=== PATIENT | male | born 1955 | race Caucasian/White ===

== ENCOUNTER 2017-01-21 22:32 | Emergency (ER) | payer OTHER ==
[2017-01-21 22:46] VITALS: BP 193/93; PULSE 70; TEMP 97.9; BMI 42.5
[2017-01-21] MEDS ORDERED: KETOROLAC TROMETHAMINE 30 MG/1 ML VIAL IVPUSH ONE (23:22)
[2017-01-21] MEDS ORDERED: AMOXICILLIN 500 MG CAPSULE (FP) PO ONE (23:24)
[2017-01-21] MEDS ORDERED: AMOXICILLIN 500 MG CAPSULE (FP) ONE (23:29)
[2017-01-21] MEDS ORDERED: KETOROLAC TROMETHAMINE 30 MG/1 ML VIAL ONE (23:29)
--- NOTE | 2017-01-21 23:34 | PDOC ---
History of Present Illness - General History Source: Patient Exam Limitations: No Limitations - History of Present Illness Initial Comments: 01/21/17 23:57 The patient is a 61 year old male with h/o IDDM, HTN, necrotizing fasciitis (s/ p right orchiectomy), peripheral neuropathy, and sinusitis, who presents to ER with left-sided facial pain that began one hour prior to arrival. The patient was sleeping and woke up suddenly when he developed a sharp pressure/sharp-like pain in the left maxillofacial region. Pt reports nasal congestion and associated shortness of breath. The patient denies any fever, chills, nausea, vomiting, diarrhea, or abdominal pain. The patient denies any chest pain. <Keisha Chatman - Last Filed: 01/21/17 23:57> - General History Source: Patient, Old Records Exam Limitations: No Limitations <Lonnie Batres - Last Filed: 01/22/17 02:06> - General Chief Complaint: Pain Stated Complaint: SHORTNESS OF BREATH Time Seen by Provider: 01/21/17 23:01 Past History <Keisha Chatman - Last Filed: 01/21/17 23:57> - Past Medical History Anemia: No Asthma: No Cancer: No Cardiac Disorders: No CVA: No COPD: No CHF: No Dementia: No Diabetes: Yes (2004) GI Disorders: No Disorders: No HTN: Yes Hypercholesterolemia: No Liver Disease: Yes (HEP C) Suicide Attempt (Hx): No Seizures: No Thyroid Disease: Yes Other medical history: Shingles - Surgical History Abdominal Surgery: No Appendectomy: No Cardiac Surgery: No Cholecystectomy: No Lung Surgery: No Neurologic Surgery: No Orthopedic Surgery: Yes (RIGHT KNEE ARTHROSCOPY, LEFT SHOULDER REPAIR 1974) - Psycho/Social/Smoking Cessation Hx Anxiety: No Suicidal Ideation: No Smoking History: Never smoked Have you smoked in the past 12 months: No Information on smoking cessation initiated: No Hx Alcohol Use: No Drug/Substance Use Hx: No Substance Use Type: Heroin Hx Substance Use Treatment: No <Lonnie Batres - Last Filed: 01/22/17 02:06> - Past Medical History Allergies/Adverse Reactions: Allergies Allergy/AdvReac Type Severity Reaction Status Date / Time Sulfa (Sulfonamide Allergy Intermediate Rash Verified 01/21/17 22:46 Antibiotics) Home Medications: Ambulatory Orders Methadone [Dolophine -] 120 mg PO DAILY #7 tablet 08/06/14 Dapagliflozin Propanediol [Farxiga] 1 tab PO DAILY 09/15/15 Gabapentin [Neurontin -] 300 mg PO Q8H PRN 09/15/15 Insulin Lispro [Humalog Kwikpen U-100] 1 unit SQ DAILY 09/15/15 Levothyroxine [Synthroid -] 1 tab PO DAILY 09/15/15 Oxycodone HCl/Acetaminophen [Percocet 10-325 mg Tablet] 1 tab PO Q4H PRN Pantoprazole Sodium [Protonix] 40 mg PO DAILY 09/15/15 Valsartan/Hydrochlorothiazide [Diovan Hct 320-12.5 mg Tab] 1 tab PO HS 09/15/15 Tramadol HCl 50 mg PO Q6H PRN #20 tablet MDD 4 01/22/17 Review of Systems - Review of Systems Able to Perform ROS?: Yes Comments:: 01/21/17 23:57 GENERAL/CONSTITUTIONAL: No fever or chills. No weakness. HEAD, EYES, EARS, NOSE AND THROAT: No change in vision. No ear pain or discharge. No sore throat. (+)left-sided facial pain, sinus pressure. CARDIOVASCULAR: No chest pain. (+)shortness of breath RESPIRATORY: No cough, wheezing, or hemoptysis. GASTROINTESTINAL: No nausea, vomiting, diarrhea or constipation. GENITOURINARY: No dysuria, frequency, or change in urination. MUSCULOSKELETAL: No joint or muscle swelling or pain. No neck or back pain. SKIN: No rash NEUROLOGIC: No headache, vertigo, loss of consciousness, or change in strength/ sensation. ENDOCRINE: No increased thirst. No abnormal weight change. HEMATOLOGIC/LYMPHATIC: No anemia, easy bleeding, or history of blood clots. ALLERGIC/IMMUNOLOGIC: No hives or skin allergy. <Keisha Chatman - Last Filed: 01/21/17 23:57> *Physical Exam - Vital Signs Last Vital Signs Temp Pulse Resp BP Pulse Ox 97.9 F 70 20 193/93 98 01/21/17 22:43 01/21/17 22:43 01/21/17 22:43 01/21/17 22:43 01/21/17 22:43 - Physical Exam Comments: 01/21/17 23:59 GENERAL: Awake, alert, and fully oriented, in no acute distress HEAD: No signs of trauma EYES: PERRLA, EOMI, sclera anicteric, conjunctiva clear ENT: Auricles normal inspection, hearing grossly normal, nares patent, oropharynx clear without exudates. Moist mucosa NECK: Normal ROM, supple, no lymphadenopathy, JVD, or masses LUNGS: Breath sounds equal, clear to auscultation bilaterally. No wheezes, and no crackles HEART: Regular rate and rhythm, normal S1 and S2, no murmurs, rubs or gallops ABDOMEN: Soft, nontender, normoactive bowel sounds. No guarding, no rebound. No masses EXTREMITIES: Normal range of motion, no edema. No clubbing or cyanosis. No cords, erythema, or tenderness NEUROLOGICAL: Cranial nerves II through XII grossly intact. Normal speech, normal gait SKIN: Warm, Dry, normal turgor, no rashes or lesions noted <Keisha Chatman - Last Filed: 01/21/17 23:57> - Vital Signs Last Vital Signs Temp Pulse Resp BP Pulse Ox 97.9 F 70 20 193/93 98 01/21/17 22:43 01/21/17 22:43 01/21/17 22:43 01/21/17 22:43 01/21/17 22:43 <Lonnie Batres - Last Filed: 01/22/17 02:06> Heart Score/ECG Review #1 ECG reviewed & interpreted by me at: 00:45 01/22/17 00:58 NSR 71, Q wave III, avf, no STD/SARAH, QTC 445 msec. <Lonnie Batres - Last Filed: 01/22/17 02:06> ED Treatment Course - LABORATORY CBC & Chemistry Diagram: 01/21/17 23:40 01/21/17 23:40 - RADIOLOGY Radiology Studies Ordered: Category Date Time Status FACIAL BONES CT W/O CONTRAST [CT] Stat CT Scan 01/21/17 23:25 Ordered CHEST X-RAY PORTABLE* [RAD] Stat Radiology 01/21/17 23:25 Ordered <Lonnie Batres - Last Filed: 01/22/17 02:06> Medical Decision Making - Medical Decision Making 01/21/17 23:39 A portion of this note was documented by scribe services under my direction. I have reviewed the details of the note, within reason, and agree with the documentation with the following case summary and management plan written by me. Patient treated in the ED. Nursing notes are reviewed and incorporated into the medical decision-making. Vital signs reviewed. Peripheral IV access obtained by the nurse, laboratory studies are drawn and sent, reviewed and interpreted by myself. Vital Signs Temp Pulse Resp BP Pulse Ox 97.9 F 70 20 193/93 98 01/21/17 22:43 01/21/17 22:43 01/21/17 22:43 01/21/17 22:43 01/21/17 22:43 61-year-old male with history of hypertension, diabetes, peripheral neuropathy, poorly controlled on insulin pump, ?lung disease?, Prior history of sinusitis presents with sudden onset of left facial pain. Patient reports that he was in his usual state of health until approximately one hour prior to arrival, developed a sharp pressure and sharp-like pain in the left maxillofacial facial region. Reports some nasal congestion but denies fevers or chills. Denies sick contacts, fevers, chills. Reports her sugars are typically in the high 200s. He states that the pain is causing him to be short of breath but denies that he is having chest pain or shortness of breath separate from this. I have low suspicion for acute coronary syndrome or pulmonary pathology at this time. I suspect that he is complaining of short of breath because of the pain in his face. However, though the onset of time is very short and may potentially be viral sinusitis, the patient does have poorly controlled diabetes and is on an insulin pump. We'll obtain a facial CT to look for other underlying complications. We'll likely initiate antibiotics given poor diabetes control. We'll send labs, EKG, chest x-ray. Reassess. 01/22/17 01:58 CT scan reviewed. No evidence of sinusitis. CBC, BMP 01/21/17 23:40 01/21/17 23:40 CMP Sodium 140 mmol/L (136-145) 01/21/17 23:40 Potassium 4.3 mmol/L (3.5-5.1) 01/21/17 23:40 Chloride 99 mmol/L (98-107) 01/21/17 23:40 Carbon Dioxide 30 mmol/L (21-32) 01/21/17 23:40 Anion Gap 11 (8-16) 01/21/17 23:40 BUN 30 mg/dL (7-18) H D 01/21/17 23:40 Creatinine 1.1 mg/dL (0.7-1.3) 01/21/17 23:40 Creat Clearance w eGFR > 60 (>60) 01/21/17 23:40 Random Glucose 268 mg/dL (74-106) H D 01/21/17 23:40 Calcium 8.4 mg/dL (8.5-10.1) L 01/21/17 23:40 Total Bilirubin 0.4 mg/dL (0.2-1.0) D 01/21/17 23:40 AST 27 U/L (15-37) D 01/21/17 23:40 ALT 26 U/L (12-78) D 01/21/17 23:40 Alkaline Phosphatase 83 U/L (45-117) 01/21/17 23:40 Creatine Kinase 215 IU/L (39-308) 01/21/17 23:40 Creatine Kinase Index Y 01/21/17 23:40 CK-MB (CK-2) ng/ml (0.5-3.6) 01/21/17 23:40 CK-MB (CK-2) Rel Index Cancelled 01/21/17 23:40 Troponin I 0.02 ng/ml (0.00-0.05) 01/21/17 23:40 Total Protein 6.1 g/dl (6.4-8.2) L 01/21/17 23:40 Albumin 3.0 g/dl (3.4-5.0) L 01/21/17 23:40 Chest xray reviewed, pending official radiology read. No acute findings. The patient reports feeling somewhat better. Given the CT results and no evidence of sinusitis and no elevated WBC, I had opted against antibiotics at this time. Will hold off as this is not sinusitis. Again, I have very low suspicion for cardiac or pulmonary disease process at this time. Give the patient's pain is at this point. The patient does take methadone on a daily basis and declines any narcotics at this time. I advised patient to observe and see how he does in the next couple of days. Will give a small prescription for tramadol and have the patient follow up with his PMD. I discussed the physical exam findings, ancillary test results and final diagnoses with the patient. I answered all of the patient's questions. The patient was satisfied with the care received and felt comfortable with the discharge plan and treatment plan. The patient will call their primary care physician within 24 hours to arrange follow-up and will return to the Emergency Department with any new, persistant or worsening symptoms. <Lonnie Batres - Last Filed: 01/22/17 02:06> *DC/Admit/Observation/Transfer - Attestations Scribe Attestion: 01/22/17 00:00 Documentation prepared by Keisha Chatman, acting as medical economics consultant for Lonnie Batres MD. <Keisha Chatman - Last Filed: 01/21/17 23:57> - Discharge Dispostion Admit: No <Lonnie Batres - Last Filed: 01/22/17 02:06> Diagnosis at time of Disposition: Facial pain - Discharge Dispostion Disposition: HOME Condition at time of disposition: Stable - Prescriptions Prescriptions: Tramadol HCl 50 mg PO Q6H PRN #20 tablet MDD 4 PRN Reason: Pain - Referrals Referrals: Vimal Bradley [Primary Care Provider] - - Patient Instructions Additional Instructions: Your CT scan of your face demonstrates no findings. Please take the tramadol every 6 hours as needed for pain. Follow up with your doctor. If you have excruciating pain or uncontrollable pain, please return to the ER for further evaluation.
[2017-01-22 00:25] LABS: BASOPHIL 0.9 % (0-2.0); EOSINOPHIL 4.3 % (0-4.5); MCH 26.6 pg (25.7-33.7); MCHC 32.9 g/dl (32.0-35.9); MEAN CELL VOLUME 80.8 fl (80-96); MEAN PLT VOLUME 9.7 fl (7.5-11.1); NEUTROPHILS 75.9 % (42.8-82.8); PLATELET COUNT 178 K/MM3 (134-434); RDW 16.5 % (11.9-15.9); WHITE BLOOD COUNT 8.1 K/mm3 (4.0-10.0)
[2017-01-22] MEDS ORDERED: PSEUDOEPHEDRINE HCL 60 MG TABLET PO ONE (00:32)
[2017-01-22] MEDS ORDERED: PSEUDOEPHEDRINE HCL 60 MG TABLET ONE (00:53)
[2017-01-22 01:02] LABS: ALK PHOS 83 U/L (45-117); ANION GAP 11 (8-16); BILIRUBIN,TOTAL 0.4 mg/dL (0.2-1.0); CALCIUM 8.4 mg/dL (8.5-10.1); CO2 30 mmol/L (21-32); CREATININE 1.1 mg/dL (0.7-1.3); GLUCOSE,RANDOM 268 mg/dL (74-106); SGOT/AST 27 U/L (15-37); SGPT/ALT 26 U/L (12-78); TOT PROT 6.1 g/dl (6.4-8.2); TROPONIN I 0.02 ng/ml (0.00-0.05)
[2017-01-22] MEDS ORDERED: traMADol HCL 50 MG TABLET PO ONE (01:57)
[2017-01-22] MEDS ORDERED: traMADol HCL 50 MG TABLET ONE (02:11)
--- NOTE | 2017-01-23 21:40 | EKG ---
Test Reason : Blood Pressure : / mmHG Vent. Rate : 071 BPM Atrial Rate : 071 BPM P-R Int : 158 ms QRS Dur : 082 ms QT Int : 410 ms P-R-T Axes : 060 011 019 degrees QTc Int : 445 ms NORMAL SINUS RHYTHM INFERIOR INFARCT (CITED ON OR BEFORE 04-AUG-2014) ABNORMAL ECG WHEN COMPARED WITH ECG OF 04-AUG-2014 17:44, T WAVE VARIATION IS NO LONGER PRESENT Confirmed by JUDAH TAYLOR, CARMELLA ([id number]) on 01/23/2017 9:39:41 PM Referred By: Confirmed By:CARMELLA SO MD
== END 2017-01-22 02:20 | disposition home or self-care (01) ==
LOC: JER 22:32
DX: G50.1 Atypical facial pain (principal); I10 Essential (primary) hypertension; E11.9 Type 2 diabetes mellitus without complications; Z79.4 Long term (current) use of insulin; Z96.41 Presence of insulin pump (external) (internal); B18.2 Chronic viral hepatitis C
CPT/HCPCS: 36415; 70486-TC; 71010-TC; 80053; 82550; 82553; 84484; 85025; 93005; 93010; 99281-25

== ENCOUNTER 2017-04-02 09:24 | Emergency (ER) | payer OTHER ==
[2017-04-02 09:31] VITALS: BP 149/94; PULSE 70; TEMP 98; BMI 42.5
[2017-04-02] MEDS ORDERED: KETOROLAC TROMETHAMINE 60 MG/2 ML VIAL IM ONE (09:59)
[2017-04-02] MEDS ORDERED: KETOROLAC TROMETHAMINE 60 MG/2 ML VIAL ONE (10:05)
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
== END 2017-04-02 10:19 | disposition home or self-care (01) ==
LOC: JERFT 09:24 → SUPCPDRO 09:24 → JERFT 10:19
PROC: 3E0233Z Introduction of Anti-inflammatory into Muscle, Percutaneous Approach (ICD-10-PCS; principal; 2017-04-02)
DX: S80.811A Abrasion, right lower leg, initial encounter (principal); S80.211A Abrasion, right knee, initial encounter; W17.82XA Fall from (out of) grocery cart, initial encounter; Y93.89 Activity, other specified; Y92.512 Supermarket, store or market as the place of occurrence of the external cause; Y99.8 Other external cause status; I10 Essential (primary) hypertension; E11.9 Type 2 diabetes mellitus without complications; Z79.84 Long term (current) use of oral hypoglycemic drugs; E03.9 Hypothyroidism, unspecified; B18.2 Chronic viral hepatitis C
CPT/HCPCS: 99281-25

== ENCOUNTER 2018-02-19 13:27 | Emergency (ER) | payer OTHER ==
[2018-02-19 13:44] VITALS: BMI 43.3
[2018-02-19] MEDS ORDERED: SODIUM CHLORIDE 0.9% 1000 ML INFUS.BAG IV STA (13:52)
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
[2018-02-19] MEDS ORDERED: VANCOMYCIN 2,000 MG in DEXTROSE 5%-WATER - 250 ML IVPB ONE (13:57)
[2018-02-19] MEDS ORDERED: PIPERACILLIN/TAZOB 4.5 GM/100 ML PREMIX BAG IVPB ONE (13:57)
[2018-02-19] MEDS ORDERED: CLINDAMYCIN 600MG PREMIX IVPB 600 MG/50 ML BAG IVPB ONE (14:23)
[2018-02-19] MEDS ORDERED: CLINDAMYCIN 900 MG PREMIX IVPB 900 MG/50 ML BAG IVPB ONE ×2 (14:27→14:29)
[2018-02-19] MEDS ORDERED: PIPERACILLIN/TAZOB 4.5 GM 4.5 GM/100 ML BAG IVPB ONE (14:29)
[2018-02-19] MEDS ORDERED: VANCOMYCIN 2,000 MG in DEXTROSE 5%-WATER - 500 ML IVPB ONE (14:42)
[2018-02-19] MEDS ORDERED: ACETAMINOPHEN 1000 MG/100 ML VIAL (NON FORMULARY) IVPB ONE (15:09)
[2018-02-19] MEDS ORDERED: ACETAMINOPHEN INJECTION 100 ML IVPB ONE (15:13)
[2018-02-19 15:17] LABS: VENOUS PH 7.4 (7.32-7.42)
[2018-02-19 15:18] LABS: VENOUS PC02 54.3 mmHg (38-52); VENOUS PO2 19.5 mmHg (28-48)
[2018-02-19 15:24] LABS: HEMATOCRIT 25.8 % (35.4-49); HEMOGLOBIN 8.2 GM/dL (11.7-16.9); MCH 23.5 pg (25.7-33.7); MCHC 31.8 g/dl (32.0-35.9); MEAN CELL VOLUME 73.9 fl (80-96); MEAN PLT VOLUME 8.9 fl (7.5-11.1); PLATELET COUNT 380 K/MM3 (134-434); RBC 3.49 M/mm3 (4.00-5.60); RDW 18.8 % (11.9-15.9); WHITE BLOOD COUNT 20.4 K/mm3 (4.0-10.0)
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
[2018-02-19 15:40] LABS: INR 1.36 (0.82-1.09); PROTHROMBIN TIME (PATIENT) 15.4 SEC (9.98-11.88)
[2018-02-19] MEDS ORDERED: morphine CARPU-JECT 4 MG/1 ML DISP.SYRIN IVPUSH ONE ×2 (15:40→17:38)
[2018-02-19 15:43] LABS: ACTIVATED PTT 30.3 SECONDS (26.9-34.4)
[2018-02-19] MEDS ORDERED: VANCOMYCIN 1,000 MG in DEXTROSE 5%-WATER - 250 ML IVPB SCH (15:45)
[2018-02-19 15:51] LABS: ALBUMIN 2.1 g/dl (3.4-5.0); ANION GAP 7 (8-16); BILIRUBIN,TOTAL 0.2 mg/dL (0.2-1.0); BLOOD UREA NITROGEN 55 mg/dL (7-18); CALCIUM 8.3 mg/dL (8.5-10.1); CHLORIDE 96 mmol/L (98-107); CO2 30 mmol/L (21-32); CREATININE 1.8 mg/dL (0.7-1.3); GLUCOSE,RANDOM 65 mg/dL (74-106); SGPT/ALT 24 U/L (12-78); SODIUM 133 mmol/L (136-145); TOT PROT 6.8 g/dl (6.4-8.2)
[2018-02-19 15:54] LABS: ALK PHOS 202 U/L (45-117)
[2018-02-19 15:56] LABS: POTASSIUM 5.1 mmol/L (3.5-5.1)
[2018-02-19 15:57] LABS: SGOT/AST 31 U/L (15-37)
[2018-02-19] MEDS ORDERED: DEXTROSE 50%-WATER - 25 GM/50 ML VIAL IVPUSH ONE (16:01)
[2018-02-19 16:04] LABS: PLATELET ESTIMATE SLT INCREASE
[2018-02-19] MEDS ORDERED: DEXTROSE 50%-WATER 25 GM/50 ML DISP.SYRIN ONE (16:05)
[2018-02-19 16:19] LABS: URINE APPEARANCE CLOUDY; URINE BILIRUBIN NEGATIVE (<2.0 mg/dL); URINE BLOOD NEGATIVE (NEGATIVE); URINE COLOR YELLOW; URINE GLUCOSE (UA) 1+ (NEGATIVE); URINE KETONE NEGATIVE (NEGATIVE); URINE LEUK ESTERASE TRACE (NEGATIVE); URINE NITRITE NEGATIVE (NEGATIVE); URINE UROBILINOGEN NEGATIVE mg/dL (0.2-1.0)
[2018-02-19] MEDS ORDERED: morphine SULFATE 4 MG/ML VIAL ONE (16:32)
[2018-02-19 16:36] LABS: URINE PROTEIN 3+ (NEGATIVE)
[2018-02-19 16:37] LABS: EPI CELLS RARE /HPF (FEW); URINE BACTERIA RARE /hpf (NONE SEEN); URINE HYALINE CAST 4 /lpf; URINE MUCUS RARE; YEAST FEW
[2018-02-19] MEDS ORDERED: NYSTATIN POWDER 100,000 UNITS/GM - 15 GM TOPICAL POWDER TP ONE (17:00)
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
[2018-02-19] MEDS ORDERED: MORPHINE SULFATE 10 MG/1 ML *VIAL ONE (17:41)
[2018-02-19 17:45] VITALS: BP 114/54
[2018-02-19] MEDS ORDERED: CLINDAMYCIN 900 MG PREMIX IVPB 900 MG/50 ML BAG IVPB SCH (18:00)
[2018-02-19] MEDS ORDERED: PIPERACILLIN/TAZOB 4.5 GM 4.5 GM in DEXTROSE 5%-WATER - 100 ML IVPB SCH (18:00)
[2018-02-19 19:08] VITALS: PULSE 82; TEMP 98.1
--- NOTE | 2018-02-20 11:37 | EKG ---
Test Reason : Blood Pressure : / mmHG Vent. Rate : 084 BPM Atrial Rate : 084 BPM P-R Int : 118 ms QRS Dur : 082 ms QT Int : 364 ms P-R-T Axes : 032 024 032 degrees QTc Int : 430 ms NORMAL SINUS RHYTHM NORMAL ECG WHEN COMPARED WITH ECG OF 22-JAN-2017 00:43, NO SIGNIFICANT CHANGE WAS FOUND Confirmed by JANE WHITE MD ([id number]) on 02/20/2018 11:37:29 AM Referred By: Confirmed By:JANE WHITE MD
== END 2018-02-19 19:12 | disposition short-term general hospital (02) ==
LOC: JER 13:27
DX: E11.621 Type 2 diabetes mellitus with foot ulcer (principal); L97.509 Non-pressure chronic ulcer of other part of unspecified foot with unspecified severity; Z79.4 Long term (current) use of insulin; B35.6 Tinea cruris
CPT/HCPCS: 36415; 70450-TC; 71045-TC-FY; 73610-TC-RT-FY; 73630-TC-RT-FY; 73700-TC-RT; 74176-TC; 80053; 81003; 81015; 82009; 82803; 82962; 83605; 84484; 85025; 85610; 85730; 86850; 86900; 86901; 87040; 87045; 87046; 87086; 93005; 93010; 99284-25; J0131; J7030

== ENCOUNTER 2018-09-28 10:07 | Observation (INO) | payer OTHER ==
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
--- NOTE | 2018-09-28 11:39 | PDOC ---
History of Present Illness <Keisha Chatman - Last Filed: 09/28/18 11:56> - General History Source: Patient Exam Limitations: No Limitations - History of Present Illness Initial Comments: 09/28/18 11:32 Patient is 63M with history of IDDM (on pump), HTN, IVDA, HCV, nec fas, s/p R leg amputation here today complaining of low calcium in an outpatient lab done at [facility]. Patient says that he has some shortness of breath, but no real change from his baseline. Denies chest pain, fevers, chills, nausea, vomiting. Endorses some increased swelling in his leg. Endorses compliance with his medications. Patient states that he's only coming in to the ED because of repeated calls about the low calcium levels and the fact that his PCP is not practicing medicine at this time. <Houston Rodrigues - Last Filed: 09/28/18 15:33> - General Chief Complaint: Revisit, Lab Variance Stated Complaint: SOB, LAB VARIANCE Time Seen by Provider: 09/28/18 10:35 Past History <Keisha Chatman - Last Filed: 09/28/18 11:56> - Past Medical History Anemia: No Asthma: No Cancer: No Cardiac Disorders: No CVA: No COPD: No CHF: No Dementia: No Diabetes: Yes (2004) GI Disorders: No Disorders: No HTN: Yes Hypercholesterolemia: No Liver Disease: No Seizures: No Thyroid Disease: Yes (HYPO.) - Surgical History Abdominal Surgery: No Appendectomy: No Cardiac Surgery: No Cholecystectomy: No Lung Surgery: No Neurologic Surgery: No Orthopedic Surgery: Yes (RIGHT KNEE ARTHROSCOPY, LEFT SHOULDER REPAIR 1974) - Suicide/Smoking/Psychosocial Hx Smoking History: Never smoked Have you smoked in the past 12 months: No Information on smoking cessation initiated: No Hx Alcohol Use: No Drug/Substance Use Hx: No Substance Use Type: None Hx Substance Use Treatment: No <Houston Rodrigues - Last Filed: 09/28/18 15:33> - Past Medical History Allergies/Adverse Reactions: Allergies Allergy/AdvReac Type Severity Reaction Status Date / Time Sulfa (Sulfonamide Allergy Intermediate Rash Verified 09/28/18 10:16 Antibiotics) Home Medications: Ambulatory Orders Methadone [Dolophine -] 120 mg PO DAILY #7 tablet 08/06/14 Pantoprazole Sodium [Protonix] 40 mg PO DAILY 09/15/15 Amlodipine Besylate 10 mg PO DAILY 09/28/18 Aspirin 81 mg PO DAILY 09/28/18 Atorvastatin Ca [Lipitor] 20 mg PO HS 09/28/18 Azilsartan Medoxomil [Edarbi] 80 mg PO DAILY 09/28/18 Furosemide 20 mg PO DAILY 09/28/18 Furosemide [Lasix -] 40 mg PO DAILY #30 tablet 09/28/18 Gabapentin 300 mg PO DAILY 09/28/18 Review of Systems - Review of Systems Comments:: 09/28/18 11:35 GENERAL/CONSTITUTIONAL: No fever or chills. No weakness. HEAD, EYES, EARS, NOSE AND THROAT: No change in vision. No sore throat. CARDIOVASCULAR: No chest pain +shortness of breath RESPIRATORY: No cough, wheezing, or hemoptysis. GASTROINTESTINAL: No nausea, vomiting, diarrhea or constipation. GENITOURINARY: No dysuria, frequency, or change in urination. MUSCULOSKELETAL: No joint or muscle swelling or pain. No neck or back pain. SKIN: No rash NEUROLOGIC: No headache, vertigo, loss of consciousness, or change in strength/ sensation. ENDOCRINE: No increased thirst. No abnormal weight change HEMATOLOGIC/LYMPHATIC: No anemia, easy bleeding, or history of blood clots. ALLERGIC/IMMUNOLOGIC: No hives or skin allergy. <Houston Rodrigues - Last Filed: 09/28/18 15:33> *Physical Exam - Vital Signs Last Vital Signs Temp Pulse Resp BP Pulse Ox 98 F 83 19 145/70 93 L 09/28/18 10:13 09/28/18 10:13 09/28/18 10:13 09/28/18 10:13 09/28/18 10:13 <Keisha Chatman - Last Filed: 09/28/18 11:56> - Vital Signs Last Vital Signs Temp Pulse Resp BP Pulse Ox 98 F 83 19 145/70 93 L 09/28/18 10:13 09/28/18 10:13 09/28/18 10:13 09/28/18 10:13 09/28/18 10:13 - Physical Exam Comments: 09/28/18 11:37 GENERAL: Awake, alert, and fully oriented, in no acute distress HEAD: No signs of trauma, normocephalic, atraumatic EYES: PERRLA, EOMI, sclera anicteric, conjunctiva clear ENT: Auricles normal inspection, hearing grossly normal, nares patent, oropharynx clear without exudates. Moist mucosa NECK: Normal ROM, supple, no lymphadenopathy, JVD, or masses LUNGS: No distress, speaks full sentences, clear to auscultation bilaterally HEART: Regular rate and rhythm, normal S1 and S2, no murmurs, rubs or gallops, peripheral pulses normal and equal bilaterally. ABDOMEN: Soft, nontender, normoactive bowel sounds. No guarding, no rebound. No masses EXTREMITIES: +R leg amputation, Normal range of motion, 2+ edema in left leg. No clubbing or cyanosis. NEUROLOGICAL: Cranial nerves II through XII grossly intact. Normal speech, no focal sensorimotor deficits SKIN: Warm, Dry, normal turgor, no rashes or lesions noted. <Houston Rodrigues - Last Filed: 09/28/18 15:33> ED Treatment Course - LABORATORY CBC & Chemistry Diagram: 09/28/18 11:50 09/28/18 11:50 - RADIOLOGY Radiology Studies Ordered: Category Date Time Status CHEST X-RAY PORTABLE* [RAD] Stat Radiology 09/28/18 10:46 Completed <Houston Rodrigues - Last Filed: 09/28/18 15:33> Medical Decision Making - Medical Decision Making 09/28/18 11:37 Patient is 62M with history of IDDM, HTN, IVDA, HCV, Nec fasc, R leg amputation here today with low calcium, symptoms of heart failure without acute exacerbation. Vitals normal and stable. Will recheck labs, setup with new PCP. EKG shows normal sinus rhythm. QTc 489ms. No st elevations/depressions. Normal axis. Normal intervals. No significant t wave abnormalities. 09/28/18 15:31 CMP shows GLORY. CXR shows fluid overload. BNP elevated. Patient requires admission for CHF exacerbation as he requires tight fluid management not possible in an outpatient setting. Signed out to medical team. Signed out to Lauren Weston <Houston Rodrigues - Last Filed: 09/28/18 15:33> *DC/Admit/Observation/Transfer <Keisha Chatman - Last Filed: 09/28/18 11:56> - Discharge Dispostion Decision to Admit order: Yes <Houston Rodrigues - Last Filed: 09/28/18 15:33> Diagnosis at time of Disposition: CHF exacerbation - Discharge Dispostion Condition at time of disposition: Stable - Prescriptions Prescriptions: Furosemide [Lasix -] 40 mg PO DAILY #30 tablet - Referrals Referrals: [facility] [place] [facility] at [place] [Provider Group]
[2018-09-28 12:09] LABS: BASO % 1.2 % (0-2.0); EOS % 4.1 % (0-4.5); HEMATOCRIT 28.9 % (35.4-49); HEMOGLOBIN 9.4 GM/dL (11.7-16.9); LYMPH % 7.4 % (8-40); MCH 26.8 pg (25.7-33.7); MCHC 32.6 g/dl (32.0-35.9); MEAN CELL VOLUME 82.1 fl (80-96); MEAN PLT VOLUME 9.6 fl (7.5-11.1); NEUT % 78.3 % (42.8-82.8); PLATELET COUNT 310 K/MM3 (134-434); RBC 3.53 M/mm3 (4.00-5.60); RDW 16.6 % (11.9-15.9); WHITE BLOOD COUNT 8.9 K/mm3 (4.0-10.0)
[2018-09-28 12:31] LABS: INR 1.1 (0.83-1.09)
[2018-09-28] MEDS ORDERED: FUROSEMIDE 40 MG TABLET (FP) PO ONE (12:32)
[2018-09-28 12:33] LABS: ALBUMIN 2.9 g/dl (3.4-5.0); ALK PHOS 98 U/L (45-117); ANION GAP 9 MMOL/L (8-16); BILIRUBIN,TOTAL 0.2 mg/dL (0.2-1); BLOOD UREA NITROGEN 57 mg/dL (7-18); CHLORIDE 103 mmol/L (98-107); CO2 26 mmol/L (21-32); CREATININE 2.3 mg/dL (0.55-1.3); MAGNESIUM 1.9 mg/dL (1.8-2.4); N-TERMINAL BNP 2217.5 pg/ml (5-125); PHOSPHOROUS 5.1 mg/dL (2.5-4.9); POTASSIUM 4.7 mmol/L (3.5-5.1); SGOT/AST 12 U/L (15-37); SGPT/ALT 16 U/L (13-61); SODIUM 138 mmol/L (136-145); TOT PROT 6.4 g/dl (6.4-8.2)
[2018-09-28 12:35] LABS: GLUCOSE,RANDOM 338 mg/dL (74-106)
[2018-09-28] MEDS ORDERED: FUROSEMIDE 40 MG TABLET (FP) ONE (12:35)
[2018-09-28 12:36] LABS: CALCIUM 6.3 mg/dL (8.5-10.1)
[2018-09-28] MEDS ORDERED: CALCIUM GLUCONATE 10% - 1,000 MG/10 ML VIAL ONE (14:32)
[2018-09-28] MEDS: CALCIUM GLUCONATE 10% - 1,000 MG/10 ML VIAL IVPB ONE ×2 (14:33→18:56)
--- NOTE | 2018-09-28 14:34 | HP ---
CHIEF COMPLAINT: increasing SOB, leg swelling PCP: Dr. Vimal Bradley Dolphin Trainer: Dr. Bagley HISTORY OF PRESENT ILLNESS: 63 year old male with a PMH significant for IDDM (dx 1990, +Humalog pump), CHF, HTN, HLD, Necrotizing fasciitis (s/p right orchiectomy), Opiod Dependence, Morbid obesity was sent to the ED by his lab pack chemist when she noticed his calcium levels were severely low. He has also been having increasing SOB and leg swelling over the past week. Over the past month he has had intermittent chest pain, palpitations, REYES, and orthopnea. He reports a 30 lb weight gain over the past 2 months. His sleep is interrupted by having multiple episodes of having to urinate at night. He says he is always in pain from left shoulder and groin area. No dizziness, syncope, fever, congestion or n/v/d. Upon admission to the ed VSS, labs notable for Ca 6.3, random glucose 338, BUN/ Cr 57/2.3, BNP 2217 Cr Kinase 552. CXR showed increased congestion from prior study. He was given a dose of Lasix 40 mg IV. Recent Travel: No PAST MEDICAL HISTORY: h/o IDDM (dx 1990, +Humalog pump) CHF Exacerbation HTN HLD Necrotizing fasciitis (s/p right orchiectomy) Opiod Dependence Morbid obesity PAST SURGICAL HISTORY: Right Orichiectomy Right BKA Left shoulder Right meniscus repair Cataracts b/l Tonsillectomy Social History: Formerly on the [email or web address] Smoking: Denies Alcohol:Denies Drugs: Former heroin 40 years ago Family History: Mother: from Enbrel medication age 72 Father: Lung cancer, age 77 Sisters: pre-diabetic Allergies Sulfa (Sulfonamide Antibiotics) Allergy (Intermediate, Verified 09/28/18 10:16) Rash HOME MEDICATIONS: Home Medications Medication Instructions Recorded Methadone [Dolophine -] 120 mg PO DAILY #7 tablet 08/06/14 Pantoprazole Sodium [Protonix] 40 mg PO DAILY 09/15/15 Amlodipine Besylate 10 mg PO DAILY 09/28/18 Aspirin 81 mg PO DAILY 09/28/18 Atorvastatin Ca [Lipitor] 20 mg PO HS 09/28/18 Azilsartan Medoxomil [Edarbi] 80 mg PO DAILY 09/28/18 Furosemide 20 mg PO DAILY 09/28/18 Furosemide [Lasix -] 40 mg PO DAILY #30 tablet 09/28/18 Gabapentin 300 mg PO DAILY 09/28/18 REVIEW OF SYSTEMS CONSTITUTIONAL: (+) weight gain of about 30 lbs in the past 2 months Absent: fever, chills, diaphoresis, generalized weakness, malaise, loss of appetite HEENT: (+) Worsening night vision Absent: rhinorrhea, nasal congestion, throat pain, throat swelling, difficulty swallowing, mouth swelling, ear pain, eye pain CARDIOVASCULAR: (+) Intermittent chest pain and palpitations over the past month , peripheral edema Absent: chest pain, syncope, irregular heart rate, lightheadedness RESPIRATORY: (+) shortness of breath, REYES, orthopnea Absent: cough, wheezing, stridor, hemoptysis GASTROINTESTINAL: Absent: abdominal pain, abdominal distension, nausea, vomiting, diarrhea, constipation, melena, hematochezia GENITOURINARY: (+) Urinary frequency, genital pain (chronic) Absent: dysuria, urgency, hesitancy, hematuria, flank pain MUSCULOSKELETAL: Absent: myalgia, arthralgia, joint swelling, back pain, neck pain SKIN: (+) chronic generalized rash, wound to left foot healing Absent: itching, pallor HEMATOLOGIC/IMMUNOLOGIC: Absent: easy bleeding, easy bruising, lymphadenopathy, frequent infections ENDOCRINE: Absent: unexplained weight gain, unexplained weight loss, heat intolerance, cold intolerance NEUROLOGIC: Absent: headache, focal weakness or paresthesias, dizziness, unsteady gait, seizure, mental status changes, bladder or bowel incontinence PSYCHIATRIC: Absent: anxiety, depression, suicidal or homicidal ideation, hallucinations. PHYSICAL EXAMINATION Vital Signs - 24 hr 09/28/18 10:13 Temperature 98 F Pulse Rate 83 Respiratory 19 Rate Blood Pressure 145/70 O2 Sat by Pulse 93 L Oximetry (%) GENERAL: Awake, alert, and fully oriented, in no acute distress. HEAD: Normal with no signs of trauma. EYES: Pupils equal, round and reactive to light, extraocular movements intact, sclera anicteric, conjunctiva clear. No lid lag. EARS, NOSE, THROAT: Nares patent, oropharynx clear without exudates. Moist mucous membranes. NECK: Normal range of motion, supple without lymphadenopathy, JVD, or masses. LUNGS: Breath sounds equal, clear to auscultation bilaterally. No wheezes, and no crackles. No accessory muscle use. HEART: Regular rate and rhythm, normal S1 and S2 without murmur, rub or gallop. ABDOMEN: Obese, soft, nontender, not distended, normoactive bowel sounds, no guarding, no rebound, no masses. No hepatomegaly or splenomegaly. MUSCULOSKELETAL: BKA right side (+) prosthesis, UPPER EXTREMITIES: 2+ pulses, warm, well-perfused. No cyanosis. No clubbing. No peripheral edema. LOWER EXTREMITIES: +2 edema to LLE, No calf tenderness. NEUROLOGICAL: No facial droop, tongue midline, normal speech, gait not observed. PSYCHIATRIC: Cooperative. Good eye contact. Appropriate mood and affect. SKIN: Generalized scaly excoriated rash to arms and forehead, Laboratory Results - last 24 hr 09/28/18 09/28/18 09/28/18 11:50 11:50 11:50 WBC 8.9 RBC 3.53 L Hgb 9.4 L Hct 28.9 L MCV 82.1 MCH 26.8 MCHC 32.6 RDW 16.6 H Plt Count 310 MPV 9.6 Absolute Neuts (auto) 7.0 Neutrophils % 78.3 Lymphocytes % 7.4 L D Monocytes % 9.0 Eosinophils % 4.1 Basophils % 1.2 Nucleated RBC % 0 PT with INR 13.00 INR 1.10 H Sodium 138 Potassium 4.7 Chloride 103 Carbon Dioxide 26 Anion Gap 9 BUN 57 H Creatinine 2.3 H Creat Clearance w eGFR 28.86 Random Glucose 338 H* Calcium 6.3 L* Phosphorus 5.1 H Magnesium 1.9 Total Bilirubin 0.2 AST 12 L ALT 16 Alkaline Phosphatase 98 Creatine Kinase 552 H Creatine Kinase Index 0.5 CK-MB (CK-2) 3.1 Troponin I 0.04 B-Natriuretic Peptide 2217.5 H Total Protein 6.4 Albumin 2.9 L ECG NSR QTc [address] elevations or Twave inversions CXR Increased congestion since prior study 02/19/18. ASSESSMENT/PLAN: 63 year old male with a PMH significant for IDDM (dx 1990, +Humalog pump), CHF, HTN, HLD, Necrotizing fasciitis (s/p right orchiectomy), Opiod Dependence, Morbid obesity presented to the ED with increasing SOB and leg swelling over the past week. He was placed on observation for dieresis and cardiac consult. CHF Exacerbation -[facility] 2216 -Troponin #1 0.04, #2 and #3 pending -No SOB, wheezing or crackles -Given Lasix 40 mg in ED -Continue Lasix 20 mg PO daily -FLORESITA for left leg -Cardiology consult with Dr. Bagley ordered -Echo pending Hypocalcemia -6.3, (corrected 7.2) -Given dose of Ca Gluconate 1 gm IV -Start Ca supplement BID -Monitor BMP GLORY -BUN/CR 57/2.3 -CR 1.8 09/05/18 -Hold ARB -Monitor BMP Diabetes -On Humalog pump -Gabapentin 300 mg for neuropathy -Monitor Glucose -Diabetic Diet HTN -Amplodipine 10 mg -Lasix 20 mg HLD -Atorvastatin 20 mg Opiod Dependence -Methadone 120 mg qday Morbid obesity -BMI 45.6 FEN -PO intake adequate -Replete electrolytes as indicated -Diabetic/Sodium controlled diet Prophylaxis -Asa 81 mg -Teds -Protonix 40 mg Dispo: pt currently requires further inpatient monitoring. Should be okay to d/ c after dieresis and cleared by cardiology. FULL CODE Visit type - Emergency Visit Emergency Visit: Yes ED Registration Date: 09/28/18 Care time: The patient presented to the Emergency Department on the above date and was hospitalized for further evaluation of their emergent condition. - New Patient This patient is new to me today: Yes Date on this admission: 09/28/18 - Critical Care Critical Care patient: No
--- NOTE | 2018-09-28 16:17 | CON.CARD ---
Consult Consult Specialty:: Cardiology Referred by:: Ricardo Reason for Consultation:: CHF - History of Present Illness History of Present Illness: 63M h/o DM, heart failure, HTN, HLD, opiod dependence p/w hypocalcemia, dyspnea , edema. Worsening intermittent chest pain, palps, shortness of breath, orthopnea over the last month, has gained [address] Bagley for cardio last week, was started on lasix 20 mg PO daily. noted urine output didn't increase much. In the ER was given lasix 40 mg IV - History Source History Provided By: Patient Limitations to Obtaining History: No Limitations - Past Medical History Cardio/Vascular: Yes: CAD (s/p cath with stent ~5 months ago per pt), HTN Hepatobiliary: Yes: Hepatitis C Psych: Yes: Addictions (on methadone program for remote heroin use) Endocrine: Yes: Diabetes Mellitus (uses insulin pump and meds), Hypothyroidism Dermatology: Yes: Other (chronic open plantar diabetic foot ulcers) Additional Medical History: posey to bilat upper ext from - Past Surgical History Past Surgical History: Yes: Orchiectomy (right secondary to ), Stent (cardiac ~5m ago per pt) - Alcohol/Substance Use Hx Alcohol Use: No History of Substance Use: reports: Heroin (not for over 30 years, h/o IVDA). denies: Marijuana - Smoking History Smoking history: Never smoked Have you smoked in the past 12 months: No - Social History Usual Living Arrangement: With Spouse Home Medications - Allergies Allergies/Adverse Reactions: Allergies Allergy/AdvReac Type Severity Reaction Status Date / Time Sulfa (Sulfonamide Allergy Intermediate Rash Verified 09/28/18 10:16 Antibiotics) - Home Medications Home Medications: Ambulatory Orders Methadone [Dolophine -] 120 mg PO DAILY #7 tablet 08/06/14 Pantoprazole Sodium [Protonix] 40 mg PO DAILY 09/15/15 Amlodipine Besylate 10 mg PO DAILY 09/28/18 Aspirin 81 mg PO DAILY 09/28/18 Atorvastatin Ca [Lipitor] 20 mg PO HS 09/28/18 Azilsartan Medoxomil [Edarbi] 80 mg PO DAILY 09/28/18 Furosemide 20 mg PO DAILY 09/28/18 Furosemide [Lasix -] 40 mg PO DAILY #30 tablet 09/28/18 Gabapentin 300 mg PO DAILY 09/28/18 Family Disease History - Family Disease History Family History: Unremarkable Review of Systems - Review of Systems Constitutional: reports: No Symptoms Eyes: reports: No Symptoms HENT: reports: No Symptoms Neck: reports: No Symptoms Cardiovascular: reports: Palpitations, Shortness of Breath Respiratory: reports: No Symptoms Gastrointestinal: reports: No Symptoms Genitourinary: reports: No Symptoms Musculoskeletal: reports: No Symptoms Integumentary: reports: No Symptoms Neurological: reports: Parasthesia Endocrine: reports: No Symptoms Hematology/Lymphatic: reports: No Symptoms Psychiatric: reports: No Symptoms Vital Signs: Vital Signs Temperature 98 F 09/28/18 10:13 Pulse Rate 83 09/28/18 10:13 Respiratory Rate 19 09/28/18 10:13 Blood Pressure 145/70 09/28/18 10:13 O2 Sat by Pulse Oximetry (%) 93 L 09/28/18 10:13 Constitutional: Yes: No Distress, Calm Eyes: Yes: Conjunctiva Clear, EOM Intact HENT: Yes: Atraumatic, Normocephalic Neck: Yes: Supple, Trachea Midline Respiratory: Yes: Regular, CTA Bilaterally Gastrointestinal: Yes: Normal Bowel Sounds, Soft Cardiovascular: Yes: Regular Rate and Rhythm JVD: Yes Carotid Bruit: No PMI: Non-Displaced Heart Sounds: Yes: S1, S2 Musculoskeletal: Yes: Other (s/p R BKA) Extremities: Yes: Cold, Cyanosis Edema: Yes Edema: LLE: 2+ Peripheral Pulses WNL: Yes Peripheral Pulses: 2+ Left Doralis Pedis, 2+ Right Dorsalis Pedis Integumentary: No: Jaundice Neurological: Yes: Alert, Oriented Psychiatric: Yes: Alert, Oriented - Other Data Labs, Other Data: CBC, BMP 09/28/18 11:50 09/28/18 11:50 INR, PTT INR 1.10 (0.83-1.09) H 09/28/18 11:50 Troponin, BNP 09/28/18 11:50 Troponin I 0.04 B-Natriuretic Peptide 2217.5 H Troponin, BNP 09/28/18 11:50 Troponin I 0.04 B-Natriuretic Peptide 2217.5 H Assessment/Plan CXR: increased congestion EKG:sinus rhythm, prolonged QTc echo 09/2018 tds, nl LV size/function, tr MR, mild biatrial enlaregment acute diastolic CHF exacerbation - worsening edema, dyspnea on exertion likely 2/2 CHF - was on lasix 20 mg PO daily at home without much urine output - received IV lasix 40 mg x 1 in ER, subjectively increased urination and improving symptoms - echo shows nl EF - continue lasix 40 mg IV daily, remains with lower ext edema, sob - monitor Cr, I/O, daily standing weights Prolonged QTc - new compared to prior, likely in setting of hypocalcemia - received IV calcium, manage per primary - monitoring on tele - avoid QT prolonging agents GLORY - holding ARB DM - manage per primary HTN - stable on amlodipine HLD - cont statin
--- NOTE | 2018-09-28 16:18 | ECHO ---
Name: JANNY CHEN Exam:Adult Echocardiogram Study Date: 09/28/2018 02:44 PM Age: 63 yrs Reason For Study: WORSENING CHF Height: 68 in Weight: 300 lb BSA: 2.4 m2 MMode/2D Measurements & Calculations IVSd: 1.3 cm Ao root diam: 3.5 cm LVIDd: 5.6 cm LA dimension: 4.0 cm LVIDs: 4.0 cm LVPWd: 1.3 cm LVPWs: 1.4 cm EDV(Teich): 156.4 ml ESV(Teich): 70.3 ml LVOT diam: 2.3 cm TAPSE: 3.1 cm Doppler Measurements & Calculations MV E max jairon: 98.5 cm/sec Ao V2 max: 138.9 cm/sec MV A max jairon: 90.7 cm/sec Ao max P.7 mmHg MV E/A: 1.1 MV dec time: 0.17 sec DAVID(V,D): 3.2 cm2 LV V1 max P.5 mmHg TR max jairon: 286.4 cm/sec LV V1 max: 106.2 cm/sec TR max P.8 mmHg PA V2 max: 122.2 cm/sec Med Peak E' Jairon: 8.4 cm/sec PA max P.0 mmHg Med E/e': 11.8 Lat Peak E' Jairon: 10.1 cm/sec Lat E/e': 9.7 Procedure A complete two-dimensional transthoracic echocardiogram was performed (2D, M-mode, Doppler and color flow Doppler). The study was technically difficult with many images being suboptimal in quality. Left Ventricle The left ventricular size, thickness and function are normal. The left ventricular ejection fraction is normal. Ejection Fraction = 55-60%. Regional wall motion abnormalities cannot be excluded due to limi gerardo visualization. Right Ventricle The right ventricle is normal in size and function. Atria The left atrium is mildly dilated. The right atrium is mildly dilated. Mitral Valve There is trace mitral regurgitation. Tricuspid Valve No tricuspid regurgitation. There was insufficient TR detected to calculate RV systolic pressure. Aortic Valve No hemodynamically significant valvular aortic stenosis. No aortic regurgitation is present. Pulmonic Valve The pulmonic valve is not well visualized. Great Vessels The aortic root is normal size. Pericardium/Pleura There is no pericardial effusion. Interpretation Summary The study was technically difficult with many images being suboptimal in quality. The left ventricular size, thickness and function are normal The right ventricle is normal in size and function. The left atrium is mildly dilated. The right atrium is mildly dilated. There is trace mitral regurgitation. MD Mac Bagley 09/28/2018 04:18 PM
--- NOTE | 2018-09-28 17:11 | EKG ---
Test Reason : Blood Pressure : / mmHG Vent. Rate : 080 BPM Atrial Rate : 080 BPM P-R Int : 126 ms QRS Dur : 074 ms QT Int : 424 ms P-R-T Axes : 015 032 039 degrees QTc Int : 489 ms NORMAL SINUS RHYTHM PROLONGED QT ABNORMAL ECG WHEN COMPARED WITH ECG OF 19-FEB-2018 13:40, QT HAS LENGTHENED Confirmed by HERMES ABDI MD ([id number]) on 09/28/2018 5:11:07 PM Referred By: Confirmed By:HERMES ABDI MD
[2018-09-28 18:40] VITALS: BMI 45.3
[2018-09-28] MEDS ORDERED: GABAPENTIN 300 MG CAPSULE (FP) PO SCH (22:00)
[2018-09-28] MEDS ORDERED: ATORVASTATIN CA 20 MG TABLET (FP) PO SCH (22:00)
[2018-09-28] MEDS: CALCIUM 500MG/VIT-D 200 UNITS COMBO TABLET (FP) PO SCH (22:24)
[2018-09-28] MEDS: INSULIN SLIDING SCALE (NOVOLOG) 1 VIAL SQ SCH (22:55)
[2018-09-29] MEDS: INSULIN SLIDING SCALE (NOVOLOG) 1 VIAL SQ SCH ×2 (06:11→13:31)
[2018-09-29] MEDS ORDERED: INSULIN SLIDING SCALE (NOVOLOG) 1 VIAL SQ SCH (07:00)
[2018-09-29 08:02] LABS: HEMATOCRIT 30.3 % (35.4-49); HEMOGLOBIN 9.7 GM/dL (11.7-16.9); MCH 26.1 pg (25.7-33.7); MEAN CELL VOLUME 81.3 fl (80-96); MEAN PLT VOLUME 9.4 fl (7.5-11.1); PLATELET COUNT 317 K/MM3 (134-434); RBC 3.73 M/mm3 (4.00-5.60); RDW 16.4 % (11.9-15.9)
[2018-09-29 08:31] LABS: ALBUMIN 2.8 g/dl (3.4-5.0); ALK PHOS 99 U/L (45-117); ANION GAP 8 MMOL/L (8-16); BILIRUBIN,TOTAL 0.3 mg/dL (0.2-1); BLOOD UREA NITROGEN 53 mg/dL (7-18); CHLORIDE 107 mmol/L (98-107); CO2 28 mmol/L (21-32); CREATININE 2.1 mg/dL (0.55-1.3); GLUCOSE,RANDOM 178 mg/dL (74-106); POTASSIUM 4.4 mmol/L (3.5-5.1); SGOT/AST 14 U/L (15-37); SGPT/ALT 16 U/L (13-61); SODIUM 143 mmol/L (136-145); TOT PROT 6.4 g/dl (6.4-8.2)
[2018-09-29] MEDS ORDERED: CALCIUM GLUCONATE 10% - 1,000 MG/10 ML VIAL IVPUSH ONE (09:58)
[2018-09-29] MEDS ORDERED: PATIENT'S OWN MEDICATION (NON-FORMULARY) (Azilsartan Medoxomil [Edarbi] 80 MG) PO SCH (10:00)
[2018-09-29] MEDS ORDERED: FUROSEMIDE 40 MG/4 ML INJECTABLE VIAL IVPUSH SCH (10:00)
[2018-09-29] MEDS ORDERED: ASPIRIN 81 MG CHEWABLE TABLETS PO SCH (10:00)
[2018-09-29] MEDS ORDERED: PANTOPRAZOLE 40 MG TABLET (FP) PO SCH (10:00)
[2018-09-29] MEDS ORDERED: FUROSEMIDE 20 MG TABLET (FP) PO SCH (10:00)
[2018-09-29] MEDS ORDERED: GABAPENTIN 300 MG CAPSULE (FP) PO SCH (10:00)
[2018-09-29] MEDS ORDERED: METHADONE HCL 10 MG TABLET PO SCH (10:00)
[2018-09-29] MEDS ORDERED: amLODIPine BESYLATE 10 MG TABLET (FP) PO SCH (10:00)
[2018-09-29] MEDS: CALCIUM 500MG/VIT-D 200 UNITS COMBO TABLET (FP) PO SCH (10:52)
[2018-09-29 10:59] VITALS: BP 142/91; PULSE 77; TEMP 98.1
--- NOTE | 2018-09-29 12:54 | CONSULT ---
Consult Consult Specialty:: Podiatry Reason for Consultation:: Foul smelling wound left foot - History of Present Illness Chief Complaint: None patient not concerned about left foot History of Present Illness: chronic wound left plantar charcot foot - History Source History Provided By: Patient - Past Medical History Cardio/Vascular: Yes: CAD (s/p cath with stent ~5 months ago per pt), HTN Hepatobiliary: Yes: Hepatitis C Psych: Yes: Addictions (on methadone program for remote heroin use) Endocrine: Yes: Diabetes Mellitus (uses insulin pump and meds), Hypothyroidism Dermatology: Yes: Other (chronic open plantar diabetic foot ulcers) Additional Medical History: posey to bilat upper ext from - Past Surgical History Past Surgical History: Yes: Orchiectomy (right secondary to ), Stent (cardiac ~5m ago per pt) - Alcohol/Substance Use Hx Alcohol Use: No History of Substance Use: reports: Heroin (not for over 30 years, h/o IVDA). denies: Marijuana - Smoking History Smoking history: Never smoked Have you smoked in the past 12 months: No - Social History Usual Living Arrangement: With Spouse Home Medications - Allergies Allergies/Adverse Reactions: Allergies Allergy/AdvReac Type Severity Reaction Status Date / Time Sulfa (Sulfonamide Allergy Intermediate Rash Verified 09/28/18 10:16 Antibiotics) - Home Medications Home Medications: Ambulatory Orders Methadone [Dolophine -] 120 mg PO DAILY #7 tablet 08/06/14 Pantoprazole Sodium [Protonix] 40 mg PO DAILY 09/15/15 Amlodipine Besylate 10 mg PO DAILY 09/28/18 Aspirin 81 mg PO DAILY 09/28/18 Atorvastatin Ca [Lipitor] 20 mg PO HS 09/28/18 Azilsartan Medoxomil [Edarbi] 80 mg PO DAILY 09/28/18 Furosemide 20 mg PO DAILY 09/28/18 Gabapentin 900 mg PO HS 09/28/18 Calcium 500Mg/Vit-D 200 Units [Os-Vishnu 500+D -] 1 tab PO BID tab 09/29/18 Physical Exam Vital Signs: Vital Signs Temperature 98.1 F 09/29/18 10:00 Pulse Rate 77 09/29/18 10:00 Respiratory Rate 17 09/29/18 10:00 Blood Pressure 142/91 09/29/18 10:00 O2 Sat by Pulse Oximetry (%) 94 L 09/29/18 09:00 Extremities: Yes: Amputation (right bka, +charcot foot with wound left with drainage and odor) Labs: CBC, BMP 09/29/18 07:18 09/29/18 07:18 Assessment/Plan charcot foot om? Discussed with patient stated he is going to leave today. I advised him against it and that he needs wound care antibiotics possible hbo and surgical intervention. MRI ordered. Patient was argumentative. States wound became that way since getting here. Being trated at [facility] for left foot wound. They recommend no HBO at this time. Santyl to left foot. Will follow till dc.
[2018-09-29] MEDS ORDERED: CALCIUM GLUCONATE 10% - 1,000 MG/10 ML VIAL IVPB ONE (14:15)
--- NOTE | 2018-09-29 14:32 | PN ---
Progress Note (short form) - Note Progress Note: s:feels better today, no dyspnea, orthopnea, PND, nausea. edema improved, no dyspnea on exertion. feels at [place], wants to go home o: Current Medications Amlodipine Besylate (Norvasc -) 10 mg PO DAILY [facility] Last Admin: 09/29/18 10:52 Dose: 10 mg Aspirin (Asa -) 81 mg PO DAILY [facility] Last Admin: 09/29/18 10:52 Dose: 81 mg Atorvastatin Calcium (Lipitor -) 20 mg PO HS [facility] Last Admin: 09/28/18 22:24 Dose: 20 mg Calcium Carbonate/Cholecalciferol (Os-Vishnu 500+D -) 1 tab PO BID [facility] Last Admin: 09/29/18 10:52 Dose: 1 tab Furosemide (Lasix Injection -) 40 mg IVPUSH DAILY [facility] Last Admin: 09/29/18 10:52 Dose: 40 mg Gabapentin (Neurontin -) 900 mg PO [facility] Last Admin: 09/28/18 22:23 Dose: 900 mg Insulin Aspart (Novolog Vial Sliding Scale -) 1 vial SQ ACHS [facility]; Protocol Last Admin: 09/29/18 13:31 Dose: 4 unit Methadone HCl (Dolophine -) 120 mg PO DAILY [facility] Pantoprazole Sodium (Protonix -) 40 mg PO DAILY [facility] Last Admin: 09/29/18 10:52 Dose: 40 mg Vital Signs: Vital Signs Period Temp Pulse Resp BP Sys/Alvarez Pulse Ox Last 24 Hr 97.8 F-98.5 F 69-87 17-20 138-166/72-91 93-94 Constitutional: Yes: No Distress, Calm Eyes: Yes: Conjunctiva Clear, EOM Intact HENT: Yes: Atraumatic, Normocephalic Neck: Yes: Supple, Trachea Midline Respiratory: Yes: Regular, CTA Bilaterally Gastrointestinal: Yes: Normal Bowel Sounds, Soft Cardiovascular: Yes: Regular Rate and Rhythm JVD: No Carotid Bruit: No PMI: Non-Displaced Heart Sounds: Yes: S1, S2 Musculoskeletal: Yes: Other (s/p R BKA) Extremities: Yes: Cold, Cyanosis Edema: Yes Edema: LLE: 1+ Peripheral Pulses WNL: Yes Peripheral Pulses: 2+ Left Doralis Pedis, 2+ Right Dorsalis Pedis Integumentary: No: Jaundice Neurological: Yes: Alert, Oriented Psychiatric: Yes: Alert, Oriented Assessment/Plan CXR: increased congestion EKG:sinus rhythm, prolonged QTc echo 09/2018 tds, nl LV size/function, tr MR, mild biatrial enlaregment acute diastolic CHF exacerbation - worsening edema, dyspnea on exertion likely 2/2 CHF - was on lasix 20 mg PO daily at home without much urine output - received IV lasix 40 mg x 1 in ER, and this AM, subjectively increased urination and improving symptoms - echo shows nl EF - restart lasix 20 mg PO daily, follow up with Dr. Bagley in 1-2 weeks - stale for discharge from cardiac perspective Prolonged QTc - new compared to prior, likely in setting of hypocalcemia - received IV calcium, manage per primary, improving - avoid QT prolonging agents - replete lytes for K>4.0, Mg >2.0 GLORY - holding ARB - improving with lasix DM - manage per primary HTN - stable on amlodipine HLD - cont statin
[2018-09-29] MEDS ORDERED: METHADONE HCL 40 MG DISPERSABLE TABLET PO SCH (15:30)
--- NOTE | 2018-09-29 20:27 | DS ---
Physical Exam: SUBJECTIVE: Patient seen and examined, he reports he is feeling better and is very anxious to get home. OBJECTIVE: Vital Signs Period Temp Pulse Resp BP Sys/Alvarez Pulse Ox Last 24 Hr 97.9 F-98.5 F 77-81 17-18 142-166/72-91 93-94 PHYSICAL EXAM GENERAL: Awake, alert, and fully oriented, in no acute distress. HEAD: Normal with no signs of trauma. EYES: Pupils equal, round and reactive to light, extraocular movements intact, sclera anicteric, conjunctiva clear. No lid lag. EARS, NOSE, THROAT: Nares patent, oropharynx clear without exudates. Moist mucous membranes. NECK: Normal range of motion, supple without lymphadenopathy, JVD, or masses. LUNGS: Breath sounds equal, clear to auscultation bilaterally. No wheezes, and no crackles. No accessory muscle use. HEART: Regular rate and rhythm, normal S1 and S2 without murmur, rub or gallop. ABDOMEN: Obese, soft, nontender, not distended, normoactive bowel sounds, no guarding, no rebound, no masses. No hepatomegaly or splenomegaly. MUSCULOSKELETAL: BKA right side (+) prosthesis, UPPER EXTREMITIES: 2+ pulses, warm, well-perfused. No cyanosis. No clubbing. No peripheral edema. LOWER EXTREMITIES: +1 edema to LLE, No calf tenderness. NEUROLOGICAL: No facial droop, tongue midline, normal speech, gait not observed. PSYCHIATRIC: Cooperative. Good eye contact. Appropriate mood and affect. SKIN: Generalized scaly excoriated rash to arms and forehead, LABS Laboratory Results - last 24 hr 09/28/18 09/29/18 09/29/18 22:28 00:00 06:00 WBC RBC Hgb Hct MCV MCH MCHC RDW Plt Count MPV Sodium Potassium Chloride Carbon Dioxide Anion Gap BUN Creatinine Creat Clearance w eGFR POC Glucometer 278 Random Glucose Hemoglobin A1c % 8.8 H Calcium Magnesium Total Bilirubin AST ALT Alkaline Phosphatase Troponin I 0.04 Total Protein Albumin 09/29/18 09/29/18 09/29/18 06:07 07:18 07:18 WBC 8.0 RBC 3.73 L Hgb 9.7 L Hct 30.3 L MCV 81.3 MCH 26.1 MCHC 32.0 RDW 16.4 H Plt Count 317 MPV 9.4 Sodium 143 Potassium 4.4 Chloride 107 Carbon Dioxide 28 Anion Gap 8 BUN 53 H Creatinine 2.1 H Creat Clearance w eGFR 32.06 POC Glucometer 228 Random Glucose 178 H Hemoglobin A1c % Calcium 7.0 L Magnesium 2.0 Total Bilirubin 0.3 AST 14 L ALT 16 Alkaline Phosphatase 99 Troponin I Total Protein 6.4 Albumin 2.8 L 09/29/18 11:00 WBC RBC Hgb Hct MCV MCH MCHC RDW Plt Count MPV Sodium Potassium Chloride Carbon Dioxide Anion Gap BUN Creatinine Creat Clearance w eGFR POC Glucometer 201 Random Glucose Hemoglobin A1c % Calcium Magnesium Total Bilirubin AST ALT Alkaline Phosphatase Troponin I Total Protein Albumin HOSPITAL COURSE: Date of Admission:09/28/18 Date of Discharge: 09/29/18 ASSESSMENT/PLAN: 63 year old male with a PMH significant for IDDM (dx 1990, +Humalog pump), CHF, HTN, HLD, Necrotizing fasciitis (s/p right orchiectomy), Opiod Dependence, Morbid obesity presented to the ED at the request of his batt packer who watned him to be seen for his low calcium levels. He also had increasing SOB and leg swelling over the past week. Upon admission to the ED VSS, labs notable for Ca 6.3, random glucose 338, BUN/Cr 57/2.3, BNP 2217 Cr Kinase 552. CXR showed increased congestion from prior study. He was given a dose of Ca Gluconate 1G IV and Lasix 40 mg IV both at night and this AM. He was seen by cardiology and podiatry. CHF Exacerbation -BMP 2217 -Troponin #1 0.04, #2 0.4 -No SOB, wheezing or crackles -Lasix 40 mg x 2 -Seen by it network architect Dr. Ruvalcaba -Prolonged QTc -new compared to prior, likely in setting of hypocalcemia -electrolyte goal of K>4, Mg >2 Hypocalcemia -6.3, (corrected 7.2) -> 7.0 (corrected 8.0) -Given dose of Ca Gluconate 1 gm IV x2 -Continue Ca supplement BID -Monitor BMP GLORY -BUN/CR 57/2.3 -> 53/2.1 -Cr1.8 09/05/18 -Hold ARB -Monitor BMP Diabetes -On Humalog pump -Gabapentin 300 mg for neuropathy -Monitor Glucose HTN -Amplodipine 10 mg -Lasix 20 mg HLD -Atorvastatin 20 mg Opiod Dependence -Methadone 120 mg qday Morbid obesity -BMI 45.6 Minutes to complete discharge: 30 Discharge Summary Reason For Visit: ACUTE ON CHRONIC CHF Condition: Stable - Instructions Diet, Activity, Other Instructions: Continue current medication regimen. Follow up with PCP within one week. Referrals: [facility] [place] [Provider Group] Disposition: HOME - Home Medications Comprehensive Discharge Medication List: Ambulatory Orders Methadone [Dolophine -] 120 mg PO DAILY #7 tablet 08/06/14 Pantoprazole Sodium [Protonix] 40 mg PO DAILY 09/15/15 Amlodipine Besylate 10 mg PO DAILY 09/28/18 Aspirin 81 mg PO DAILY 09/28/18 Atorvastatin Ca [Lipitor] 20 mg PO HS 09/28/18 Azilsartan Medoxomil [Edarbi] 80 mg PO DAILY 09/28/18 Furosemide 20 mg PO DAILY 09/28/18 Gabapentin 900 mg PO HS 09/28/18 Calcium 500Mg/Vit-D 200 Units [Os-Vishnu 500+D -] 1 tab PO BID tab 09/29/18 This patient is new to me today: No Emergency Visit: No Critical Care patient: No - Discharge Referral Referred to [facility] No
[2018-09-30] MEDS ORDERED: FUROSEMIDE 20 MG TABLET (FP) PO SCH (10:00)
== END 2018-09-29 15:50 | disposition home or self-care (01) ==
LOC: JER 10:07 → UNDOADMOB 12:51 → JERBED 12:51 → INTOOBSV 12:51 → JERBED 13:59 → J8W 17:56
PROVIDERS: ADMIT Internal Medicine; ATTEND Nurse Practitioner Adult Health
PROC: 3E033GC Introduction of Other Therapeutic Substance into Peripheral Vein, Percutaneous Approach (ICD-10-PCS; principal; 2018-09-28)
PROC: 3E013VG Introduction of Insulin into Subcutaneous Tissue, Percutaneous Approach (ICD-10-PCS; 2018-09-28)
DX: I11.0 Hypertensive heart disease with heart failure (principal); I50.31 Acute diastolic (congestive) heart failure; N17.9 Acute kidney failure, unspecified; E11.65 Type 2 diabetes mellitus with hyperglycemia; I25.10 Atherosclerotic heart disease of native coronary artery without angina pectoris; E78.5 Hyperlipidemia, unspecified; I45.81 Long QT syndrome; F11.20 Opioid dependence, uncomplicated; B18.2 Chronic viral hepatitis C; E03.9 Hypothyroidism, unspecified; M14.671 Charcot's joint, right ankle and foot; E66.01 Morbid (severe) obesity due to excess calories; Z68.42 Body mass index [BMI] 45.0-49.9, adult; Z96.41 Presence of insulin pump (external) (internal); Z95.5 Presence of coronary angioplasty implant and graft; Z79.4 Long term (current) use of insulin; Z89.511 Acquired absence of right leg below knee
CPT/HCPCS: 36415; 71045-TC-FY; 80053; 82550; 82553; 82962; 83036; 83735; 83880; 84100; 84484; 85025; 85027; 85610; 87070; 87081; 87186; 87205; 93005; 93010; 93306-TC; 99285-25; G0378

== ENCOUNTER 2019-02-23 12:22 | Inpatient (IN) | payer OTHER ==
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
--- NOTE | 2019-02-23 14:10 | EKG ---
Test Reason : Blood Pressure : / mmHG Vent. Rate : 084 BPM Atrial Rate : 084 BPM P-R Int : 132 ms QRS Dur : 076 ms QT Int : 388 ms P-R-T Axes : 040 058 057 degrees QTc Int : 458 ms NORMAL SINUS RHYTHM ANTERIOR INFARCT , AGE UNDETERMINED ABNORMAL ECG WHEN COMPARED WITH ECG OF 28-SEP-2018 10:54, NONSPECIFIC T WAVE ABNORMALITY NOW EVIDENT IN LATERAL LEADS Confirmed by CAROL ANN TAYLOR, TEDDY ([id number]) on 02/23/2019 2:10:11 PM Referred By: Confirmed By:TEDDY MAHARAJ MD
[2019-02-23 14:34] LABS: BASO % 1.7 % (0-2.0); EOS % 0.2 % (0-4.5); HEMATOCRIT 34.4 % (35.4-49); HEMOGLOBIN 10.7 GM/dL (11.7-16.9); LYMPH % 4.6 % (8-40); MCH 24.3 pg (25.7-33.7); MCHC 31.2 g/dl (32.0-35.9); MEAN PLT VOLUME 9.8 fl (7.5-11.1); MONO % 9.4 % (3.8-10.2); NEUT % 84.1 % (42.8-82.8); PLATELET COUNT 485 K/MM3 (134-434); RBC 4.41 M/mm3 (4.00-5.60); RDW 19.9 % (11.9-15.9); WHITE BLOOD COUNT 14.2 K/mm3 (4.0-10.0)
[2019-02-23 14:49] LABS: INR 1.39 (0.83-1.09); PROTHROMBIN TIME (PATIENT) 16.5 SEC (9.7-13.0)
[2019-02-23 14:52] LABS: ACTIVATED PTT 31.8 SECONDS (25.2-36.5)
[2019-02-23] MEDS ORDERED: FUROSEMIDE 40 MG/4 ML INJECTABLE VIAL IVPUSH ONE (14:57)
[2019-02-23] MEDS ORDERED: FUROSEMIDE 40 MG/4 ML INJECTABLE VIAL ONE (15:07)
--- NOTE | 2019-02-23 15:37 | PDOC ---
Attending Attestation - Resident Resident Name: Fransisco Brito - ED Attending Attestation I have performed the following: I have examined & evaluated the patient, The case was reviewed & discussed with the resident, I agree w/resident's findings & plan, Exceptions are as noted - HPI HPI: 02/23/19 15:31 The patient is a 63 year old male, with a significant PMH of IDDM (on insulin pump), congestive heart failure, hypertension, hyperlipidemia, nec fasc s/p RLE BKA, opioid dependence, morbid obesity, who presents to the emergency department sent in by backup operator Dr Bagley for CHF exacerbation. The patient reports that this morning he felt short of breath so he went to visit backup operator Dr Bagley who advised the patient to come to the ED for admission. The patient states he has had worsening fatigue and shortness of breath over the past few weeks with associated intermittent left sided chest discomfort. The patient also endorses orthopnea and worsening LLE edema and bilateral upper extremity edema. Reports compliance with water pills. The patient denies headache and dizziness. Denies fever, chills, nausea, vomit, diarrhea and constipation. Denies dysuria, frequency, urgency and hematuria. Allergies: Sulfa (Sulfonamide antibiotics) Surgical History: RLE BKA, left shoulder orthopedic sx, groin necrotizing fasciitis, right orchiectomy, tonsillectomy, b/l cataracts. Social History: Former IVDU (currently on methadone). Denies current EtOH use, tobacco use or recreational drug use. PCP: Dr. Luke Painter And Decorator Apprentice: Dr. Bagley - Physicial Exam PE: 02/23/19 15:34 agree with resident exam - Medical Decision Making 02/23/19 15:37 63yo M with MMP including CHF presents to the ED for admission from Dr. Bagley' s office for decompensated CHF. Pt hypoxic on arrival with diminished BS at the bases, +LLE edema (RLE prosthetic). Plan to check labs, diuresis, admit. Pt with no sig PE risk factors, is not tachycardic, or c/o CP. If CXR clear, will consider CTA of chest however. 02/23/19 16:31 CXR c/f CHF Pt given IV lasix To be admitted 02/23/19 17:[address] Curtis by Dr. Brito Heart Score/ECG Review #1 02/23/19 15:36 Twelve-lead EKG was performed and reviewed by me. Normal sinus rhythm, rate 84. Normal axis. No ST elevations or T-wave inversions.
[2019-02-23 16:50] LABS: ALBUMIN 2.7 g/dl (3.4-5.0); ALK PHOS 118 U/L (45-117); ANION GAP 7 MMOL/L (8-16); BILIRUBIN,TOTAL 0.4 mg/dL (0.2-1); BLOOD UREA NITROGEN 85 mg/dL (7-18); CALCIUM 7.4 mg/dL (8.5-10.1); CHLORIDE 99 mmol/L (98-107); CO2 27 mmol/L (21-32); CREATININE 3.8 mg/dL (0.55-1.3); N-TERMINAL BNP 7360.7 pg/ml (5-125); SGOT/AST 26 U/L (15-37); SGPT/ALT 28 U/L (13-61); SODIUM 132 mmol/L (136-145); TOT PROT 6.8 g/dl (6.4-8.2)
[2019-02-23 16:55] LABS: GLUCOSE,RANDOM 347 mg/dL (74-106)
[2019-02-23 16:56] LABS: POTASSIUM 6.2 mmol/L (3.5-5.1)
[2019-02-23] MEDS ORDERED: CALCIUM GLUCONATE 10% - 1,000 MG/10 ML VIAL IVPB ONE (16:57)
[2019-02-23] MEDS ORDERED: INSULIN REGULAR HUMAN 100 UNITS/ML *VIAL IVPUSH ONE (16:58)
[2019-02-23] MEDS ORDERED: DEXTROSE 50%-WATER - 25 GM/50 ML VIAL IVPUSH ONE (16:58)
[2019-02-23] MEDS ORDERED: CALCIUM GLUCONATE 10% - 1,000 MG/10 ML VIAL ONE (17:05)
[2019-02-23] MEDS ORDERED: DEXTROSE 50%-WATER 25 GM/50 ML DISP.SYRIN ONE (17:06)
[2019-02-23] MEDS ORDERED: INSULIN REGULAR HUMAN 100 UNITS/ML *VIAL ONE (17:07)
--- NOTE | 2019-02-23 18:01 | HP ---
Admitting History and Physical - Primary Care Physician PCP: Ryan Luke - Admission Chief Complaint: I can't breathe History of Present Illness: Mr Azevedo is a pleasant 63 year old male who comes in from the cardiology office for CHF exacerbation. He says he was doing well until about 3-4 days ago when he began to have shortness of breath. This shortness of breath was progressive and mainly felt on exertion. It is now to the point he can only take 5-6 steps before getting short of breath. He denies orthopnea but says when he lays on his left side he gets short of breath. He has a non-productive cough associated with it. He also has LLE edema as well. He denies fevers, chills, lightheadedness, dizziness, chest pain or pressure, nausea, vomiting, diarrhea, constipation, or difficulty or pain on urination. He was seen today and sent for admission for treatment. He received lasix in the ED and is currently feeling improved. 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 denies: Marijuana - Social History Usual Living Arrangement: Yes: With Spouse ADL: Independent History of Recent Travel: No Home Medications - Allergies Allergies/Adverse Reactions: Allergies Allergy/AdvReac Type Severity Reaction Status Date / Time Sulfa (Sulfonamide Allergy Intermediate Rash Verified 02/23/19 12:31 Antibiotics) - Home Medications Home Medications: Ambulatory Orders Methadone [Dolophine -] 120 mg PO DAILY #7 tablet 08/06/14 Pantoprazole Sodium [Protonix] 40 mg PO DAILY 09/15/15 Amlodipine Besylate 10 mg PO DAILY 09/28/18 Aspirin 81 mg PO DAILY 09/28/18 Atorvastatin Ca [Lipitor] 20 mg PO HS 09/28/18 Azilsartan Medoxomil [Edarbi] 80 mg PO DAILY 09/28/18 Furosemide 20 mg PO DAILY 09/28/18 Gabapentin 900 mg PO HS 09/28/18 Calcium 500Mg/Vit-D 200 Units [Os-Vishnu 500+D -] 1 tab PO BID tab 09/29/18 Family Disease History - Family Disease History Family Disease History: CA: Father (lung) Review of Systems Findings/Remarks: full review of systems obtained, as per HPI and otherwise negative Physical Examination Vital Signs: Vital Signs Temperature 37.1 C 02/23/19 12:31 Pulse Rate 80 02/23/19 12:31 Respiratory Rate 24 H 02/23/19 12:31 Blood Pressure 148/72 02/23/19 12:31 O2 Sat by Pulse Oximetry (%) 84 L 02/23/19 12:31 Constitutional: Yes: No Distress, Calm, Obese Eyes: Yes: Conjunctiva Clear, EOM Intact, PERRL HENT: Yes: Atraumatic, Normocephalic Cardiovascular: Yes: Regular Rate and Rhythm. No: Gallop, Murmur, Rub Respiratory: Yes: Regular, On Nasal O2, Rhonchi. No: CTA Bilaterally, Rales, Wheezes Gastrointestinal: Yes: Normal Bowel Sounds, Soft. No: Distention, Tenderness Extremities: Yes: WNL, Amputation (R BKA) Edema: Yes Labs: CBC, BMP 02/23/19 14:23 02/23/19 15:41 Imaging - Results Chest X-ray: Report Reviewed, Image Reviewed EKG: Image Reviewed Problem List - Problems (1) CHF exacerbation Assessment/Plan: -case d/w Dr Ruvalcaba -admit to telemetry -diurese with IV lasix -I/Os and daily weights Code(s): I50.9 - HEART FAILURE, UNSPECIFIED Qualifiers: Heart failure type: systolic Qualified Code(s): I50.23 - Acute on chronic systolic (congestive) heart failure (2) GLORY (acute kidney injury) Assessment/Plan: -suspect cardiorenal with use of ACEI -hold ACEI -consult nephrology -diurese with IV lasix -monitor for improvement Code(s): N17.9 - ACUTE KIDNEY FAILURE, UNSPECIFIED (3) Hyperkalemia Assessment/Plan: -secondary to GLORY and ACEI -treated in the ED -will also give kayexalate -recheck at 10pm -nephrology consult Code(s): E87.5 - HYPERKALEMIA (4) Diabetes mellitus with foot ulcer, with long-term current use of insulin Assessment/Plan: -patient says he is on an insulin pump that he did not bring -place on levemir 10 units bid -FSBS and SSI -diabetic diet Code(s): E11.621 - TYPE 2 DIABETES MELLITUS WITH FOOT ULCER; L97.509 - NON- PRESSURE CHRONIC ULCER OTH PRT UNSP FOOT W UNSP SEVERITY; Z79.4 - HOUSE MANAGER ( CURRENT) USE OF INSULIN Qualifiers: Diabetes mellitus type: type 2 Qualified Code(s): E11.621 - Type 2 diabetes mellitus with foot ulcer; L97.509 - Non-pressure chronic ulcer of other part of unspecified foot with unspecified severity; L97.509 - Non- pressure chronic ulcer of other part of unspecified foot with unspecified severity; L97.509 - Non-pressure chronic ulcer of other part of unspecified foot with unspecified severity; L97.509 - Non-pressure chronic ulcer of other part of unspecified foot with unspecified severity; Z79.4 - project management advisor (current) use of insulin; Z79.4 - project management advisor (current) use of insulin; Z79.4 - project management advisor ( current) use of insulin; Z79.4 - correction (current) use of insulin (5) Hepatitis C Assessment/Plan: -noted Code(s): B19.20 - UNSPECIFIED VIRAL HEPATITIS C WITHOUT HEPATIC COMA Qualifiers: Viral hepatitis chronicity: unspecified Hepatic coma status: without hepatic coma Qualified Code(s): B19.20 - Unspecified viral hepatitis C without hepatic coma (6) Hypertension Assessment/Plan: -continue amlodipine Code(s): I10 - ESSENTIAL (PRIMARY) HYPERTENSION Qualifiers: Hypertension type: essential hypertension Qualified Code(s): I10 - Essential (primary) hypertension (7) Hypothyroidism Assessment/Plan: -continue synthroid Code(s): E03.9 - HYPOTHYROIDISM, UNSPECIFIED Qualifiers: Hypothyroidism type: unspecified Qualified Code(s): E03.9 - Hypothyroidism , unspecified (8) Methadone maintenance therapy patient Assessment/Plan: -on methadone 120mg daily Code(s): F11.20 - OPIOID DEPENDENCE, UNCOMPLICATED
[2019-02-23] MEDS ORDERED: SODIUM POLYSTYRENE SULFONATE 15 GM/60 ML BOTTLE PO ONE (18:15)
[2019-02-23] MEDS ORDERED: SODIUM POLYSTYRENE SULFONATE 15 GM/60 ML BOTTLE ONE (18:18)
[2019-02-24] MEDS ORDERED: ATORVASTATIN CA 10 MG TABLET (FP) ONE (00:06)
[2019-02-24] MEDS ORDERED: INSULIN (NOVOLOG) ASPART 100 UNITS/ML 10ML VIAL ONE ×2 (00:08→20:44)
[2019-02-24] MEDS ORDERED: INSULIN (LEVEMIR) 100 UNITS/ML UNITS SQ ONE (00:08)
[2019-02-24] MEDS: GABAPENTIN 300 MG CAPSULE (FP) PO SCH ×3 (00:20→20:59)
[2019-02-24] MEDS: INSULIN (LEVEMIR) 100 UNITS/ML UNITS SQ SCH ×4 (00:20→20:59)
[2019-02-24] MEDS: ATORVASTATIN CA 20 MG TABLET (FP) PO SCH ×3 (00:20→20:59)
[2019-02-24] MEDS: HEPARIN NA (PORCINE) 5,000 UNITS/ML 1ML VIAL SQ SCH ×5 (00:20→20:59)
[2019-02-24] MEDS: INSULIN SLIDING SCALE (NOVOLOG) 1 VIAL SQ SCH ×6 (00:21→20:59)
[2019-02-24 06:12] LABS: BASO % 0.8 % (0-2.0); EOS % 0.3 % (0-4.5); HEMATOCRIT 34.4 % (35.4-49); HEMOGLOBIN 10.6 GM/dL (11.7-16.9); LYMPH % 4.5 % (8-40); MCH 23.7 pg (25.7-33.7); MCHC 30.9 g/dl (32.0-35.9); MEAN CELL VOLUME 76.5 fl (80-96); MEAN PLT VOLUME 9.5 fl (7.5-11.1); MONO % 11.4 % (3.8-10.2); PLATELET COUNT 483 K/MM3 (134-434); RDW 19.8 % (11.9-15.9); WHITE BLOOD COUNT 13.3 K/mm3 (4.0-10.0)
[2019-02-24 06:31] LABS: ALBUMIN 2.6 g/dl (3.4-5.0); ALK PHOS 108 U/L (45-117); ANION GAP 9 MMOL/L (8-16); BILIRUBIN,TOTAL 0.4 mg/dL (0.2-1); BLOOD UREA NITROGEN 87 mg/dL (7-18); CALCIUM 7.8 mg/dL (8.5-10.1); CHLORIDE 101 mmol/L (98-107); CO2 28 mmol/L (21-32); CREATININE 3.8 mg/dL (0.55-1.3); GLUCOSE,RANDOM 182 mg/dL (74-106); MAGNESIUM 1.9 mg/dL (1.8-2.4); PHOSPHOROUS 6.1 mg/dL (2.5-4.9); POTASSIUM 5.6 mmol/L (3.5-5.1); SGOT/AST 23 U/L (15-37); SGPT/ALT 24 U/L (13-61); SODIUM 137 mmol/L (136-145); TOT PROT 6.4 g/dl (6.4-8.2)
[2019-02-24] MEDS ORDERED: FUROSEMIDE 40 MG/4 ML INJECTABLE VIAL ONE (07:08)
[2019-02-24] MEDS: FUROSEMIDE 40 MG/4 ML INJECTABLE VIAL IVPUSH SCH ×2 (07:16→13:58)
[2019-02-24] MEDS: amLODIPine BESYLATE 10 MG TABLET (FP) PO SCH (09:27)
[2019-02-24] MEDS: PANTOPRAZOLE 40 MG TABLET (FP) PO SCH (09:27)
[2019-02-24] MEDS: ASPIRIN 81 MG CHEWABLE TABLETS PO SCH (09:27)
--- NOTE | 2019-02-24 10:15 | CONSULT ---
Consult - text type - Consultation Consultation Note: Renal Consult for GLORY on CKD This is a 63 year old gentleman with hx of CAD, Hypertension, DM (x 30 years), Hx of substance abuse, ? Hepatitis, PVD s/p right LE amputation who presented with complaints of SOB/REYES and fatigue over the past week. Pt was on Lasix at home but had self discontinued it for some time because he was urinating too much. Reports he is voiding but not as much as as usual. Denies any flank pain, NSAID use, recent contrast exposure. Michelle intaking foods with too much potassium. Was on ARB at home. No fever, chills. Does have chronic wound on his left foot. No ZULETA, confuison, CP, abd pain, N/V/D. PMhx: as above Allergies: NKDA Family Hx: No T/A/D ROS: as per HPI Social Hx: former substance abuser Home Medications Medication Instructions Recorded Methadone [Dolophine -] 120 mg PO DAILY #7 tablet 08/06/14 Pantoprazole Sodium [Protonix] 40 mg PO DAILY 09/15/15 Amlodipine Besylate 10 mg PO DAILY 09/28/18 Aspirin 81 mg PO DAILY 09/28/18 Atorvastatin Ca [Lipitor] 20 mg PO HS 09/28/18 Azilsartan Medoxomil [Edarbi] 80 mg PO DAILY 09/28/18 Furosemide 20 mg PO DAILY 09/28/18 Gabapentin 900 mg PO HS 09/28/18 Calcium 500Mg/Vit-D 200 Units 1 tab PO BID tab 09/29/18 [Os-Vishnu 500+D -] Vital Signs Temperature 97.8 F 02/24/19 09:14 Pulse Rate 84 02/24/19 09:14 Respiratory Rate 18 02/24/19 09:14 Blood Pressure 125/68 02/24/19 09:14 O2 Sat by Pulse Oximetry (%) 100 02/24/19 09:14 NAD awake and alert neck supple, no JVD RRR, no M/R Dec BS, no rales soft NT/ND, obese right BKA, left leg edema left foot with wound in dressing, foul smelling no focal neurologic deficits CBC, BMP 02/24/19 05:20 02/24/19 05:20 Laboratory Tests 02/24/19 05:20 Calcium 7.8 L Phosphorus 6.1 H Magnesium 1.9 Albumin 2.6 L Current Medications Acetaminophen (Tylenol -) 650 mg PO Q4H PRN PRN Reason: FEVER Amlodipine Besylate (Norvasc -) 10 mg PO DAILY [facility] Last Admin: 02/24/19 09:27 Dose: 10 mg Aspirin (Asa -) 81 mg PO DAILY [facility] Last Admin: 02/24/19 09:27 Dose: 81 mg Atorvastatin Calcium (Lipitor -) 20 mg PO HS [facility] Last Admin: 02/24/19 00:20 Dose: 20 mg Furosemide (Lasix Injection -) 40 mg IVPUSH BID@0600,1400 [facility] Last Admin: 02/24/19 07:16 Dose: 40 mg Gabapentin (Neurontin -) 900 mg PO HS [facility] Last Admin: 02/24/19 00:20 Dose: 900 mg Heparin Sodium (Porcine) (Heparin -) 5,000 unit SQ TID [facility] Last Admin: 02/24/19 07:04 Dose: 5,000 unit Insulin Aspart (Novolog Vial Sliding Scale -) 1 vial SQ ACHS [facility]; Protocol Last Admin: 02/24/19 07:05 Dose: Not Given Insulin Detemir (Levemir Vial) 10 units SQ BID@0700,2200 [facility] Last Admin: 02/24/19 07:05 Dose: Not Given Methadone HCl (Dolophine -) 120 mg PO DAILY [facility] Pantoprazole Sodium (Protonix -) 40 mg PO DAILY [facility] Last Admin: 02/24/19 09:27 Dose: 40 mg 63 year old gentleman with hx of CAD, Hypertension, DM (x 30 years), Hx of substance abuse, ? Hepatitis, PVD s/p right LE amputation who presented with complaints of SOB/REYES and fatigue over the past week with GLORY on CKD. #GLORY on CKD #CKD stage 3 #Hyperkalemia #CHF exacerbation #Aemia #Leukocytosis #LE wound Likely etiology of GLORY is cardio-renal syndrome but will need to r/o obstruction /ATN and AIN Check urine studies and renal US continue Lasix 40mg IV BID and titrate to obtain weight loss s/p medical management of hyperkalemia, maintain on low K diet. Hold ARB. Trend K BID until less then 5.5. Cardiology following, continue lasix Check iron studies Check cultures and consider empiric antibiotics Podiatry consult for LE wound Dose all meds for CrCL < 20 Avoid IV contrast and nephrotoxins Thank you Will follow Rodo Barrera DO
--- NOTE | 2019-02-24 11:02 | CON.CARD ---
Cardiology Consult (text) - Consultation Consultation Note: cc: sob History of Present Illness: 63M h/o hld, dm, htn, hypothyroid, cad s/p pci (cp-->+mibi-->cath 06/2017 with analia to om1, residual 50-60 mlad, 70-80 dlad)m ckd, sepsis 2/2 leg wound that led to right bka, dchf, here with sob. Had been doing well as outpt on lasix 40 po qd but then pt self dc'ed lasix as it was making him urinate too much. Vol status gradually worsened and when he attempted to resume po lasix again it did not improve his sxs so was sent to ER. No cp palps dizzy loc pnd orthopnea. +le edema. Sees me for cardio. 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 denies: Marijuana - Smoking History Smoking history: Never smoked Have you smoked in the past 12 months: No - Social History Usual Living Arrangement: With Spouse Home Medications - Allergies Allergies/Adverse Reactions: Allergies Allergy/AdvReac Type Severity Reaction Status Date / Time Sulfa (Sulfonamide Allergy Intermediate Rash Verified 02/23/19 12:31 Antibiotics) Home Medications Medication Instructions Recorded Methadone [Dolophine -] 120 mg PO DAILY #7 tablet 08/06/14 Pantoprazole Sodium [Protonix] 40 mg PO DAILY 09/15/15 Amlodipine Besylate 10 mg PO DAILY 09/28/18 Aspirin 81 mg PO DAILY 09/28/18 Atorvastatin Ca [Lipitor] 20 mg PO HS 09/28/18 Azilsartan Medoxomil [Edarbi] 80 mg PO DAILY 09/28/18 Furosemide 20 mg PO DAILY 09/28/18 Gabapentin 900 mg PO HS 09/28/18 Calcium 500Mg/Vit-D 200 Units 1 tab PO BID tab 09/29/18 [Os-Vishnu 500+D -] Family Disease History - Family Disease History Family History: Unremarkable Review of Systems - Review of Systems per hpi; Constitutional: reports: No Symptoms Eyes: reports: No Symptoms HENT: reports: No Symptoms Neck: reports No Symptoms Gastrointestinal: reports: No Symptoms Genitourinary: reports: No Symptoms Musculoskeletal: reports: No Symptoms Integumentary: reports: No Symptoms Neurological: reports: Parasthesia Endocrine: reports: No Symptoms Hematology/Lymphatic: reports: No Symptoms Psychiatric: reports: No Symptoms Vital Signs: Vital Signs Period Temp Pulse Resp BP Sys/Alvarez Pulse Ox Last 24 Hr 97.8 F-98.8 F 80-84 18-24 125-148/68-72 84-100 Constitutional: Yes: No Distress, Calm Eyes: Yes: Conjunctiva Clear, EOM Intact HENT: Yes: Atraumatic, Normocephalic Neck: Yes: Supple, Trachea Midline Respiratory: Yes: Regular, CTA Bilaterally Gastrointestinal: Yes: Normal Bowel Sounds, Soft Cardiovascular: Yes: Regular Rate and Rhythm JVD: Yes Carotid Bruit: No PMI: Non-Displaced Heart Sounds: Yes: S1, S2 Musculoskeletal: Yes: Other (s/p R BKA) Extremities: Yes: Cold, Cyanosis Edema: Yes Edema: LLE: 2+ Peripheral Pulses: 2+ Left Doralis Pedis, r bka Integumentary: No: Jaundice Neurological: Yes: Alert, Oriented Psychiatric: Yes: Alert, Oriented - Other Data Labs, Other Data: Laboratory Last Values WBC 13.3 K/mm3 (4.0-10.0) H 02/24/19 05:20 RBC 4.50 M/mm3 (4.00-5.60) 02/24/19 05:20 Hgb 10.6 GM/dL (11.7-16.9) L 02/24/19 05:20 Hct 34.4 % (35.4-49) L 02/24/19 05:20 MCV 76.5 fl (80-96) L 02/24/19 05:20 MCH 23.7 pg (25.7-33.7) L 02/24/19 05:20 MCHC 30.9 g/dl (32.0-35.9) L 02/24/19 05:20 RDW 19.8 % (11.9-15.9) H 02/24/19 05:20 Plt Count 483 K/MM3 (134-434) H 02/24/19 05:20 MPV 9.5 fl (7.5-11.1) 02/24/19 05:20 Absolute Neuts (auto) 11.1 K/mm3 (1.5-8.0) H 02/24/19 05:20 Neutrophils % 83.0 % (42.8-82.8) H 02/24/19 05:20 Lymphocytes % 4.5 % (8-40) L 02/24/19 05:20 Monocytes % 11.4 % (3.8-10.2) H 02/24/19 05:20 Eosinophils % 0.3 % (0-4.5) 02/24/19 05:20 Basophils % 0.8 % (0-2.0) 02/24/19 05:20 Nucleated RBC % 0 % (0-0) 02/24/19 05:20 PT with INR 16.50 SEC (9.7-13.0) H 02/23/19 14:23 INR 1.39 (0.83-1.09) H 02/23/19 14:23 PTT (Actin FS) 31.8 SECONDS (25.2-36.5) 02/23/19 14:23 Sodium 137 mmol/L (136-145) 02/24/19 05:20 Potassium 5.6 mmol/L (3.5-5.1) H 02/24/19 05:20 Chloride 101 mmol/L (98-107) 02/24/19 05:20 Carbon Dioxide 28 mmol/L (21-32) 02/24/19 05:20 Anion Gap 9 MMOL/L (8-16) 02/24/19 05:20 BUN 87 mg/dL (7-18) H 02/24/19 05:20 Creatinine 3.8 mg/dL (0.55-1.3) H 02/24/19 05:20 Creat Clearance w eGFR 16.17 (>60) 02/24/19 05:20 POC Glucometer 227 UNITS (80-120) 02/24/19 10:58 Random Glucose 182 mg/dL (74-106) H 02/24/19 05:20 Calcium 7.8 mg/dL (8.5-10.1) L 02/24/19 05:20 Phosphorus 6.1 mg/dL (2.5-4.9) H 02/24/19 05:20 Magnesium 1.9 mg/dL (1.8-2.4) 02/24/19 05:20 Total Bilirubin 0.4 mg/dL (0.2-1) 02/24/19 05:20 AST 23 U/L (15-37) 02/24/19 05:20 ALT 24 U/L (13-61) 02/24/19 05:20 Alkaline Phosphatase 108 U/L (45-117) 02/24/19 05:20 Creatine Kinase 795 U/L (26-308) H 02/23/19 15:41 Creatine Kinase Index 1.0 % (0.0-5.0) 02/23/19 15:41 CK-MB (CK-2) 8.1 ng/mL (0.5-3.6) H 02/23/19 15:41 Troponin I 0.02 ng/ml (0.00-0.05) 02/23/19 15:41 B-Natriuretic Peptide 7360.7 pg/ml (5-125) H 02/23/19 15:41 Total Protein 6.4 g/dl (6.4-8.2) 02/24/19 05:20 Albumin 2.6 g/dl (3.4-5.0) L 02/24/19 05:20 CXR: chf EKG:sinus rhythm, nl intervals, no ischemic changes echo 09/2018 tds, nl LV size/function, tr MR, mild biatrial enlargement a/p: 63M h/o hld, dm, htn, hypothyroid, cad s/p pci (cp-->+mibi-->cath 06/2017 with analia to om1, residual 50-60 mlad, 70-80 dlad)m ckd, sepsis 2/2 leg wound that led to right bka, dchf, here with sob. acute diastolic CHF exacerbation -chf exacerbation due to med noncompliance. no signs acs. -cont lasix 40 iv bid, daily wt, daily chem7 GLORY on ckd -likely cardiorenal, monitor cr with diuresis -renal following as well DM - manage per primary HTN - stable on amlodipine HLD - cont statin cad s/p pci: -has been stable -had pci 2016 with plans for staged pci of residual 70-80 dlad but this was postponed due to sepsis/bka and since he has had no ischemic symptoms and with ckd, plans have been med rx for now. -cont statin, asa
[2019-02-24] MEDS ORDERED: VANCOMYCIN 1 GM PREMIX - 1 GM/200 ML BAG IVPB ONE (14:00)
--- NOTE | 2019-02-24 14:13 | CON.ID ---
Consult Consult Specialty:: infectious diseases Referred by:: Reason for Consultation:: cellulitis of the left leg ,sob,difficuilty urination - History of Present Illness Chief Complaint: sob,sob on exertion History of Present Illness: 63 year old male who was admitted for CHF exacerbation. He says he was doing well until about 3-4 days ago when he began to have shortness of breath. This shortness of breath was progressive and mainly felt on exertion. He has a non- productive cough associated with it. He also has LLE edema as well. He denies fevers, chills, lightheadedness, dizziness, chest pain or pressure, nausea, vomiting, diarrhea, constipation, or difficulty or pain on urination. He was seen today and sent for admission for treatment. 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 denies: Marijuana - Smoking History Smoking history: Never smoked Have you smoked in the past 12 months: No - Social History Usual Living Arrangement: With Spouse ADL: Independent History of Recent Travel: No Home Medications - Allergies Allergies/Adverse Reactions: Allergies Allergy/AdvReac Type Severity Reaction Status Date / Time Sulfa (Sulfonamide Allergy Intermediate Rash Verified 02/23/19 12:31 Antibiotics) - Home Medications Home Medications: Ambulatory Orders Methadone [Dolophine -] 120 mg PO DAILY #7 tablet 08/06/14 Pantoprazole Sodium [Protonix] 40 mg PO DAILY 09/15/15 Amlodipine Besylate 10 mg PO DAILY 09/28/18 Aspirin 81 mg PO DAILY 09/28/18 Atorvastatin Ca [Lipitor] 20 mg PO HS 09/28/18 Azilsartan Medoxomil [Edarbi] 80 mg PO DAILY 09/28/18 Furosemide 20 mg PO DAILY 09/28/18 Gabapentin 900 mg PO HS 09/28/18 Calcium 500Mg/Vit-D 200 Units [Os-Vishnu 500+D -] 1 tab PO BID tab 09/29/18 Family Disease History - Family Disease History Family Disease History: CA: Father (lung) Review of Systems - Review of Systems Constitutional: reports: No Symptoms Eyes: reports: No Symptoms HENT: reports: No Symptoms Neck: reports: No Symptoms Cardiovascular: reports: No Symptoms Respiratory: reports: SOB, SOB on Exertion Gastrointestinal: reports: No Symptoms Genitourinary: reports: Incontinence, Other (inability to pass urine) Musculoskeletal: reports: No Symptoms Integumentary: reports: No Symptoms Neurological: reports: No Symptoms Endocrine: reports: No Symptoms Hematology/Lymphatic: reports: No Symptoms Psychiatric: reports: No Symptoms Physical Exam Vital Signs: Vital Signs Temperature 98.3 F 02/24/19 14:02 Pulse Rate 81 02/24/19 14:02 Respiratory Rate 17 02/24/19 14:02 Blood Pressure 124/76 02/24/19 14:02 O2 Sat by Pulse Oximetry (%) 100 02/24/19 12:23 Constitutional: Yes: Well Nourished, Calm, Mild Distress, Obese Eyes: Yes: Conjunctiva Clear Neck: Yes: Supple, Trachea Midline Cardiovascular: Yes: Regular Rate and Rhythm Respiratory: Yes: Regular, On Nasal O2, Poor Air Entry (bases) Gastrointestinal: Yes: Normal Bowel Sounds, Soft Musculoskeletal: Yes: WNL Extremities: Yes: Other (amputation of the rt leg,pain in the left leg,redness and swelling of the left leg) Wound/Incision: Yes: Dressing Dry and Intact, Dressing Removed, Other (draining serous type,surrounding area noted) Labs: CBC, BMP 02/24/19 05:20 02/24/19 05:20 Imaging - Results Chest X-ray: Report Reviewed, Image Reviewed X-ray: Report Reviewed, Image Reviewed Ultrasound: Report Reviewed, Image Reviewed Assessment/Plan Problem List - Problems (1) CHF exacerbation Code(s): I50.9 - HEART FAILURE, UNSPECIFIED Qualifiers: Heart failure type: systolic Qualified Code(s): I50.23 - Acute on chronic systolic (congestive) heart failure (2) GLORY (acute kidney injury) Code(s): N17.9 - ACUTE KIDNEY FAILURE, UNSPECIFIED (3) Hyperkalemia Code(s): E87.5 - HYPERKALEMIA (4) Diabetes mellitus with foot ulcer, with long-term current use of insulin Code(s): E11.621 - TYPE 2 DIABETES MELLITUS WITH FOOT ULCER; L97.509 - NON- PRESSURE CHRONIC ULCER OTH PRT UNSP FOOT W UNSP SEVERITY; Z79.4 - ADMITTING REPRESENTATIVE ( CURRENT) USE OF INSULIN Qualifiers: Diabetes mellitus type: type 2 Qualified Code(s): E11.621 - Type 2 diabetes mellitus with foot ulcer; L97.509 - Non-pressure chronic ulcer of other part of unspecified foot with unspecified severity; L97.509 - Non- pressure chronic ulcer of other part of unspecified foot with unspecified severity; L97.509 - Non-pressure chronic ulcer of other part of unspecified foot with unspecified severity; L97.509 - Non-pressure chronic ulcer of other part of unspecified foot with unspecified severity; Z79.4 - termite exterminator (current) use of insulin; Z79.4 - termite exterminator (current) use of insulin; Z79.4 - termite exterminator ( current) use of insulin; Z79.4 - termite exterminator (current) use of insulin (5) Hepatitis C Code(s): B19.20 - UNSPECIFIED VIRAL HEPATITIS C WITHOUT HEPATIC COMA Qualifiers: Viral hepatitis chronicity: unspecified Hepatic coma status: without hepatic coma Qualified Code(s): B19.20 - Unspecified viral hepatitis C without hepatic coma (6) Hypertension Code(s): I10 - ESSENTIAL (PRIMARY) HYPERTENSION Qualifiers: Hypertension type: essential hypertension Qualified Code(s): I10 - Essential (primary) hypertension (7) Hypothyroidism Code(s): E03.9 - HYPOTHYROIDISM, UNSPECIFIED Qualifiers: Hypothyroidism type: unspecified Qualified Code(s): E03.9 - Hypothyroidism , unspecified (8) Methadone maintenance therapy patient Code(s): F11.20 - OPIOID DEPENDENCE, UNCOMPLICATED non healing diabetic wound on the plantar surface of the left foot plan i am going to order a ct scan of the foot will also order a cx of the foot will not start abx at thsi time rest continue current mgmt
--- NOTE | 2019-02-24 14:50 | PN ---
Progress Note, Physician Chief Complaint: Mr Azevedo says he is feeling better today. Is no longer short of breath. No cp or n/v. - Current Medication List Current Medications: Active Medications Acetaminophen (Tylenol -) 650 mg PO Q4H PRN PRN Reason: FEVER Amlodipine Besylate (Norvasc -) 10 mg PO DAILY [facility] Last Admin: 02/24/19 09:27 Dose: 10 mg Aspirin (Asa -) 81 mg PO DAILY [facility] Last Admin: 02/24/19 09:27 Dose: 81 mg Atorvastatin Calcium (Lipitor -) 20 mg PO HS [facility] Last Admin: 02/24/19 00:20 Dose: 20 mg Furosemide (Lasix Injection -) 40 mg IVPUSH BID@0600,1400 [facility] Last Admin: 02/24/19 13:58 Dose: 40 mg Gabapentin (Neurontin -) 900 mg PO [facility] Last Admin: 02/24/19 00:20 Dose: 900 mg Heparin Sodium (Porcine) (Heparin -) 5,000 unit SQ TID [facility] Last Admin: 02/24/19 13:58 Dose: 5,000 unit Vancomycin HCl (Vancomycin 1 Gm Premix -) 1 gm in 200 mls @ 166.667 mls/hr IVPB ONCE ONE; Protocol Stop: 02/24/19 15:11 Insulin Aspart (Novolog Vial Sliding Scale -) 1 vial SQ ACHS [facility]; Protocol Last Admin: 02/24/19 11:07 Dose: Not Given Insulin Detemir (Levemir Vial) 10 units SQ BID@0700,2200 [facility] Last Admin: 02/24/19 07:05 Dose: Not Given Methadone HCl (Dolophine -) 120 mg PO DAILY [facility] Pantoprazole Sodium (Protonix -) 40 mg PO DAILY [facility] Last Admin: 02/24/19 09:27 Dose: 40 mg - Objective Vital Signs: Vital Signs Temperature 36.8 C 02/24/19 14:02 Pulse Rate 81 02/24/19 14:02 Respiratory Rate 17 02/24/19 14:02 Blood Pressure 124/76 02/24/19 14:02 O2 Sat by Pulse Oximetry (%) 100 02/24/19 12:23 Constitutional: Yes: No Distress, Calm, Obese Cardiovascular: Yes: Regular Rate and Rhythm. No: Gallop, Murmur, Rub Respiratory: Yes: Regular, CTA Bilaterally. No: Rales, Rhonchi, Wheezes Gastrointestinal: Yes: Normal Bowel Sounds, Soft. No: Distention, Tenderness Extremities: Yes: Other (malodorous wound with drainage on L foot) Edema: Yes Edema: LLE: 1+ Labs: CBC, BMP 02/24/19 05:20 02/24/19 05:20 INR, PTT INR 1.39 (0.83-1.09) H 02/23/19 14:23 Problem List - Problems (1) CHF exacerbation Code(s): I50.9 - HEART FAILURE, UNSPECIFIED Qualifiers: Heart failure type: systolic Qualified Code(s): I50.23 - Acute on chronic systolic (congestive) heart failure (2) GLORY (acute kidney injury) Code(s): N17.9 - ACUTE KIDNEY FAILURE, UNSPECIFIED (3) Hyperkalemia Code(s): E87.5 - HYPERKALEMIA (4) Diabetes mellitus with foot ulcer, with long-term current use of insulin Code(s): E11.621 - TYPE 2 DIABETES MELLITUS WITH FOOT ULCER; L97.509 - NON- PRESSURE CHRONIC ULCER OTH PRT UNSP FOOT W UNSP SEVERITY; Z79.4 - NUCLEAR EQUIPMENT DESIGN ENGINEER ( CURRENT) USE OF INSULIN Qualifiers: Diabetes mellitus type: type 2 Qualified Code(s): E11.621 - Type 2 diabetes mellitus with foot ulcer; L97.509 - Non-pressure chronic ulcer of other part of unspecified foot with unspecified severity; L97.509 - Non- pressure chronic ulcer of other part of unspecified foot with unspecified severity; L97.509 - Non-pressure chronic ulcer of other part of unspecified foot with unspecified severity; L97.509 - Non-pressure chronic ulcer of other part of unspecified foot with unspecified severity; Z79.4 - senior living (current) use of insulin; Z79.4 - long term care phlebotomist (current) use of insulin; Z79.4 - long term care phlebotomist ( current) use of insulin; Z79.4 - senior living (current) use of insulin (5) Hepatitis C Code(s): B19.20 - UNSPECIFIED VIRAL HEPATITIS C WITHOUT HEPATIC COMA Qualifiers: Viral hepatitis chronicity: unspecified Hepatic coma status: without hepatic coma Qualified Code(s): B19.20 - Unspecified viral hepatitis C without hepatic coma (6) Hypertension Code(s): I10 - ESSENTIAL (PRIMARY) HYPERTENSION Qualifiers: Hypertension type: essential hypertension Qualified Code(s): I10 - Essential (primary) hypertension (7) Hypothyroidism Code(s): E03.9 - HYPOTHYROIDISM, UNSPECIFIED Qualifiers: Hypothyroidism type: unspecified Qualified Code(s): E03.9 - Hypothyroidism , unspecified (8) Methadone maintenance therapy patient Code(s): F11.20 - OPIOID DEPENDENCE, UNCOMPLICATED Assessment/Plan (1) CHF exacerbation Assessment/Plan: -case d/w Dr Bagley -continue lasix 40mg IV bid -much improved Code(s): I50.9 - HEART FAILURE, UNSPECIFIED Qualifiers: Heart failure type: systolic Qualified Code(s): I50.23 - Acute on chronic systolic (congestive) heart failure (2) GLORY (acute kidney injury) Assessment/Plan: -case d/w Dr Barrera -continue IV lasix Code(s): N17.9 - ACUTE KIDNEY FAILURE, UNSPECIFIED (3) Hyperkalemia Assessment/Plan: -improving -Dr Barrera -check potassium at 6pm Code(s): E87.5 - HYPERKALEMIA (4) Diabetes mellitus with foot ulcer, with long-term current use of insulin Assessment/Plan: -continue levemir 10 units bid -not given levemir this morning because "no coverage required" even though patient had a glucose of 180 AND levemir is scheduled and not sliding scale -continue SSI -consult podiatry and ID for foot ulcer -check esr and crp -give one dose vancomycin and await further recommendations from Dr Panda Code(s): E11.621 - TYPE 2 DIABETES MELLITUS WITH FOOT ULCER; L97.509 - NON- PRESSURE CHRONIC ULCER OTH PRT UNSP FOOT W UNSP SEVERITY; Z79.4 - ALF ( CURRENT) USE OF INSULIN Qualifiers: Diabetes mellitus type: type 2 Qualified Code(s): E11.621 - Type 2 diabetes mellitus with foot ulcer; L97.509 - Non-pressure chronic ulcer of other part of unspecified foot with unspecified severity; L97.509 - Non- pressure chronic ulcer of other part of unspecified foot with unspecified severity; L97.509 - Non-pressure chronic ulcer of other part of unspecified foot with unspecified severity; L97.509 - Non-pressure chronic ulcer of other part of unspecified foot with unspecified severity; Z79.4 - long term care phlebotomist (current) use of insulin; Z79.4 - senior living (current) use of insulin; Z79.4 - long term care phlebotomist ( current) use of insulin; Z79.4 - senior living (current) use of insulin (5) Hepatitis C Assessment/Plan: -noted Code(s): B19.20 - UNSPECIFIED VIRAL HEPATITIS C WITHOUT HEPATIC COMA Qualifiers: Viral hepatitis chronicity: unspecified Hepatic coma status: without hepatic coma Qualified Code(s): B19.20 - Unspecified viral hepatitis C without hepatic coma (6) Hypertension Assessment/Plan: -continue amlodipine Code(s): I10 - ESSENTIAL (PRIMARY) HYPERTENSION Qualifiers: Hypertension type: essential hypertension Qualified Code(s): I10 - Essential (primary) hypertension (7) Hypothyroidism Assessment/Plan: -continue synthroid Code(s): E03.9 - HYPOTHYROIDISM, UNSPECIFIED Qualifiers: Hypothyroidism type: unspecified Qualified Code(s): E03.9 - Hypothyroidism , unspecified (8) Methadone maintenance therapy patient Assessment/Plan: -on methadone 120mg daily Code(s): F11.20 - OPIOID DEPENDENCE, UNCOMPLICATED
[2019-02-24 17:03] LABS: EPI CELLS 6.6 /HPF (0-5); URINE APPEARANCE CLOUDY; URINE BACTERIA 2.2 /hpf (NEGATIVE); URINE BILIRUBIN NEGATIVE (NEGATIVE); URINE CASTS 44 /hpf (0-8); URINE COLOR YELLOW; URINE GLUCOSE (UA) 1+ (NEGATIVE); URINE KETONE NEGATIVE (NEGATIVE); URINE LEUK ESTERASE TRACE (NEGATIVE); URINE NITRITE NEGATIVE (NEGATIVE); URINE PROTEIN 3+ (NEGATIVE); URINE RBC 1 /hpf (0-4); URINE UROBILINOGEN 0.2 mg/dL (0.2-1.0); URINE WBC 7 /hpf (0-5)
--- NOTE | 2019-02-24 19:38 | PROC ---
Procedure Note Procedure: NAME OF PROCEDURE: MIDLINE CATHETER INSERTION INDICATION: POOR VENOUS ACCESS & RADU NEED FOR MULTIPLE IV MEDS CONSENT: I did obtain consent from the patient himself. That was signed & placed in the patient's chart. DESCRIPTION OF PROCEDURE: I did evaluate the pts L Bascilic vein w/ US & I did appreciate the vessel to be healthy, patent, & easily accessible. The site was prepped & draped in the usual sterile fashion. STOP TIME OUT I did conduct a Time Out w/ the pt's Nurse @ the bedside. I did anesthetize the target site w/ 3cc of 1% Lido. I then entered the pts L Bascilic vein under US guidance w/ a 21G introducer needle & I did appreciate the return flow of non- pulsatile dark venous blood. I then threaded a 50cm Nitinol straight tip Flexura guidewire through the needle into the pts L bascilic vein & I removed the needle. I then passed a 5.0 Fr MicroEZ Micro introducer w/ vessel dilator over the wire & into the vessel using the seldinger technique. I removed the wire & I appreciated the wire to be intact & whole. I removed the central stylette & threaded a 5Fr dual lumen 20cm midline through the sheath into the vessel & then I broke away the sheath & advanced the Midline to the 20cm hub. I did appreciate the return of Dark Venous non-pulsatile blood in both ports. Both ports were flushed & capped in the usual sterile fashion. The line was secured w/ the STAT-Lock system. I placed a Bio-disc on the site where the line enters the skin. I applied a sterile dressing to the entire site. The pt tolerated the procedure well. EBL < 5cc. A post procedure CXR was ordered as additional placement confirmation. I have no complications to report. MINA GUZMÁN-NATHAN [facility] PULM/CCM TEAM [id number]
[2019-02-25] MEDS ORDERED: METOPROLOL TARTRATE 25 MG TABLET (FP) PO ONE (02:18)
[2019-02-25] MEDS: INSULIN SLIDING SCALE (NOVOLOG) 1 VIAL SQ SCH ×4 (05:55→21:47)
[2019-02-25] MEDS: FUROSEMIDE 40 MG/4 ML INJECTABLE VIAL IVPUSH SCH ×2 (05:56→14:03)
[2019-02-25] MEDS: HEPARIN NA (PORCINE) 5,000 UNITS/ML 1ML VIAL SQ SCH ×3 (05:56→22:32)
[2019-02-25] MEDS: INSULIN (LEVEMIR) 100 UNITS/ML UNITS SQ SCH ×3 (05:56→21:45)
[2019-02-25] MEDS ORDERED: FUROSEMIDE 40 MG TABLET (FP) PO SCH ×2 (06:28→14:00)
[2019-02-25 06:42] LABS: BASO % 0.4 % (0-2.0); EOS % 0.7 % (0-4.5); HEMATOCRIT 31.2 % (35.4-49); HEMOGLOBIN 9.8 GM/dL (11.7-16.9); LYMPH % 4.4 % (8-40); MCH 24.2 pg (25.7-33.7); MCHC 31.5 g/dl (32.0-35.9); MEAN CELL VOLUME 76.9 fl (80-96); MEAN PLT VOLUME 9.9 fl (7.5-11.1); NEUT % 85.5 % (42.8-82.8); PLATELET COUNT 472 K/MM3 (134-434); RBC 4.05 M/mm3 (4.00-5.60); RDW 19.9 % (11.9-15.9); WHITE BLOOD COUNT 11.1 K/mm3 (4.0-10.0)
[2019-02-25 07:15] LABS: ALBUMIN 2.3 g/dl (3.4-5.0); ALK PHOS 101 U/L (45-117); ANION GAP 10 MMOL/L (8-16); BILIRUBIN,TOTAL 0.8 mg/dL (0.2-1); BLOOD UREA NITROGEN 96 mg/dL (7-18); CHLORIDE 100 mmol/L (98-107); CO2 25 mmol/L (21-32); CREATININE 4.1 mg/dL (0.55-1.3); PHOSPHOROUS 6.8 mg/dL (2.5-4.9); SGOT/AST 18 U/L (15-37); SGPT/ALT 24 U/L (13-61); SODIUM 135 mmol/L (136-145); TOT PROT 6.3 g/dl (6.4-8.2)
[2019-02-25 07:46] LABS: GLUCOSE,RANDOM 334 mg/dL (74-106)
[2019-02-25] MEDS ORDERED: SODIUM POLYSTYRENE SULFONATE 15 GM/60 ML BOTTLE PO ONE (09:18)
[2019-02-25] MEDS ORDERED: FUROSEMIDE 40 MG/4 ML INJECTABLE VIAL IVPUSH ONE (09:18)
[2019-02-25] MEDS: amLODIPine BESYLATE 10 MG TABLET (FP) PO SCH (09:45)
[2019-02-25] MEDS: PANTOPRAZOLE 40 MG TABLET (FP) PO SCH (09:45)
[2019-02-25] MEDS: ASPIRIN 81 MG CHEWABLE TABLETS PO SCH (09:45)
[2019-02-25] MEDS ORDERED: ALTEPLASE 2 MG VIAL IVPUSH ONE ×3 (10:16→13:44)
[2019-02-25] MEDS: METHADONE HCL 40 MG DISPERSABLE TABLET PO SCH ×2 (10:58→11:00)
--- NOTE | 2019-02-25 10:59 | PN ---
Progress Note (short form) - Note Progress Note: Renal follow up for GLORY on CKD Pt seen and examined at the bedside no acute complaints making urine no sob, cp, abd pain, N/V/D leg remains swollen Vital Signs Temperature 98.4 F 02/25/19 09:32 Pulse Rate 128 H 02/25/19 09:32 Respiratory Rate 20 02/25/19 09:32 Blood Pressure 124/70 02/25/19 09:32 O2 Sat by Pulse Oximetry (%) 94 L 02/24/19 21:00 Intake & Output 02/22/19 02/23/19 02/24/19 02/25/19 23:59 23:59 23:59 23:59 Intake Total 1020 Output Total 500 525 Balance 520 -525 Weight 131.542 kg 132.54 kg 132.54 kg NAD RRR, no M/R Dec BS, no rales soft NT/ND, obese right BKA, left leg edema++ 02/25/19 05:30 02/25/19 05:30 Current Medications Acetaminophen (Tylenol -) 650 mg PO Q4H PRN PRN Reason: FEVER Amlodipine Besylate (Norvasc -) 10 mg PO DAILY [facility] Last Admin: 02/25/19 09:45 Dose: 10 mg Aspirin (Asa -) 81 mg PO DAILY [facility] Last Admin: 02/25/19 09:45 Dose: 81 mg Atorvastatin Calcium (Lipitor -) 20 mg PO HS [facility] Last Admin: 02/24/19 20:59 Dose: Not Given Furosemide (Lasix Injection -) 80 mg IVPUSH BID@0600,1400 [facility] Gabapentin (Neurontin -) 900 mg PO [facility] Last Admin: 02/24/19 20:59 Dose: Not Given Heparin Sodium (Porcine) (Heparin -) 5,000 unit SQ TID [facility] Last Admin: 02/25/19 05:56 Dose: 5,000 unit Insulin Aspart (Novolog Vial Sliding Scale -) 1 vial SQ ACHS [facility]; Protocol Last Admin: 02/25/19 06:00 Dose: Not Given Insulin Detemir (Levemir Vial) 10 units SQ BID@0700,2200 [facility] Last Admin: 02/25/19 06:00 Dose: Not Given Methadone HCl (Dolophine -) 120 mg PO 0600 [facility] Pantoprazole Sodium (Protonix -) 40 mg PO DAILY [facility] Last Admin: 02/25/19 09:45 Dose: 40 mg 63 year old gentleman with hx of CAD, Hypertension, DM (x 30 years), Hx of substance abuse, ? Hepatitis, PVD s/p right LE amputation who presented with complaints of SOB/REYES and fatigue over the past week with GLORY on CKD. #GLORY on CKD #CKD stage 3 #Hyperkalemia #CHF exacerbation #Aemia #Leukocytosis #LE wound Likely etiology of GLORY is cardio-renal syndrome FeUrea is 20% indicating presrved tubular function Renal Us w/o obstruction Check urine studies and renal US increase lasix to 80mg IV BID as weight loss not achieved give kayexlelate again today repaet k this evening Check iron studies Dose all meds for CrCL < 20 Avoid IV contrast and nephrotoxins Thank you Will follow Rodo Barrera DO
--- NOTE | 2019-02-25 11:01 | PN ---
Progress Note (short form) - Note Progress Note: s: no cp palps dizzy; sob improving o: Vital Signs Period Temp Pulse Resp BP Sys/Alvarez Pulse Ox Last 24 Hr 97.9 F-98.8 F 79-134 17-20 108-146/46-77 89-100 Constitutional: Yes: No Distress, Calm Eyes: Yes: Conjunctiva Clear Respiratory: Yes: Regular, CTA Bilaterally Gastrointestinal: Yes: Normal Bowel Sounds, Soft Cardiovascular: Yes: Regular Rate and Rhythm JVD: Yes Heart Sounds: Yes: S1, S2 Musculoskeletal: Yes: Other (s/p R BKA) Extremities: Yes: Cold, Cyanosis Edema: Yes Edema: LLE: 1+ Peripheral Pulses: 2+ Left Doralis Pedis, r bka Integumentary: No: Jaundice Neurological: Yes: Alert, Oriented Psychiatric: Yes: Alert, Oriented Current Medications Generic Name Dose Route Start Last Admin Trade Name Freq PRN Reason Stop Dose Admin Acetaminophen 650 mg 02/23/19 17:55 Tylenol - PO Q4H PRN FEVER Amlodipine Besylate 10 mg 02/24/19 10:00 02/25/19 09:45 Norvasc - PO 10 mg DAILY [facility] Administration Aspirin 81 mg 02/24/19 10:00 02/25/19 09:45 Asa - PO 81 mg DAILY [facility] Administration Atorvastatin Calcium 20 mg 02/23/19 22:00 02/24/19 20:59 Lipitor - PO Not Given HS [facility] Furosemide 80 mg 02/25/19 14:00 Lasix Injection - IVPUSH BID@0600,1400 [facility] Gabapentin 900 mg 02/23/19 22:00 02/24/19 20:59 Neurontin - PO Not Given HS [facility] Heparin Sodium (Porcine) 5,000 unit 02/23/19 22:00 02/25/19 05:56 Heparin - SQ 5,000 unit TID [facility] Administration Insulin Aspart 1 vial 02/23/19 22:00 02/25/19 06:00 Novolog Vial Sliding Scale - SQ Not Given ACHS [facility] Protocol Insulin Detemir 10 units 02/23/19 22:00 02/25/19 06:00 Levemir Vial SQ Not Given BID@0700,2200 [facility] Methadone HCl 120 mg 02/24/19 10:00 Dolophine - PO 0600 [facility] Pantoprazole Sodium 40 mg 02/24/19 10:00 02/25/19 09:45 Protonix - PO 40 mg DAILY [facility] Administration CBC, BMP 02/25/19 05:30 02/25/19 05:30 CXR: chf EKG:sinus rhythm, nl intervals, no ischemic changes echo 09/2018 tds, nl LV size/function, tr MR, mild biatrial enlargement tele: sr, PAT/svt 120s a/p: 63M h/o hld, dm, htn, hypothyroid, cad s/p pci (cp-->+mibi-->cath 06/2017 with analia to om1, residual 50-60 mlad, 70-80 dlad)m ckd, sepsis 2/2 leg wound that led to right bka, dchf, here with sob. acute diastolic CHF exacerbation -chf exacerbation due to med noncompliance. no signs acs. -sxs improving, cont lasix 40 iv bid, daily wt, daily chem7 GLORY on ckd -likely cardiorenal, monitor cr with diuresis -renal following as well DM - manage per primary HTN - stable on amlodipine HLD - cont statin cad s/p pci: -has been stable -had pci 2016 with plans for staged pci of residual 70-80 dlad but this was postponed due to sepsis/bka and since he has had no ischemic symptoms and with ckd, plans have been med rx for now. -cont statin, asa svt/pat: -will start toprol, monitor tele
[2019-02-25] MEDS ORDERED: metoPROLOL SUCCINATE 25 MG TAB.SR.24H (FP) PO SCH (11:15)
[2019-02-25 11:43] VITALS: BMI 44.4
--- NOTE | 2019-02-25 13:12 | PN ---
Progress Note, Physician History of Present Illness: stable no issues awaiting for ct scan of the leg - Current Medication List Current Medications: Active Medications Acetaminophen (Tylenol -) 650 mg PO Q4H PRN PRN Reason: FEVER Amlodipine Besylate (Norvasc -) 10 mg PO DAILY [facility] Last Admin: 02/25/19 09:45 Dose: 10 mg Aspirin (Asa -) 81 mg PO DAILY [facility] Last Admin: 02/25/19 09:45 Dose: 81 mg Atorvastatin Calcium (Lipitor -) 20 mg PO [facility] Last Admin: 02/24/19 20:59 Dose: Not Given Furosemide (Lasix Injection -) 80 mg IVPUSH BID@0600,1400 [facility] Gabapentin (Neurontin -) 900 mg PO HS [facility] Last Admin: 02/24/19 20:59 Dose: Not Given Heparin Sodium (Porcine) (Heparin -) 5,000 unit SQ TID [facility] Last Admin: 02/25/19 05:56 Dose: 5,000 unit Insulin Aspart (Novolog Vial Sliding Scale -) 1 vial SQ [facility]; Protocol Last Admin: 02/25/19 12:57 Dose: Not Given Insulin Detemir (Levemir Vial) 10 units SQ BID@0700,2200 [facility] Last Admin: 02/25/19 06:00 Dose: Not Given Methadone HCl (Dolophine -) 120 mg PO 0600 [facility] Last Admin: 02/25/19 11:00 Dose: 120 mg Metoprolol Succinate (Toprol Xl -) 25 mg PO DAILY [facility] Last Admin: 02/25/19 11:40 Dose: 25 mg Pantoprazole Sodium (Protonix -) 40 mg PO DAILY [facility] Last Admin: 02/25/19 09:45 Dose: 40 mg - Objective Vital Signs: Vital Signs Temperature 98.4 F 02/25/19 09:32 Pulse Rate 128 H 02/25/19 09:32 Respiratory Rate 20 02/25/19 09:32 Blood Pressure 124/70 02/25/19 09:32 O2 Sat by Pulse Oximetry (%) 94 L 02/24/19 21:00 Constitutional: Yes: No Distress, Calm Cardiovascular: Yes: S1, S2 Respiratory: Yes: Regular, Poor Air Entry (bases) Gastrointestinal: Yes: Normal Bowel Sounds, Soft Musculoskeletal: Yes: WNL Extremities: Yes: Other Wound/Incision: Yes: Dressing Dry and Intact Neurological: Yes: Alert, Oriented Psychiatric: Yes: Alert, Oriented Labs: CBC, BMP 02/25/19 05:30 02/25/19 05:30 INR, PTT INR 1.39 (0.83-1.09) H 02/23/19 14:23 Assessment/Plan ssessment/Plan Problem List - Problems (1) CHF exacerbation Code(s): I50.9 - HEART FAILURE, UNSPECIFIED Qualifiers: Heart failure type: systolic Qualified Code(s): I50.23 - Acute on chronic systolic (congestive) heart failure (2) GLORY (acute kidney injury) Code(s): N17.9 - ACUTE KIDNEY FAILURE, UNSPECIFIED (3) Hyperkalemia Code(s): E87.5 - HYPERKALEMIA (4) Diabetes mellitus with foot ulcer, with long-term current use of insulin Code(s): E11.621 - TYPE 2 DIABETES MELLITUS WITH FOOT ULCER; L97.509 - NON- PRESSURE CHRONIC ULCER OTH PRT UNSP FOOT W UNSP SEVERITY; Z79.4 - SOLAR ENERGY INSTALLATION MANAGER ( CURRENT) USE OF INSULIN Qualifiers: Diabetes mellitus type: type 2 Qualified Code(s): E11.621 - Type 2 diabetes mellitus with foot ulcer; L97.509 - Non-pressure chronic ulcer of other part of unspecified foot with unspecified severity; L97.509 - Non- pressure chronic ulcer of other part of unspecified foot with unspecified severity; L97.509 - Non-pressure chronic ulcer of other part of unspecified foot with unspecified severity; L97.509 - Non-pressure chronic ulcer of other part of unspecified foot with unspecified severity; Z79.4 - terminal clerk (current) use of insulin; Z79.4 - intermediate (current) use of insulin; Z79.4 - intermediate ( current) use of insulin; Z79.4 - intermediate (current) use of insulin (5) Hepatitis C Code(s): B19.20 - UNSPECIFIED VIRAL HEPATITIS C WITHOUT HEPATIC COMA Qualifiers: Viral hepatitis chronicity: unspecified Hepatic coma status: without hepatic coma Qualified Code(s): B19.20 - Unspecified viral hepatitis C without hepatic coma (6) Hypertension Code(s): I10 - ESSENTIAL (PRIMARY) HYPERTENSION Qualifiers: Hypertension type: essential hypertension Qualified Code(s): I10 - Essential (primary) hypertension (7) Hypothyroidism Code(s): E03.9 - HYPOTHYROIDISM, UNSPECIFIED Qualifiers: Hypothyroidism type: unspecified Qualified Code(s): E03.9 - Hypothyroidism , unspecified (8) Methadone maintenance therapy patient Code(s): F11.20 - OPIOID DEPENDENCE, UNCOMPLICATED non healing diabetic wound on the plantar surface of the left foot plan cx result noted awaiting for finalization of the cx awaiting for sensitivities rest as per the team
--- NOTE | 2019-02-25 15:30 | PN ---
Progress Note, Physician Chief Complaint: Mr Azevedo is without complaint today. No cp, sob, n/v. - Current Medication List Current Medications: Active Medications Acetaminophen (Tylenol -) 650 mg PO Q4H PRN PRN Reason: FEVER Amlodipine Besylate (Norvasc -) 10 mg PO DAILY [facility] Last Admin: 02/25/19 09:45 Dose: 10 mg Aspirin (Asa -) 81 mg PO DAILY [facility] Last Admin: 02/25/19 09:45 Dose: 81 mg Atorvastatin Calcium (Lipitor -) 20 mg PO HS [facility] Last Admin: 02/24/19 20:59 Dose: Not Given Furosemide (Lasix Injection -) 80 mg IVPUSH BID@0600,1400 [facility] Last Admin: 02/25/19 14:03 Dose: 80 mg Gabapentin (Neurontin -) 900 mg PO HS [facility] Last Admin: 02/24/19 20:59 Dose: Not Given Heparin Sodium (Porcine) (Heparin -) 5,000 unit SQ TID [facility] Last Admin: 02/25/19 05:56 Dose: 5,000 unit Insulin Aspart (Novolog Vial Sliding Scale -) 1 vial SQ ACHS [facility]; Protocol Last Admin: 02/25/19 12:57 Dose: Not Given Insulin Detemir (Levemir Vial) 10 units SQ BID@0700,2200 [facility] Last Admin: 02/25/19 06:00 Dose: Not Given Methadone HCl (Dolophine -) 120 mg PO 0600 [facility] Last Admin: 02/25/19 11:00 Dose: 120 mg Metoprolol Succinate (Toprol Xl -) 25 mg PO DAILY [facility] Last Admin: 02/25/19 11:40 Dose: 25 mg Pantoprazole Sodium (Protonix -) 40 mg PO DAILY [facility] Last Admin: 02/25/19 09:45 Dose: 40 mg - Objective Vital Signs: Vital Signs Temperature 37.2 C 02/25/19 14:00 Pulse Rate 123 H 02/25/19 14:00 Respiratory Rate 22 H 02/25/19 14:00 Blood Pressure 104/72 02/25/19 14:00 O2 Sat by Pulse Oximetry (%) 94 L 02/25/19 09:00 Constitutional: Yes: No Distress, Calm, Obese Cardiovascular: Yes: Tachycardia. No: Pulse Irregular, Gallop, Murmur, Rub Respiratory: Yes: Regular, CTA Bilaterally. No: Rales, Rhonchi, Wheezes Gastrointestinal: Yes: Normal Bowel Sounds, Soft. No: Distention, Tenderness Extremities: Yes: Amputation (R BKA) Edema: RLE: 2+ Labs: CBC, BMP 02/25/19 05:30 02/25/19 05:30 INR, PTT INR 1.39 (0.83-1.09) H 02/23/19 14:23 Problem List - Problems (1) CHF exacerbation Code(s): I50.9 - HEART FAILURE, UNSPECIFIED Qualifiers: Heart failure type: systolic Qualified Code(s): I50.23 - Acute on chronic systolic (congestive) heart failure (2) GLORY (acute kidney injury) Code(s): N17.9 - ACUTE KIDNEY FAILURE, UNSPECIFIED (3) Hyperkalemia Code(s): E87.5 - HYPERKALEMIA (4) Diabetes mellitus with foot ulcer, with long-term current use of insulin Code(s): E11.621 - TYPE 2 DIABETES MELLITUS WITH FOOT ULCER; L97.509 - NON- PRESSURE CHRONIC ULCER OTH PRT UNSP FOOT W UNSP SEVERITY; Z79.4 - ALF ( CURRENT) USE OF INSULIN Qualifiers: Diabetes mellitus type: type 2 Qualified Code(s): E11.621 - Type 2 diabetes mellitus with foot ulcer; L97.509 - Non-pressure chronic ulcer of other part of unspecified foot with unspecified severity; L97.509 - Non- pressure chronic ulcer of other part of unspecified foot with unspecified severity; L97.509 - Non-pressure chronic ulcer of other part of unspecified foot with unspecified severity; L97.509 - Non-pressure chronic ulcer of other part of unspecified foot with unspecified severity; Z79.4 - intermediate (current) use of insulin; Z79.4 - intermediate (current) use of insulin; Z79.4 - intermediate ( current) use of insulin; Z79.4 - intermediate (current) use of insulin (5) Hepatitis C Code(s): B19.20 - UNSPECIFIED VIRAL HEPATITIS C WITHOUT HEPATIC COMA Qualifiers: Viral hepatitis chronicity: unspecified Hepatic coma status: without hepatic coma Qualified Code(s): B19.20 - Unspecified viral hepatitis C without hepatic coma (6) Hypertension Code(s): I10 - ESSENTIAL (PRIMARY) HYPERTENSION Qualifiers: Hypertension type: essential hypertension Qualified Code(s): I10 - Essential (primary) hypertension (7) Hypothyroidism Code(s): E03.9 - HYPOTHYROIDISM, UNSPECIFIED Qualifiers: Hypothyroidism type: unspecified Qualified Code(s): E03.9 - Hypothyroidism , unspecified (8) Methadone maintenance therapy patient Code(s): F11.20 - OPIOID DEPENDENCE, UNCOMPLICATED Assessment/Plan (1) CHF exacerbation Assessment/Plan: -still with fluid overload -case d/w Dr Barrera -increase lasix to 80mg IV bid -monitor Code(s): I50.9 - HEART FAILURE, UNSPECIFIED Qualifiers: Heart failure type: systolic Qualified Code(s): I50.23 - Acute on chronic systolic (congestive) heart failure (2) GLORY (acute kidney injury) Assessment/Plan: -no significant diuresis yet -still suspect cardiorenal syndrome -increase lasix as above -case d/w Dr Barrera -recheck in am Code(s): N17.9 - ACUTE KIDNEY FAILURE, UNSPECIFIED (3) Hyperkalemia Assessment/Plan: -elevated today -given kayexalate Code(s): E87.5 - HYPERKALEMIA (4) Diabetes mellitus with foot ulcer, with long-term current use of insulin Assessment/Plan: -continue levemir 10 units bid -monitor today since yesterday will be inaccurate because did not receive am levemir -so far required 12 units coverage after breakfast -CT scan foot pending -defer antibiotic regimen to Dr Panda Code(s): E11.621 - TYPE 2 DIABETES MELLITUS WITH FOOT ULCER; L97.509 - NON- PRESSURE CHRONIC ULCER OTH PRT UNSP FOOT W UNSP SEVERITY; 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.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 Qualifiers: Diabetes mellitus type: type 2 Qualified Code(s): E11.621 - Type 2 diabetes mellitus with foot ulcer; L97.509 - Non-pressure chronic ulcer of other part of unspecified foot with unspecified severity; L97.509 - Non- pressure chronic ulcer of other part of unspecified foot with unspecified severity; L97.509 - Non-pressure chronic ulcer of other part of unspecified foot with unspecified severity; L97.509 - Non-pressure chronic ulcer of other part of unspecified foot with unspecified severity; Z79.4 - continuous churn 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 (current) use of insulin; Z79.4 - intermediate (current) use of insulin; Z79.4 - continuous churn buttermaker ( current) use of insulin; Z79.4 - continuous churn buttermaker (current) use of insulin (5) Hepatitis C Assessment/Plan: -noted Code(s): B19.20 - UNSPECIFIED VIRAL HEPATITIS C WITHOUT HEPATIC COMA Qualifiers: Viral hepatitis chronicity: unspecified Hepatic coma status: without hepatic coma Qualified Code(s): B19.20 - Unspecified viral hepatitis C without hepatic coma (6) Hypertension Assessment/Plan: -continue amlodipine Code(s): I10 - ESSENTIAL (PRIMARY) HYPERTENSION Qualifiers: Hypertension type: essential hypertension Qualified Code(s): I10 - Essential (primary) hypertension (7) Hypothyroidism Assessment/Plan: -continue synthroid Code(s): E03.9 - HYPOTHYROIDISM, UNSPECIFIED Qualifiers: Hypothyroidism type: unspecified Qualified Code(s): E03.9 - Hypothyroidism , unspecified (8) Methadone maintenance therapy patient Assessment/Plan: -on methadone 120mg daily Code(s): F11.20 - OPIOID DEPENDENCE, UNCOMPLICATED
--- NOTE | 2019-02-25 17:57 | EKG ---
Test Reason : Blood Pressure : / mmHG Vent. Rate : 132 BPM Atrial Rate : 264 BPM P-R Int : 000 ms QRS Dur : 070 ms QT Int : 300 ms P-R-T Axes : 268 048 258 degrees QTc Int : 444 ms ATRIAL FLUTTER WITH 2:1 A-V CONDUCTION NONSPECIFIC ST AND T WAVE ABNORMALITY ABNORMAL ECG WHEN COMPARED WITH ECG OF 23-FEB-2019 12:18, ATRIAL FLUTTER HAS REPLACED SINUS RHYTHM VENT. RATE HAS INCREASED BY 48 BPM NONSPECIFIC T WAVE ABNORMALITY NOW EVIDENT IN INFERIOR LEADS Confirmed by EVELYN GRACE MD ([id number]) on 02/25/2019 5:57:21 PM Referred By: Confirmed By:EVELYN GRACE MD
[2019-02-25] MEDS ORDERED: metoPROLOL SUCCINATE 25 MG TAB.SR.24H (FP) PO ONE (19:15)
[2019-02-25] MEDS: GABAPENTIN 300 MG CAPSULE (FP) PO SCH (21:46)
[2019-02-25] MEDS: ATORVASTATIN CA 20 MG TABLET (FP) PO SCH (21:46)
[2019-02-25] MEDS: CLINDAMYCIN HCL 150 MG CAPSULE (FP) PO SCH (21:49)
[2019-02-26] MEDS: CLINDAMYCIN HCL 150 MG CAPSULE (FP) PO SCH ×4 (01:00→18:46)
[2019-02-26] MEDS: FUROSEMIDE 40 MG/4 ML INJECTABLE VIAL IVPUSH SCH (05:47)
[2019-02-26] MEDS ORDERED: FUROSEMIDE 40 MG TABLET (FP) PO ONE (05:54)
--- NOTE | 2019-02-26 05:56 | PN ---
Progress Note (short form) - Note Progress Note: Pt. has no IV access, given 120mg Lasix instead of 80mg IV. Decision was made to use conservative conversion of 1:1.5. IV access will need to be obtained later today to continue IV medications.
[2019-02-26] MEDS: METHADONE HCL 40 MG DISPERSABLE TABLET PO SCH (06:04)
[2019-02-26] MEDS: HEPARIN NA (PORCINE) 5,000 UNITS/ML 1ML VIAL SQ SCH ×3 (06:07→21:03)
[2019-02-26] MEDS: INSULIN (LEVEMIR) 100 UNITS/ML UNITS SQ SCH ×2 (06:08→21:05)
[2019-02-26] MEDS: INSULIN SLIDING SCALE (NOVOLOG) 1 VIAL SQ SCH ×4 (06:08→21:04)
[2019-02-26 08:14] LABS: BASO % 1.9 % (0-2.0); EOS % 2.1 % (0-4.5); HEMATOCRIT 29.5 % (35.4-49); HEMOGLOBIN 9.4 GM/dL (11.7-16.9); LYMPH % 6.9 % (8-40); MCH 24.9 pg (25.7-33.7); MCHC 31.7 g/dl (32.0-35.9); MEAN CELL VOLUME 78.3 fl (80-96); MEAN PLT VOLUME 9.3 fl (7.5-11.1); MONO % 9.6 % (3.8-10.2); NEUT % 79.5 % (42.8-82.8); PLATELET COUNT 425 K/MM3 (134-434); RBC 3.77 M/mm3 (4.00-5.60); RDW 19.7 % (11.9-15.9); WHITE BLOOD COUNT 10.7 K/mm3 (4.0-10.0)
[2019-02-26 09:01] LABS: ALBUMIN 2.1 g/dl (3.4-5.0); ALK PHOS 84 U/L (45-117); ANION GAP 9 MMOL/L (8-16); BILIRUBIN,TOTAL 0.9 mg/dL (0.2-1); CHLORIDE 102 mmol/L (98-107); CO2 26 mmol/L (21-32); CREATININE 4.3 mg/dL (0.55-1.3); GLUCOSE,RANDOM 155 mg/dL (74-106); MAGNESIUM 2.4 mg/dL (1.8-2.4); POTASSIUM 5.4 mmol/L (3.5-5.1); SGOT/AST 21 U/L (15-37); SGPT/ALT 20 U/L (13-61); SODIUM 137 mmol/L (136-145); TOT PROT 5.7 g/dl (6.4-8.2)
[2019-02-26 10:03] LABS: BLOOD UREA NITROGEN 107 mg/dL (7-18); CALCIUM 6.8 mg/dL (8.5-10.1)
[2019-02-26] MEDS: ASPIRIN 81 MG CHEWABLE TABLETS PO SCH (11:00)
[2019-02-26] MEDS: PANTOPRAZOLE 40 MG TABLET (FP) PO SCH (11:01)
[2019-02-26] MEDS: amLODIPine BESYLATE 10 MG TABLET (FP) PO SCH (11:01)
[2019-02-26] MEDS: metoPROLOL SUCCINATE 25 MG TAB.SR.24H (FP) PO SCH ×2 (11:02→21:03)
--- NOTE | 2019-02-26 11:12 | PN ---
Progress Note, Physician Chief Complaint: sob History of Present Illness: denies any significant urine output after diuretic doses here--dtr states IV infiltrated at least twice at time of the administration of lasix pt states sob has improved somewhat since here no cp, palpit no cigs - Current Medication List Current Medications: Active Medications Acetaminophen (Tylenol -) 650 mg PO Q4H PRN PRN Reason: FEVER Amlodipine Besylate (Norvasc -) 10 mg PO DAILY [facility] Last Admin: 02/26/19 11:01 Dose: Not Given Aspirin (Asa -) 81 mg PO DAILY [facility] Last Admin: 02/26/19 11:00 Dose: 81 mg Atorvastatin Calcium (Lipitor -) 20 mg PO HS [facility] Last Admin: 02/25/19 21:46 Dose: 20 mg Clindamycin HCl (Cleocin -) 450 mg PO Q6HPO [facility] Last Admin: 02/26/19 06:07 Dose: 450 mg Furosemide (Lasix Injection -) 80 mg IVPUSH BID@0600,1400 [facility] Last Admin: 02/26/19 05:47 Dose: Not Given Gabapentin (Neurontin -) 900 mg PO HS [facility] Last Admin: 02/25/19 21:46 Dose: 900 mg Heparin Sodium (Porcine) (Heparin -) 5,000 unit SQ TID [facility] Last Admin: 02/26/19 06:07 Dose: 5,000 unit Insulin Aspart (Novolog Vial Sliding Scale -) 1 vial SQ ACHS [facility]; Protocol Last Admin: 02/26/19 06:08 Dose: Not Given Insulin Detemir (Levemir Vial) 10 units SQ BID@0700,2200 [facility] Last Admin: 02/26/19 06:08 Dose: Not Given Methadone HCl (Dolophine -) 120 mg PO 0600 [facility] Last Admin: 02/26/19 06:04 Dose: 120 mg Metoprolol Succinate (Toprol Xl -) 25 mg PO BID [facility] Last Admin: 02/26/19 11:02 Dose: Not Given Pantoprazole Sodium (Protonix -) 40 mg PO DAILY [facility] Last Admin: 02/26/19 11:01 Dose: 40 mg - Objective Vital Signs: Vital Signs Temperature 97.8 F 02/26/19 06:00 Pulse Rate 98 H 02/26/19 06:00 Respiratory Rate 20 02/26/19 06:00 Blood Pressure 113/59 L 02/26/19 06:00 O2 Sat by Pulse Oximetry (%) 95 02/25/19 21:00 Constitutional: Yes: No Distress, Calm Eyes: No: Sclera Icterus HENT: No: Nasal Congestion Cardiovascular: Yes: Regular Rate and Rhythm, JVD (probable (tds thick neck)), S1, S2, Other (PMI non diplaced). No: Gallop, Murmur Respiratory: Yes: CTA Bilaterally, Diminished (L base). No: Accessory Muscle Use, Rales, Wheezes Gastrointestinal: Yes: Normal Bowel Sounds, Soft. No: Tenderness Musculoskeletal: Yes: Other (No kyphosis) Extremities: No: Cold Edema: Yes (s/p RLE amp. 2+ L) Integumentary: No: Jaundice Neurological: Yes: Alert, Oriented (x3) Psychiatric: No: Agitated Labs: CBC, BMP 02/26/19 08:00 02/26/19 08:00 INR, PTT INR 1.39 (0.83-1.09) H 02/23/19 14:23 Assessment/Plan CXR 02/24: congestive changes incl effusions diminished slightly EKG:sinus rhythm, nl intervals, no ischemic changes echo 09/2018 tds, nl LV size/function, tr MR, mild biatrial enlargement tele: TDS tracing often, low voltage QRS signals. likely PSVT in 120s bpm-->NSR presently. artifact. 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 acute diastolic CHF exacerbation -chf exacerbation due to med noncompliance. no signs acs. -treatment has been limited by poor IV access here. per JAN, pt received lasix 40 IV x1 on 02/23, bid on 02/24 and no IV lasix since. received lasix 120 PO x1 on . -02/26: wt has not downtrended at all here. renal fxn progressively worsening, currently BUN 107/creat 4.3--strongly suspect ongoing cardiorenal syndrome with ineffectual diuresis due to GFR <20 (likely to require much higher doses of lasix) and poor IV access. currently no IV access available. he is very stable from resp standpoint--concern that further ineffective diuresis (with oral regimen) may worsen renal fxn. will hold off on po torsemide given how stable pt is, and await PICC line or central line hopefully today--then begin lasix 80- 100 iv bid with daily renal fxn monitoring. disc'd plan with dr manzano and dianne HOLDER on ckd -baseline creat around 2.[address] alcala -likely cardiorenal, monitor cr with diuresis -renal following as well, deferring HD initiation at present time cad s/p pci: -has been stable -had pci 2016 with plans for staged pci of residual 70-80 dlad but this was postponed due to sepsis/bka and since he has had no ischemic symptoms and with ckd, plans have been med rx for now. -cont statin, asa PSVT, ? PAT: -started toprol -episode to 120s bpm on tele 02/26. cont same meds, observe tele DM - manage per primary HTN - stable on amlodipine HLD - cont statin
--- NOTE | 2019-02-26 12:12 | PN ---
Progress Note (short form) - Note Progress Note: Renal follow up for GLORY on CKD Pt seen and examined at the bedside awake and alert but somewhat confused did not recall who is was says that he has not slep denies any sob, cp, abd pain making urine Vital Signs Temperature 97.8 F 02/26/19 06:00 Pulse Rate 98 H 02/26/19 06:00 Respiratory Rate 20 02/26/19 06:00 Blood Pressure 113/59 L 02/26/19 06:00 O2 Sat by Pulse Oximetry (%) 95 02/25/19 21:00 Intake & Output 02/23/19 02/24/19 02/25/19 02/26/19 23:59 23:59 23:59 23:59 Intake Total 1020 850 490 Output Total 500 1425 1000 Balance 520 575 -510 Weight 131.542 kg 132.54 kg 132.449 kg 132.494 kg NAD RRR, no M/R Dec BS, no rales soft NT/ND, obese right BKA, left leg edema++ CBC, BMP 02/26/19 08:00 02/26/19 08:00 Current Medications Acetaminophen (Tylenol -) 650 mg PO Q4H PRN PRN Reason: FEVER Amlodipine Besylate (Norvasc -) 10 mg PO DAILY [facility] Last Admin: 02/26/19 11:01 Dose: Not Given Aspirin (Asa -) 81 mg PO DAILY [facility] Last Admin: 02/26/19 11:00 Dose: 81 mg Atorvastatin Calcium (Lipitor -) 20 mg PO [facility] Last Admin: 02/25/19 21:46 Dose: 20 mg Clindamycin HCl (Cleocin -) 450 mg PO Q6HPO [facility] Last Admin: 02/26/19 06:07 Dose: 450 mg Furosemide (Lasix Injection -) 80 mg IVPUSH BID@0600,1400 [facility] Last Admin: 02/26/19 05:47 Dose: Not Given Gabapentin (Neurontin -) 900 mg PO [facility] Last Admin: 02/25/19 21:46 Dose: 900 mg Heparin Sodium (Porcine) (Heparin -) 5,000 unit SQ TID [facility] Last Admin: 02/26/19 06:07 Dose: 5,000 unit Insulin Aspart (Novolog Vial Sliding Scale -) 1 vial SQ [facility]; Protocol Last Admin: 04/08/19 06:08 Dose: Not Given Insulin Detemir (Levemir Vial) 10 units SQ BID@0700,2200 [facility] Last Admin: 02/26/19 06:08 Dose: Not Given Methadone HCl (Dolophine -) 120 mg PO 0600 [facility] Last Admin: 02/26/19 06:04 Dose: 120 mg Metoprolol Succinate (Toprol Xl -) 25 mg PO BID [facility] Last Admin: 02/26/19 11:02 Dose: Not Given Pantoprazole Sodium (Protonix -) 40 mg PO DAILY [facility] Last Admin: 02/26/19 11:01 Dose: 40 mg 63 year old gentleman with hx of CAD, Hypertension, DM (x 30 years), Hx of substance abuse, ? Hepatitis, PVD s/p right LE amputation who presented with complaints of SOB/REYES and fatigue over the past week with GLORY on CKD. #GLORY on CKD #CKD stage 3 #Hyperkalemia #CHF exacerbation #Anemia #Leukocytosis #LE wound #confusion Renal function without any improvement thus far and now BUN rising. Unclear if over diuresis is cause as pt did not lose any weight. will hold diuretics for the time being as pt without SOB/Hypoxia or rales on lung exam unclear if uremia cause of confusion today but need to r/o hypercarbia given body size and also would benefit from checking ammonia levels K is slight improved, maintain on low k diet would repeat labs this evening cardiology follow up reyes all meds for CrCl < 10 no emergent indication for LINE PILOT case discussed with primary team Rodo Barrera DO
--- NOTE | 2019-02-26 12:49 | CONSULT ---
Consult - text type - Consultation Consultation Note: PODIATRY 63 y/o male seen and evaluated at bedside with left foot plantar wound. With family at bedside. Patient was admitted for CHF excacerbation feeling better today. States that his last a1c was roughly 8.0% and that it has been as high as 14%. Had an infection on the right leg which caused sepsis and a BKA was performed. Has currently had wound on bottom of the left foot for >1 year and follows with [facility] wound care center every other week for debridment. Has been discussion of grafts. States usual moderate amounts of drainage secondary to swolen leg. States recently had some redness and swelling in the foot which since admission has resolved greatly. Denies any other pedal complaints. O: Vascular: non palpable pedal pulses, cap fill time delayed, temp gradient wnl, derm: Plantar ulceration left midfoot measuring roughly 3.5 x 3.x5 x 0.2 cm, does not probe to bone, minimal erythema, no purulence, no malodor, no streaking , no undermining, no tracking, not clinically infected, base granular 80% fibrous 20%, superficial abrasions noted on 2/3rd digit Neuro greatly diminished. A: 63 y/o male uncontrolled diabetes with pressure/vascular ulceration plantar left midfoot with resolving cellulitis. P: Evaluated and reviewed do not believe there is any underlying abscess; f/u CT though for complete eval f/u cultures Abx Per ID reccs Will order non invasives; pvr/willie Daily dressing changes with wet to dry DSD and bandaid topical abx to the digits Minimize weight bearing as tolerated Follows with [facility] and can continue to follow up with them upon d/c Will follow while admitted.
[2019-02-26] MEDS ORDERED: PT OWN MED DRAWER 7, Y5N ONE ×3 (12:56→18:40)
--- NOTE | 2019-02-26 13:57 | PN ---
Progress Note, Physician History of Present Illness: patient stable seems he was confused last night still awaiting ct scan of the leg cx report noted awaiting identification of the organism - Current Medication List Current Medications: Active Medications Acetaminophen (Tylenol -) 650 mg PO Q4H PRN PRN Reason: FEVER Amlodipine Besylate (Norvasc -) 10 mg PO DAILY [facility] Last Admin: 02/26/19 11:01 Dose: Not Given Aspirin (Asa -) 81 mg PO DAILY [facility] Last Admin: 02/26/19 11:00 Dose: 81 mg Atorvastatin Calcium (Lipitor -) 20 mg PO HS [facility] Last Admin: 02/25/19 21:46 Dose: 20 mg Bacitracin (Bacitracin -) 1 applic TP DAILY [facility] Clindamycin HCl (Cleocin -) 450 mg PO Q6HPO [facility] Last Admin: 02/26/19 13:15 Dose: 450 mg Gabapentin (Neurontin -) 900 mg PO HS [facility] Last Admin: 02/25/19 21:46 Dose: 900 mg Heparin Sodium (Porcine) (Heparin -) 5,000 unit SQ TID [facility] Last Admin: 02/26/19 06:07 Dose: 5,000 unit Piperacillin Sod/Tazobactam (Sod 2.25 gm/ Dextrose) 50 mls @ 100 mls/hr IVPB Q8H-IV J[facility]; Protocol Insulin Aspart (Novolog Vial Sliding Scale -) 1 vial SQ ACHS [facility]; Protocol Last Admin: 02/26/19 13:15 Dose: 2 units Insulin Detemir (Levemir Vial) 10 units SQ BID@0700,2200 [facility] Last Admin: 02/26/19 06:08 Dose: Not Given Methadone HCl (Dolophine -) 120 mg PO 0600 [facility] Last Admin: 02/26/19 06:04 Dose: 120 mg Metoprolol Succinate (Toprol Xl -) 25 mg PO BID [facility] Last Admin: 02/26/19 11:02 Dose: Not Given Pantoprazole Sodium (Protonix -) 40 mg PO DAILY [facility] Last Admin: 02/26/19 11:01 Dose: 40 mg - Objective Vital Signs: Vital Signs Temperature 97.8 F 02/26/19 06:00 Pulse Rate 98 H 02/26/19 06:00 Respiratory Rate 20 02/26/19 06:00 Blood Pressure 113/59 L 02/26/19 06:00 O2 Sat by Pulse Oximetry (%) 95 02/25/19 21:00 Constitutional: Yes: No Distress, Calm Cardiovascular: Yes: S1, S2 Respiratory: Yes: Regular, CTA Bilaterally Gastrointestinal: Yes: Normal Bowel Sounds, Soft Musculoskeletal: Yes: WNL Extremities: Yes: Other Wound/Incision: Yes: Dressing Dry and Intact Neurological: Yes: Alert, Oriented Psychiatric: Yes: Alert, Oriented Labs: CBC, BMP 02/26/19 08:00 02/26/19 08:00 INR, PTT INR 1.39 (0.83-1.09) H 02/23/19 14:23 Assessment/Plan ssessment/Plan Problem List - Problems (1) CHF exacerbation Code(s): I50.9 - HEART FAILURE, UNSPECIFIED Qualifiers: Heart failure type: systolic Qualified Code(s): I50.23 - Acute on chronic systolic (congestive) heart failure (2) GLORY (acute kidney injury) Code(s): N17.9 - ACUTE KIDNEY FAILURE, UNSPECIFIED (3) Hyperkalemia Code(s): E87.5 - HYPERKALEMIA (4) Diabetes mellitus with foot ulcer, with long-term current use of insulin Code(s): E11.621 - TYPE 2 DIABETES MELLITUS WITH FOOT ULCER; L97.509 - NON- PRESSURE CHRONIC ULCER OTH PRT UNSP FOOT W UNSP SEVERITY; Z79.4 - CLERK RATING ( CURRENT) USE OF INSULIN Qualifiers: Diabetes mellitus type: type 2 Qualified Code(s): E11.621 - Type 2 diabetes mellitus with foot ulcer; L97.509 - Non-pressure chronic ulcer of other part of unspecified foot with unspecified severity; L97.509 - Non- pressure chronic ulcer of other part of unspecified foot with unspecified severity; L97.509 - Non-pressure chronic ulcer of other part of unspecified foot with unspecified severity; L97.509 - Non-pressure chronic ulcer of other part of unspecified foot with unspecified severity; 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; 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; Z79.4 - 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 ( current) use of insulin; 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 (5) Hepatitis C Code(s): B19.20 - UNSPECIFIED VIRAL HEPATITIS C WITHOUT HEPATIC COMA Qualifiers: Viral hepatitis chronicity: unspecified Hepatic coma status: without hepatic coma Qualified Code(s): B19.20 - Unspecified viral hepatitis C without hepatic coma (6) Hypertension Code(s): I10 - ESSENTIAL (PRIMARY) HYPERTENSION Qualifiers: Hypertension type: essential hypertension Qualified Code(s): I10 - Essential (primary) hypertension (7) Hypothyroidism Code(s): E03.9 - HYPOTHYROIDISM, UNSPECIFIED Qualifiers: Hypothyroidism type: unspecified Qualified Code(s): E03.9 - Hypothyroidism , unspecified (8) Methadone maintenance therapy patient Code(s): F11.20 - OPIOID DEPENDENCE, UNCOMPLICATED non healing diabetic wound on the plantar surface of the left foot plan cx result noted patient with no iv access at the moment will give him oral abx augmentin
[2019-02-26] MEDS ORDERED: PIPERACILLIN/TAZOB 2.25 GM 2.25 GM in DEXTROSE 5%-WATER - 50 ML IVPB SCH (14:00)
[2019-02-26] MEDS ORDERED: NEOMYCIN/POLYMYXIN/BACITRACIN (TRIPLE ANTIBIOTIC) 28 GM OINTMENT TP SCH (14:00)
[2019-02-26 14:23] LABS: ARTERIAL BLD GAS O2 SATURATION 86.5 % (95-98); ARTERIAL BLOOD GAS BASE EXCESS -2.9 meq/l (-2-2); ARTERIAL BLOOD GAS PCO2 57.5 mmHg (35-45); ARTERIAL BLOOD GAS PO2 62.4 mmHg (80-105); ARTERIAL BLOOD GAS pH 7.25 (7.35-7.45)
[2019-02-26 14:25] LABS: ALLENS TEST POSITIVE
--- NOTE | 2019-02-26 15:23 | PN ---
Progress Note, Physician Chief Complaint: Mr Azevedo is quite confused today. Says he is feeling fine but also appears confused and lethargic. - Current Medication List Current Medications: Active Medications Acetaminophen (Tylenol -) 650 mg PO Q4H PRN PRN Reason: FEVER Amlodipine Besylate (Norvasc -) 10 mg PO DAILY [facility] Last Admin: 02/26/19 11:01 Dose: Not Given Amoxicillin/Clavulanate Potassium (Augmentin - 500mg Tablet) 1 tab PO BID@0800, 1730 [facility] Aspirin (Asa -) 81 mg PO DAILY [facility] Last Admin: 02/26/19 11:00 Dose: 81 mg Atorvastatin Calcium (Lipitor -) 20 mg PO HS [facility] Last Admin: 02/25/19 21:46 Dose: 20 mg Bacitracin (Bacitracin -) 1 applic TP DAILY [facility] Clindamycin HCl (Cleocin -) 450 mg PO Q6HPO [facility] Last Admin: 02/26/19 13:15 Dose: 450 mg Gabapentin (Neurontin -) 900 mg PO [facility] Last Admin: 02/25/19 21:46 Dose: 900 mg Heparin Sodium (Porcine) (Heparin -) 5,000 unit SQ TID [facility] Last Admin: 02/26/19 06:07 Dose: 5,000 unit Insulin Aspart (Novolog Vial Sliding Scale -) 1 vial SQ [facility]; Protocol Last Admin: 02/26/19 13:15 Dose: 2 units Insulin Detemir (Levemir Vial) 10 units SQ BID@0700,2200 [facility] Last Admin: 02/26/19 06:08 Dose: Not Given Methadone HCl (Dolophine -) 120 mg PO 0600 [facility] Last Admin: 02/26/19 06:04 Dose: 120 mg Metoprolol Succinate (Toprol Xl -) 25 mg PO BID [facility] Last Admin: 02/26/19 11:02 Dose: Not Given Pantoprazole Sodium (Protonix -) 40 mg PO DAILY [facility] Last Admin: 02/26/19 11:01 Dose: 40 mg - Objective Vital Signs: Vital Signs Temperature 36.6 C 02/26/19 06:00 Pulse Rate 98 H 02/26/19 06:00 Respiratory Rate 20 02/26/19 06:00 Blood Pressure 113/59 L 02/26/19 06:00 O2 Sat by Pulse Oximetry (%) 95 02/25/19 21:00 Constitutional: Yes: No Distress, Calm, Obese, Other (confused) Cardiovascular: Yes: Regular Rate and Rhythm. No: Gallop, Murmur, Rub Respiratory: Yes: Regular, CTA Bilaterally. No: Rales, Rhonchi, Wheezes Gastrointestinal: Yes: Normal Bowel Sounds, Soft. No: Distention, Tenderness Extremities: Yes: Amputation Edema: Yes Edema: LLE: 2+ Labs: CBC, BMP 02/26/19 08:00 02/26/19 08:00 INR, PTT INR 1.39 (0.83-1.09) H 02/23/19 14:23 Problem List - Problems (1) Acute respiratory failure with hypoxia and hypercapnia Code(s): J96.01 - ACUTE RESPIRATORY FAILURE WITH HYPOXIA; J96.02 - ACUTE RESPIRATORY FAILURE WITH HYPERCAPNIA (2) Acute metabolic encephalopathy Code(s): G93.41 - METABOLIC ENCEPHALOPATHY (3) CHF exacerbation Code(s): I50.9 - HEART FAILURE, UNSPECIFIED Qualifiers: Heart failure type: systolic Qualified Code(s): I50.23 - Acute on chronic systolic (congestive) heart failure (4) GLORY (acute kidney injury) Code(s): N17.9 - ACUTE KIDNEY FAILURE, UNSPECIFIED (5) Hyperkalemia Code(s): E87.5 - HYPERKALEMIA (6) Diabetes mellitus with foot ulcer, with long-term current use of insulin Code(s): E11.621 - TYPE 2 DIABETES MELLITUS WITH FOOT ULCER; L97.509 - NON- PRESSURE CHRONIC ULCER OTH PRT UNSP FOOT W UNSP SEVERITY; Z79.4 - ADVERTISING CONSULTANT ( CURRENT) USE OF INSULIN Qualifiers: Diabetes mellitus type: type 2 Qualified Code(s): E11.621 - Type 2 diabetes mellitus with foot ulcer; L97.509 - Non-pressure chronic ulcer of other part of unspecified foot with unspecified severity; L97.509 - Non- pressure chronic ulcer of other part of unspecified foot with unspecified severity; L97.509 - Non-pressure chronic ulcer of other part of unspecified foot with unspecified severity; L97.509 - Non-pressure chronic ulcer of other part of unspecified foot with unspecified severity; Z79.4 - senior care (current) use of insulin; Z79.4 - terminal carman (current) use of insulin; Z79.4 - senior care ( current) use of insulin; Z79.4 - senior care (current) use of insulin (7) Hepatitis C Code(s): B19.20 - UNSPECIFIED VIRAL HEPATITIS C WITHOUT HEPATIC COMA Qualifiers: Viral hepatitis chronicity: unspecified Hepatic coma status: without hepatic coma Qualified Code(s): B19.20 - Unspecified viral hepatitis C without hepatic coma (8) Hypertension Code(s): I10 - ESSENTIAL (PRIMARY) HYPERTENSION Qualifiers: Hypertension type: essential hypertension Qualified Code(s): I10 - Essential (primary) hypertension (9) Hypothyroidism Code(s): E03.9 - HYPOTHYROIDISM, UNSPECIFIED Qualifiers: Hypothyroidism type: unspecified Qualified Code(s): E03.9 - Hypothyroidism , unspecified (10) Methadone maintenance therapy patient Code(s): F11.20 - OPIOID DEPENDENCE, UNCOMPLICATED Assessment/Plan (1) CHF exacerbation Assessment/Plan: -case d/w Dr Barrera and Dr Lawler -received oral lasix this am -obtain central line for IV lasix Code(s): I50.9 - HEART FAILURE, UNSPECIFIED Qualifiers: Heart failure type: systolic Qualified Code(s): I50.23 - Acute on chronic systolic (congestive) heart failure (2) GLORY (acute kidney injury) Assessment/Plan: -suspect cardiorenal syndrome -difficult to diurese as patient pulls on line -attempt central access Code(s): N17.9 - ACUTE KIDNEY FAILURE, UNSPECIFIED (3) Hyperkalemia Assessment/Plan: -improved today Code(s): E87.5 - HYPERKALEMIA (4) Diabetes mellitus with foot ulcer, with long-term current use of insulin Assessment/Plan: -controlled -continue current management -placed on oral clindamycin while attempting to get access -ID following -appreciate podiatry assistance Code(s): E11.621 - TYPE 2 DIABETES MELLITUS WITH FOOT ULCER; L97.509 - NON- PRESSURE CHRONIC ULCER OTH PRT UNSP FOOT W UNSP SEVERITY; Z79.4 - ADVERTISING CONSULTANT ( CURRENT) USE OF INSULIN Qualifiers: Diabetes mellitus type: type 2 Qualified Code(s): E11.621 - Type 2 diabetes mellitus with foot ulcer; L97.509 - Non-pressure chronic ulcer of other part of unspecified foot with unspecified severity; L97.509 - Non- pressure chronic ulcer of other part of unspecified foot with unspecified severity; L97.509 - Non-pressure chronic ulcer of other part of unspecified foot with unspecified severity; L97.509 - Non-pressure chronic ulcer of other part of unspecified foot with unspecified severity; Z79.4 - senior care (current) use of insulin; Z79.4 - senior care (current) use of insulin; Z79.4 - senior care ( current) use of insulin; Z79.4 - terminal carman (current) use of insulin (5) Hepatitis C Assessment/Plan: -noted Code(s): B19.20 - UNSPECIFIED VIRAL HEPATITIS C WITHOUT HEPATIC COMA Qualifiers: Viral hepatitis chronicity: unspecified Hepatic coma status: without hepatic coma Qualified Code(s): B19.20 - Unspecified viral hepatitis C without hepatic coma (6) Hypertension Assessment/Plan: -continue amlodipine Code(s): I10 - ESSENTIAL (PRIMARY) HYPERTENSION Qualifiers: Hypertension type: essential hypertension Qualified Code(s): I10 - Essential (primary) hypertension (7) Hypothyroidism Assessment/Plan: -continue synthroid Code(s): E03.9 - HYPOTHYROIDISM, UNSPECIFIED Qualifiers: Hypothyroidism type: unspecified Qualified Code(s): E03.9 - Hypothyroidism , unspecified (8) Methadone maintenance therapy patient Assessment/Plan: -on methadone 120mg daily Code(s): F11.20 - OPIOID DEPENDENCE, UNCOMPLICATED (9) Respiratory failure -acute hypercapneic and hypoxic -consult pulmonary -begin bipap (10) Metabolic encephalopathy -secondary to respiratory failure -bipap as above -patient may benefit from chronic pm bipap
--- NOTE | 2019-02-26 18:33 | PROC ---
Central Line Insertion - Procedure Note TIME OUT performed prior to this procedure with verbal confirmation of correct patient identity, correct side, agreement of the procedure, correct patient position, availability of necessary equipment. The telephone consent obtained from ethan Azevedo (/hcp) is complete and accurate. Risk of possible infection, bleeding and pneumothorax have been discussed with the patient and HCP. Safety precautions based on patient history or medication use has been addressed. Indication: CVP Monitoring, Poor Venous Access Consent on Chart: Yes Central Line: Triple Lumen Catheter Position: Supine Area prepped with Chlorhexidine solution then draped using sterile barrier protection. Anesthesia: Lidocaine 1% Technique used: Seldinger Ultrasound Guided Assistance: Yes Site: Right Internal Jugular Dark venous non-pulsatile flow noted from hub of needle. The catheter was introduced. Guide wire removed intact. Each port aspirated then flushed with sterile normal saline and capped. Line secured to skin with silk suture. Biopatch placed around base of line. Sterile occlusive dressing applied. No complications. Patient tolerated the procedure well. STAT chest xray ordered to confirm position and rule out pneumothorax
[2019-02-26] MEDS: AMOX TR/POT CLAV 500MG/125MG TABLETS (FP) PO SCH (18:46)
--- NOTE | 2019-02-26 18:53 | PN ---
Physical Exam: SUBJECTIVE: Patient seen and examined. He is feeling good today, no complaints. OBJECTIVE: Vital Signs Period Temp Pulse Resp BP Sys/Alvarez Pulse Ox Last 24 Hr 97.8 F-99.7 F 73-126 20-20 113-131/55-85 94-95 GENERAL: The patient is awake, alert, in no acute distress, confused at times. HEAD: Normal with no signs of trauma. EYES: PERRL, extraocular movements intact. ENT: Oropharynx clear without exudates, moist mucous membranes. NECK: Trachea midline, full range of motion, supple. LUNGS: Breath sounds equal, clear to auscultation bilaterally, no wheezes, no crackles, no accessory muscle use. HEART: Regular rate and rhythm, S1, S2 without murmur, rub or gallop. ABDOMEN: Soft, nontender, nondistended, normoactive bowel sounds, no guarding. EXTREMITIES: 2+ pulses, warm, no edema, left leg: plantar ulcer 2 cm, rounded, no discharge, no tenderness to palpation, no rednesson,right leg amputated. NEUROLOGICAL: Normal speech, gait not observed, confused. SKIN: Warm, dry, normal turgor, no rashes. Laboratory Results - last 24 hr 02/25/19 02/25/19 02/26/19 18:00 21:33 05:30 WBC RBC Hgb Hct MCV MCH MCHC RDW Plt Count MPV Absolute Neuts (auto) Neutrophils % Lymphocytes % Monocytes % Eosinophils % Basophils % Nucleated RBC % Anticoagulation Therapy Puncture Site ABG pH ABG pCO2 at Pt Temp ABG pO2 at Pt Temp ABG HCO3 ABG O2 Sat (Measured) ABG O2 Content ABG Base Excess Favio Test O2 Delivery Device Oxygen Flow Rate Vent Mode Vent Rate Mechanical Rate Pressure Support Vent Sodium Potassium 5.9 H Chloride Carbon Dioxide Anion Gap BUN Creatinine Creat Clearance w eGFR POC Glucometer 107 118 Random Glucose Calcium Phosphorus Magnesium Total Bilirubin AST ALT Alkaline Phosphatase Total Protein Albumin 02/26/19 02/26/19 02/26/19 08:00 08:00 09:14 WBC 10.7 H RBC 3.77 L Hgb 9.4 L Hct 29.5 L MCV 78.3 L MCH 24.9 L MCHC 31.7 L RDW 19.7 H Plt Count 425 MPV 9.3 Absolute Neuts (auto) 8.5 H Neutrophils % 79.5 Lymphocytes % 6.9 L D Monocytes % 9.6 Eosinophils % 2.1 D Basophils % 1.9 D Nucleated RBC % 0 Anticoagulation Therapy Puncture Site ABG pH ABG pCO2 at Pt Temp ABG pO2 at Pt Temp ABG HCO3 ABG O2 Sat (Measured) ABG O2 Content ABG Base Excess Favio Test O2 Delivery Device Oxygen Flow Rate Vent Mode Vent Rate Mechanical Rate Pressure Support Vent Sodium 137 Potassium 5.4 H Chloride 102 Carbon Dioxide 26 Anion Gap 9 BUN 107 H* Creatinine 4.3 H Creat Clearance w eGFR 14.02 POC Glucometer 153 Random Glucose 155 H Calcium 6.8 L* Phosphorus 8.0 H Magnesium 2.4 Total Bilirubin 0.9 AST 21 ALT 20 Alkaline Phosphatase 84 Total Protein 5.7 L Albumin 2.1 L 02/26/19 02/26/19 02/26/19 12:36 14:15 18:41 WBC RBC Hgb Hct MCV MCH MCHC RDW Plt Count MPV Absolute Neuts (auto) Neutrophils % Lymphocytes % Monocytes % Eosinophils % Basophils % Nucleated RBC % Anticoagulation Therapy No Result Required. Puncture Site Right radial ABG pH 7.25 L ABG pCO2 at Pt Temp 57.5 H ABG pO2 at Pt Temp 62.4 L ABG HCO3 24.1 ABG O2 Sat (Measured) 86.5 L ABG O2 Content 11.2 L ABG Base Excess -2.9 L Favio Test Positive O2 Delivery Device No Result Required. Oxygen Flow Rate Yes Vent Mode No Result Required. Vent Rate No Result Required. Mechanical Rate No Result Required. Pressure Support Vent No Result Required. Sodium Potassium Chloride Carbon Dioxide Anion Gap BUN Creatinine Creat Clearance w eGFR POC Glucometer 177 213 Random Glucose Calcium Phosphorus Magnesium Total Bilirubin AST ALT Alkaline Phosphatase Total Protein Albumin Active Medications Generic Name Dose Route Start Last Admin Trade Name Freq PRN Reason Stop Dose Admin Acetaminophen 650 mg 02/23/19 17:55 Tylenol - PO Q4H PRN FEVER Amlodipine Besylate 10 mg 02/24/19 10:00 02/26/19 11:01 Norvasc - PO Not Given DAILY [facility] Amoxicillin/Clavulanate Potassium 1 tab 02/26/19 17:30 02/26/19 18:46 Augmentin - 500mg Tablet PO 1 tab BID@0800,1730 [facility] Administration Aspirin 81 mg 02/24/19 10:00 02/26/19 11:00 Asa - PO 81 mg DAILY [facility] Administration Atorvastatin Calcium 20 mg 02/23/19 22:00 02/25/19 21:46 Lipitor - PO 20 mg HS JL Administration Bacitracin 1 applic 02/26/19 13:45 Bacitracin - TP DAILY [facility] Calcium/Vitamin D 1 tab 02/27/19 10:00 Oscal 250 Mg+D - PO DAILY JL Clindamycin HCl 450 mg 02/25/19 21:45 02/26/19 18:46 Cleocin - PO 450 mg Q6HPO JL Administration Gabapentin 900 mg 02/23/19 22:00 02/25/19 21:46 Neurontin - PO 900 mg HS JL Administration Heparin Sodium (Porcine) 5,000 unit 02/23/19 22:00 02/26/19 14:45 Heparin - SQ 5,000 unit TID JL Administration Insulin Aspart 1 vial 02/25/19 18:53 02/26/19 13:15 Novolog Vial Sliding Scale - SQ 2 units ACHS [facility]L Administration Protocol Insulin Detemir 10 units 02/23/19 22:00 02/26/19 06:08 Levemir Vial SQ Not Given BID@0700,2200 [facility] Methadone HCl 120 mg 02/24/19 10:00 02/26/19 06:04 Dolophine - PO 120 mg 0600 [facility] Administration Metoprolol Succinate 25 mg 02/26/19 10:00 02/26/19 11:02 Toprol Xl - PO Not Given BID JL Pantoprazole Sodium 40 mg 02/24/19 10:00 02/26/19 11:01 Protonix - PO 40 mg DAILY [facility] Administration ASSESSMENT/PLAN: 63 year old male with a PMH of CAD, s/p stent, HTN, on methadone program, DM with amputation and ulcer presented for CHF exacerbation. CHF exacerbation -cardiology consulted will f/u recommendations -diurese with IV lasix -I/Os and daily weights acute hypoxic resp failure; -likely due to fluid overload and CHF -became hypoxic this afternoon -started on NS and BI Pap overnight ordered -ABG done with resp acidosis -central line placed PM AMS: likely due to hypoxia, uremia -will monitor kidney function, fluid status GLORY -cardiorenal with use of ACEI -hold ACEI -consulted nephrology -diurese with IV lasix, decreased to 80 mg IV daily -monitor for improvement Hyperkalemia -secondary to GLORY and ACEI -treated in the ED -given kayexalate -recheck at 10pm -nephrology consulted Diabetes mellitus with foot ulcer - on an insulin pump -placed on levemir 10 units bid -ISS and BGM ACHS -diabetic diet -wound care for ulcer, applied abx on wound and dressing changes micro grew Staph aureus and dipheroid -continue Vancomycin and Clindamycin Hepatitis C -stable Hypertension -continue amlodipine, Metoprolol xl BID -hypotensive in AM, will monitor Hypothyroidism -continue synthroid Methadone maintenance -on methadone 120mg daily Obesity: counseling F/E/N: no/K 5.4/diabetic DVT PPX: heparin DISPo: telemetry Problem List - Problems (1) GLORY (acute kidney injury) Code(s): N17.9 - ACUTE KIDNEY FAILURE, UNSPECIFIED (2) Acute metabolic encephalopathy Code(s): G93.41 - METABOLIC ENCEPHALOPATHY (3) Acute respiratory failure with hypoxia and hypercapnia Code(s): J96.01 - ACUTE RESPIRATORY FAILURE WITH HYPOXIA; J96.02 - ACUTE RESPIRATORY FAILURE WITH HYPERCAPNIA (4) CHF exacerbation Code(s): I50.9 - HEART FAILURE, UNSPECIFIED Qualifiers: Heart failure type: systolic Qualified Code(s): I50.23 - Acute on chronic systolic (congestive) heart failure (5) Hyperkalemia Code(s): E87.5 - HYPERKALEMIA (6) Shortness of breath Code(s): R06.02 - SHORTNESS OF BREATH (7) Abrasion hip/leg Qualifiers: Encounter type: initial encounter Laterality: right Qualified Code(s): S80.811A - Abrasion, right lower leg, initial encounter (8) Bone infection, ankle/foot Code(s): M86.9 - OSTEOMYELITIS, UNSPECIFIED (9) Cellulitis Code(s): L03.90 - CELLULITIS, UNSPECIFIED (10) Cellulitis Code(s): L03.90 - CELLULITIS, UNSPECIFIED (11) Diabetes mellitus with foot ulcer, with long-term current use of insulin Code(s): E11.621 - TYPE 2 DIABETES MELLITUS WITH FOOT ULCER; L97.509 - NON- PRESSURE CHRONIC ULCER OTH PRT UNSP FOOT W UNSP SEVERITY; Z79.4 - JOINT YARNER ( CURRENT) USE OF INSULIN Qualifiers: Diabetes mellitus type: type 2 Qualified Code(s): E11.621 - Type 2 diabetes mellitus with foot ulcer; L97.509 - Non-pressure chronic ulcer of other part of unspecified foot with unspecified severity; L97.509 - Non- pressure chronic ulcer of other part of unspecified foot with unspecified severity; L97.509 - Non-pressure chronic ulcer of other part of unspecified foot with unspecified severity; L97.509 - Non-pressure chronic ulcer of other part of unspecified foot with unspecified severity; Z79.4 - alf (current) use of insulin; Z79.4 - parts counterman (current) use of insulin; Z79.4 - alf ( current) use of insulin; Z79.4 - alf (current) use of insulin (12) Diarrhea Code(s): R19.7 - DIARRHEA, UNSPECIFIED Qualifiers: Diarrhea type: unspecified type Qualified Code(s): R19.7 - Diarrhea, unspecified (13) Facial pain Code(s): R51 - HEADACHE (14) Fall Code(s): W19.XXXA - UNSPECIFIED FALL, INITIAL ENCOUNTER Qualifiers: Encounter type: initial encounter Qualified Code(s): W19.XXXA - Unspecified fall, initial encounter (15) Fungal infection of the groin Code(s): B35.6 - TINEA CRURIS (16) Gas gangrene of lower extremity Code(s): A48.0 - GAS GANGRENE (17) H/O necrotizing fasciitis Code(s): Z87.39 - PERSONAL HISTORY OF DISEASES OF THE ID SYS AND CONN TISS (18) H/O necrotizing fasciitis Code(s): Z87.39 - PERSONAL HISTORY OF DISEASES OF THE MS SYS AND CONN TISS (19) Hepatitis C Code(s): B19.20 - UNSPECIFIED VIRAL HEPATITIS C WITHOUT HEPATIC COMA Qualifiers: Viral hepatitis chronicity: unspecified Hepatic coma status: without hepatic coma Qualified Code(s): B19.20 - Unspecified viral hepatitis C without hepatic coma (20) History of coronary artery stent placement Code(s): Z95.5 - PRESENCE OF CORONARY ANGIOPLASTY IMPLANT AND GRAFT (21) Hypertension Code(s): I10 - ESSENTIAL (PRIMARY) HYPERTENSION Qualifiers: Hypertension type: essential hypertension Qualified Code(s): I10 - Essential (primary) hypertension (22) Hypothyroidism Code(s): E03.9 - HYPOTHYROIDISM, UNSPECIFIED Qualifiers: Hypothyroidism type: unspecified Qualified Code(s): E03.9 - Hypothyroidism , unspecified (23) Insulin dependent diabetes mellitus Code(s): E11.9 - TYPE 2 DIABETES MELLITUS WITHOUT COMPLICATIONS; Z79.4 - JOINT YARNER (CURRENT) USE OF INSULIN (24) Insulin pump in place Code(s): Z96.41 - PRESENCE OF INSULIN PUMP (EXTERNAL) (INTERNAL) (25) Methadone maintenance therapy patient Code(s): F11.20 - OPIOID DEPENDENCE, UNCOMPLICATED (26) Multiple contusions Code(s): T14.8 - OTHER INJURY OF UNSPECIFIED BODY REGION * DO NOT USE * (27) Right foot pain Code(s): M79.671 - PAIN IN RIGHT FOOT Visit type - Emergency Visit Emergency Visit: Yes ED Registration Date: 02/23/19 Care time: The patient presented to the Emergency Department on the above date and was hospitalized for further evaluation of their emergent condition. - New Patient This patient is new to me today: Yes Date on this admission: 02/26/19 - Critical Care Critical Care patient: No
[2019-02-26] MEDS ORDERED: CLINDAMYCIN HCL 150 MG CAPSULE (FP) PO SCH (19:30)
[2019-02-26] MEDS: GABAPENTIN 300 MG CAPSULE (FP) PO SCH (21:03)
[2019-02-26] MEDS: ATORVASTATIN CA 20 MG TABLET (FP) PO SCH (21:03)
[2019-02-26] MEDS ORDERED: TRIPLE LUMEN FLUSH 4 ML ML IVPUSH PRN (22:43)
[2019-02-27] MEDS: CLINDAMYCIN HCL 150 MG CAPSULE (FP) PO SCH ×4 (00:47→17:42)
[2019-02-27] MEDS ORDERED: DOCUSATE NA 100 MG/10 ML UNIT-DOSE CUPS PO ONE (03:39)
[2019-02-27 04:11] LABS: SERUM IRON SATURATION 15 % (15-55); TOTAL IRON BINDING CAPACITY 110 ug/dL (250-450); UIBC 94 ug/dL (111-343)
[2019-02-27] MEDS: INSULIN SLIDING SCALE (NOVOLOG) 1 VIAL SQ SCH ×4 (07:16→21:19)
[2019-02-27 07:39] LABS: BASO % 0.6 % (0-2.0); EOS % 2.1 % (0-4.5); HEMATOCRIT 31.1 % (35.4-49); HEMOGLOBIN 9.7 GM/dL (11.7-16.9); LYMPH % 4.2 % (8-40); MCH 24.3 pg (25.7-33.7); MCHC 31.2 g/dl (32.0-35.9); MEAN CELL VOLUME 77.9 fl (80-96); MEAN PLT VOLUME 9.4 fl (7.5-11.1); MONO % 8.7 % (3.8-10.2); NEUT % 84.4 % (42.8-82.8); PLATELET COUNT 443 K/MM3 (134-434); RBC 3.99 M/mm3 (4.00-5.60); RDW 20.1 % (11.9-15.9); WHITE BLOOD COUNT 10.6 K/mm3 (4.0-10.0)
[2019-02-27] MEDS: HEPARIN NA (PORCINE) 5,000 UNITS/ML 1ML VIAL SQ SCH ×3 (07:47→21:16)
[2019-02-27] MEDS: INSULIN (LEVEMIR) 100 UNITS/ML UNITS SQ SCH ×2 (07:47→21:18)
[2019-02-27] MEDS: METHADONE HCL 40 MG DISPERSABLE TABLET PO SCH (07:48)
[2019-02-27] MEDS: AMOX TR/POT CLAV 500MG/125MG TABLETS (FP) PO SCH ×2 (08:15→17:43)
[2019-02-27] MEDS: CALCIUM 250MG/VIT-D 125 UNITS 1 COMBO TABLET PO SCH (10:30)
[2019-02-27] MEDS: PANTOPRAZOLE 40 MG TABLET (FP) PO SCH (10:31)
[2019-02-27] MEDS: metoPROLOL SUCCINATE 25 MG TAB.SR.24H (FP) PO SCH ×2 (10:31→21:18)
[2019-02-27] MEDS: amLODIPine BESYLATE 10 MG TABLET (FP) PO SCH (10:31)
[2019-02-27] MEDS: ASPIRIN 81 MG CHEWABLE TABLETS PO SCH (10:31)
[2019-02-27 10:54] LABS: ANION GAP 12 MMOL/L (8-16); CHLORIDE 102 mmol/L (98-107); CO2 22 mmol/L (21-32); CREATININE 4.6 mg/dL (0.55-1.3); GLUCOSE,RANDOM 197 mg/dL (74-106); MAGNESIUM 2.2 mg/dL (1.8-2.4); POTASSIUM 5.6 mmol/L (3.5-5.1); SODIUM 136 mmol/L (136-145)
--- NOTE | 2019-02-27 10:59 | PN ---
Progress Note (short form) - Note Progress Note: PULMONARY CONSULTATION DICTATED 02/27/19 IMP ACUTE HYPOXEMIC/HYPERCAPNEIC RESPIRATORY FAILURE ACUTE ON CHRONIC CHF ACUTE ON CHRONIC KIDNEY FAILURE ASHD S/P STENT DM LIKELY OSAS MORBID OBESITY HTN S/P R BKA ANEMIA PLAN O2 LASIX PER CARDIOLOGY DAILY WT BIPAP AT NIGHT AND PRN MONITOR LYTES ,RENAL FUNCTION CHEST CT STRICT I+Os ECHO PFTS OUTPATIENT DR PARKER Problem List - Problems (1) Acute on chronic kidney failure Code(s): N17.9 - ACUTE KIDNEY FAILURE, UNSPECIFIED; N18.9 - CHRONIC KIDNEY DISEASE, UNSPECIFIED (2) Acute respiratory failure with hypoxia and hypercapnia Code(s): J96.01 - ACUTE RESPIRATORY FAILURE WITH HYPOXIA; J96.02 - ACUTE RESPIRATORY FAILURE WITH HYPERCAPNIA (3) CHF exacerbation Code(s): I50.9 - HEART FAILURE, UNSPECIFIED Qualifiers: Heart failure type: systolic Qualified Code(s): I50.23 - Acute on chronic systolic (congestive) heart failure (4) Shortness of breath Code(s): R06.02 - SHORTNESS OF BREATH (5) Insulin dependent diabetes mellitus Code(s): E11.9 - TYPE 2 DIABETES MELLITUS WITHOUT COMPLICATIONS; Z79.4 - RESIDENTIAL (CURRENT) USE OF INSULIN
[2019-02-27 11:11] LABS: BLOOD UREA NITROGEN 120 mg/dL (7-18); CALCIUM 6.6 mg/dL (8.5-10.1); PHOSPHOROUS > 9.0 mg/dL (2.5-4.9)
--- NOTE | 2019-02-27 11:23 | PN ---
Progress Note (short form) - Note Progress Note: s: central line placed last night. no cigs Current Medications Acetaminophen (Tylenol -) 650 mg PO Q4H PRN PRN Reason: FEVER Amlodipine Besylate (Norvasc -) 10 mg PO DAILY [facility] Last Admin: 02/27/19 10:31 Dose: 10 mg Amoxicillin/Clavulanate Potassium (Augmentin - 500mg Tablet) 1 tab PO BID@0800, 1730 [facility] Last Admin: 02/27/19 08:15 Dose: 1 tab Aspirin (Asa -) 81 mg PO DAILY [facility] Last Admin: 02/27/19 10:31 Dose: 81 mg Atorvastatin Calcium (Lipitor -) 20 mg PO HS [facility] Last Admin: 02/26/19 21:03 Dose: 20 mg Bacitracin (Bacitracin -) 1 applic TP DAILY [facility] Calcium/Vitamin D (Oscal 250 Mg+D -) 1 tab PO DAILY [facility] Last Admin: 02/27/19 10:30 Dose: 1 tab Clindamycin HCl (Cleocin -) 450 mg PO Q6HPO [facility] Last Admin: 02/27/19 07:15 Dose: 450 mg Furosemide (Lasix Injection -) 80 mg IVPB DAILY [facility] Gabapentin (Neurontin -) 900 mg PO HS [facility] Last Admin: 02/26/19 21:03 Dose: 900 mg Heparin Sodium (Porcine) (Heparin -) 5,000 unit SQ TID [facility] Last Admin: 02/27/19 07:47 Dose: 5,000 unit IV Flush (Triple Lumen Flush) 4 ml IVPUSH PRN PRN PRN Reason: Protocol Insulin Aspart (Novolog Vial Sliding Scale -) 1 vial SQ [facility]; Protocol Last Admin: 02/27/19 07:16 Dose: 2 units Insulin Detemir (Levemir Vial) 10 units SQ BID@0700,2200 [facility] Last Admin: 02/27/19 07:47 Dose: 10 units Methadone HCl (Dolophine -) 120 mg PO 0600 [facility] Last Admin: 02/27/19 07:48 Dose: 120 mg Metoprolol Succinate (Toprol Xl -) 25 mg PO BID [facility] Last Admin: 02/27/19 10:31 Dose: 25 mg Nystatin (Nystop Powder -) 1 applic TP DAILY [facility] Pantoprazole Sodium (Protonix -) 40 mg PO DAILY [facility] Last Admin: 02/27/19 10:31 Dose: 40 mg - Objective Vital Signs: Vital Signs Period Temp Pulse Resp BP Sys/Alvarez Pulse Ox Last 24 Hr 97.8 F-98.2 F 66-73 18-20 94-131/62-85 92-92 Constitutional: Yes: No Distress, Calm Eyes: No: Sclera Icterus HENT: No: Nasal Congestion Cardiovascular: Yes: Regular Rate and Rhythm, JVD (probable (tds thick neck)), S1, S2, Other (PMI non diplaced). No: Gallop, Murmur Respiratory: Yes: CTA Bilaterally, Diminished (L base). No: Accessory Muscle Use, Rales, Wheezes Gastrointestinal: Yes: Normal Bowel Sounds, Soft. No: Tenderness Musculoskeletal: Yes: Other (No kyphosis) Extremities: No: Cold Edema: Yes (s/p RLE amp. 2+ L) Integumentary: No: Jaundice Neurological: Yes: Alert, Oriented (x3) Psychiatric: No: Agitated Assessment/Plan CXR 02/24: congestive changes incl effusions diminished slightly EKG:sinus rhythm, nl intervals, no ischemic changes echo 09/2018 tds, nl LV size/function, tr MR, mild biatrial enlargement tele: TDS tracing often, low voltage QRS signals. likely PSVT in 120s bpm-->NSR presently. artifact. 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 acute diastolic CHF exacerbation -chf exacerbation due to med noncompliance. no signs acs. -treatment has been limited by poor IV access here. per JAN, pt received lasix 40 IV x1 on 02/23, bid on 02/24 and no IV lasix since. received lasix 120 PO x1 on . -02/26: wt has not downtrended at all here. renal fxn progressively worsening, currently BUN 107/creat 4.3--strongly suspect ongoing cardiorenal syndrome with ineffectual diuresis due to GFR <20 (likely to require much higher doses of lasix) and poor IV access. currently no IV access available. he is very stable from resp standpoint--concern that further ineffective diuresis (with oral regimen) may worsen renal fxn. - 02/27 central line placed yesterday for IV access. stable edema, sob - d/w renal, start lasix 80 mg IV BID, monitor Cr, lytes, daily standing weights. GLORY on ckd -baseline creat around 2.[address] alcala -likely cardiorenal, monitor cr with diuresis -renal following as well, deferring HD initiation at present time cad s/p pci: -has been stable -had pci 2016 with plans for staged pci of residual 70-80 dlad but this was postponed due to sepsis/bka and since he has had no ischemic symptoms and with ckd, plans have been med rx for now. -cont statin, asa PSVT, ? PAT: -started toprol -episode to 120s bpm on tele 02/26. cont same meds, observe tele DM - manage per primary HTN - stable on amlodipine HLD - cont statin
[2019-02-27] MEDS ORDERED: FUROSEMIDE 100 MG/10 ML INJECTABLE VIAL IVPB SCH (11:30)
[2019-02-27] MEDS: BACITRACIN 15 GM TUBE TOPICAL OINTMENT TP SCH (12:34)
[2019-02-27] MEDS: FUROSEMIDE 100 MG/10 ML INJECTABLE VIAL IVPB SCH ×2 (12:42→16:08)
--- NOTE | 2019-02-27 14:34 | PN ---
Progress Note, Physician - Current Medication List Current Medications: Active Medications Acetaminophen (Tylenol -) 650 mg PO Q4H PRN PRN Reason: FEVER Amlodipine Besylate (Norvasc -) 10 mg PO DAILY [facility] Last Admin: 02/27/19 10:31 Dose: 10 mg Amoxicillin/Clavulanate Potassium (Augmentin - 500mg Tablet) 1 tab PO BID@0800, 1730 [facility] Last Admin: 02/27/19 08:15 Dose: 1 tab Aspirin (Asa -) 81 mg PO DAILY [facility] Last Admin: 02/27/19 10:31 Dose: 81 mg Atorvastatin Calcium (Lipitor -) 20 mg PO HS [facility] Last Admin: 02/26/19 21:03 Dose: 20 mg Bacitracin (Bacitracin -) 1 applic TP DAILY [facility] Last Admin: 02/27/19 12:34 Dose: 1 applic Calcium/Vitamin D (Oscal 250 Mg+D -) 1 tab PO DAILY [facility] Last Admin: 02/27/19 10:30 Dose: 1 tab Clindamycin HCl (Cleocin -) 450 mg PO Q6HPO [facility] Last Admin: 02/27/19 12:37 Dose: 450 mg Furosemide (Lasix Injection -) 80 mg IVPB BID@0600,1400 [facility] Last Admin: 02/27/19 12:42 Dose: 80 mg Gabapentin (Neurontin -) 900 mg PO HS [facility] Last Admin: 02/26/19 21:03 Dose: 900 mg Heparin Sodium (Porcine) (Heparin -) 5,000 unit SQ TID [facility] Last Admin: 02/27/19 07:47 Dose: 5,000 unit IV Flush (Triple Lumen Flush) 4 ml IVPUSH PRN PRN PRN Reason: Protocol Insulin Aspart (Novolog Vial Sliding Scale -) [address] [facility]; Protocol Last Admin: 02/27/19 12:34 Dose: 6 units Insulin Detemir (Levemir Vial) 10 units SQ BID@0700,2200 [facility] Last Admin: 02/27/19 07:47 Dose: 10 units Methadone HCl (Dolophine -) 120 mg PO 0600 [facility] Last Admin: 02/27/19 07:48 Dose: 120 mg Metoprolol Succinate (Toprol Xl -) 25 mg PO BID [facility] Last Admin: 02/27/19 10:31 Dose: 25 mg Nystatin (Nystop Powder -) 1 applic TP DAILY [facility] Pantoprazole Sodium (Protonix -) 40 mg PO DAILY [facility] Last Admin: 02/27/19 10:31 Dose: 40 mg - Objective Vital Signs: Vital Signs Temperature 97.5 F L 02/27/19 14:23 Pulse Rate 65 02/27/19 14:23 Respiratory Rate 18 02/27/19 14:23 Blood Pressure 118/68 02/27/19 14:23 O2 Sat by Pulse Oximetry (%) 92 L 02/27/19 09:00 Labs: CBC, BMP 02/27/19 06:00 02/27/19 06:00 INR, PTT INR 1.39 (0.83-1.09) H 02/23/19 14:23
--- NOTE | 2019-02-27 15:28 | CONS ---
DATE OF CONSULTATION: 02/27/2019 REFERRING PHYSICIAN: Gabe Burgos MD HISTORY OF PRESENT ILLNESS: The patient is a 63-year-old white male with a past medical history of insulin-dependent diabetes mellitus on insulin pump, congestive heart failure, ASHD, status post stents, hypertension, hyperlipidemia, diabetes status post right lower extremity BKA, opioid dependence, morbid obesity, likely obstructive sleep apnea, admitted to [facility] on February 23 with complaint of 2-week history of increasing shortness of breath and dyspnea on exertion. Patient states for the past couple of weeks got to notice the increasing shortness of breath and dyspnea on exertion, also chest tightness, and went to see Dr. Bedolla in the office, had his medications adjusted. Despite these measures , he had increasing symptoms. He went to visit Dr. Bagley on the day of admission at which time, he was advised to go to the emergency room. He denies any fever, chills, nausea, vomiting, or diaphoresis. He denies any hemoptysis. He also complains of orthopnea, and he has marked dyspnea with minimal exertion which he states normally he is able to ambulate without any significant difficulty. He also had increasing lower extremity edema and bilateral upper extremity edema. On admission, he was started on IV Lasix, supplemental O2, and transferred to the medical floor for further monitoring. Of note his hospitalization was significant for progressive renal insufficiency, for which his Lasix dose was decreased and changed to p.o. He was also noticed yesterday to have increased confusion at which time he was placed on BiPAP. Blood gas at the time revealed hypoxic hypercapnic respiratory failure . Patient denies any history of tobacco use. He previously smoked marijuana. He denies any history of recent travel. There is no history of DVT or PE in the past. He is unsure whether or not he had occupational exposures. PAST MEDICAL HISTORY: Again includes insulin-dependent diabetes mellitus, congestive heart failure, hypertension, hyperlipidemia, history of necrotizing fasciitis status post right BKA, opioid dependence, morbid obesity, likely obstructive sleep apnea, hypertension, hypothyroidism. CURRENT MEDICATIONS: Include Tylenol, Augmentin, Cleocin, bacitracin, heparin, Neurontin, Toprol, Norvasc, Lipitor, NovoLog, Levemir, aspirin, morphine, Protonix, and Os-Vishnu. REVIEW OF SYSTEMS: Positive for orthopnea. Positive for dyspnea. No chest pain, no palpitations, no cough, no hemoptysis, no abdominal pain. PHYSICAL EXAMINATION: General: The patient is a morbidly obese male, awake, alert, out of bed in chair. He is comfortable, in no acute distress. Vital signs: He is afebrile, blood pressure is 111/64, respiratory rate 18. HEENT: Head is normocephalic atraumatic. Neck: Supple. Heart: Regular with S1, S2. Chest: Symmetric breath sounds bilaterally. Abdomen: Soft. Bowel sounds positive. Extremities: Status post right BKA. There is left lower extremity edema. LABORATORIES: BUN 107, creatinine 4.3. On admission, the BUN was 85, creatinine 3.8. WBC is 10.6, hemoglobin 39.7, hematocrit 31.1, platelet count of 443,000. Chest x-ray revealed pulmonary vascular congestion, bilateral pleural effusions. Blood gas pH of 7.25, pCO2 of 57, pO2 of 62. Bicarbonate of 24, and saturation of 86 (that was on unknown quantity of oxygen). IMPRESSION: 1. Acute hypoxemic hypercapnic respiratory failure secondary to acute on chronic congestive heart failure. 2. Acute on chronic kidney failure. 3. Atherosclerotic heart disease status post stent. 4. Diabetes. 5. Likely obstructive sleep apnea. 6. Morbid obesity. 7. Hypertension. 8. History of necrotizing fasciitis status post right [id number] amputation. 9. Anemia. PLAN: O2, Lasix as per Cardiology, daily weights, BiPAP at night and p.r.n., monitor electrolytes, renal function, obtain CT scan of the chest, strict intake/output , and also sleep study as an outpatient. ARON PARKER M.D. [id number] MTDD
--- NOTE | 2019-02-27 15:38 | PN ---
Progress Note (short form) - Note Progress Note: Renal follow up for GLORY on CKD Pt seen and examined at the bedside awake and alert reports he feels better s/p TLC catheter placement yesterday Vital Signs Temperature 97.5 F L 02/27/19 14:23 Pulse Rate 65 02/27/19 14:23 Respiratory Rate 18 02/27/19 14:23 Blood Pressure 118/68 02/27/19 14:23 O2 Sat by Pulse Oximetry (%) 92 L 02/27/19 09:00 Intake & Output 02/24/19 02/25/19 02/26/19 02/27/19 23:59 23:59 23:59 23:59 Intake Total 8310 106 9921 120 Output Total 500 1425 1600 100 Balance 520 -575 -570 20 Weight 132.54 kg 132.449 kg 132.494 kg 129.909 kg NAD RRR, no M/R Dec BS, no rales soft NT/ND, obese right BKA, left leg edema++ CBC, BMP 02/27/19 06:00 02/27/19 06:00 Current Medications Acetaminophen (Tylenol -) 650 mg PO Q4H PRN PRN Reason: FEVER Amlodipine Besylate (Norvasc -) 10 mg PO DAILY [facility] Last Admin: 02/27/19 10:31 Dose: 10 mg Amoxicillin/Clavulanate Potassium (Augmentin - 500mg Tablet) 1 tab PO BID@0800, 1730 [facility] Last Admin: 02/27/19 08:15 Dose: 1 tab Aspirin (Asa -) 81 mg PO DAILY [facility] Last Admin: 02/27/19 10:31 Dose: 81 mg Atorvastatin Calcium (Lipitor -) 20 mg PO HS [facility] Last Admin: 02/26/19 21:03 Dose: 20 mg Bacitracin (Bacitracin -) 1 applic TP DAILY [facility] Last Admin: 02/27/19 12:34 Dose: 1 applic Calcium Acetate (Phoslo -) 1,334 mg PO TIDCM [facility] Calcium/Vitamin D (Oscal 250 Mg+D -) 1 tab PO DAILY [facility] Last Admin: 02/27/19 10:30 Dose: 1 tab Clindamycin HCl (Cleocin -) 450 mg PO Q6HPO [facility] Last Admin: 02/27/19 12:37 Dose: 450 mg Furosemide (Lasix Injection -) 80 mg IVPB BID@0600,1400 [facility] Last Admin: 02/27/19 12:42 Dose: 80 mg Gabapentin (Neurontin -) 900 mg PO HS [facility] Last Admin: 02/26/19 21:03 Dose: 900 mg Heparin Sodium (Porcine) (Heparin -) 5,000 unit SQ TID [facility] Last Admin: 02/27/19 07:47 Dose: 5,000 unit IV Flush (Triple Lumen Flush) 4 ml IVPUSH PRN PRN PRN Reason: Protocol Insulin Aspart (Novolog Vial Sliding Scale -) 1 vial SQ ACHS [facility]; Protocol Last Admin: 02/27/19 12:34 Dose: 6 units Insulin Detemir (Levemir Vial) 10 units SQ BID@0700,2200 [facility] Last Admin: 02/27/19 07:47 Dose: 10 units Methadone HCl (Dolophine -) 120 mg PO 0600 [facility] Last Admin: 02/27/19 07:48 Dose: 120 mg Metoprolol Succinate (Toprol Xl -) 25 mg PO BID [facility] Last Admin: 02/27/19 10:31 Dose: 25 mg Nystatin (Nystop Powder -) 1 applic TP DAILY [facility] Pantoprazole Sodium (Protonix -) 40 mg PO DAILY [facility] Last Admin: 02/27/19 10:31 Dose: 40 mg 63 year old gentleman with hx of CAD, Hypertension, DM (x 30 years), Hx of substance abuse, ? Hepatitis, PVD s/p right LE amputation who presented with complaints of SOB/REYES and fatigue over the past week with GLORY on CKD. #GLORY on CKD #CKD stage 3 #Hyperkalemia #CHF exacerbation #Anemia #Leukocytosis #LE wound #confusion Renal function w/o any significant change today pt is non-oliguric but does not seem to be significantly changed with diuretics given yesterday agree with continuing IV lasix until a diuresis is achieved would monitor renal function and electrolytes closely no emergent indication for GUEST EXPERIENCE REPRESENTATIVE but if BUN worsens significantly or unable to achieve effective diureiss, GUEST EXPERIENCE REPRESENTATIVE may need to be considered. start phoslo 2 tabs with meals as pt with very high phosphorous levels. Low phos renal diet. check iron studies for anemia continue Abx as per SVETLANA Barrera DO
--- NOTE | 2019-02-27 15:59 | PN ---
Progress Note (short form) - Note Progress Note: 63 y/o male seen and evaluated with left foot platnar ulceration. States he is feeling much better today. Denies any pedal complaints. Just returned from having ultrasound done on the left leg. Michelle any f/c/n//v/sob. O: LLE: Pedal pulses non palpalbe, plantar midfoot ulceration, granular base, no purulence, no erythema, does not probe deep, no probing to bone , no undermining , no clinical signs of infection A: Left foot plantar midfoot ulceartion P: evaluated and reviewed f/u willie/pvr f/u ct Unlikley to be any deep infection as does not appear clinicially infected, very stable and granular wound at this time on f/u can continue with wound care in [place] with doctor he sees.
[2019-02-27] MEDS: CALCIUM ACETATE 667 MG CAPSULE (FP) PO SCH (17:46)
--- NOTE | 2019-02-27 17:54 | PN ---
Physical Exam: SUBJECTIVE: Patient seen and examined, feeling good today, overnight no events, no SOB. OBJECTIVE: Vital Signs Period Temp Pulse Resp BP Sys/Alvarez Pulse Ox Last 24 Hr 97.5 F-98.2 F 65-70 18-20 94-124/62-68 92-92 GENERAL: The patient is awake, alert, in no acute distress, sitting on a wheelchair. HEAD: Normal with no signs of trauma. EYES: PERRL, extraocular movements intact. ENT: Oropharynx clear without exudates, moist mucous membranes. NECK: Trachea midline, full range of motion, supple. LUNGS: Breath sounds equal, diminished on auscultation bilaterally, no wheezes, no crackles, no accessory muscle use. HEART: Regular rate and rhythm, S1, S2 without murmur, rub or gallop. ABDOMEN: Soft, nontender, nondistended, normoactive bowel sounds, no guarding. EXTREMITIES: 2+ pulses, warm, no edema, left leg: plantar ulcer 2 cm, rounded, no discharge, no tenderness to palpation, no redness,right leg amputated below the knee. NEUROLOGICAL: Normal speech, gait not observed, confused. SKIN: Warm, dry, normal turgor, rash in inter gluteal area with 1 cm superficial wound on left side. No drainage, no tenderness to palpation. Laboratory Results - last 24 hr 02/25/19 02/26/19 02/26/19 05:30 18:41 21:02 WBC RBC Hgb Hct MCV MCH MCHC RDW Plt Count MPV Absolute Neuts (auto) Neutrophils % Lymphocytes % Monocytes % Eosinophils % Basophils % Nucleated RBC % Sodium Potassium Chloride Carbon Dioxide Anion Gap BUN Creatinine Creat Clearance w eGFR POC Glucometer 213 214 Random Glucose Calcium Phosphorus Magnesium Iron 16 L TIBC 110 L Iron Saturation 15 02/27/19 02/27/19 02/27/19 06:00 06:00 07:13 WBC 10.6 H RBC 3.99 L Hgb 9.7 L Hct 31.1 L MCV 77.9 L MCH 24.3 L MCHC 31.2 L RDW 20.1 H Plt Count 443 H MPV 9.4 Absolute Neuts (auto) 8.9 H Neutrophils % 84.4 H Lymphocytes % 4.2 L D Monocytes % 8.7 Eosinophils % 2.1 Basophils % 0.6 Nucleated RBC % 0 Sodium 136 Potassium 5.6 H Chloride 102 Carbon Dioxide 22 Anion Gap 12 BUN 120 H* Creatinine 4.6 H Creat Clearance w eGFR 12.97 POC Glucometer 195 Random Glucose 197 H Calcium 6.6 L* Phosphorus > 9.0 H* Magnesium 2.2 Iron TIBC Iron Saturation 02/27/19 02/27/19 12:14 17:08 WBC RBC Hgb Hct MCV MCH MCHC RDW Plt Count MPV Absolute Neuts (auto) Neutrophils % Lymphocytes % Monocytes % Eosinophils % Basophils % Nucleated RBC % Sodium Potassium Chloride Carbon Dioxide Anion Gap BUN Creatinine Creat Clearance w eGFR POC Glucometer 277 178 Random Glucose Calcium Phosphorus Magnesium Iron TIBC Iron Saturation Active Medications Generic Name Dose Route Start Last Admin Trade Name Freq PRN Reason Stop Dose Admin Acetaminophen 650 mg 02/23/19 17:55 Tylenol - PO Q4H PRN FEVER Amlodipine Besylate 10 mg 02/24/19 10:00 02/27/19 10:31 Norvasc - PO 10 mg DAILY JL Administration Amoxicillin/Clavulanate Potassium 1 tab 02/26/19 17:30 02/27/19 17:43 Augmentin - 500mg Tablet PO 1 tab BID@0800,1730 JL Administration Aspirin 81 mg 02/24/19 10:00 02/27/19 10:31 Asa - PO 81 mg DAILY JL Administration Atorvastatin Calcium 20 mg 02/23/19 22:00 02/26/19 21:03 Lipitor - PO 20 mg HS JL Administration Bacitracin 1 applic 02/26/19 13:45 02/27/19 12:34 Bacitracin - TP 1 applic DAILY JL Administration Calcium Acetate 1,334 mg 02/27/19 17:30 02/27/19 17:46 Phoslo - PO 1,334 mg TIDCM JL Administration Calcium/Vitamin D 1 tab 02/27/19 10:00 02/27/19 10:30 Oscal 250 Mg+D - PO 1 tab DAILY JL Administration Clindamycin HCl 450 mg 02/25/19 21:45 02/27/19 17:42 Cleocin - PO 450 mg Q6HPO JL Administration Furosemide 80 mg 02/27/19 12:15 02/27/19 16:08 Lasix Injection - IVPB 80 mg BID@0600,1400 JL Administration Gabapentin 900 mg 02/23/19 22:00 02/26/19 21:03 Neurontin - PO 900 mg HS JL Administration Heparin Sodium (Porcine) 5,000 unit 02/23/19 22:00 02/27/19 14:15 Heparin - SQ 5,000 unit TID JL Administration IV Flush 4 ml 02/26/19 22:43 Triple Lumen Flush IVPUSH PRN PRN Protocol Insulin Aspart 1 vial 02/25/19 18:53 02/27/19 17:44 Novolog Vial Sliding Scale - SQ 2 units ACHS JL Administration Protocol Insulin Detemir 10 units 02/23/19 22:00 02/27/19 07:47 Levemir Vial SQ 10 units BID@0700,2200 JL Administration Methadone HCl 120 mg 02/24/19 10:00 02/27/19 07:48 Dolophine - PO 120 mg 0600 JL Administration Metoprolol Succinate 25 mg 02/26/19 10:00 02/27/19 10:31 Toprol Xl - PO 25 mg BID JL Administration Nystatin 1 applic 02/27/19 11:15 Nystop Powder - TP DAILY JL Pantoprazole Sodium 40 mg 02/24/19 10:00 02/27/19 10:31 Protonix - PO 40 mg DAILY JL Administration ASSESSMENT/PLAN: 63 year old male with a PMH of CAD, s/p stent, HTN, on methadone program, DM with amputation and ulcer presented for CHF exacerbation. CHF exacerbation -likely due to noncompliance, cardiorenal -cardiology consulted will f/u recommendations -diurese with IV lasix, restarted BID dose today -I/Os and daily weights acute hypoxic resp failure; -likely due to fluid overload and CHF -became hypoxic yesterday, started on BIPap overnight -ABG done with resp acidosis -central line placed PM yesterday AMS: -improved -likely due to hypoxia, uremia -will monitor kidney function, fluid status GLORY -cardiorenal with use of ACEI -hold ACEI -consulted nephrology -diurese with IV lasix -monitor for improvement Hyperkalemia -secondary to GLORY and ACEI -given kayexalate 30 mg ONCE -nephrology consulted Diabetes mellitus with foot ulcer -on an insulin pump -placed on levemir 10 units bid -ISS and BGM ACHS -diabetic diet -wound care for ulcer, applied abx on wound and dressing changes micro grew Staph aureus and dipheroid -stop Clindamycin today Hepatitis C -stable Hypertension -continue amlodipine, Metoprolol xl BID -hypotensive in AM, will monitor Hypothyroidism -continue synthroid Methadone maintenance -on methadone 120mg daily Obesity: counseling F/E/N: no/K 5.6/diabetic DVT PPX: heparin DISPo: telemetry Problem List - Problems (1) GLORY (acute kidney injury) Code(s): N17.9 - ACUTE KIDNEY FAILURE, UNSPECIFIED (2) Acute metabolic encephalopathy Code(s): G93.41 - METABOLIC ENCEPHALOPATHY (3) Acute respiratory failure with hypoxia and hypercapnia Code(s): J96.01 - ACUTE RESPIRATORY FAILURE WITH HYPOXIA; J96.02 - ACUTE RESPIRATORY FAILURE WITH HYPERCAPNIA (4) CHF exacerbation Code(s): I50.9 - HEART FAILURE, UNSPECIFIED Qualifiers: Heart failure type: systolic Qualified Code(s): I50.23 - Acute on chronic systolic (congestive) heart failure (5) Hyperkalemia Code(s): E87.5 - HYPERKALEMIA (6) Shortness of breath Code(s): R06.02 - SHORTNESS OF BREATH (7) Abrasion hip/leg Qualifiers: Encounter type: initial encounter Laterality: right Qualified Code(s): S80.811A - Abrasion, right lower leg, initial encounter (8) Bone infection, ankle/foot Code(s): M86.9 - OSTEOMYELITIS, UNSPECIFIED (9) Cellulitis Code(s): L03.90 - CELLULITIS, UNSPECIFIED (10) Cellulitis Code(s): L03.90 - CELLULITIS, UNSPECIFIED (11) Diabetes mellitus with foot ulcer, with long-term current use of insulin Code(s): E11.621 - TYPE 2 DIABETES MELLITUS WITH FOOT ULCER; L97.509 - NON- PRESSURE CHRONIC ULCER OTH PRT UNSP FOOT W UNSP SEVERITY; Z79.4 - SYSTEMS SOFTWARE DESIGNER ( CURRENT) USE OF INSULIN Qualifiers: Diabetes mellitus type: type 2 Qualified Code(s): E11.621 - Type 2 diabetes mellitus with foot ulcer; L97.509 - Non-pressure chronic ulcer of other part of unspecified foot with unspecified severity; L97.509 - Non- pressure chronic ulcer of other part of unspecified foot with unspecified severity; L97.509 - Non-pressure chronic ulcer of other part of unspecified foot with unspecified severity; L97.509 - Non-pressure chronic ulcer of other part of unspecified foot with unspecified severity; Z79.4 - laborer marine terminal (current) use of insulin; Z79.4 - jail (current) use of insulin; Z79.4 - laborer marine terminal ( current) use of insulin; Z79.4 - laborer marine terminal (current) use of insulin (12) Diarrhea Code(s): R19.7 - DIARRHEA, UNSPECIFIED Qualifiers: Diarrhea type: unspecified type Qualified Code(s): R19.7 - Diarrhea, unspecified (13) Facial pain Code(s): R51 - HEADACHE (14) Fall Code(s): W19.XXXA - UNSPECIFIED FALL, INITIAL ENCOUNTER Qualifiers: Encounter type: initial encounter Qualified Code(s): W19.XXXA - Unspecified fall, initial encounter (15) Fungal infection of the groin Code(s): B35.6 - TINEA CRURIS (16) Gas gangrene of lower extremity Code(s): A48.0 - GAS GANGRENE (17) H/O necrotizing fasciitis Code(s): Z87.39 - PERSONAL HISTORY OF DISEASES OF THE IN SYS AND [employer] TISS (18) H/O necrotizing fasciitis Code(s): Z87.39 - PERSONAL HISTORY OF DISEASES OF THE [facility] AND [employer] TISS (19) Hepatitis C Code(s): B19.20 - UNSPECIFIED VIRAL HEPATITIS C WITHOUT HEPATIC COMA Qualifiers: Viral hepatitis chronicity: unspecified Hepatic coma status: without hepatic coma Qualified Code(s): B19.20 - Unspecified viral hepatitis C without hepatic coma (20) History of coronary artery stent placement Code(s): Z95.5 - PRESENCE OF CORONARY ANGIOPLASTY IMPLANT AND GRAFT (21) Hypertension Code(s): I10 - ESSENTIAL (PRIMARY) HYPERTENSION Qualifiers: Hypertension type: essential hypertension Qualified Code(s): I10 - Essential (primary) hypertension (22) Hypothyroidism Code(s): E03.9 - HYPOTHYROIDISM, UNSPECIFIED Qualifiers: Hypothyroidism type: unspecified Qualified Code(s): E03.9 - Hypothyroidism , unspecified (23) Insulin dependent diabetes mellitus Code(s): E11.9 - TYPE 2 DIABETES MELLITUS WITHOUT COMPLICATIONS; Z79.4 - RESIDENTIAL (CURRENT) USE OF INSULIN (24) Insulin pump in place Code(s): Z96.41 - PRESENCE OF INSULIN PUMP (EXTERNAL) (INTERNAL) (25) Methadone maintenance therapy patient Code(s): F11.20 - OPIOID DEPENDENCE, UNCOMPLICATED (26) Multiple contusions Code(s): T14.8 - OTHER INJURY OF UNSPECIFIED BODY REGION * DO NOT USE * (27) Right foot pain Code(s): M79.671 - PAIN IN RIGHT FOOT Visit type - Emergency Visit Emergency Visit: Yes ED Registration Date: 02/23/19 Care time: The patient presented to the Emergency Department on the above date and was hospitalized for further evaluation of their emergent condition. - New Patient This patient is new to me today: No - Critical Care Critical Care patient: No
--- NOTE | 2019-02-27 17:54 | PN ---
Teaching Attending Note Name of Resident: Ashley Freeman ATTENDING PHYSICIAN STATEMENT I saw and evaluated the patient. I reviewed the resident's note and discussed the case with the resident. I agree with the resident's findings and plan as documented. SUBJECTIVE: Mr Azevedo says he is feeling better today. Denies cp, sob, n/v. OBJECTIVE: Last Vital Signs Temp Pulse Resp BP Pulse Ox 36.4 C L 65 18 118/68 92 L 02/27/19 14:23 02/27/19 14:23 02/27/19 14:23 02/27/19 14:23 02/27/19 09:00 Gen: nad, obese Pulm: diffuse crackles bilaterally CV: rrr w/o m/r/g, distant Abd: +bs, s/nt/nd Ext: LLE with 2+ pitting edema, R BKA CBC, BMP 02/27/19 06:00 02/27/19 06:00 ASSESSMENT AND PLAN: (1) CHF exacerbation Assessment/Plan: -case d/w Dr Barrera and Dr Ruvalcaba -central line placed -begin lasix 80mg IV bid -monitor for diuresis Code(s): I50.9 - HEART FAILURE, UNSPECIFIED Qualifiers: Heart failure type: systolic Qualified Code(s): I50.23 - Acute on chronic systolic (congestive) heart failure (2) GLORY (acute kidney injury) Assessment/Plan: -worsening -however has not significantly diuresed -suspect cardiorenal syndrom -case d/w Dr Barrera -trial of lasix -if does not improve, may need HD Code(s): N17.9 - ACUTE KIDNEY FAILURE, UNSPECIFIED (3) Hyperkalemia Assessment/Plan: -give kayexalate today Code(s): E87.5 - HYPERKALEMIA (4) Diabetes mellitus with foot ulcer, with long-term current use of insulin Assessment/Plan: -continue levemir and SSI -case d/w Dr Panda -stop clindamycin -continue augmentin -awaiting CT scan Code(s): E11.621 - TYPE 2 DIABETES MELLITUS WITH FOOT ULCER; L97.509 - NON- PRESSURE CHRONIC ULCER OTH PRT UNSP FOOT W UNSP SEVERITY; Z79.4 - AERIAL LINEMAN ( CURRENT) USE OF INSULIN Qualifiers: Diabetes mellitus type: type 2 Qualified Code(s): E11.621 - Type 2 diabetes mellitus with foot ulcer; L97.509 - Non-pressure chronic ulcer of other part of unspecified foot with unspecified severity; L97.509 - Non- pressure chronic ulcer of other part of unspecified foot with unspecified severity; L97.509 - Non-pressure chronic ulcer of other part of unspecified foot with unspecified severity; L97.509 - Non-pressure chronic ulcer of other part of unspecified foot with unspecified severity; Z79.4 - custodial (current) use of insulin; Z79.4 - custodial (current) use of insulin; Z79.4 - custodial ( current) use of insulin; Z79.4 - ferry terminal agent (current) use of insulin (5) Hepatitis C Assessment/Plan: -noted Code(s): B19.20 - UNSPECIFIED VIRAL HEPATITIS C WITHOUT HEPATIC COMA Qualifiers: Viral hepatitis chronicity: unspecified Hepatic coma status: without hepatic coma Qualified Code(s): B19.20 - Unspecified viral hepatitis C without hepatic coma (6) Hypertension Assessment/Plan: -continue amlodipine Code(s): I10 - ESSENTIAL (PRIMARY) HYPERTENSION Qualifiers: Hypertension type: essential hypertension Qualified Code(s): I10 - Essential (primary) hypertension (7) Hypothyroidism Assessment/Plan: -continue synthroid Code(s): E03.9 - HYPOTHYROIDISM, UNSPECIFIED Qualifiers: Hypothyroidism type: unspecified Qualified Code(s): E03.9 - Hypothyroidism , unspecified (8) Methadone maintenance therapy patient Assessment/Plan: -on methadone 120mg daily Code(s): F11.20 - OPIOID DEPENDENCE, UNCOMPLICATED (9) Respiratory failure -pulmonary consulted and following -suspect patient will benefit from bipap at night -monitor (10) Metabolic encephalopathy -improved today -monitor Problem List - Problems (1) Acute respiratory failure with hypoxia and hypercapnia Code(s): J96.01 - ACUTE RESPIRATORY FAILURE WITH HYPOXIA; J96.02 - ACUTE RESPIRATORY FAILURE WITH HYPERCAPNIA (2) Acute metabolic encephalopathy Code(s): G93.41 - METABOLIC ENCEPHALOPATHY (3) CHF exacerbation Code(s): I50.9 - HEART FAILURE, UNSPECIFIED Qualifiers: Heart failure type: systolic Qualified Code(s): I50.23 - Acute on chronic systolic (congestive) heart failure (4) GLORY (acute kidney injury) Code(s): N17.9 - ACUTE KIDNEY FAILURE, UNSPECIFIED (5) Hyperkalemia Code(s): E87.5 - HYPERKALEMIA (6) Diabetes mellitus with foot ulcer, with long-term current use of insulin Code(s): E11.621 - TYPE 2 DIABETES MELLITUS WITH FOOT ULCER; L97.509 - NON- PRESSURE CHRONIC ULCER OTH PRT UNSP FOOT W UNSP SEVERITY; Z79.4 - RETIREMENT ( CURRENT) USE OF INSULIN Qualifiers: Diabetes mellitus type: type 2 Qualified Code(s): E11.621 - Type 2 diabetes mellitus with foot ulcer; L97.509 - Non-pressure chronic ulcer of other part of unspecified foot with unspecified severity; L97.509 - Non- pressure chronic ulcer of other part of unspecified foot with unspecified severity; L97.509 - Non-pressure chronic ulcer of other part of unspecified foot with unspecified severity; L97.509 - Non-pressure chronic ulcer of other part of unspecified foot with unspecified severity; Z79.4 - custodial (current) use of insulin; Z79.4 - ferry terminal agent (current) use of insulin; Z79.4 - ferry terminal agent ( current) use of insulin; Z79.4 - ferry terminal agent (current) use of insulin (7) Hepatitis C Code(s): B19.20 - UNSPECIFIED VIRAL HEPATITIS C WITHOUT HEPATIC COMA Qualifiers: Viral hepatitis chronicity: unspecified Hepatic coma status: without hepatic coma Qualified Code(s): B19.20 - Unspecified viral hepatitis C without hepatic coma (8) Hypertension Code(s): I10 - ESSENTIAL (PRIMARY) HYPERTENSION Qualifiers: Hypertension type: essential hypertension Qualified Code(s): I10 - Essential (primary) hypertension (9) Hypothyroidism Code(s): E03.9 - HYPOTHYROIDISM, UNSPECIFIED Qualifiers: Hypothyroidism type: unspecified Qualified Code(s): E03.9 - Hypothyroidism , unspecified (10) Methadone maintenance therapy patient Code(s): F11.20 - OPIOID DEPENDENCE, UNCOMPLICATED
[2019-02-27] MEDS ORDERED: SODIUM POLYSTYRENE SULFONATE 15 GM/60 ML BOTTLE PO ONE (17:55)
[2019-02-27] MEDS ORDERED: PT OWN MED DRAWER 7, Y5N ONE (17:58)
[2019-02-27] MEDS: GABAPENTIN 300 MG CAPSULE (FP) PO SCH (21:18)
[2019-02-27] MEDS: ATORVASTATIN CA 20 MG TABLET (FP) PO SCH (21:18)
[2019-02-28] MEDS: ACETAMINOPHEN 325 MG TABLET (FP) PO PRN (02:02)
[2019-02-28] MEDS: METHADONE HCL 40 MG DISPERSABLE TABLET PO SCH (05:23)
[2019-02-28] MEDS: FUROSEMIDE 100 MG/10 ML INJECTABLE VIAL IVPB SCH ×2 (06:34→15:09)
[2019-02-28] MEDS: HEPARIN NA (PORCINE) 5,000 UNITS/ML 1ML VIAL SQ SCH ×3 (06:35→21:48)
[2019-02-28] MEDS: INSULIN SLIDING SCALE (NOVOLOG) 1 VIAL SQ SCH ×4 (06:36→21:49)
[2019-02-28] MEDS: INSULIN (LEVEMIR) 100 UNITS/ML UNITS SQ SCH ×2 (06:37→21:49)
[2019-02-28 07:51] LABS: BASO % 0.9 % (0-2.0); EOS % 4.4 % (0-4.5); HEMATOCRIT 30.2 % (35.4-49); HEMOGLOBIN 9.5 GM/dL (11.7-16.9); LYMPH % 5.4 % (8-40); MCH 24.4 pg (25.7-33.7); MCHC 31.4 g/dl (32.0-35.9); MEAN CELL VOLUME 77.6 fl (80-96); MEAN PLT VOLUME 9.3 fl (7.5-11.1); MONO % 7.3 % (3.8-10.2); PLATELET COUNT 408 K/MM3 (134-434); RBC 3.89 M/mm3 (4.00-5.60); RDW 19.8 % (11.9-15.9); WHITE BLOOD COUNT 7.6 K/mm3 (4.0-10.0)
[2019-02-28 08:23] LABS: ALBUMIN 2.2 g/dl (3.4-5.0); ALK PHOS 80 U/L (45-117); ANION GAP 8 MMOL/L (8-16); BILIRUBIN,TOTAL 0.3 mg/dL (0.2-1); CHLORIDE 101 mmol/L (98-107); CO2 27 mmol/L (21-32); CREATININE 4.6 mg/dL (0.55-1.3); GLUCOSE,RANDOM 253 mg/dL (74-106); MAGNESIUM 2.2 mg/dL (1.8-2.4); PHOSPHOROUS 7.7 mg/dL (2.5-4.9); POTASSIUM 5.1 mmol/L (3.5-5.1); SGOT/AST 15 U/L (15-37); SGPT/ALT 25 U/L (13-61); SODIUM 136 mmol/L (136-145); TOT PROT 5.8 g/dl (6.4-8.2)
[2019-02-28 09:01] LABS: BLOOD UREA NITROGEN 119 mg/dL (7-18)
[2019-02-28 09:02] LABS: CALCIUM 6.3 mg/dL (8.5-10.1)
[2019-02-28] MEDS ORDERED: INSULIN (LEVEMIR) 100 UNITS/ML UNITS SQ ONE (09:43)
--- NOTE | 2019-02-28 09:45 | PN ---
Teaching Attending Note Name of Resident: Ashley Freeman ATTENDING PHYSICIAN STATEMENT I saw and evaluated the patient. I reviewed the resident's note and discussed the case with the resident. I agree with the resident's findings and plan as documented with exceptions below. SUBJECTIVE: Patient seen and examined. Breathing improved, reports urinating 'well'. denies any fevers, chills or leg pain. OBJECTIVE: Vital Signs Period Temp Pulse Resp BP Sys/Alvarez Pulse Ox Last 24 Hr 97.5 F-98.1 F 65-72 18-18 116-126/59-76 95-98 Intake & Output 02/25/19 02/26/19 02/27/19 02/28/19 23:59 23:59 23:59 23:59 Intake Total 850 1030 1820 330 Output Total 1425 1600 400 500 Balance -575 -570 1420 -170 Weight 292 lb 292 lb 1.6 oz 286 lb 6.4 oz 285 lb 12.8 oz General: sitting in bed in no acute distress CVS: S1S2 irregular Chest: decreased breath sounds at bases Abdomen: soft, obese, NT Extremities: left foot dressing, no active discharge, Right BKA Home Medications Medication Instructions Recorded Methadone [Dolophine -] 120 mg PO DAILY #7 tablet 08/06/14 Pantoprazole Sodium [Protonix] 40 mg PO DAILY 09/15/15 Amlodipine Besylate 10 mg PO DAILY 09/28/18 Aspirin 81 mg PO DAILY 09/28/18 Atorvastatin Ca [Lipitor] 20 mg PO HS 09/28/18 Azilsartan Medoxomil [Edarbi] 80 mg PO DAILY 09/28/18 Furosemide 20 mg PO DAILY 09/28/18 Gabapentin 900 mg PO HS 09/28/18 Calcium 500Mg/Vit-D 200 Units 1 tab PO BID tab 09/29/18 [Os-Vishnu 500+D -] Active Medications Acetaminophen (Tylenol -) 650 mg PO Q4H PRN PRN Reason: FEVER Last Admin: 02/28/19 02:02 Dose: 650 mg Amlodipine Besylate (Norvasc -) 10 mg PO DAILY [facility] Last Admin: 02/27/19 10:31 Dose: 10 mg Amoxicillin/Clavulanate Potassium (Augmentin - 500mg Tablet) 1 tab PO BID@0800, 1730 [facility] Last Admin: 02/27/19 17:43 Dose: 1 tab Aspirin (Asa -) 81 mg PO DAILY [facility] Last Admin: 02/27/19 10:31 Dose: 81 mg Atorvastatin Calcium (Lipitor -) 20 mg PO HS [facility] Last Admin: 02/27/19 21:18 Dose: 20 mg Bacitracin (Bacitracin -) 1 applic TP DAILY [facility] Last Admin: 02/27/19 12:34 Dose: 1 applic Calcium Acetate (Phoslo -) 1,334 mg PO TIDCM [facility] Last Admin: 02/27/19 17:46 Dose: 1,334 mg Calcium/Vitamin D (Oscal 250 Mg+D -) 1 tab PO DAILY [facility] Last Admin: 02/27/19 10:30 Dose: 1 tab Furosemide (Lasix Injection -) 80 mg IVPB BID@0600,1400 [facility] Last Admin: 02/28/19 06:34 Dose: 80 mg Gabapentin (Neurontin -) 900 mg PO HS [facility] Last Admin: 02/27/19 21:18 Dose: 900 mg Heparin Sodium (Porcine) (Heparin -) 5,000 unit SQ TID [facility] Last Admin: 02/28/19 06:35 Dose: 5,000 unit IV Flush (Triple Lumen Flush) 4 ml IVPUSH PRN PRN PRN Reason: Protocol Insulin Aspart (Novolog Vial Sliding Scale -) 1 vial SQ [facility]; Protocol Last Admin: 02/28/19 06:36 Dose: 4 units Insulin Detemir (Levemir Vial) 5 units SQ ONCE ONE Stop: 02/28/19 09:44 Insulin Detemir (Levemir Vial) 15 units SQ BID@0700,2200 [facility] Methadone HCl (Dolophine -) 120 mg PO 0600 [facility] Last Admin: 02/28/19 05:23 Dose: 120 mg Metoprolol Succinate (Toprol Xl -) 25 mg PO BID [facility] Last Admin: 02/27/19 21:18 Dose: 25 mg Nystatin (Nystop Powder -) 1 applic TP DAILY [facility] Pantoprazole Sodium (Protonix -) 40 mg PO DAILY [facility] Last Admin: 02/27/19 10:31 Dose: 40 mg Laboratory Results - last 24 hr 02/27/19 02/27/19 02/27/19 06:00 12:14 17:08 WBC RBC Hgb Hct MCV MCH MCHC RDW Plt Count MPV Absolute Neuts (auto) Neutrophils % Lymphocytes % Monocytes % Eosinophils % Basophils % Nucleated RBC % Sodium 136 Potassium 5.6 H Chloride 102 Carbon Dioxide 22 Anion Gap 12 BUN 120 H* Creatinine 4.6 H Creat Clearance w eGFR 12.97 POC Glucometer 277 178 Random Glucose 197 H Calcium 6.6 L* Phosphorus > 9.0 H* Magnesium 2.2 Ferritin Total Bilirubin AST ALT Alkaline Phosphatase Total Protein Albumin 02/27/19 02/28/19 02/28/19 21:16 05:42 07:20 WBC RBC Hgb Hct MCV MCH MCHC RDW Plt Count MPV Absolute Neuts (auto) Neutrophils % Lymphocytes % Monocytes % Eosinophils % Basophils % Nucleated RBC % Sodium 136 Potassium 5.1 Chloride 101 Carbon Dioxide 27 Anion Gap 8 BUN 119 H* Creatinine 4.6 H Creat Clearance w eGFR 12.97 POC Glucometer 193 218 Random Glucose 253 H Calcium 6.3 L* Phosphorus 7.7 H Magnesium 2.2 Ferritin 246.6 Total Bilirubin 0.3 AST 15 ALT 25 Alkaline Phosphatase 80 Total Protein 5.8 L Albumin 2.2 L 02/28/19 07:20 WBC 7.6 RBC 3.89 L Hgb 9.5 L Hct 30.2 L MCV 77.6 L MCH 24.4 L MCHC 31.4 L RDW 19.8 H Plt Count 408 MPV 9.3 Absolute Neuts (auto) 6.2 Neutrophils % 82.0 Lymphocytes % 5.4 L D Monocytes % 7.3 Eosinophils % 4.4 D Basophils % 0.9 Nucleated RBC % 0 Sodium Potassium Chloride Carbon Dioxide Anion Gap BUN Creatinine Creat Clearance w eGFR POC Glucometer Random Glucose Calcium Phosphorus Magnesium Ferritin Total Bilirubin AST ALT Alkaline Phosphatase Total Protein Albumin Microbiology 02/24/19 14:25 Foot - Left Plantar Gram Stain - Final 02/24/19 14:25 Foot - Left Plantar Wound Culture - Preliminary Staphylococcus Aureus Diphtheroid/Corynebacterium Non Lactose Fermenting Gnb LE arterial duplex done, results pending ASSESSMENT AND PLAN: 63 yom with PMHx of CKD stage III, CAD s/p PCI (ADELAIDA to Om1, residual 50-60 mLAD , 70-80 dLAD planned for staged cath), Diastolic heart failure, HTN, HLD, NIDDM , Hypothyroid, sepsis from 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 -Acute diastolic heart failure exacerbation -Acute hypoxic hypercapneic respiratory failure, suspect from above+/- ORQUIDEA -GLORY on CKD stage III, suspect hypervolumic -Hyperkalemia -Left foot plantar ulcer -NIDDM -HTN -HLD -Hypothyroidism -Methadone dependence -H/o sepsis from right leg wound s/p BKA Plan: Cardiology/nephrology input noted. Some improvement in weight, K better Lasix 80 mg IV BID with strict I/Os and daily weights. Will need EXECUTIVE CHEF ASSISTANT if fails to diurese or acute concerns. Possible HD tomorrow, follow up with renal. Hold ARB, renal diet. Continue phoslo. Pulmonary input noted. Bipap hs and prn. Increase levemir to 15 units BID, ISS, diabetic diet. Podiatry/ID input noted. Off Clindamycin. Augmentin per ID. Follow up arterial duplex. Anticipate outpatient follow up once active medical concerns have improved. CT LE per ID. Continue metoprolol/amlodipine. Hold ARB. Continue Gabapentin/methadone. DVTPPX heparin Dispo pending clinical improvement. Will need PT eval and CM consult for dc planning once improved. Plan discussed with patient and nursing in detail, all questions answered.
--- NOTE | 2019-02-28 10:08 | PN ---
Progress Note (short form) - Note Progress Note: s: no chest pain, palps, dyspnea. feels better today, edema improving. Current Medications Acetaminophen (Tylenol -) 650 mg PO Q4H PRN PRN Reason: FEVER Last Admin: 02/28/19 02:02 Dose: 650 mg Amlodipine Besylate (Norvasc -) 10 mg PO DAILY [facility] Last Admin: 02/27/19 10:31 Dose: 10 mg Amoxicillin/Clavulanate Potassium (Augmentin - 500mg Tablet) 1 tab PO BID@0800, 1730 [facility] Last Admin: 02/27/19 17:43 Dose: 1 tab Aspirin (Asa -) 81 mg PO DAILY [facility] Last Admin: 02/27/19 10:31 Dose: 81 mg Atorvastatin Calcium (Lipitor -) 20 mg PO HS [facility] Last Admin: 02/27/19 21:18 Dose: 20 mg Bacitracin (Bacitracin -) 1 applic TP DAILY [facility] Last Admin: 02/27/19 12:34 Dose: 1 applic Calcium Acetate (Phoslo -) 1,334 mg PO TIDCM [facility] Last Admin: 02/27/19 17:46 Dose: 1,334 mg Calcium/Vitamin D (Oscal 250 Mg+D -) 1 tab PO DAILY [facility] Last Admin: 02/27/19 10:30 Dose: 1 tab Furosemide (Lasix Injection -) 80 mg IVPB BID@0600,1400 [facility] Last Admin: 02/28/19 06:34 Dose: 80 mg Gabapentin (Neurontin -) 900 mg PO HS [facility] Last Admin: 02/27/19 21:18 Dose: 900 mg Heparin Sodium (Porcine) (Heparin -) 5,000 unit SQ TID [facility] Last Admin: 02/28/19 06:35 Dose: 5,000 unit IV Flush (Triple Lumen Flush) 4 ml IVPUSH PRN PRN PRN Reason: Protocol Insulin Aspart (Novolog Vial Sliding Scale -) 1 vial SQ [facility]; Protocol Last Admin: 02/28/19 06:36 Dose: 4 units Insulin Detemir (Levemir Vial) 15 units SQ BID@0700,2200 [facility] Methadone HCl (Dolophine -) 120 mg PO 0600 [facility] Last Admin: 02/28/19 05:23 Dose: 120 mg Metoprolol Succinate (Toprol Xl -) 25 mg PO BID [facility] Last Admin: 02/27/19 21:18 Dose: 25 mg Nystatin (Nystop Powder -) 1 applic TP DAILY [facility] Pantoprazole Sodium (Protonix -) 40 mg PO DAILY [facility] Last Admin: 02/27/19 10:31 Dose: 40 mg - Objective Vital Signs: Vital Signs Period Temp Pulse Resp BP Sys/Alvarez Pulse Ox Last 24 Hr 97.5 F-98.1 F 65-72 18-18 116-126/59-76 95-98 Constitutional: Yes: No Distress, Calm Eyes: No: Sclera Icterus HENT: No: Nasal Congestion Cardiovascular: Yes: Regular Rate and Rhythm, JVD (probable (tds thick neck)), S1, S2, Other (PMI non diplaced). No: Gallop, Murmur Respiratory: Yes: CTA Bilaterally, Diminished (L base). No: Accessory Muscle Use, Rales, Wheezes Gastrointestinal: Yes: Normal Bowel Sounds, Soft. No: Tenderness Musculoskeletal: Yes: Other (No kyphosis) Extremities: No: Cold Edema: Yes (s/p RLE amp. 2+ L) Integumentary: No: Jaundice Neurological: Yes: Alert, Oriented (x3) Psychiatric: No: Agitated Assessment/Plan CXR 02/24: congestive changes incl effusions diminished slightly EKG:sinus rhythm, nl intervals, no ischemic changes echo 09/2018 tds, nl LV size/function, tr MR, mild biatrial enlargement tele: TDS tracing often, low voltage QRS signals. likely PSVT in 120s bpm-->NSR presently. artifact. 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 acute diastolic CHF exacerbation -chf exacerbation due to med noncompliance. no signs acs. -treatment has been limited by poor IV access here. per JAN, pt received lasix 40 IV x1 on 02/23, bid on 02/24 and no IV lasix since. received lasix 120 PO x1 on . -02/26: wt has not downtrended at all here. renal fxn progressively worsening, currently BUN 107/creat 4.3--strongly suspect ongoing cardiorenal syndrome with ineffectual diuresis due to GFR <20 (likely to require much higher doses of lasix) and poor IV access. currently no IV access available. he is very stable from resp standpoint--concern that further ineffective diuresis (with oral regimen) may worsen renal fxn. - 02/27 central line placed yesterday for IV access. stable edema, sob - d/w renal, start lasix 80 mg IV BID - 02/28: feels better, Cr/BUN stable, wt down <1 lb. increase lasix to 100 mg IV BID, monitor Cr, lytes, daily standing weights. GLORY on ckd -baseline creat around 2.[address] alcala -likely cardiorenal, monitor cr with diuresis -renal following as well, deferring HD initiation at present time cad s/p pci: -has been stable -had pci 2016 with plans for staged pci of residual 70-80 dlad but this was postponed due to sepsis/bka and since he has had no ischemic symptoms and with ckd, plans have been med rx for now. -cont statin, asa PSVT, ? PAT: -started toprol -episode to 120s bpm on tele 02/26. cont same meds, observe tele DM - manage per primary HTN - stable on amlodipine HLD - cont statin
[2019-02-28] MEDS: CALCIUM ACETATE 667 MG CAPSULE (FP) PO SCH ×3 (10:19→17:50)
[2019-02-28] MEDS: ASPIRIN 81 MG CHEWABLE TABLETS PO SCH (10:20)
[2019-02-28] MEDS: metoPROLOL SUCCINATE 25 MG TAB.SR.24H (FP) PO SCH ×2 (10:20→21:50)
[2019-02-28] MEDS: CALCIUM 250MG/VIT-D 125 UNITS 1 COMBO TABLET PO SCH (10:20)
[2019-02-28] MEDS: amLODIPine BESYLATE 10 MG TABLET (FP) PO SCH (10:20)
[2019-02-28] MEDS: PANTOPRAZOLE 40 MG TABLET (FP) PO SCH (10:20)
[2019-02-28] MEDS: BACITRACIN 15 GM TUBE TOPICAL OINTMENT TP SCH (10:21)
[2019-02-28] MEDS: AMOX TR/POT CLAV 500MG/125MG TABLETS (FP) PO SCH ×2 (10:21→17:49)
[2019-02-28] MEDS: NYSTATIN POWDER 100,000 UNITS/GM - 15 GM TOPICAL POWDER TP SCH (10:31)
[2019-02-28] MEDS ORDERED: METOLAZONE 5 MG TABLET PO ONE (11:22)
--- NOTE | 2019-02-28 11:49 | PN ---
Progress Note (short form) - Note Progress Note: Renal follow up for GLORY on CKD Pt seen and examined at the bedside awake and alert reports making more urine however weights unchanged and UO documented is less then the previous 24 hours no sob, cp, abd pain, N/V/D Vital Signs Temperature 97.9 F 02/28/19 08:26 Pulse Rate 68 02/28/19 08:26 Respiratory Rate 18 02/28/19 08:26 Blood Pressure 120/59 L 02/28/19 08:26 O2 Sat by Pulse Oximetry (%) 95 02/28/19 08:15 Intake & Output 02/25/19 02/26/19 02/27/19 02/28/19 23:59 23:59 23:59 23:59 Intake Total 850 1030 1820 330 Output Total 1425 1600 400 500 Balance -575 -570 1420 -170 Weight 132.449 kg 132.494 kg 129.909 kg 129.637 kg NAD RRR, no M/R Dec BS, no rales soft NT/ND, obese right BKA, left leg edema++ CBC, BMP 02/28/19 07:20 02/28/19 07:20 Laboratory Tests 02/24/19 02/24/19 02/24/19 15:30 15:30 15:30 Calcium Phosphorus Magnesium Iron TIBC Iron Saturation Transferrin Albumin Urine Eosinophils Pending U Random Total Protein 274.8 H Ur Random Urea Nitrogn Urine Creatinine 117.0 02/24/19 02/25/19 02/27/19 15:30 05:30 06:00 Calcium 6.6 L* Phosphorus 6.8 H > 9.0 H* Magnesium 2.0 2.2 Iron TIBC Iron Saturation Transferrin Albumin 2.3 L Urine Eosinophils U Random Total Protein Ur Random Urea Nitrogn 542 Urine Creatinine 02/28/19 02/28/19 07:20 07:20 Calcium 6.3 L* Phosphorus 7.7 H Magnesium 2.2 Iron Pending TIBC Pending Iron Saturation Pending Transferrin Pending Albumin 2.2 L Urine Eosinophils U Random Total Protein Ur Random Urea Nitrogn Urine Creatinine Current Medications Acetaminophen (Tylenol -) 650 mg PO Q4H PRN PRN Reason: FEVER Last Admin: 02/28/19 02:02 Dose: 650 mg Amlodipine Besylate (Norvasc -) 10 mg PO DAILY [facility] Last Admin: 02/28/19 10:20 Dose: 10 mg Amoxicillin/Clavulanate Potassium (Augmentin - 500mg Tablet) 1 tab PO BID@0800, 1730 [facility] Last Admin: 02/28/19 10:21 Dose: 1 tab Aspirin (Asa -) 81 mg PO DAILY [facility] Last Admin: 02/28/19 10:20 Dose: 81 mg Atorvastatin Calcium (Lipitor -) 20 mg PO HS [facility] Last Admin: 02/27/19 21:18 Dose: 20 mg Bacitracin (Bacitracin -) 1 applic TP DAILY [facility] Last Admin: 02/28/19 10:21 Dose: 1 applic Calcium Acetate (Phoslo -) 1,334 mg PO TIDCM [facility] Last Admin: 02/28/19 10:19 Dose: 1,334 mg Calcium Carbonate (Calcium Carbonate -) 1,300 mg PO BID [facility] Furosemide (Lasix Injection -) 120 mg IVPB BID@0600,1400 [facility] Gabapentin (Neurontin -) 900 mg PO HS [facility] Last Admin: 02/27/19 21:18 Dose: 900 mg Heparin Sodium (Porcine) (Heparin -) 5,000 unit SQ TID [facility] Last Admin: 02/28/19 06:35 Dose: 5,000 unit IV Flush (Triple Lumen Flush) 4 ml IVPUSH PRN PRN PRN Reason: Protocol Insulin Aspart (Novolog Vial Sliding Scale -) 1 vial SQ [facility]S [facility]; Protocol Last Admin: 02/28/19 06:36 Dose: 4 units Insulin Detemir (Levemir Vial) 15 units SQ BID@0700,2200 [facility] Methadone HCl (Dolophine -) 120 mg PO 0600 [facility] Last Admin: 02/28/19 05:23 Dose: 120 mg Metoprolol Succinate (Toprol Xl -) 25 mg PO BID [facility] Last Admin: 02/28/19 10:20 Dose: 25 mg Nystatin (Nystop Powder -) 1 applic TP DAILY [facility] Last Admin: 02/28/19 10:31 Dose: 1 appful Pantoprazole Sodium (Protonix -) 40 mg PO DAILY [facility] Last Admin: 02/28/19 10:20 Dose: 40 mg 63 year old gentleman with hx of CAD, Hypertension, DM (x 30 years), Hx of substance abuse, ? Hepatitis, PVD s/p right LE amputation who presented with complaints of SOB/REYES and fatigue over the past week with GLORY on CKD. #GLORY on CKD #CKD stage 3 #Hyperkalemia #CHF exacerbation #Anemia #Leukocytosis #LE wound #confusion #Hyperphosphatemia/Hypocalcemia Renal function unchanged, less confused today despite very high BUN as discussed with Cardiology will increase Lasix to 120mg IV BID and add metolazone daily as well discussed with patient and family that if he does not achieve a response in the next 48-72 hours may have to consider [employer] (short term) iron studies pending, may need IV iron continue antibiotics as per ID continue phoslo and calcium carbonate Rodo Barrera DO
--- NOTE | 2019-02-28 11:57 | PN ---
Progress Note, Physician History of Present Illness: pulmonary alert,feeling better,sob improving,-cp - Current Medication List Current Medications: Active Medications Acetaminophen (Tylenol -) 650 mg PO Q4H PRN PRN Reason: FEVER Last Admin: 02/28/19 02:02 Dose: 650 mg Amlodipine Besylate (Norvasc -) 10 mg PO DAILY [facility] Last Admin: 02/28/19 10:20 Dose: 10 mg Amoxicillin/Clavulanate Potassium (Augmentin - 500mg Tablet) 1 tab PO BID@0800, 1730 [facility] Last Admin: 02/28/19 10:21 Dose: 1 tab Aspirin (Asa -) 81 mg PO DAILY [facility] Last Admin: 02/28/19 10:20 Dose: 81 mg Atorvastatin Calcium (Lipitor -) 20 mg PO HS [facility] Last Admin: 02/27/19 21:18 Dose: 20 mg Bacitracin (Bacitracin -) 1 applic TP DAILY [facility] Last Admin: 02/28/19 10:21 Dose: 1 applic Calcium Acetate (Phoslo -) 1,334 mg PO TIDCM [facility] Last Admin: 02/28/19 10:19 Dose: 1,334 mg Calcium Carbonate (Calcium Carbonate -) 1,300 mg PO BID [facility] Furosemide (Lasix Injection -) 120 mg IVPB BID@0600,1400 [facility] Gabapentin (Neurontin -) 900 mg PO HS [facility] Last Admin: 02/27/19 21:18 Dose: 900 mg Heparin Sodium (Porcine) (Heparin -) 5,000 unit SQ TID [facility] Last Admin: 02/28/19 06:35 Dose: 5,000 unit IV Flush (Triple Lumen Flush) 4 ml IVPUSH PRN PRN PRN Reason: Protocol Insulin Aspart (Novolog Vial Sliding Scale -) [address] [facility]; Protocol Last Admin: 02/28/19 06:36 Dose: 4 units Insulin Detemir (Levemir Vial) 15 units SQ BID@0700,2200 [facility] Methadone HCl (Dolophine -) 120 mg PO 0600 [facility] Last Admin: 02/28/19 05:23 Dose: 120 mg Metoprolol Succinate (Toprol Xl -) 25 mg PO BID [facility] Last Admin: 02/28/19 10:20 Dose: 25 mg Nystatin (Nystop Powder -) 1 applic TP DAILY [facility] Last Admin: 02/28/19 10:31 Dose: 1 appful Pantoprazole Sodium (Protonix -) 40 mg PO DAILY [facility] Last Admin: 02/28/19 10:20 Dose: 40 mg - Objective Vital Signs: Vital Signs Temperature 97.9 F 02/28/19 08:26 Pulse Rate 68 02/28/19 08:26 Respiratory Rate 18 02/28/19 08:26 Blood Pressure 120/59 L 02/28/19 08:26 O2 Sat by Pulse Oximetry (%) 95 02/28/19 08:15 Constitutional: Yes: Well Nourished, Calm, Obese Eyes: Yes: WNL HENT: Yes: WNL Neck: Yes: WNL Cardiovascular: Yes: Regular Rate and Rhythm, S1, S2 Respiratory: Yes: Diminished Gastrointestinal: Yes: Normal Bowel Sounds, Soft Extremities: Yes: WNL Edema: Yes Labs: CBC, BMP 02/28/19 07:20 02/28/19 07:20 INR, PTT INR 1.39 (0.83-1.09) H 02/23/19 14:23 Problem List - Problems (1) Acute on chronic kidney failure Code(s): N17.9 - ACUTE KIDNEY FAILURE, UNSPECIFIED; N18.9 - CHRONIC KIDNEY DISEASE, UNSPECIFIED (2) Acute respiratory failure with hypoxia and hypercapnia Code(s): J96.01 - ACUTE RESPIRATORY FAILURE WITH HYPOXIA; J96.02 - ACUTE RESPIRATORY FAILURE WITH HYPERCAPNIA (3) CHF exacerbation Code(s): I50.9 - HEART FAILURE, UNSPECIFIED Qualifiers: Qualified Code(s): I50.23 - Acute on chronic systolic (congestive) heart failure (4) Shortness of breath Code(s): R06.02 - SHORTNESS OF BREATH (5) Insulin dependent diabetes mellitus Code(s): E11.9 - TYPE 2 DIABETES MELLITUS WITHOUT COMPLICATIONS; Z79.4 - DATA WAREHOUSING ARCHITECT (CURRENT) USE OF INSULIN Assessment/Plan IMP ACUTE HYPOXEMIC/HYPERCAPNEIC RESPIRATORY FAILURE ACUTE ON CHRONIC CHF ACUTE ON CHRONIC KIDNEY FAILURE ASHD S/P STENT DM LIKELY OSAS MORBID OBESITY HTN S/P R BKA ANEMIA PLAN O2 CONTINUE LASIX PER CARDIOLOGY DAILY WT BIPAP AT NIGHT AND PRN MONITOR LYTES ,RENAL FUNCTION CHEST CT STRICT I+Os PFTS OUTPATIENT DR PARKER Problem List - Problems (1) Acute on chronic kidney failure Code(s): N17.9 - ACUTE KIDNEY FAILURE, UNSPECIFIED; N18.9 - CHRONIC KIDNEY DISEASE, UNSPECIFIED (2) Acute respiratory failure with hypoxia and hypercapnia Code(s): J96.01 - ACUTE RESPIRATORY FAILURE WITH HYPOXIA; J96.02 - ACUTE RESPIRATORY FAILURE WITH HYPERCAPNIA (3) CHF exacerbation Code(s): I50.9 - HEART FAILURE, UNSPECIFIED Qualifiers: Heart failure type: systolic Qualified Code(s): I50.23 - Acute on chronic systolic (congestive) heart failure (4) Shortness of breath Code(s): R06.02 - SHORTNESS OF BREATH (5) Insulin dependent diabetes mellitus Code(s): E11.9 - TYPE 2 DIABETES MELLITUS WITHOUT COMPLICATIONS; Z79.4 - DATA WAREHOUSING ARCHITECT (CURRENT) USE OF INSULIN
--- NOTE | 2019-02-28 12:41 | PN ---
Progress Note (short form) - Note Progress Note: PODIATRY 63 y/o male with Left plantar foot ulceration. I discussed case with Dr. Farzad Bishop per Id as needed Foot erythema was resolved; unlikely any further underlying infection but will await CT results for final evaluation Will continue to follow.
--- NOTE | 2019-02-28 13:49 | PN ---
Progress Note, Physician - Current Medication List Current Medications: Active Medications Acetaminophen (Tylenol -) 650 mg PO Q4H PRN PRN Reason: FEVER Last Admin: 02/28/19 02:02 Dose: 650 mg Amlodipine Besylate (Norvasc -) 10 mg PO DAILY [facility] Last Admin: 02/28/19 10:20 Dose: 10 mg Amoxicillin/Clavulanate Potassium (Augmentin - 500mg Tablet) 1 tab PO BID@0800, 1730 [facility] Last Admin: 02/28/19 10:21 Dose: 1 tab Aspirin (Asa -) 81 mg PO DAILY [facility] Last Admin: 02/28/19 10:20 Dose: 81 mg Atorvastatin Calcium (Lipitor -) 20 mg PO HS [facility] Last Admin: 02/27/19 21:18 Dose: 20 mg Bacitracin (Bacitracin -) 1 applic TP DAILY [facility] Last Admin: 02/28/19 10:21 Dose: 1 applic Calcium Acetate (Phoslo -) 1,334 mg PO TIDCM [facility] Last Admin: 02/28/19 13:43 Dose: 1,334 mg Calcium Carbonate (Calcium Carbonate -) 1,300 mg PO BID [facility] Furosemide (Lasix Injection -) 120 mg IVPB BID@0600,1400 [facility] Gabapentin (Neurontin -) 900 mg PO HS [facility] Last Admin: 02/27/19 21:18 Dose: 900 mg Heparin Sodium (Porcine) (Heparin -) 5,000 unit SQ TID [facility] Last Admin: 02/28/19 06:35 Dose: 5,000 unit IV Flush (Triple Lumen Flush) 4 ml IVPUSH PRN PRN PRN Reason: Protocol Insulin Aspart (Novolog Vial Sliding Scale -) 1 vial SQ [facility]; Protocol Last Admin: 02/28/19 06:36 Dose: 4 units Insulin Detemir (Levemir Vial) 15 units SQ BID@0700,2200 [facility] Methadone HCl (Dolophine -) 120 mg PO 0600 [facility] Last Admin: 02/28/19 05:23 Dose: 120 mg Metoprolol Succinate (Toprol Xl -) 25 mg PO BID [facility] Last Admin: 02/28/19 10:20 Dose: 25 mg Nystatin (Nystop Powder -) 1 applic TP DAILY [facility] Last Admin: 02/28/19 10:31 Dose: 1 appful Pantoprazole Sodium (Protonix -) 40 mg PO DAILY [facility] Last Admin: 02/28/19 10:20 Dose: 40 mg - Objective Vital Signs: Vital Signs Temperature 97.9 F 02/28/19 08:26 Pulse Rate 68 02/28/19 08:26 Respiratory Rate 18 02/28/19 08:26 Blood Pressure 120/59 L 02/28/19 08:26 O2 Sat by Pulse Oximetry (%) 95 02/28/19 08:15 Labs: CBC, BMP 02/28/19 07:20 02/28/19 07:20 INR, PTT INR 1.39 (0.83-1.09) H 02/23/19 14:23
[2019-02-28] MEDS ORDERED: FUROSEMIDE 100 MG/10 ML INJECTABLE VIAL IVPB SCH (14:00)
[2019-02-28] MEDS: CALCIUM CARBONATE 650 MG TABLET PO SCH ×2 (15:08→21:48)
--- NOTE | 2019-02-28 17:28 | PN ---
Physical Exam: SUBJECTIVE: Patient seen and examined. he is feeling good today. OBJECTIVE: Vital Signs Period Temp Pulse Resp BP Sys/Alvarez Pulse Ox Last 24 Hr 97.6 F-98.1 F 63-72 18-20 98-126/59-76 95-98 GENERAL: The patient is awake, alert, in no acute distress, sitting on a wheelchair. HEAD: Normal with no signs of trauma. EYES: PERRL, extraocular movements intact. ENT: Oropharynx clear without exudates, moist mucous membranes. NECK: Trachea midline, full range of motion, supple. LUNGS: Breath sounds equal, diminished on auscultation bilaterally, no wheezes, no crackles, no accessory muscle use. HEART: Regular rate and rhythm, S1, S2 without murmur, rub or gallop. ABDOMEN: Soft, nontender, nondistended, normoactive bowel sounds, no guarding. EXTREMITIES: 2+ pulses, warm, no edema, left leg: plantar ulcer 2 cm, rounded, no discharge, no tenderness to palpation, no redness,right leg amputated below the knee. NEUROLOGICAL: Normal speech, gait not observed, confused. SKIN: Warm, dry, normal turgor, rash in inter gluteal area with 1 cm superficial wound on left side. No drainage, no tenderness to palpation. Laboratory Results - last 24 hr Laboratory Results - last 24 hr 02/24/19 02/27/19 02/28/19 15:30 21:16 05:42 WBC RBC Hgb Hct MCV MCH MCHC RDW Plt Count MPV Absolute Neuts (auto) Neutrophils % Lymphocytes % Monocytes % Eosinophils % Basophils % Nucleated RBC % Sodium Potassium Chloride Carbon Dioxide Anion Gap BUN Creatinine Creat Clearance w eGFR POC Glucometer 193 218 Random Glucose Calcium Phosphorus Magnesium Ferritin Total Bilirubin AST ALT Alkaline Phosphatase Total Protein Albumin Urine Eosinophils None seen 02/28/19 02/28/19 02/28/19 07:20 07:20 11:45 WBC 7.6 RBC 3.89 L Hgb 9.5 L Hct 30.2 L MCV 77.6 L MCH 24.4 L MCHC 31.4 L RDW 19.8 H Plt Count 408 MPV 9.3 Absolute Neuts (auto) 6.2 Neutrophils % 82.0 Lymphocytes % 5.4 L D Monocytes % 7.3 Eosinophils % 4.4 D Basophils % 0.9 Nucleated RBC % 0 Sodium 136 Potassium 5.1 Chloride 101 Carbon Dioxide 27 Anion Gap 8 BUN 119 H* Creatinine 4.6 H Creat Clearance w eGFR 12.97 POC Glucometer 185 Random Glucose 253 H Calcium 6.3 L* Phosphorus 7.7 H Magnesium 2.2 Ferritin 246.6 Total Bilirubin 0.3 AST 15 ALT 25 Alkaline Phosphatase 80 Total Protein 5.8 L Albumin 2.2 L Urine Eosinophils 02/28/19 16:33 WBC RBC Hgb Hct MCV MCH MCHC RDW Plt Count MPV Absolute Neuts (auto) Neutrophils % Lymphocytes % Monocytes % Eosinophils % Basophils % Nucleated RBC % Sodium Potassium Chloride Carbon Dioxide Anion Gap BUN Creatinine Creat Clearance w eGFR POC Glucometer 225 Random Glucose Calcium Phosphorus Magnesium Ferritin Total Bilirubin AST ALT Alkaline Phosphatase Total Protein Albumin Urine Eosinophils Active Medications Generic Name Dose Route Start Last Admin Trade Name Freq PRN Reason Stop Dose Admin Acetaminophen 650 mg 02/23/19 17:55 02/28/19 02:02 Tylenol - PO 650 mg Q4H PRN Administration FEVER Amlodipine Besylate 10 mg 02/24/19 10:00 02/28/19 10:20 Norvasc - PO 10 mg DAILY JL Administration Amoxicillin/Clavulanate Potassium 1 tab 02/26/19 17:30 02/28/19 10:21 Augmentin - 500mg Tablet PO 1 tab BID@0800,1730 JL Administration Aspirin 81 mg 02/24/19 10:00 02/28/19 10:20 Asa - PO 81 mg DAILY JL Administration Atorvastatin Calcium 20 mg 02/23/19 22:00 02/27/19 21:18 Lipitor - PO 20 mg HS JL Administration Bacitracin 1 applic 02/26/19 13:45 02/28/19 10:21 Bacitracin - TP 1 applic DAILY JL Administration Calcium Acetate 1,334 mg 02/27/19 17:30 02/28/19 13:43 Phoslo - PO 1,334 mg TIDCM JL Administration Calcium Carbonate 1,300 mg 02/28/19 10:30 02/28/19 15:08 Calcium Carbonate - PO 1,300 mg BID JL Administration Furosemide 120 mg 02/28/19 14:00 02/28/19 15:09 Lasix Injection - IVPB 120 mg BID@0600,1400 JL Administration Gabapentin 900 mg 02/23/19 22:00 02/27/19 21:18 Neurontin - PO 900 mg HS JL Administration Heparin Sodium (Porcine) 5,000 unit 02/23/19 22:00 02/28/19 15:09 Heparin - SQ 5,000 unit TID JL Administration IV Flush 4 ml 02/26/19 22:43 Triple Lumen Flush IVPUSH PRN PRN Protocol Insulin Aspart 1 vial 02/25/19 18:53 02/28/19 14:10 Novolog Vial Sliding Scale - SQ 2 units ACHS JL Administration Protocol Insulin Detemir 15 units 02/28/19 22:00 Levemir Vial SQ BID@0700,2200 JL Methadone HCl 120 mg 02/24/19 10:00 02/28/19 05:23 Dolophine - PO 120 mg 0600 JL Administration Metoprolol Succinate 25 mg 02/26/19 10:00 02/28/19 10:20 Toprol Xl - PO 25 mg BID JL Administration Nystatin 1 applic 02/27/19 11:15 02/28/19 10:31 Nystop Powder - TP 1 appful DAILY JL Administration Pantoprazole Sodium 40 mg 02/24/19 10:00 02/28/19 10:20 Protonix - PO 40 mg DAILY JL Administration ASSESSMENT/PLAN: 63 year old male with a PMH of CAD, s/p stent, HTN, on methadone program, DM with amputation and ulcer presented for CHF exacerbation. CHF exacerbation -likely due to noncompliance, cardiorenal -cardiology consulted will f/u recommendations -diurese with increased dose of Lasix 120 mg BID starting tonight -I/Os and daily weights Acute hypoxic resp failure; -likely due to fluid overload and CHF -started on BIPap overnight -ABG done with resp acidosis -central line placed 2 days ago AMS: -improved -likely due to hypoxia, uremia -will monitor kidney function, fluid status GLORY -cardiorenal with use of ACEI -hold ACEI -consulted nephrology -diurese with IV lasix and consider starting HD tomorrow -monitor for improvement -cont Phoslo and Calcium Carbonate Hyperkalemia -secondary to GLORY and ACEI -given kayexalate 30 mg, will monitor -nephrology consulted Diabetes mellitus with foot ulcer -on an insulin pump -placed on levemir 10 units bid -ISS and BGM ACHS -diabetic diet -wound care for ulcer, applied abx on wound and dressing changes micro grew Staph aureus and dipheroid -stop Clindamycin today Hepatitis C -stable Hypertension -continue amlodipine, Metoprolol xl BID -hypotensive in AM, will monitor Hypothyroidism -continue synthroid Methadone maintenance -on methadone 120mg daily Obesity: counseling F/E/N: no/K/diabetic DVT PPX: heparin DISPo: telemetry Problem List - Problems (1) GLORY (acute kidney injury) Code(s): N17.9 - ACUTE KIDNEY FAILURE, UNSPECIFIED (2) Acute metabolic encephalopathy Code(s): G93.41 - METABOLIC ENCEPHALOPATHY (3) Acute respiratory failure with hypoxia and hypercapnia Code(s): J96.01 - ACUTE RESPIRATORY FAILURE WITH HYPOXIA; J96.02 - ACUTE RESPIRATORY FAILURE WITH HYPERCAPNIA (4) CHF exacerbation Code(s): I50.9 - HEART FAILURE, UNSPECIFIED Qualifiers: Heart failure type: systolic Qualified Code(s): I50.23 - Acute on chronic systolic (congestive) heart failure (5) Hyperkalemia Code(s): E87.5 - HYPERKALEMIA (6) Shortness of breath Code(s): R06.02 - SHORTNESS OF BREATH (7) Abrasion hip/leg Qualifiers: Encounter type: initial encounter Laterality: right Qualified Code(s): S80.811A - Abrasion, right lower leg, initial encounter (8) Bone infection, ankle/foot Code(s): M86.9 - OSTEOMYELITIS, UNSPECIFIED (9) Cellulitis Code(s): L03.90 - CELLULITIS, UNSPECIFIED (10) Cellulitis Code(s): L03.90 - CELLULITIS, UNSPECIFIED (11) Diabetes mellitus with foot ulcer, with long-term current use of insulin Code(s): E11.621 - TYPE 2 DIABETES MELLITUS WITH FOOT ULCER; L97.509 - NON- PRESSURE CHRONIC ULCER OTH PRT UNSP FOOT W UNSP SEVERITY; Z79.4 - 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 ( CURRENT) USE OF INSULIN Qualifiers: Diabetes mellitus type: type 2 Qualified Code(s): E11.621 - Type 2 diabetes mellitus with foot ulcer; L97.509 - Non-pressure chronic ulcer of other part of unspecified foot with unspecified severity; L97.509 - Non- pressure chronic ulcer of other part of unspecified foot with unspecified severity; L97.509 - Non-pressure chronic ulcer of other part of unspecified foot with unspecified severity; L97.509 - Non-pressure chronic ulcer of other part of unspecified foot with unspecified severity; 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; Z79.4 - [facility] (current) use of insulin; Z79.4 - 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 ( current) use of insulin; 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 (12) Diarrhea Code(s): R19.7 - DIARRHEA, UNSPECIFIED Qualifiers: Diarrhea type: unspecified type Qualified Code(s): R19.7 - Diarrhea, unspecified (13) Facial pain Code(s): R51 - HEADACHE (14) Fall Code(s): W19.XXXA - UNSPECIFIED FALL, INITIAL ENCOUNTER Qualifiers: Encounter type: initial encounter Qualified Code(s): W19.XXXA - Unspecified fall, initial encounter (15) Fungal infection of the groin Code(s): B35.6 - TINEA CRURIS (16) Gas gangrene of lower extremity Code(s): A48.0 - GAS GANGRENE (17) H/O necrotizing fasciitis Code(s): Z87.39 - PERSONAL HISTORY OF DISEASES OF THE PA SYS AND [employer] TISS (18) H/O necrotizing fasciitis Code(s): Z87.39 - PERSONAL HISTORY OF DISEASES OF THE PA SYS AND [facility] TISS (19) Hepatitis C Code(s): B19.20 - UNSPECIFIED VIRAL HEPATITIS C WITHOUT HEPATIC COMA Qualifiers: Viral hepatitis chronicity: unspecified Hepatic coma status: without hepatic coma Qualified Code(s): B19.20 - Unspecified viral hepatitis C without hepatic coma (20) History of coronary artery stent placement Code(s): Z95.5 - PRESENCE OF CORONARY ANGIOPLASTY IMPLANT AND GRAFT (21) Hypertension Code(s): I10 - ESSENTIAL (PRIMARY) HYPERTENSION Qualifiers: Hypertension type: essential hypertension Qualified Code(s): I10 - Essential (primary) hypertension (22) Hypothyroidism Code(s): E03.9 - HYPOTHYROIDISM, UNSPECIFIED Qualifiers: Hypothyroidism type: unspecified Qualified Code(s): E03.9 - Hypothyroidism , unspecified (23) Insulin dependent diabetes mellitus Code(s): E11.9 - TYPE 2 DIABETES MELLITUS WITHOUT COMPLICATIONS; Z79.4 - PIPELINE TECHNICIAN (CURRENT) USE OF INSULIN (24) Insulin pump in place Code(s): Z96.41 - PRESENCE OF INSULIN PUMP (EXTERNAL) (INTERNAL) (25) Methadone maintenance therapy patient Code(s): F11.20 - OPIOID DEPENDENCE, UNCOMPLICATED (26) Multiple contusions Code(s): T14.8 - OTHER INJURY OF UNSPECIFIED BODY REGION * DO NOT USE * (27) Right foot pain Code(s): M79.671 - PAIN IN RIGHT FOOT Visit type - Emergency Visit Emergency Visit: Yes ED Registration Date: 02/23/19 Care time: The patient presented to the Emergency Department on the above date and was hospitalized for further evaluation of their emergent condition. - New Patient This patient is new to me today: No - Critical Care Critical Care patient: No
[2019-02-28] MEDS: ATORVASTATIN CA 20 MG TABLET (FP) PO SCH (21:49)
[2019-02-28] MEDS: GABAPENTIN 300 MG CAPSULE (FP) PO SCH (21:49)
[2019-03-01] MEDS: ACETAMINOPHEN 325 MG TABLET (FP) PO PRN ×2 (03:07→22:38)
[2019-03-01] MEDS: METHADONE HCL 40 MG DISPERSABLE TABLET PO SCH (06:20)
[2019-03-01] MEDS: HEPARIN NA (PORCINE) 5,000 UNITS/ML 1ML VIAL SQ SCH ×3 (06:21→22:40)
[2019-03-01] MEDS: FUROSEMIDE 100 MG/10 ML INJECTABLE VIAL IVPB SCH ×2 (06:21→13:15)
[2019-03-01] MEDS: INSULIN (LEVEMIR) 100 UNITS/ML UNITS SQ SCH ×2 (06:24→22:40)
[2019-03-01] MEDS: INSULIN SLIDING SCALE (NOVOLOG) 1 VIAL SQ SCH ×4 (06:25→22:43)
[2019-03-01 07:02] LABS: BASO % 0.9 % (0-2.0); EOS % 4.6 % (0-4.5); HEMATOCRIT 30.7 % (35.4-49); HEMOGLOBIN 9.7 GM/dL (11.7-16.9); LYMPH % 7.6 % (8-40); MCH 24.2 pg (25.7-33.7); MCHC 31.5 g/dl (32.0-35.9); MEAN CELL VOLUME 76.6 fl (80-96); MEAN PLT VOLUME 9.3 fl (7.5-11.1); MONO % 9.6 % (3.8-10.2); NEUT % 77.3 % (42.8-82.8); PLATELET COUNT 408 K/MM3 (134-434); RBC 4.01 M/mm3 (4.00-5.60); RDW 19.8 % (11.9-15.9); WHITE BLOOD COUNT 7.8 K/mm3 (4.0-10.0)
[2019-03-01 07:50] LABS: ALBUMIN 2.4 g/dl (3.4-5.0); ALK PHOS 82 U/L (45-117); ANION GAP 11 MMOL/L (8-16); BILIRUBIN,TOTAL 0.3 mg/dL (0.2-1); CHLORIDE 103 mmol/L (98-107); CO2 26 mmol/L (21-32); CREATININE 4.6 mg/dL (0.55-1.3); GLUCOSE,RANDOM 258 mg/dL (74-106); MAGNESIUM 2.2 mg/dL (1.8-2.4); PHOSPHOROUS 6.8 mg/dL (2.5-4.9); POTASSIUM 5.2 mmol/L (3.5-5.1); SGOT/AST 16 U/L (15-37); SGPT/ALT 22 U/L (13-61); SODIUM 139 mmol/L (136-145)
[2019-03-01 08:03] LABS: BLOOD UREA NITROGEN 112 mg/dL (7-18)
[2019-03-01 08:07] LABS: SERUM IRON SATURATION 14 % (15-55); TOTAL IRON BINDING CAPACITY 125 ug/dL (250-450); UIBC 108 ug/dL (111-343)
[2019-03-01] MEDS ORDERED: CALCIUM GLUCONATE 10% - 1,000 MG/10 ML VIAL IVPB ONE (08:15)
[2019-03-01] MEDS: CALCIUM CARBONATE 650 MG TABLET PO SCH ×2 (09:04→22:37)
[2019-03-01] MEDS: NYSTATIN POWDER 100,000 UNITS/GM - 15 GM TOPICAL POWDER TP SCH (09:04)
[2019-03-01] MEDS: metoPROLOL SUCCINATE 25 MG TAB.SR.24H (FP) PO SCH ×2 (09:04→22:39)
[2019-03-01] MEDS: AMOX TR/POT CLAV 500MG/125MG TABLETS (FP) PO SCH ×2 (09:04→16:52)
[2019-03-01] MEDS: CALCIUM ACETATE 667 MG CAPSULE (FP) PO SCH ×3 (09:04→16:52)
[2019-03-01] MEDS: amLODIPine BESYLATE 10 MG TABLET (FP) PO SCH (09:04)
[2019-03-01] MEDS: ASPIRIN 81 MG CHEWABLE TABLETS PO SCH (09:04)
[2019-03-01] MEDS: PANTOPRAZOLE 40 MG TABLET (FP) PO SCH (09:04)
[2019-03-01] MEDS: BACITRACIN 15 GM TUBE TOPICAL OINTMENT TP SCH (09:05)
--- NOTE | 2019-03-01 12:05 | PN ---
Progress Note (short form) - Note Progress Note: s: no cp palps dizzy; sob improving o: Vital Signs Period Temp Pulse Resp BP Sys/Alvarez Pulse Ox Last 24 Hr 97.6 F-98.5 F 63-72 20-20 98-133/60-77 95-95 Constitutional: Yes: No Distress, Calm Eyes: Yes: Conjunctiva Clear Respiratory: Yes: Regular, CTA Bilaterally Gastrointestinal: Yes: Normal Bowel Sounds, Soft Cardiovascular: Yes: Regular Rate and Rhythm JVD: Yes Heart Sounds: Yes: S1, S2 Musculoskeletal: Yes: Other (s/p R BKA) Extremities: Yes: Cold, Cyanosis Edema: Yes Edema: LLE: trace Peripheral Pulses: 2+ Left Doralis Pedis, r bka Integumentary: No: Jaundice Neurological: Yes: Alert, Oriented Psychiatric: Yes: Alert, Oriented Current Medications Generic Name Dose Route Start Last Admin Trade Name Freq PRN Reason Stop Dose Admin Acetaminophen 650 mg 02/23/19 17:55 03/01/19 03:07 Tylenol - PO 650 mg Q4H PRN Administration FEVER Amlodipine Besylate 10 mg 02/24/19 10:00 03/01/19 09:04 Norvasc - PO 10 mg DAILY JL Administration Amoxicillin/Clavulanate Potassium 1 tab 02/26/19 17:30 03/01/19 09:04 Augmentin - 500mg Tablet PO 1 tab BID@0800,1730 JL Administration Aspirin 81 mg 02/24/19 10:00 03/01/19 09:04 Asa - PO 81 mg DAILY JL Administration Atorvastatin Calcium 20 mg 02/23/19 22:00 02/28/19 21:49 Lipitor - PO 20 mg HS JL Administration Bacitracin 1 applic 02/26/19 13:45 03/01/19 09:05 Bacitracin - TP 1 applic DAILY JL Administration Calcium Acetate 1,334 mg 02/27/19 17:30 03/01/19 09:04 Phoslo - PO 1,334 mg TIDCM JL Administration Calcium Carbonate 1,300 mg 02/28/19 10:30 03/01/19 09:04 Calcium Carbonate - PO 1,300 mg BID JL Administration Furosemide 120 mg 02/28/19 14:00 03/01/19 06:21 Lasix Injection - IVPB 120 mg BID@0600,1400 JL Administration Gabapentin 900 mg 02/23/19 22:00 02/28/19 21:49 Neurontin - PO 900 mg HS JL Administration Heparin Sodium (Porcine) 5,000 unit 02/23/19 22:00 03/01/19 06:21 Heparin - SQ 5,000 unit TID JL Administration IV Flush 4 ml 02/26/19 22:43 Triple Lumen Flush IVPUSH PRN PRN Protocol Insulin Aspart 1 vial 02/25/19 18:53 03/01/19 06:25 Novolog Vial Sliding Scale - SQ 6 units ACHS JL Administration Protocol Insulin Detemir 15 units 02/28/19 22:00 03/01/19 06:24 Levemir Vial SQ 15 units BID@0700,2200 JL Administration Methadone HCl 120 mg 02/24/19 10:00 03/01/19 06:20 Dolophine - PO 120 mg 0600 JL Administration Metolazone 5 mg 03/01/19 13:30 Zaroxolyn - PO 03/01/19 13:31 ONCE ONE Metoprolol Succinate 25 mg 02/26/19 10:00 03/01/19 09:04 Toprol Xl - PO 25 mg BID JL Administration Nystatin 1 applic 02/27/19 11:15 03/01/19 09:04 Nystop Powder - TP 1 appful DAILY LJ Administration Pantoprazole Sodium 40 mg 02/24/19 10:00 03/01/19 09:04 Protonix - PO 40 mg DAILY JL Administration CBC, BMP 03/01/19 06:10 03/01/19 06:10 CXR: chf EKG:sinus rhythm, nl intervals, no ischemic changes echo 09/2018 tds, nl LV size/function, tr MR, mild biatrial enlargement tele: sr, artifact a/p: 63M h/o hld, dm, htn, hypothyroid, cad s/p pci (cp-->+mibi-->cath 06/2017 with analia to om1, residual 50-60 mlad, 70-80 dlad)m ckd, sepsis 2/2 leg wound that led to right bka, dchf, here with sob. acute diastolic CHF exacerbation -chf exacerbation due to med noncompliance. no signs acs. -treatment has been limited by poor IV access here. per JAN, pt received lasix 40 IV x1 on 02/23, bid on 02/24 and no IV lasix since. received lasix 120 PO x1 on . -02/26: wt has not downtrended at all here. renal fxn progressively worsening, currently BUN 107/creat 4.3--strongly suspect ongoing cardiorenal syndrome with ineffectual diuresis due to GFR <20 (likely to require much higher doses of lasix) and poor IV access. currently no IV access available. he is very stable from resp standpoint--concern that further ineffective diuresis (with oral regimen) may worsen renal fxn. - 02/27 central line placed yesterday for IV access. stable edema, sob - d/w renal, start lasix 80 mg IV BID - 02/28: feels better, Cr/BUN stable, wt down <1 lb. increase lasix to 120 mg IV BID, monitor Cr, lytes, daily standing weights. -03/01: cr stable, feeling better. cont lasix 120 bid iv and metolazone 5 mg this afternoon again. monitor daily Cr, lytes, daily standing weights. GLORY on ckd -baseline creat around 2 -likely cardiorenal, monitor cr with diuresis -renal following as well, deferring HD initiation at present time cad s/p pci: -has been stable -had pci 2016 with plans for staged pci of residual 70-80 dlad but this was postponed due to sepsis/bka and since he has had no ischemic symptoms and with ckd, plans have been med rx for now. -cont statin, asa PSVT, ? PAT: -started toprol -episode to 120s bpm on tele 02/26. cont same meds, observe tele DM - manage per primary HTN - stable on amlodipine HLD - cont statin
--- NOTE | 2019-03-01 13:22 | PN ---
Progress Note (short form) - Note Progress Note: PULMONARY States breathing better. No chest pain. Minimal cough. No fevers. Vital Signs Period Temp Pulse Resp BP Sys/Alvarez Pulse Ox Last 24 Hr 97.6 F-98.5 F 63-80 20-20 98-133/60-77 95-95 Intake & Output 02/26/19 02/27/19 02/28/19 03/01/19 23:59 23:59 23:59 23:59 Intake Total 1030 1820 710 330 Output Total 1747 503 6624 1100 Balance -570 1420 -1090 -770 Weight 132.494 kg 129.909 kg 129.637 kg 129.818 kg Gen: NAD at rest Heart: RRR Lung: decreased breath sounds at the bases Abd: soft, nontender Ext: + edema, R BKA CBC, BMP 03/01/19 06:10 03/01/19 06:10 Active Medications Acetaminophen (Tylenol -) 650 mg PO Q4H PRN PRN Reason: FEVER Last Admin: 03/01/19 03:07 Dose: 650 mg Amlodipine Besylate (Norvasc -) 10 mg PO DAILY [facility] Last Admin: 03/01/19 09:04 Dose: 10 mg Amoxicillin/Clavulanate Potassium (Augmentin - 500mg Tablet) 1 tab PO BID@0800, 1730 [facility] Last Admin: 03/01/19 09:04 Dose: 1 tab Aspirin (Asa -) 81 mg PO DAILY [facility] Last Admin: 03/01/19 09:04 Dose: 81 mg Atorvastatin Calcium (Lipitor -) 20 mg PO HS [facility] Last Admin: 02/28/19 21:49 Dose: 20 mg Bacitracin (Bacitracin -) 1 applic TP DAILY [facility] Last Admin: 03/01/19 09:05 Dose: 1 applic Calcium Acetate (Phoslo -) 1,334 mg PO TIDCM [facility] Last Admin: 03/01/19 13:18 Dose: 1,334 mg Calcium Carbonate (Calcium Carbonate -) 1,300 mg PO BID [facility] Last Admin: 03/01/19 09:04 Dose: 1,300 mg Furosemide (Lasix Injection -) 120 mg IVPB BID@0600,1400 [facility] Last Admin: 03/01/19 13:15 Dose: 120 mg Gabapentin (Neurontin -) 900 mg PO HS [facility] Last Admin: 02/28/19 21:49 Dose: 900 mg Heparin Sodium (Porcine) (Heparin -) 5,000 unit SQ TID [facility] Last Admin: 03/01/19 13:19 Dose: 5,000 unit IV Flush (Triple Lumen Flush) 4 ml IVPUSH PRN PRN PRN Reason: Protocol Insulin Aspart (Novolog Vial Sliding Scale -) 1 vial SQ ACHS [facility]; Protocol Last Admin: 03/01/19 11:18 Dose: Not Given Insulin Detemir (Levemir Vial) 15 units SQ BID@0700,2200 [facility] Last Admin: 03/01/19 06:24 Dose: 15 units Methadone HCl (Dolophine -) 120 mg PO 0600 [facility] Last Admin: 03/01/19 06:20 Dose: 120 mg Metolazone (Zaroxolyn -) 5 mg PO ONCE ONE Stop: 03/01/19 13:31 Last Admin: 03/01/19 12:45 Dose: 5 mg Metoprolol Succinate (Toprol Xl -) 25 mg PO BID [facility] Last Admin: 03/01/19 09:04 Dose: 25 mg Nystatin (Nystop Powder -) 1 applic TP DAILY [facility] Last Admin: 03/01/19 09:04 Dose: 1 appful Pantoprazole Sodium (Protonix -) 40 mg PO DAILY [facility] Last Admin: 03/01/19 09:04 Dose: 40 mg A/P Acute Hypoxic and Hypercapneic Respiratory Failure Acute on Chronic Diastolic Heart Failure Acute on Chronic Renal Failure CAD Morbid Obesity Likely ORQUIDEA HTN DM s/p R BKA Methadone Maintenance - continue lasix - monitor urine output, creatinine - daily weights - O2 to keep SpO2 >90% - outpt PFTs and PSG - DVT prophylaxis
[2019-03-01] MEDS ORDERED: METOLAZONE 5 MG TABLET PO ONE (13:30)
--- NOTE | 2019-03-01 14:51 | PN ---
Progress Note (short form) - Note Progress Note: Renal follow up for GLORY on CKD Pt seen and examined outside CT scan awake and alert reports feeling better, making a lot of urine no sob, cp, abd pain Vital Signs Temperature 98.3 F 03/01/19 10:00 Pulse Rate 80 03/01/19 10:00 Respiratory Rate 20 03/01/19 10:00 Blood Pressure 131/65 03/01/19 10:00 O2 Sat by Pulse Oximetry (%) 95 03/01/19 10:00 Intake & Output 02/26/19 02/27/19 02/28/19 03/01/19 23:59 23:59 23:59 23:59 Intake Total 1030 1820 710 330 Output Total 1077 964 7200 1100 Balance -570 1420 -1090 -770 Weight 132.494 kg 129.909 kg 129.637 kg 129.818 kg NAD RRR, no M/R Dec BS, no rales soft NT/ND, obese right BKA, left leg edema++ CBC, BMP 03/01/19 06:10 03/01/19 06:10 Laboratory Tests 03/01/19 06:10 Calcium 6.0 L* Phosphorus 6.8 H Magnesium 2.2 Albumin 2.4 L Current Medications Acetaminophen (Tylenol -) 650 mg PO Q4H PRN PRN Reason: FEVER Last Admin: 03/01/19 03:07 Dose: 650 mg Amlodipine Besylate (Norvasc -) 10 mg PO DAILY [facility] Last Admin: 03/01/19 09:04 Dose: 10 mg Amoxicillin/Clavulanate Potassium (Augmentin - 500mg Tablet) 1 tab PO BID@0800, 1730 [facility] Last Admin: 03/01/19 09:04 Dose: 1 tab Aspirin (Asa -) 81 mg PO DAILY [facility] Last Admin: 03/01/19 09:04 Dose: 81 mg Atorvastatin Calcium (Lipitor -) 20 mg PO HS [facility] Last Admin: 02/28/19 21:49 Dose: 20 mg Bacitracin (Bacitracin -) 1 applic TP DAILY [facility] Last Admin: 03/01/19 09:05 Dose: 1 applic Calcium Acetate (Phoslo -) 1,334 mg PO TIDCM [facility] Last Admin: 03/01/19 13:18 Dose: 1,334 mg Calcium Carbonate (Calcium Carbonate -) 1,300 mg PO BID [facility] Last Admin: 03/01/19 09:04 Dose: 1,300 mg Furosemide (Lasix Injection -) 120 mg IVPB BID@0600,1400 [facility] Last Admin: 03/01/19 13:15 Dose: 120 mg Gabapentin (Neurontin -) 900 mg PO HS [facility] Last Admin: 02/28/19 21:49 Dose: 900 mg Heparin Sodium (Porcine) (Heparin -) 5,000 unit SQ TID [facility] Last Admin: 03/01/19 13:19 Dose: 5,000 unit IV Flush (Triple Lumen Flush) 4 ml IVPUSH PRN PRN PRN Reason: Protocol Insulin Aspart (Novolog Vial Sliding Scale -) 1 vial SQ ACHS [facility]; Protocol Last Admin: 03/01/19 11:18 Dose: Not Given Insulin Detemir (Levemir Vial) 15 units SQ BID@0700,2200 [facility] Last Admin: 03/01/19 06:24 Dose: 15 units Methadone HCl (Dolophine -) 120 mg PO 0600 [facility] Last Admin: 03/01/19 06:20 Dose: 120 mg Metoprolol Succinate (Toprol Xl -) 25 mg PO BID [facility] Last Admin: 03/01/19 09:04 Dose: 25 mg Nystatin (Nystop Powder -) 1 applic TP DAILY [facility] Last Admin: 03/01/19 09:04 Dose: 1 appful Pantoprazole Sodium (Protonix -) 40 mg PO DAILY [facility] Last Admin: 03/01/19 09:04 Dose: 40 mg 63 year old gentleman with hx of CAD, Hypertension, DM (x 30 years), Hx of substance abuse, ? Hepatitis, PVD s/p right LE amputation who presented with complaints of SOB/REYES and fatigue over the past week with GLORY on CKD. #GLROY on CKD #CKD stage 3 #Hyperkalemia #CHF exacerbation #Anemia #Leukocytosis #LE wound #confusion #Hyperphosphatemia/Hypocalcemia Renal function unchanged, making urine however weights not improving. 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
--- NOTE | 2019-03-01 15:52 | PN ---
Teaching Attending Note Name of Resident: Ashley Freeman ATTENDING PHYSICIAN STATEMENT I saw and evaluated the patient. I reviewed the resident's note and discussed the case with the resident. I agree with the resident's findings and plan as documented with exceptions below. SUBJECTIVE: Patient seen and examined, no new dyspnea, dizziness, leg pain or concerns. Reports has been making urine. OBJECTIVE: Vital Signs Period Temp Pulse Resp BP Sys/Alvarez Pulse Ox Last 24 Hr 97.6 F-98.5 F 68-80 20-20 124-133/60-77 95-95 Intake & Output 02/26/19 02/27/19 02/28/19 03/01/19 23:59 23:59 23:59 23:59 Intake Total 1030 1820 710 330 Output Total 0910 396 0442 1100 Balance -570 1420 -1090 -770 Weight 292 lb 1.6 oz 286 lb 6.4 oz 285 lb 12.8 oz 286 lb 3.2 oz General: sitting in bed, no acute distress Chest: bibasilar rales Abdomen;Soft obese, NT Extermities: Right BKA with prosthesis, Left foot dressing, no active erythema, pain or discharge Home Medications Medication Instructions Recorded Methadone [Dolophine -] 120 mg PO DAILY #7 tablet 08/06/14 Pantoprazole Sodium [Protonix] 40 mg PO DAILY 09/15/15 Amlodipine Besylate 10 mg PO DAILY 09/28/18 Aspirin 81 mg PO DAILY 09/28/18 Atorvastatin Ca [Lipitor] 20 mg PO HS 09/28/18 Azilsartan Medoxomil [Edarbi] 80 mg PO DAILY 09/28/18 Furosemide 20 mg PO DAILY 09/28/18 Gabapentin 900 mg PO HS 09/28/18 Calcium 500Mg/Vit-D 200 Units 1 tab PO BID tab 09/29/18 [Os-Vishnu 500+D -] Active Medications Acetaminophen (Tylenol -) 650 mg PO Q4H PRN PRN Reason: FEVER Last Admin: 03/01/19 03:07 Dose: 650 mg Amlodipine Besylate (Norvasc -) 10 mg PO DAILY [facility] Last Admin: 03/01/19 09:04 Dose: 10 mg Amoxicillin/Clavulanate Potassium (Augmentin - 500mg Tablet) 1 tab PO BID@0800, 1730 [facility] Last Admin: 03/01/19 09:04 Dose: 1 tab Aspirin (Asa -) 81 mg PO DAILY [facility] Last Admin: 03/01/19 09:04 Dose: 81 mg Atorvastatin Calcium (Lipitor -) 20 mg PO HS [facility] Last Admin: 02/28/19 21:49 Dose: 20 mg Bacitracin (Bacitracin -) 1 applic TP DAILY [facility] Last Admin: 03/01/19 09:05 Dose: 1 applic Calcium Acetate (Phoslo -) 1,334 mg PO TIDCM [facility] Last Admin: 03/01/19 13:18 Dose: 1,334 mg Calcium Carbonate (Calcium Carbonate -) 1,300 mg PO BID [facility] Last Admin: 03/01/19 09:04 Dose: 1,300 mg Furosemide (Lasix Injection -) 120 mg IVPB BID@0600,1400 [facility] Last Admin: 03/01/19 13:15 Dose: 120 mg Gabapentin (Neurontin -) 900 mg PO HS [facility] Last Admin: 02/28/19 21:49 Dose: 900 mg Heparin Sodium (Porcine) (Heparin -) 5,000 unit SQ TID [facility] Last Admin: 03/01/19 13:19 Dose: 5,000 unit IV Flush (Triple Lumen Flush) 4 ml IVPUSH PRN PRN PRN Reason: Protocol Insulin Aspart (Novolog Vial Sliding Scale -) [address] [facility]; Protocol Last Admin: 03/01/19 11:18 Dose: Not Given Insulin Detemir (Levemir Vial) 15 units SQ BID@0700,2200 [facility] Last Admin: 03/01/19 06:24 Dose: 15 units Methadone HCl (Dolophine -) 120 mg PO 0600 [facility] Last Admin: 03/01/19 06:20 Dose: 120 mg Metoprolol Succinate (Toprol Xl -) 25 mg PO BID [facility] Last Admin: 03/01/19 09:04 Dose: 25 mg Nystatin (Nystop Powder -) 1 applic TP DAILY [facility] Last Admin: 03/01/19 09:04 Dose: 1 appful Pantoprazole Sodium (Protonix -) 40 mg PO DAILY [facility] Last Admin: 03/01/19 09:04 Dose: 40 mg Laboratory Results - last 24 hr 02/28/19 02/28/19 02/28/19 07:20 16:33 21:09 WBC RBC Hgb Hct MCV MCH MCHC RDW Plt Count MPV Absolute Neuts (auto) Neutrophils % Lymphocytes % Monocytes % Eosinophils % Basophils % Nucleated RBC % Sodium Potassium Chloride Carbon Dioxide Anion Gap BUN Creatinine Creat Clearance w eGFR POC Glucometer 225 200 Random Glucose Calcium Phosphorus Magnesium Iron 17 L TIBC 125 L Iron Saturation 14 L Transferrin 84 L Total Bilirubin AST ALT Alkaline Phosphatase Total Protein Albumin 03/01/19 03/01/19 03/01/19 06:10 06:10 06:22 WBC 7.8 RBC 4.01 Hgb 9.7 L Hct 30.7 L MCV 76.6 L MCH 24.2 L MCHC 31.5 L RDW 19.8 H Plt Count 408 MPV 9.3 Absolute Neuts (auto) 6.0 Neutrophils % 77.3 Lymphocytes % 7.6 L D Monocytes % 9.6 Eosinophils % 4.6 H Basophils % 0.9 Nucleated RBC % 0 Sodium 139 Potassium 5.2 H Chloride 103 Carbon Dioxide 26 Anion Gap 11 BUN 112 H* Creatinine 4.6 H Creat Clearance w eGFR 12.97 POC Glucometer 260 Random Glucose 258 H Calcium 6.0 L* Phosphorus 6.8 H Magnesium 2.2 Iron TIBC Iron Saturation Transferrin Total Bilirubin 0.3 AST 16 ALT 22 Alkaline Phosphatase 82 Total Protein 6.0 L Albumin 2.4 L Microbiology 02/24/19 14:25 Foot - Left Plantar Gram Stain - Final 02/24/19 14:25 Foot - Left Plantar Wound Culture - Final Staphylococcus Aureus Diphtheroid/Corynebacterium Acinetobacter Baumannii/Haemol CT LE results reviewed ASSESSMENT AND PLAN: 63 yom with PMHx of CKD stage III, CAD s/p PCI (ADELAIDA to Om1, residual 50-60 mLAD , 70-80 dLAD planned for staged cath), Diastolic heart failure, HTN, HLD, NIDDM , Hypothyroid, sepsis from 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 -Acute diastolic heart failure exacerbation -Acute hypoxic hypercapneic respiratory failure, suspect from above+/- ORQUIDEA -GLORY on CKD stage III, suspect hypervolumic -Hyperkalemia -Left foot plantar ulcer -NIDDM -HTN -HLD -Hypothyroidism -Methadone dependence -H/o sepsis from right leg wound s/p BKA Plan: Cardiology/nephrology input noted Lasix 120 mg IV BID and metolazone with strict I/Os and daily weights. Will need TOE STRIPPER if fails to diurese or acute concerns. Plan per renal. Hold ARB, continue renal diet. Continue phoslo. Pulmonary input noted. Bipap hs and prn. Increased levemir to 15 units BID, ISS, diabetic diet. Podiatry/ID input noted. Off Clindamycin. Augmentin per ID. CT LE neg for active concerns. Follow up arterial duplex. Anticipate outpatient follow up once active medical concerns have improved. Continue metoprolol/amlodipine. Hold ARB. Continue Gabapentin/methadone. DVTPPX heparin Dispo pending clinical improvement. Will need PT eval and CM consult for dc planning once improved. Plan discussed with patient and nursing in detail, all questions answered.
--- NOTE | 2019-03-01 16:06 | PN ---
Progress Note (short form) - Note Progress Note: 63 y/o male seen and evaluated for left foot platnar ulceration. States the had CT done today. Feeling much better; has a wound care doctor he follows up with at [facility] as outpatient. Denies any f/c/n/v/sob. O: Wound left foot plantar mdfoot, surrounding hyperkeratosis, no erythema, mild edema, no clinical signs of infection, granular base A: Left foot plantar foot ulceration P: CT - no abscess no clinical signs of infection Can f/u with prior wound care doctor upon d/c Thank you for allowing me to participate in the care of this patient Please reconsult PRN
--- NOTE | 2019-03-01 17:19 | PN ---
Physical Exam: SUBJECTIVE: Patient seen and examined, no overnight events. OBJECTIVE: Vital Signs Period Temp Pulse Resp BP Sys/Alvarez Pulse Ox Last 24 Hr 97.6 F-98.5 F 68-80 20-20 124-133/60-77 95-95 GENERAL: The patient is awake, alert, in no acute distress, sitting on a wheelchair. HEAD: Normal with no signs of trauma. EYES: PERRL, extraocular movements intact. ENT: Oropharynx clear without exudates, moist mucous membranes. NECK: Trachea midline, full range of motion, supple. LUNGS: Breath sounds equal, diminished on auscultation bilaterally, no wheezes, no crackles, no accessory muscle use. HEART: Regular rate and rhythm, S1, S2 without murmur, rub or gallop. ABDOMEN: Soft, nontender, nondistended, normoactive bowel sounds, no guarding. EXTREMITIES: 2+ pulses, warm, no edema, left leg: plantar ulcer 2 cm, rounded, no discharge, no tenderness to palpation, no redness,right leg amputated below the knee. NEUROLOGICAL: Normal speech, gait not observed, confused. SKIN: Warm, dry, normal turgor, rash in inter gluteal area with 1 cm superficial wound on left side. No drainage, no tenderness to palpation. Laboratory Results - last 24 hr 02/28/19 02/28/19 03/01/19 07:20 21:09 06:10 WBC 7.8 RBC 4.01 Hgb 9.7 L Hct 30.7 L MCV 76.6 L MCH 24.2 L MCHC 31.5 L RDW 19.8 H Plt Count 408 MPV 9.3 Absolute Neuts (auto) 6.0 Neutrophils % 77.3 Lymphocytes % 7.6 L D Monocytes % 9.6 Eosinophils % 4.6 H Basophils % 0.9 Nucleated RBC % 0 Sodium Potassium Chloride Carbon Dioxide Anion Gap BUN Creatinine Creat Clearance w eGFR POC Glucometer 200 Random Glucose Calcium Phosphorus Magnesium Iron 17 L TIBC 125 L Iron Saturation 14 L Transferrin 84 L Total Bilirubin AST ALT Alkaline Phosphatase Total Protein Albumin 03/01/19 03/01/19 06:10 06:22 WBC RBC Hgb Hct MCV MCH MCHC RDW Plt Count MPV Absolute Neuts (auto) Neutrophils % Lymphocytes % Monocytes % Eosinophils % Basophils % Nucleated RBC % Sodium 139 Potassium 5.2 H Chloride 103 Carbon Dioxide 26 Anion Gap 11 BUN 112 H* Creatinine 4.6 H Creat Clearance w eGFR 12.97 POC Glucometer 260 Random Glucose 258 H Calcium 6.0 L* Phosphorus 6.8 H Magnesium 2.2 Iron TIBC Iron Saturation Transferrin Total Bilirubin 0.3 AST 16 ALT 22 Alkaline Phosphatase 82 Total Protein 6.0 L Albumin 2.4 L Active Medications Generic Name Dose Route Start Last Admin Trade Name Freq PRN Reason Stop Dose Admin Acetaminophen 650 mg 02/23/19 17:55 03/01/19 03:07 Tylenol - PO 650 mg Q4H PRN Administration FEVER Amlodipine Besylate 10 mg 02/24/19 10:00 03/01/19 09:04 Norvasc - PO 10 mg DAILY JL Administration Amoxicillin/Clavulanate Potassium 1 tab 02/26/19 17:30 03/01/19 16:52 Augmentin - 500mg Tablet PO 1 tab BID@0800,1730 JL Administration Aspirin 81 mg 02/24/19 10:00 03/01/19 09:04 Asa - PO 81 mg DAILY JL Administration Atorvastatin Calcium 20 mg 02/23/19 22:00 02/28/19 21:49 Lipitor - PO 20 mg HS JL Administration Bacitracin 1 applic 02/26/19 13:45 03/01/19 09:05 Bacitracin - TP 1 applic DAILY JL Administration Calcium Acetate 1,334 mg 02/27/19 17:30 03/01/19 16:52 Phoslo - PO 1,334 mg TIDCM JL Administration Calcium Carbonate 1,300 mg 02/28/19 10:30 03/01/19 09:04 Calcium Carbonate - PO 1,300 mg BID JL Administration Furosemide 120 mg 02/28/19 14:00 03/01/19 13:15 Lasix Injection - IVPB 120 mg BID@0600,1400 JL Administration Gabapentin 900 mg 02/23/19 22:00 02/28/19 21:49 Neurontin - PO 900 mg HS JL Administration Heparin Sodium (Porcine) 5,000 unit 02/23/19 22:00 03/01/19 13:19 Heparin - SQ 5,000 unit TID JL Administration IV Flush 4 ml 02/26/19 22:43 Triple Lumen Flush IVPUSH PRN PRN Protocol Insulin Aspart 1 vial 02/25/19 18:53 03/01/19 11:18 Novolog Vial Sliding Scale - SQ Not Given ACHS JL Protocol Insulin Detemir 15 units 02/28/19 22:00 03/01/19 06:24 Levemir Vial SQ 15 units BID@0700,2200 JL Administration Methadone HCl 120 mg 02/24/19 10:00 03/01/19 06:20 Dolophine - PO 120 mg 0600 JL Administration Metoprolol Succinate 25 mg 02/26/19 10:00 03/01/19 09:04 Toprol Xl - PO 25 mg BID JL Administration Nystatin 1 applic 02/27/19 11:15 03/01/19 09:04 Nystop Powder - TP 1 appful DAILY JL Administration Pantoprazole Sodium 40 mg 02/24/19 10:00 03/01/19 09:04 Protonix - PO 40 mg DAILY JL Administration ASSESSMENT/PLAN: 63 year old male with a PMH of CAD, s/p stent, HTN, on methadone program, DM with amputation and ulcer presented for CHF exacerbation. CHF exacerbation -likely due to noncompliance, cardiorenal -cardiology consulted will f/u recommendations -continue Lasix 120 mg BID -I/Os and daily weights Acute hypoxic resp failure; -likely due to fluid overload and CHF -on BIPap overnight -ABG done with resp acidosis -central line placed AMS: -improved -likely due to hypoxia, uremia -will monitor kidney function, fluid status GLORY -cardiorenal with use of ACEI -hold ACEI -consulted nephrology -diurese with IV lasix and consider starting HD -monitor for improvement -cont Phoslo and Calcium Carbonate -will follow upBMp tonight at 6 PM Hyperkalemia -secondary to GLORY and ACEI -will monitor -nephrology consulted Diabetes mellitus with foot ulcer -on an insulin pump -placed on levemir 10 units bid -ISS and BGM ACHS -diabetic diet -wound care for ulcer, applied abx on wound and dressing changes micro grew Staph aureus and dipheroid -Augumentin 500 mg BID Hepatitis C -stable Hypertension -continue amlodipine, Metoprolol xl BID -will monitor Hypothyroidism -continue synthroid Methadone maintenance -on methadone 120mg daily Obesity: counseling F/E/N: no/K/diabetic DVT PPX: heparin DISPO: telemetry Problem List - Problems (1) GLORY (acute kidney injury) Code(s): N17.9 - ACUTE KIDNEY FAILURE, UNSPECIFIED (2) Acute metabolic encephalopathy Code(s): G93.41 - METABOLIC ENCEPHALOPATHY (3) Acute respiratory failure with hypoxia and hypercapnia Code(s): J96.01 - ACUTE RESPIRATORY FAILURE WITH HYPOXIA; J96.02 - ACUTE RESPIRATORY FAILURE WITH HYPERCAPNIA (4) CHF exacerbation Code(s): I50.9 - HEART FAILURE, UNSPECIFIED Qualifiers: Heart failure type: systolic Qualified Code(s): I50.23 - Acute on chronic systolic (congestive) heart failure (5) Hyperkalemia Code(s): E87.5 - HYPERKALEMIA (6) Shortness of breath Code(s): R06.02 - SHORTNESS OF BREATH (7) Abrasion hip/leg Qualifiers: Encounter type: initial encounter Laterality: right Qualified Code(s): S80.811A - Abrasion, right lower leg, initial encounter (8) Bone infection, ankle/foot Code(s): M86.9 - OSTEOMYELITIS, UNSPECIFIED (9) Cellulitis Code(s): L03.90 - CELLULITIS, UNSPECIFIED (10) Cellulitis Code(s): L03.90 - CELLULITIS, UNSPECIFIED (11) Diabetes mellitus with foot ulcer, with long-term current use of insulin Code(s): E11.621 - TYPE 2 DIABETES MELLITUS WITH FOOT ULCER; L97.509 - NON- PRESSURE CHRONIC ULCER OTH PRT UNSP FOOT W UNSP SEVERITY; Z79.4 - ASSISTANT PROFESSOR OF BUSINESS ( CURRENT) USE OF INSULIN Qualifiers: Diabetes mellitus type: type 2 Qualified Code(s): E11.621 - Type 2 diabetes mellitus with foot ulcer; L97.509 - Non-pressure chronic ulcer of other part of unspecified foot with unspecified severity; L97.509 - Non- pressure chronic ulcer of other part of unspecified foot with unspecified severity; L97.509 - Non-pressure chronic ulcer of other part of unspecified foot with unspecified severity; L97.509 - Non-pressure chronic ulcer of other part of unspecified foot with unspecified severity; Z79.4 - shelter (current) use of insulin; Z79.4 - shelter (current) use of insulin; Z79.4 - lobsterman ( current) use of insulin; Z79.4 - shelter (current) use of insulin (12) Diarrhea Code(s): R19.7 - DIARRHEA, UNSPECIFIED Qualifiers: Diarrhea type: unspecified type Qualified Code(s): R19.7 - Diarrhea, unspecified (13) Facial pain Code(s): R51 - HEADACHE (14) Fall Code(s): W19.XXXA - UNSPECIFIED FALL, INITIAL ENCOUNTER Qualifiers: Encounter type: initial encounter Qualified Code(s): W19.XXXA - Unspecified fall, initial encounter (15) Fungal infection of the groin Code(s): B35.6 - TINEA CRURIS (16) Gas gangrene of lower extremity Code(s): A48.0 - GAS GANGRENE (17) H/O necrotizing fasciitis Code(s): Z87.39 - PERSONAL HISTORY OF DISEASES OF THE MS SYS AND CONN TISS (18) H/O necrotizing fasciitis Code(s): Z87.39 - PERSONAL HISTORY OF DISEASES OF THE MS SYS AND CONN TISS (19) Hepatitis C Code(s): B19.20 - UNSPECIFIED VIRAL HEPATITIS C WITHOUT HEPATIC COMA Qualifiers: Viral hepatitis chronicity: unspecified Hepatic coma status: without hepatic coma Qualified Code(s): B19.20 - Unspecified viral hepatitis C without hepatic coma (20) History of coronary artery stent placement Code(s): Z95.5 - PRESENCE OF CORONARY ANGIOPLASTY IMPLANT AND GRAFT (21) Hypertension Code(s): I10 - ESSENTIAL (PRIMARY) HYPERTENSION Qualifiers: Hypertension type: essential hypertension Qualified Code(s): I10 - Essential (primary) hypertension (22) Hypothyroidism Code(s): E03.9 - HYPOTHYROIDISM, UNSPECIFIED Qualifiers: Hypothyroidism type: unspecified Qualified Code(s): E03.9 - Hypothyroidism , unspecified (23) Insulin dependent diabetes mellitus Code(s): E11.9 - TYPE 2 DIABETES MELLITUS WITHOUT COMPLICATIONS; Z79.4 - ASSISTANT PROFESSOR OF BUSINESS (CURRENT) USE OF INSULIN (24) Insulin pump in place Code(s): Z96.41 - PRESENCE OF INSULIN PUMP (EXTERNAL) (INTERNAL) (25) Methadone maintenance therapy patient Code(s): F11.20 - OPIOID DEPENDENCE, UNCOMPLICATED (26) Multiple contusions Code(s): T14.8 - OTHER INJURY OF UNSPECIFIED BODY REGION * DO NOT USE * (27) Right foot pain Code(s): M79.671 - PAIN IN RIGHT FOOT Visit type - Emergency Visit Emergency Visit: Yes ED Registration Date: 02/23/19 Care time: The patient presented to the Emergency Department on the above date and was hospitalized for further evaluation of their emergent condition. - New Patient This patient is new to me today: No - Critical Care Critical Care patient: No - Discharge Referral Referred to [facility] No
--- NOTE | 2019-03-01 17:36 | PN ---
Progress Note, Physician History of Present Illness: stable no new issues wound healing well ct seen and report noted - Current Medication List Current Medications: Active Medications Acetaminophen (Tylenol -) 650 mg PO Q4H PRN PRN Reason: FEVER Last Admin: 03/01/19 03:07 Dose: 650 mg Amlodipine Besylate (Norvasc -) 10 mg PO DAILY [facility] Last Admin: 03/01/19 09:04 Dose: 10 mg Amoxicillin/Clavulanate Potassium (Augmentin - 500mg Tablet) 1 tab PO BID@0800, 1730 [facility] Last Admin: 03/01/19 16:52 Dose: 1 tab Aspirin (Asa -) 81 mg PO DAILY [facility] Last Admin: 03/01/19 09:04 Dose: 81 mg Atorvastatin Calcium (Lipitor -) 20 mg PO HS [facility] Last Admin: 02/28/19 21:49 Dose: 20 mg Bacitracin (Bacitracin -) 1 applic TP DAILY [facility] Last Admin: 03/01/19 09:05 Dose: 1 applic Calcium Acetate (Phoslo -) 1,334 mg PO TIDCM [facility] Last Admin: 03/01/19 16:52 Dose: 1,334 mg Calcium Carbonate (Calcium Carbonate -) 1,300 mg PO BID [facility] Last Admin: 03/01/19 09:04 Dose: 1,300 mg Furosemide (Lasix Injection -) 120 mg IVPB BID@0600,1400 [facility] Last Admin: 03/01/19 13:15 Dose: 120 mg Gabapentin (Neurontin -) 900 mg PO HS [facility] Last Admin: 02/28/19 21:49 Dose: 900 mg Heparin Sodium (Porcine) (Heparin -) 5,000 unit SQ TID [facility] Last Admin: 03/01/19 13:19 Dose: 5,000 unit IV Flush (Triple Lumen Flush) 4 ml IVPUSH PRN PRN PRN Reason: Protocol Insulin Aspart (Novolog Vial Sliding Scale -) 1 vial SQ [facility]; Protocol Last Admin: 03/01/19 11:18 Dose: Not Given Insulin Detemir (Levemir Vial) 15 units SQ BID@0700,2200 [facility] Last Admin: 03/01/19 06:24 Dose: 15 units Methadone HCl (Dolophine -) 120 mg PO 0600 [facility] Last Admin: 03/01/19 06:20 Dose: 120 mg Metoprolol Succinate (Toprol Xl -) 25 mg PO BID [facility] Last Admin: 03/01/19 09:04 Dose: 25 mg Nystatin (Nystop Powder -) 1 applic TP DAILY [facility] Last Admin: 03/01/19 09:04 Dose: 1 appful Pantoprazole Sodium (Protonix -) 40 mg PO DAILY [facility] Last Admin: 03/01/19 09:04 Dose: 40 mg - Objective Vital Signs: Vital Signs Temperature 97.6 F 03/01/19 14:00 Pulse Rate 69 03/01/19 14:00 Respiratory Rate 20 03/01/19 14:00 Blood Pressure 124/70 03/01/19 14:00 O2 Sat by Pulse Oximetry (%) 95 03/01/19 10:00 Constitutional: Yes: No Distress, Calm Cardiovascular: Yes: Regular Rate and Rhythm Respiratory: Yes: Regular, CTA Bilaterally Gastrointestinal: Yes: Normal Bowel Sounds, Soft Musculoskeletal: Yes: WNL Extremities: Yes: Other Wound/Incision: Yes: Dressing Dry and Intact Neurological: Yes: Alert, Oriented Psychiatric: Yes: Alert, Oriented Labs: CBC, BMP 03/01/19 06:10 03/01/19 06:10 INR, PTT INR 1.39 (0.83-1.09) H 02/23/19 14:23 Assessment/Plan ssessment/Plan Problem List - Problems (1) CHF exacerbation Code(s): I50.9 - HEART FAILURE, UNSPECIFIED Qualifiers: Heart failure type: systolic Qualified Code(s): I50.23 - Acute on chronic systolic (congestive) heart failure (2) GLORY (acute kidney injury) Code(s): N17.9 - ACUTE KIDNEY FAILURE, UNSPECIFIED (3) Hyperkalemia Code(s): E87.5 - HYPERKALEMIA (4) Diabetes mellitus with foot ulcer, with long-term current use of insulin Code(s): E11.621 - TYPE 2 DIABETES MELLITUS WITH FOOT ULCER; L97.509 - NON- PRESSURE CHRONIC ULCER OTH PRT UNSP FOOT W UNSP SEVERITY; Z79.4 - COLOR MAKER FORMULATOR ( CURRENT) USE OF INSULIN Qualifiers: Diabetes mellitus type: type 2 Qualified Code(s): E11.621 - Type 2 diabetes mellitus with foot ulcer; L97.509 - Non-pressure chronic ulcer of other part of unspecified foot with unspecified severity; L97.509 - Non- pressure chronic ulcer of other part of unspecified foot with unspecified severity; L97.509 - Non-pressure chronic ulcer of other part of unspecified foot with unspecified severity; L97.509 - Non-pressure chronic ulcer of other part of unspecified foot with unspecified severity; Z79.4 - terminal gauger supervisor (current) use of insulin; Z79.4 - [facility] (current) use of insulin; Z79.4 - [facility] ( current) use of insulin; Z79.4 - [facility] (current) use of insulin (5) Hepatitis C Code(s): B19.20 - UNSPECIFIED VIRAL HEPATITIS C WITHOUT HEPATIC COMA Qualifiers: Viral hepatitis chronicity: unspecified Hepatic coma status: without hepatic coma Qualified Code(s): B19.20 - Unspecified viral hepatitis C without hepatic coma (6) Hypertension Code(s): I10 - ESSENTIAL (PRIMARY) HYPERTENSION Qualifiers: Hypertension type: essential hypertension Qualified Code(s): I10 - Essential (primary) hypertension (7) Hypothyroidism Code(s): E03.9 - HYPOTHYROIDISM, UNSPECIFIED Qualifiers: Hypothyroidism type: unspecified Qualified Code(s): E03.9 - Hypothyroidism , unspecified (8) Methadone maintenance therapy patient Code(s): F11.20 - OPIOID DEPENDENCE, UNCOMPLICATED non healing diabetic wound on the plantar surface of the left foot plan cx result noted continue current mgmt wound care rest as per the team
[2019-03-01 20:21] LABS: ANION GAP 13 MMOL/L (8-16); CHLORIDE 104 mmol/L (98-107); CO2 21 mmol/L (21-32); CREATININE 4.4 mg/dL (0.55-1.3); GLUCOSE,RANDOM 234 mg/dL (74-106); POTASSIUM 5.1 mmol/L (3.5-5.1); SODIUM 138 mmol/L (136-145)
[2019-03-01 20:47] LABS: BLOOD UREA NITROGEN 108 mg/dL (7-18); CALCIUM 6.6 mg/dL (8.5-10.1)
[2019-03-01] MEDS: GABAPENTIN 300 MG CAPSULE (FP) PO SCH (22:40)
[2019-03-01] MEDS: ATORVASTATIN CA 20 MG TABLET (FP) PO SCH (22:40)
[2019-03-02] MEDS: METHADONE HCL 40 MG DISPERSABLE TABLET PO SCH (06:35)
[2019-03-02] MEDS: FUROSEMIDE 100 MG/10 ML INJECTABLE VIAL IVPB SCH ×2 (06:35→15:11)
[2019-03-02] MEDS: HEPARIN NA (PORCINE) 5,000 UNITS/ML 1ML VIAL SQ SCH ×3 (06:36→22:25)
[2019-03-02] MEDS: INSULIN SLIDING SCALE (NOVOLOG) 1 VIAL SQ SCH ×4 (06:54→22:25)
[2019-03-02] MEDS: INSULIN (LEVEMIR) 100 UNITS/ML UNITS SQ SCH ×2 (06:59→22:25)
[2019-03-02 07:41] LABS: BASO % 1.3 % (0-2.0); EOS % 4.1 % (0-4.5); HEMOGLOBIN 9.8 GM/dL (11.7-16.9); LYMPH % 6.7 % (8-40); MCHC 31.7 g/dl (32.0-35.9); MEAN CELL VOLUME 75.9 fl (80-96); MEAN PLT VOLUME 9.4 fl (7.5-11.1); MONO % 10.8 % (3.8-10.2); NEUT % 77.1 % (42.8-82.8); PLATELET COUNT 409 K/MM3 (134-434); RBC 4.09 M/mm3 (4.00-5.60); RDW 19.7 % (11.9-15.9); WHITE BLOOD COUNT 8.1 K/mm3 (4.0-10.0)
[2019-03-02 08:18] LABS: ALBUMIN 2.4 g/dl (3.4-5.0); ALK PHOS 80 U/L (45-117); ANION GAP 9 MMOL/L (8-16); BILIRUBIN,TOTAL 0.3 mg/dL (0.2-1); CHLORIDE 102 mmol/L (98-107); CO2 28 mmol/L (21-32); CREATININE 4.1 mg/dL (0.55-1.3); GLUCOSE,RANDOM 274 mg/dL (74-106); MAGNESIUM 2.1 mg/dL (1.8-2.4); POTASSIUM 4.6 mmol/L (3.5-5.1); SGOT/AST 13 U/L (15-37); SGPT/ALT 21 U/L (13-61); SODIUM 138 mmol/L (136-145); TOT PROT 6.2 g/dl (6.4-8.2)
[2019-03-02 08:39] LABS: BLOOD UREA NITROGEN 105 mg/dL (7-18); CALCIUM 6.7 mg/dL (8.5-10.1)
--- NOTE | 2019-03-02 08:59 | PN ---
Teaching Attending Note Name of Resident: Ashley Freeman ATTENDING PHYSICIAN STATEMENT I saw and evaluated the patient. I reviewed the resident's note and discussed the case with the resident. I agree with the resident's findings and plan as documented with exceptions below. SUBJECTIVE: patient seen and examined. Urinating well, feels better, no new pain or complaints. OBJECTIVE: Vital Signs Period Temp Pulse Resp BP Sys/Alvarez Pulse Ox Last 24 Hr 97.6 F-98.3 F 69-80 20-20 123-148/55-70 95-97 Intake & Output 02/27/19 02/28/19 03/01/19 03/02/19 23:59 23:59 23:59 23:59 Intake Total 1820 710 680 30 Output Total 400 1800 3900 Balance 1420 -1090 -3220 30 Weight 286 lb 6.4 oz 285 lb 12.8 oz 286 lb 3.2 oz General: sitting in wheelchair in no acute distress Chest: distant air entry limited by habitus, decreased breath sounds at bases Abdomen;Soft, obese, NT Extremities: LLE with improved edema, skin discoloration unchanged, dressing in place with no active discharge or tenderness, Right BKA Home Medications Medication Instructions Recorded Methadone [Dolophine -] 120 mg PO DAILY #7 tablet 08/06/14 Pantoprazole Sodium [Protonix] 40 mg PO DAILY 09/15/15 Amlodipine Besylate 10 mg PO DAILY 09/28/18 Aspirin 81 mg PO DAILY 09/28/18 Atorvastatin Ca [Lipitor] 20 mg PO HS 09/28/18 Azilsartan Medoxomil [Edarbi] 80 mg PO DAILY 09/28/18 Furosemide 20 mg PO DAILY 09/28/18 Gabapentin 900 mg PO HS 09/28/18 Calcium 500Mg/Vit-D 200 Units 1 tab PO BID tab 09/29/18 [Os-Vishnu 500+D -] Active Medications Acetaminophen (Tylenol -) 650 mg PO Q4H PRN PRN Reason: FEVER Last Admin: 03/01/19 22:38 Dose: 650 mg Amlodipine Besylate (Norvasc -) 10 mg PO DAILY [facility] Last Admin: 03/01/19 09:04 Dose: 10 mg Amoxicillin/Clavulanate Potassium (Augmentin - 500mg Tablet) 1 tab PO BID@0800, 1730 [facility] Last Admin: 03/01/19 16:52 Dose: 1 tab Aspirin (Asa -) 81 mg PO DAILY [facility] Last Admin: 03/01/19 09:04 Dose: 81 mg Atorvastatin Calcium (Lipitor -) 20 mg PO HS [facility] Last Admin: 03/01/19 22:40 Dose: 20 mg Bacitracin (Bacitracin -) 1 applic TP DAILY [facility] Last Admin: 03/01/19 09:05 Dose: 1 applic Calcium Acetate (Phoslo -) 1,334 mg PO TIDCM [facility] Last Admin: 03/01/19 16:52 Dose: 1,334 mg Calcium Carbonate (Calcium Carbonate -) 1,300 mg PO BID [facility] Last Admin: 03/01/19 22:37 Dose: 1,300 mg Furosemide (Lasix Injection -) 120 mg IVPB BID@0600,1400 [facility] Last Admin: 03/02/19 06:35 Dose: 120 mg Gabapentin (Neurontin -) 900 mg PO HS [facility] Last Admin: 03/01/19 22:40 Dose: 900 mg Heparin Sodium (Porcine) (Heparin -) 5,000 unit SQ TID [facility] Last Admin: 03/02/19 06:36 Dose: 5,000 unit IV Flush (Triple Lumen Flush) 4 ml IVPUSH PRN PRN PRN Reason: Protocol Last Admin: 03/01/19 17:54 Dose: 4 ml Insulin Aspart (Novolog Vial Sliding Scale -) 1 vial SQ [facility]; Protocol Last Admin: 03/02/19 06:54 Dose: 6 units Insulin Detemir (Levemir Vial) 15 units SQ BID@0700,2200 [facility] Last Admin: 03/02/19 06:59 Dose: 15 units Methadone HCl (Dolophine -) 120 mg PO 0600 [facility] Last Admin: 03/02/19 06:35 Dose: 120 mg Metoprolol Succinate (Toprol Xl -) 25 mg PO BID [facility] Last Admin: 03/01/19 22:39 Dose: 25 mg Nystatin (Nystop Powder -) 1 applic TP DAILY [facility] Last Admin: 03/01/19 09:04 Dose: 1 appful Pantoprazole Sodium (Protonix -) 40 mg PO DAILY [facility] Last Admin: 03/01/19 09:04 Dose: 40 mg Laboratory Results - last 24 hr 03/01/19 03/01/19 03/01/19 17:40 18:40 21:34 WBC RBC Hgb Hct MCV MCH MCHC RDW Plt Count MPV Absolute Neuts (auto) Neutrophils % Lymphocytes % Monocytes % Eosinophils % Basophils % Nucleated RBC % Sodium 138 Potassium 5.1 Chloride 104 Carbon Dioxide 21 Anion Gap 13 BUN 108 H* Creatinine 4.4 H Creat Clearance w eGFR 13.65 POC Glucometer 250 197 Random Glucose 234 H Calcium 6.6 L* Phosphorus Magnesium Total Bilirubin AST ALT Alkaline Phosphatase Total Protein Albumin 03/02/19 03/02/19 03/02/19 06:40 06:45 06:45 WBC 8.1 RBC 4.09 Hgb 9.8 L Hct 31.0 L MCV 75.9 L MCH 24.0 L MCHC 31.7 L RDW 19.7 H Plt Count 409 MPV 9.4 Absolute Neuts (auto) 6.3 Neutrophils % 77.1 Lymphocytes % 6.7 L Monocytes % 10.8 H Eosinophils % 4.1 Basophils % 1.3 Nucleated RBC % 0 Sodium 138 Potassium 4.6 Chloride 102 Carbon Dioxide 28 Anion Gap 9 BUN 105 H* Creatinine 4.1 H Creat Clearance w eGFR 14.81 POC Glucometer 256 Random Glucose 274 H Calcium 6.7 L* Phosphorus 6.0 H Magnesium 2.1 Total Bilirubin 0.3 AST 13 L ALT 21 Alkaline Phosphatase 80 Total Protein 6.2 L Albumin 2.4 L Microbiology 02/24/19 14:25 Foot - Left Plantar Gram Stain - Final 02/24/19 14:25 Foot - Left Plantar Wound Culture - Final Staphylococcus Aureus Diphtheroid/Corynebacterium Acinetobacter Baumannii/Haemol CT LE results noted ASSESSMENT AND PLAN: 63 yom with PMHx of CKD stage III, CAD s/p PCI (ADELAIDA to Om1, residual 50-60 mLAD , 70-80 dLAD planned for staged cath), Diastolic heart failure, HTN, HLD, NIDDM , Hypothyroid, sepsis from 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 -Acute diastolic heart failure exacerbation -Acute hypoxic hypercapneic respiratory failure, suspect from above+/- ORQUIDEA -GLORY on CKD stage III, suspect hypervolumic -Hyperkalemia -HYpocalcemia -Left foot plantar ulcer -NIDDM -HTN -HLD -Hypothyroidism -Methadone dependence -H/o sepsis from right leg wound s/p BKA Plan: responding to diuresis, clinically improved. lasix 120 mg IV BID. Metolazone per renal/cardiology. Fluid restriction 1.2 L. Additional Ca supplementation. HD plan per renal. Hold ARB, continue renal diet. Continue phoslo. Pulmonary input noted. Bipap hs and prn. Increase levemir to 20 units BID, ISS, diabetic diet. Podiatry/ID input noted. Off Clindamycin. Augmentin per ID. CT LE neg for active concerns, exam not concerning for infection. Follow up arterial duplex. Anticipate outpatient follow up once active medical concerns have improved. Continue metoprolol/amlodipine. Hold ARB. Continue Gabapentin/methadone. DVTPPX heparin Dispo pending clinical improvement. Will need PT eval and CM consult for dc planning once improved. Plan discussed with patient and nursing in detail, all questions answered.
[2019-03-02] MEDS ORDERED: INSULIN (LEVEMIR) 100 UNITS/ML UNITS SQ ONE (09:45)
[2019-03-02] MEDS ORDERED: PT OWN MED DRAWER 7, Y5N ONE (10:15)
[2019-03-02] MEDS: CALCIUM ACETATE 667 MG CAPSULE (FP) PO SCH ×3 (10:26→17:35)
[2019-03-02] MEDS: CALCIUM CARBONATE 650 MG TABLET PO SCH ×2 (10:26→22:25)
[2019-03-02] MEDS: BACITRACIN 15 GM TUBE TOPICAL OINTMENT TP SCH (10:27)
[2019-03-02] MEDS: PANTOPRAZOLE 40 MG TABLET (FP) PO SCH (10:27)
[2019-03-02] MEDS: ASPIRIN 81 MG CHEWABLE TABLETS PO SCH (10:27)
[2019-03-02] MEDS: amLODIPine BESYLATE 10 MG TABLET (FP) PO SCH (10:27)
[2019-03-02] MEDS: NYSTATIN POWDER 100,000 UNITS/GM - 15 GM TOPICAL POWDER TP SCH (10:27)
[2019-03-02] MEDS: metoPROLOL SUCCINATE 25 MG TAB.SR.24H (FP) PO SCH ×2 (10:27→22:24)
[2019-03-02] MEDS: AMOX TR/POT CLAV 500MG/125MG TABLETS (FP) PO SCH ×2 (10:27→17:35)
--- NOTE | 2019-03-02 11:01 | PN ---
Progress Note, Physician History of Present Illness: pulmonary alert,feeling better,comfortable,dyspnea improving,urinating well - Current Medication List Current Medications: Active Medications Acetaminophen (Tylenol -) 650 mg PO Q4H PRN PRN Reason: FEVER Last Admin: 03/01/19 22:38 Dose: 650 mg Amlodipine Besylate (Norvasc -) 10 mg PO DAILY [facility] Last Admin: 03/02/19 10:27 Dose: 10 mg Amoxicillin/Clavulanate Potassium (Augmentin - 500mg Tablet) 1 tab PO BID@0800, 1730 [facility] Last Admin: 03/02/19 10:27 Dose: 1 tab Aspirin (Asa -) 81 mg PO DAILY [facility] Last Admin: 03/02/19 10:27 Dose: 81 mg Atorvastatin Calcium (Lipitor -) 20 mg PO HS [facility] Last Admin: 03/01/19 22:40 Dose: 20 mg Bacitracin (Bacitracin -) 1 applic TP DAILY [facility] Last Admin: 03/02/19 10:27 Dose: 1 applic Calcium Acetate (Phoslo -) 1,334 mg PO TIDCM [facility] Last Admin: 03/02/19 10:26 Dose: 1,334 mg Calcium Carbonate (Calcium Carbonate -) 1,300 mg PO BID [facility] Last Admin: 03/02/19 10:26 Dose: 1,300 mg Furosemide (Lasix Injection -) 120 mg IVPB BID@0600,1400 [facility] Last Admin: 03/02/19 06:35 Dose: 120 mg Gabapentin (Neurontin -) 900 mg PO [facility] Last Admin: 03/01/19 22:40 Dose: 900 mg Heparin Sodium (Porcine) (Heparin -) 5,000 unit SQ TID [facility] Last Admin: 03/02/19 06:36 Dose: 5,000 unit IV Flush (Triple Lumen Flush) 4 ml IVPUSH PRN PRN PRN Reason: Protocol Last Admin: 03/01/19 17:54 Dose: 4 ml Insulin Aspart (Novolog Vial Sliding Scale -) 1 vial SQ [facility]; Protocol Last Admin: 03/02/19 06:54 Dose: 6 units Insulin Detemir (Levemir Vial) 20 units SQ BID@0700,2200 [facility] Methadone HCl (Dolophine -) 120 mg PO 0600 [facility] Last Admin: 03/02/19 06:35 Dose: 120 mg Metolazone (Zaroxolyn -) 5 mg PO ONCE ONE Stop: 03/02/19 13:31 Metoprolol Succinate (Toprol Xl -) 25 mg PO BID [facility] Last Admin: 03/02/19 10:27 Dose: 25 mg Nystatin (Nystop Powder -) 1 applic TP DAILY [facility] Last Admin: 03/02/19 10:27 Dose: 1 appful Pantoprazole Sodium (Protonix -) 40 mg PO DAILY [facility] Last Admin: 03/02/19 10:27 Dose: 40 mg - Objective Vital Signs: Vital Signs Temperature 97.8 F 03/02/19 09:00 Pulse Rate 69 03/02/19 09:00 Respiratory Rate 20 03/02/19 09:00 Blood Pressure 131/70 03/02/19 09:00 O2 Sat by Pulse Oximetry (%) 97 03/02/19 09:00 Constitutional: Yes: Calm, Obese Eyes: Yes: WNL HENT: Yes: WNL Neck: Yes: WNL Cardiovascular: Yes: Regular Rate and Rhythm, S1, S2 Respiratory: Yes: Diminished Gastrointestinal: Yes: Normal Bowel Sounds, Soft Extremities: Yes: Amputation (R BKA) Edema: Yes Labs: CBC, BMP 03/02/19 06:45 03/02/19 06:45 INR, PTT INR 1.39 (0.83-1.09) H 02/23/19 14:23 Problem List - Problems (1) Acute on chronic kidney failure Code(s): N17.9 - ACUTE KIDNEY FAILURE, UNSPECIFIED; N18.9 - CHRONIC KIDNEY DISEASE, UNSPECIFIED (2) Acute respiratory failure with hypoxia and hypercapnia Code(s): J96.01 - ACUTE RESPIRATORY FAILURE WITH HYPOXIA; J96.02 - ACUTE RESPIRATORY FAILURE WITH HYPERCAPNIA (3) CHF exacerbation Code(s): I50.9 - HEART FAILURE, UNSPECIFIED Qualifiers: Heart failure type: systolic Qualified Code(s): I50.23 - Acute on chronic systolic (congestive) heart failure (4) Shortness of breath Code(s): R06.02 - SHORTNESS OF BREATH (5) Insulin dependent diabetes mellitus Code(s): E11.9 - TYPE 2 DIABETES MELLITUS WITHOUT COMPLICATIONS; Z79.4 - CONTAINER FILLER (CURRENT) USE OF INSULIN Assessment/Plan IMP ACUTE HYPOXEMIC/HYPERCAPNEIC RESPIRATORY FAILURE ACUTE ON CHRONIC CHF ACUTE ON CHRONIC KIDNEY FAILURE ASHD S/P STENT DM LIKELY OSAS MORBID OBESITY HTN S/P R BKA ANEMIA PLAN O2 LASIX PER CARDIOLOGY DAILY WT BIPAP AT NIGHT AND PRN MONITOR LYTES ,RENAL FUNCTION STRICT I+Os PFTS OUTPATIENT CHEST X-RAY TODAY DR PARKER Problem List - Problems (1) Acute on chronic kidney failure Code(s): N17.9 - ACUTE KIDNEY FAILURE, UNSPECIFIED; N18.9 - CHRONIC KIDNEY DISEASE, UNSPECIFIED (2) Acute respiratory failure with hypoxia and hypercapnia Code(s): J96.01 - ACUTE RESPIRATORY FAILURE WITH HYPOXIA; J96.02 - ACUTE RESPIRATORY FAILURE WITH HYPERCAPNIA (3) CHF exacerbation Code(s): I50.9 - HEART FAILURE, UNSPECIFIED Qualifiers: Heart failure type: systolic Qualified Code(s): I50.23 - Acute on chronic systolic (congestive) heart failure (4) Shortness of breath Code(s): R06.02 - SHORTNESS OF BREATH (5) Insulin dependent diabetes mellitus Code(s): E11.9 - TYPE 2 DIABETES MELLITUS WITHOUT COMPLICATIONS; Z79.4 - CONTAINER FILLER (CURRENT) USE OF INSULIN
--- NOTE | 2019-03-02 11:53 | PN ---
Progress Note (short form) - Note Progress Note: s: no cp palps dizzy; sob improved, asking to go home o: Vital Signs Period Temp Pulse Resp BP Sys/Alvarez Pulse Ox Last 24 Hr 97.6 F-98.3 F 69-78 20-20 123-148/55-70 97-97 Constitutional: Yes: No Distress, Calm Eyes: Yes: Conjunctiva Clear Respiratory: Yes: Regular, CTA Bilaterally Gastrointestinal: Yes: Normal Bowel Sounds, Soft Cardiovascular: Yes: Regular Rate and Rhythm JVD: Yes Heart Sounds: Yes: S1, S2 Musculoskeletal: Yes: Other (s/p R BKA) Extremities: Yes: Cold, Cyanosis Edema: Yes Edema: LLE: trace Peripheral Pulses: 2+ Left Doralis Pedis, r bka Integumentary: No: Jaundice Neurological: Yes: Alert, Oriented Psychiatric: Yes: Alert, Oriented Current Medications Generic Name Dose Route Start Last Admin Trade Name Freq PRN Reason Stop Dose Admin Acetaminophen 650 mg 02/23/19 17:55 03/01/19 22:38 Tylenol - PO 650 mg Q4H PRN Administration FEVER Amlodipine Besylate 10 mg 02/24/19 10:00 03/02/19 10:27 Norvasc - PO 10 mg DAILY JL Administration Amoxicillin/Clavulanate Potassium 1 tab 02/26/19 17:30 03/02/19 10:27 Augmentin - 500mg Tablet PO 1 tab BID@0800,1730 JL Administration Aspirin 81 mg 02/24/19 10:00 03/02/19 10:27 Asa - PO 81 mg DAILY JL Administration Atorvastatin Calcium 20 mg 02/23/19 22:00 03/01/19 22:40 Lipitor - PO 20 mg HS JL Administration Bacitracin 1 applic 02/26/19 13:45 03/02/19 10:27 Bacitracin - TP 1 applic DAILY JL Administration Calcium Acetate 1,334 mg 02/27/19 17:30 03/02/19 10:26 Phoslo - PO 1,334 mg TIDCM JL Administration Calcium Carbonate 1,300 mg 02/28/19 10:30 03/02/19 10:26 Calcium Carbonate - PO 1,300 mg BID JL Administration Furosemide 120 mg 02/28/19 14:00 03/02/19 06:35 Lasix Injection - IVPB 120 mg BID@0600,1400 JL Administration Gabapentin 900 mg 02/23/19 22:00 03/01/19 22:40 Neurontin - PO 900 mg HS JL Administration Heparin Sodium (Porcine) 5,000 unit 02/23/19 22:00 03/02/19 06:36 Heparin - SQ 5,000 unit TID JL Administration IV Flush 4 ml 02/26/19 22:43 03/01/19 17:54 Triple Lumen Flush IVPUSH 4 ml PRN PRN Administration Protocol Insulin Aspart 1 vial 02/25/19 18:53 03/02/19 06:54 Novolog Vial Sliding Scale - SQ 6 units ACHS JL Administration Protocol Insulin Detemir 20 units 03/02/19 22:00 Levemir Vial SQ BID@0700,2200 JL Methadone HCl 120 mg 02/24/19 10:00 03/02/19 06:35 Dolophine - PO 120 mg 0600 JL Administration Metolazone 5 mg 03/02/19 13:30 Zaroxolyn - PO 03/02/19 13:31 ONCE ONE Metoprolol Succinate 25 mg 02/26/19 10:00 03/02/19 10:27 Toprol Xl - PO 25 mg BID JL Administration Nystatin 1 applic 02/27/19 11:15 03/02/19 10:27 Nystop Powder - TP 1 appful DAILY JL Administration Pantoprazole Sodium 40 mg 02/24/19 10:00 03/02/19 10:27 Protonix - PO 40 mg DAILY JL Administration CBC, BMP 03/02/19 06:45 03/02/19 06:45 CXR: chf EKG:sinus rhythm, nl intervals, no ischemic changes echo 09/2018 tds, nl LV size/function, tr MR, mild biatrial enlargement tele: sr a/p: 63M h/o hld, dm, htn, hypothyroid, cad s/p pci (cp-->+mibi-->cath 06/2017 with analia to om1, residual 50-60 mlad, 70-80 dlad)m ckd, sepsis 2/2 leg wound that led to right bka, dchf, here with sob. acute diastolic CHF exacerbation -chf exacerbation due to med noncompliance. no signs acs. -treatment has been limited by poor IV access here. per JAN, pt received lasix 40 IV x1 on 02/23, bid on 02/24 and no IV lasix since. received lasix 120 PO x1 on . -02/26: wt has not downtrended at all here. renal fxn progressively worsening, currently BUN 107/creat 4.3--strongly suspect ongoing cardiorenal syndrome with ineffectual diuresis due to GFR <20 (likely to require much higher doses of lasix) and poor IV access. currently no IV access available. he is very stable from resp standpoint--concern that further ineffective diuresis (with oral regimen) may worsen renal fxn. - 02/27 central line placed yesterday for IV access. stable edema, sob - d/w renal, start lasix 80 mg IV BID - 02/28: feels better, Cr/BUN stable, wt down <1 lb. increase lasix to 120 mg IV BID, monitor Cr, lytes, daily standing weights. -03/01-: cr stable/improved, pt feeling better. still with volume to come off , cont lasix 120 bid iv and metolazone 5 mg this afternoon again. monitor daily Cr, lytes, daily standing weights. GLORY on ckd -baseline creat around 2 -likely cardiorenal, monitor cr with diuresis -renal following as well cad s/p pci: -has been stable -had pci 2016 with plans for staged pci of residual 70-80 dlad but this was postponed due to sepsis/bka and since he has had no ischemic symptoms and with ckd, plans have been med rx for now. -cont statin, asa PSVT, ? PAT: -started toprol -episode to 120s bpm on tele 02/26. cont same meds, observe tele DM - manage per primary HTN - stable on amlodipine HLD - cont statin
--- NOTE | 2019-03-02 12:44 | PN ---
Progress Note (short form) - Note Progress Note: Renal follow up for GLORY on CKD Pt seen and examined at the bedside awake and alert feels better denies any sob making a lot of urine no flank pain, dizziness, cp, sob Vital Signs Temperature 97.8 F 03/02/19 09:00 Pulse Rate 69 03/02/19 09:00 Respiratory Rate 20 03/02/19 09:00 Blood Pressure 131/70 03/02/19 09:00 O2 Sat by Pulse Oximetry (%) 97 03/02/19 09:00 Intake & Output 02/27/19 02/28/19 03/01/19 03/02/19 23:59 23:59 23:59 23:59 Intake Total 1820 710 680 30 Output Total 400 1800 3900 Balance 1420 -1090 -3220 30 Weight 129.909 kg 129.637 kg 129.818 kg NAD RRR, no M/R Dec BS, no rales soft NT/ND, obese right BKA, left leg edema+ CBC, BMP 03/02/19 06:45 03/02/19 06:45 Current Medications Acetaminophen (Tylenol -) 650 mg PO Q4H PRN PRN Reason: FEVER Last Admin: 03/01/19 22:38 Dose: 650 mg Amlodipine Besylate (Norvasc -) 10 mg PO DAILY [facility] Last Admin: 03/02/19 10:27 Dose: 10 mg Amoxicillin/Clavulanate Potassium (Augmentin - 500mg Tablet) 1 tab PO BID@0800, 1730 [facility] Last Admin: 03/02/19 10:27 Dose: 1 tab Aspirin (Asa -) 81 mg PO DAILY [facility] Last Admin: 03/02/19 10:27 Dose: 81 mg Atorvastatin Calcium (Lipitor -) 20 mg PO HS [facility] Last Admin: 03/01/19 22:40 Dose: 20 mg Bacitracin (Bacitracin -) 1 applic TP DAILY [facility] Last Admin: 03/02/19 10:27 Dose: 1 applic Calcium Acetate (Phoslo -) 1,334 mg PO TIDCM [facility] Last Admin: 03/02/19 12:22 Dose: 1,334 mg Calcium Carbonate (Calcium Carbonate -) 1,300 mg PO BID [facility] Last Admin: 03/02/19 10:26 Dose: 1,300 mg Furosemide (Lasix Injection -) 120 mg IVPB BID@0600,1400 [facility] Last Admin: 03/02/19 06:35 Dose: 120 mg Gabapentin (Neurontin -) 900 mg PO HS [facility] Last Admin: 03/01/19 22:40 Dose: 900 mg Heparin Sodium (Porcine) (Heparin -) 5,000 unit SQ TID [facility] Last Admin: 03/02/19 06:36 Dose: 5,000 unit IV Flush (Triple Lumen Flush) 4 ml IVPUSH PRN PRN PRN Reason: Protocol Last Admin: 03/01/19 17:54 Dose: 4 ml Insulin Aspart (Novolog Vial Sliding Scale -) 1 vial SQ ACHS [facility]; Protocol Last Admin: 03/02/19 12:21 Dose: 4 units Insulin Detemir (Levemir Vial) 20 units SQ BID@0700,2200 [facility] Methadone HCl (Dolophine -) 120 mg PO 0600 [facility] Last Admin: 03/02/19 06:35 Dose: 120 mg Metolazone (Zaroxolyn -) 5 mg PO ONCE ONE Stop: 03/02/19 13:31 Metoprolol Succinate (Toprol Xl -) 25 mg PO BID [facility] Last Admin: 03/02/19 10:27 Dose: 25 mg Nystatin (Nystop Powder -) 1 applic TP DAILY [facility] Last Admin: 03/02/19 10:27 Dose: 1 appful Pantoprazole Sodium (Protonix -) 40 mg PO DAILY [facility] Last Admin: 03/02/19 10:27 Dose: 40 mg 63 year old gentleman with hx of CAD, Hypertension, DM (x 30 years), Hx of substance abuse, ? Hepatitis, PVD s/p right LE amputation who presented with complaints of SOB/REYES and fatigue over the past week with GLORY on CKD. #GLORY on CKD #CKD stage 3 #Hyperkalemia #CHF exacerbation #Anemia #Leukocytosis #LE wound #confusion #Hyperphosphatemia/Hypocalcemia Renal function slightly improved and urine output considerably improved in the last 24 hours no acute need for PRESALES ENGINEER at this time continue IV Lasix and Metolazone continue wound care corrected Ca > 7.5, no acute need for IV calcium continue phos binders and oral calcium Trend renal function and daily weights Rodo Barrera DO
[2019-03-02] MEDS ORDERED: METOLAZONE 5 MG TABLET PO ONE (13:30)
--- NOTE | 2019-03-02 14:58 | PN ---
Progress Note, Physician - Current Medication List Current Medications: Active Medications Acetaminophen (Tylenol -) 650 mg PO Q4H PRN PRN Reason: FEVER Last Admin: 03/01/19 22:38 Dose: 650 mg Amlodipine Besylate (Norvasc -) 10 mg PO DAILY [facility] Last Admin: 03/02/19 10:27 Dose: 10 mg Amoxicillin/Clavulanate Potassium (Augmentin - 500mg Tablet) 1 tab PO BID@0800, 1730 [facility] Last Admin: 03/02/19 10:27 Dose: 1 tab Aspirin (Asa -) 81 mg PO DAILY [facility] Last Admin: 03/02/19 10:27 Dose: 81 mg Atorvastatin Calcium (Lipitor -) 20 mg PO HS [facility] Last Admin: 03/01/19 22:40 Dose: 20 mg Bacitracin (Bacitracin -) 1 applic TP DAILY [facility] Last Admin: 03/02/19 10:27 Dose: 1 applic Calcium Acetate (Phoslo -) 1,334 mg PO TIDCM [facility] Last Admin: 03/02/19 12:22 Dose: 1,334 mg Calcium Carbonate (Calcium Carbonate -) 1,300 mg PO BID [facility] Last Admin: 03/02/19 10:26 Dose: 1,300 mg Furosemide (Lasix Injection -) 120 mg IVPB BID@0600,1400 [facility] Last Admin: 03/02/19 06:35 Dose: 120 mg Gabapentin (Neurontin -) 900 mg PO HS [facility] Last Admin: 03/01/19 22:40 Dose: 900 mg Heparin Sodium (Porcine) (Heparin -) 5,000 unit SQ TID [facility] Last Admin: 03/02/19 06:36 Dose: 5,000 unit IV Flush (Triple Lumen Flush) 4 ml IVPUSH PRN PRN PRN Reason: Protocol Last Admin: 03/01/19 17:54 Dose: 4 ml Insulin Aspart (Novolog Vial Sliding Scale -) 1 vial SQ [facility]; Protocol Last Admin: 03/02/19 12:21 Dose: 4 units Insulin Detemir (Levemir Vial) 20 units SQ BID@0700,2200 [facility] Methadone HCl (Dolophine -) 120 mg PO 0600 [facility] Last Admin: 03/02/19 06:35 Dose: 120 mg Metoprolol Succinate (Toprol Xl -) 25 mg PO BID [facility] Last Admin: 04/12/19 10:27 Dose: 25 mg Nystatin (Nystop Powder -) 1 applic TP DAILY [facility] Last Admin: 03/02/19 10:27 Dose: 1 appful Pantoprazole Sodium (Protonix -) 40 mg PO DAILY [facility] Last Admin: 03/02/19 10:27 Dose: 40 mg - Objective Vital Signs: Vital Signs Temperature 97.8 F 03/02/19 09:00 Pulse Rate 69 03/02/19 09:00 Respiratory Rate 20 03/02/19 09:00 Blood Pressure 131/70 03/02/19 09:00 O2 Sat by Pulse Oximetry (%) 97 03/02/19 09:00 Labs: CBC, BMP 03/02/19 06:45 03/02/19 06:45 INR, PTT INR 1.39 (0.83-1.09) H 02/23/19 14:23
--- NOTE | 2019-03-02 15:15 | PN ---
Progress Note, Physician History of Present Illness: stable no new issues wound dressing done looks good - Current Medication List Current Medications: Active Medications Acetaminophen (Tylenol -) 650 mg PO Q4H PRN PRN Reason: FEVER Last Admin: 03/01/19 22:38 Dose: 650 mg Amlodipine Besylate (Norvasc -) 10 mg PO DAILY [facility] Last Admin: 03/02/19 10:27 Dose: 10 mg Amoxicillin/Clavulanate Potassium (Augmentin - 500mg Tablet) 1 tab PO BID@0800, 1730 [facility] Last Admin: 03/02/19 10:27 Dose: 1 tab Aspirin (Asa -) 81 mg PO DAILY [facility] Last Admin: 03/02/19 10:27 Dose: 81 mg Atorvastatin Calcium (Lipitor -) 20 mg PO HS [facility] Last Admin: 03/01/19 22:40 Dose: 20 mg Bacitracin (Bacitracin -) 1 applic TP DAILY [facility] Last Admin: 03/02/19 10:27 Dose: 1 applic Calcium Acetate (Phoslo -) 1,334 mg PO TIDCM [facility] Last Admin: 03/02/19 12:22 Dose: 1,334 mg Calcium Carbonate (Calcium Carbonate -) 1,300 mg PO BID [facility] Last Admin: 03/02/19 10:26 Dose: 1,300 mg Furosemide (Lasix Injection -) 120 mg IVPB BID@0600,1400 [facility] Last Admin: 03/02/19 15:11 Dose: 120 mg Gabapentin (Neurontin -) 900 mg PO HS [facility] Last Admin: 03/01/19 22:40 Dose: 900 mg Heparin Sodium (Porcine) (Heparin -) 5,000 unit SQ TID [facility] Last Admin: 03/02/19 15:11 Dose: 5,000 unit IV Flush (Triple Lumen Flush) 4 ml IVPUSH PRN PRN PRN Reason: Protocol Last Admin: 03/01/19 17:54 Dose: 4 ml Insulin Aspart (Novolog Vial Sliding Scale -) 1 vial SQ [facility]; Protocol Last Admin: 03/02/19 12:21 Dose: 4 units Insulin Detemir (Levemir Vial) 20 units SQ BID@0700,2200 [facility] Methadone HCl (Dolophine -) 120 mg PO 0600 [facility] Last Admin: 03/02/19 06:35 Dose: 120 mg Metoprolol Succinate (Toprol Xl -) 25 mg PO BID [facility] Last Admin: 03/02/19 10:27 Dose: 25 mg Nystatin (Nystop Powder -) 1 applic TP DAILY [facility] Last Admin: 03/02/19 10:27 Dose: 1 appful Pantoprazole Sodium (Protonix -) 40 mg PO DAILY [facility] Last Admin: 03/02/19 10:27 Dose: 40 mg - Objective Vital Signs: Vital Signs Temperature 97.8 F 03/02/19 09:00 Pulse Rate 69 03/02/19 09:00 Respiratory Rate 20 03/02/19 09:00 Blood Pressure 131/70 03/02/19 09:00 O2 Sat by Pulse Oximetry (%) 97 03/02/19 09:00 Constitutional: Yes: No Distress, Calm Cardiovascular: Yes: S1, S2 Respiratory: Yes: Regular, CTA Bilaterally Gastrointestinal: Yes: Normal Bowel Sounds, Soft Musculoskeletal: Yes: WNL Extremities: Yes: Other Wound/Incision: Yes: Dressing Dry and Intact Neurological: Yes: Alert, Oriented Psychiatric: Yes: Alert, Oriented Labs: CBC, BMP 03/02/19 06:45 03/02/19 06:45 INR, PTT INR 1.39 (0.83-1.09) H 02/23/19 14:23 Assessment/Plan ssessment/Plan Problem List - Problems (1) CHF exacerbation Code(s): I50.9 - HEART FAILURE, UNSPECIFIED Qualifiers: Heart failure type: systolic Qualified Code(s): I50.23 - Acute on chronic systolic (congestive) heart failure (2) GLORY (acute kidney injury) Code(s): N17.9 - ACUTE KIDNEY FAILURE, UNSPECIFIED (3) Hyperkalemia Code(s): E87.5 - HYPERKALEMIA (4) Diabetes mellitus with foot ulcer, with long-term current use of insulin Code(s): E11.621 - TYPE 2 DIABETES MELLITUS WITH FOOT ULCER; L97.509 - NON- PRESSURE CHRONIC ULCER OTH PRT UNSP FOOT W UNSP SEVERITY; Z79.4 - CUSTODIAL ( CURRENT) USE OF INSULIN Qualifiers: Diabetes mellitus type: type 2 Qualified Code(s): E11.621 - Type 2 diabetes mellitus with foot ulcer; L97.509 - Non-pressure chronic ulcer of other part of unspecified foot with unspecified severity; L97.509 - Non- pressure chronic ulcer of other part of unspecified foot with unspecified severity; L97.509 - Non-pressure chronic ulcer of other part of unspecified foot with unspecified severity; L97.509 - Non-pressure chronic ulcer of other part of unspecified foot with unspecified severity; Z79.4 - long term care pharmacist (current) use of insulin; Z79.4 - long term care pharmacist (current) use of insulin; Z79.4 - shelter ( current) use of insulin; Z79.4 - shelter (current) use of insulin (5) Hepatitis C Code(s): B19.20 - UNSPECIFIED VIRAL HEPATITIS C WITHOUT HEPATIC COMA Qualifiers: Viral hepatitis chronicity: unspecified Hepatic coma status: without hepatic coma Qualified Code(s): B19.20 - Unspecified viral hepatitis C without hepatic coma (6) Hypertension Code(s): I10 - ESSENTIAL (PRIMARY) HYPERTENSION Qualifiers: Hypertension type: essential hypertension Qualified Code(s): I10 - Essential (primary) hypertension (7) Hypothyroidism Code(s): E03.9 - HYPOTHYROIDISM, UNSPECIFIED Qualifiers: Hypothyroidism type: unspecified Qualified Code(s): E03.9 - Hypothyroidism , unspecified (8) Methadone maintenance therapy patient Code(s): F11.20 - OPIOID DEPENDENCE, UNCOMPLICATED non healing diabetic wound on the plantar surface of the left foot plan cx result noted continue current mgmt wound care rest as per the team
--- NOTE | 2019-03-02 19:29 | PN ---
Physical Exam: SUBJECTIVE: Patient seen and examined. He is complaining of chronic pain in right leg. OBJECTIVE: Vital Signs Period Temp Pulse Resp BP Sys/Alvarez Pulse Ox Last 24 Hr 97.8 F-98.3 F 68-78 20-20 111-148/55-70 97-97 GENERAL: The patient is awake, sitting on a wheelchair. HEAD: Normal with no signs of trauma. EYES: PERRL, extraocular movements intact. ENT: Oropharynx clear without exudates, moist mucous membranes, missing teeth. NECK: Trachea midline, full range of motion, supple. LUNGS: Breath sounds equal, diminished on auscultation bilaterally, no wheezes, no crackles, no accessory muscle use. HEART: Regular rate and rhythm, S1, S2 without murmur, rub or gallop. ABDOMEN: Soft, nontender, nondistended, normoactive bowel sounds, no guarding. EXTREMITIES: 2+ pulses, warm, no edema, left leg: plantar ulcer 2 cm, rounded, no discharge, no tenderness to palpation, no redness,right leg amputated below the knee. NEUROLOGICAL: Normal speech, gait not observed, confused. SKIN: Warm, dry, normal turgor, rash in inter gluteal area. Laboratory Results - last 24 hr 03/01/19 03/01/19 03/02/19 18:40 21:34 06:40 WBC RBC Hgb Hct MCV MCH MCHC RDW Plt Count MPV Absolute Neuts (auto) Neutrophils % Lymphocytes % Monocytes % Eosinophils % Basophils % Nucleated RBC % Sodium 138 Potassium 5.1 Chloride 104 Carbon Dioxide 21 Anion Gap 13 BUN 108 H* Creatinine 4.4 H Creat Clearance w eGFR 13.65 POC Glucometer 197 256 Random Glucose 234 H Calcium 6.6 L* Phosphorus Magnesium Total Bilirubin AST ALT Alkaline Phosphatase Total Protein Albumin 03/02/19 03/02/19 03/02/19 06:45 06:45 12:18 WBC 8.1 RBC 4.09 Hgb 9.8 L Hct 31.0 L MCV 75.9 L MCH 24.0 L MCHC 31.7 L RDW 19.7 H Plt Count 409 MPV 9.4 Absolute Neuts (auto) 6.3 Neutrophils % 77.1 Lymphocytes % 6.7 L Monocytes % 10.8 H Eosinophils % 4.1 Basophils % 1.3 Nucleated RBC % 0 Sodium 138 Potassium 4.6 Chloride 102 Carbon Dioxide 28 Anion Gap 9 BUN 105 H* Creatinine 4.1 H Creat Clearance w eGFR 14.81 POC Glucometer 201 Random Glucose 274 H Calcium 6.7 L* Phosphorus 6.0 H Magnesium 2.1 Total Bilirubin 0.3 AST 13 L ALT 21 Alkaline Phosphatase 80 Total Protein 6.2 L Albumin 2.4 L 03/02/19 17:22 WBC RBC Hgb Hct MCV MCH MCHC RDW Plt Count MPV Absolute Neuts (auto) Neutrophils % Lymphocytes % Monocytes % Eosinophils % Basophils % Nucleated RBC % Sodium Potassium Chloride Carbon Dioxide Anion Gap BUN Creatinine Creat Clearance w eGFR POC Glucometer 98 Random Glucose Calcium Phosphorus Magnesium Total Bilirubin AST ALT Alkaline Phosphatase Total Protein Albumin Active Medications Generic Name Dose Route Start Last Admin Trade Name Freq PRN Reason Stop Dose Admin Acetaminophen 650 mg 02/23/19 17:55 03/01/19 22:38 Tylenol - PO 650 mg Q4H PRN Administration FEVER Amlodipine Besylate 10 mg 02/24/19 10:00 03/02/19 10:27 Norvasc - PO 10 mg DAILY JL Administration Amoxicillin/Clavulanate Potassium 1 tab 02/26/19 17:30 03/02/19 17:35 Augmentin - 500mg Tablet PO 1 tab BID@0800,1730 JL Administration Aspirin 81 mg 02/24/19 10:00 03/02/19 10:27 Asa - PO 81 mg DAILY JL Administration Atorvastatin Calcium 20 mg 02/23/19 22:00 03/01/19 22:40 Lipitor - PO 20 mg HS JL Administration Bacitracin 1 applic 02/26/19 13:45 03/02/19 10:27 Bacitracin - TP 1 applic DAILY JL Administration Calcium Acetate 1,334 mg 02/27/19 17:30 03/02/19 17:35 Phoslo - PO 1,334 mg TIDCM JL Administration Calcium Carbonate 1,300 mg 02/28/19 10:30 03/02/19 10:26 Calcium Carbonate - PO 1,300 mg BID JL Administration Furosemide 120 mg 02/28/19 14:00 03/02/19 15:11 Lasix Injection - IVPB 120 mg BID@0600,1400 JL Administration Gabapentin 900 mg 02/23/19 22:00 03/01/19 22:40 Neurontin - PO 900 mg HS JL Administration Heparin Sodium (Porcine) 5,000 unit 02/23/19 22:00 03/02/19 15:11 Heparin - SQ 5,000 unit TID JL Administration IV Flush 4 ml 02/26/19 22:43 03/01/19 17:54 Triple Lumen Flush IVPUSH 4 ml PRN PRN Administration Protocol Insulin Aspart 1 vial 02/25/19 18:53 03/02/19 17:35 Novolog Vial Sliding Scale - SQ Not Given ACHS JL Protocol Insulin Detemir 20 units 03/02/19 22:00 Levemir Vial SQ BID@0700,2200 JL Methadone HCl 120 mg 02/24/19 10:00 03/02/19 06:35 Dolophine - PO 120 mg 0600 JL Administration Metoprolol Succinate 25 mg 02/26/19 10:00 03/02/19 10:27 Toprol Xl - PO 25 mg BID JL Administration Nystatin 1 applic 02/27/19 11:15 03/02/19 10:27 Nystop Powder - TP 1 appful DAILY JL Administration Pantoprazole Sodium 40 mg 02/24/19 10:00 03/02/19 10:27 Protonix - PO 40 mg DAILY JL Administration ASSESSMENT/PLAN: 63 year old male with a PMH of CAD, s/p stent, HTN, on methadone program, DM with amputation and ulcer presented for CHF exacerbation. CHF exacerbation -likely due to noncompliance, cardiorenal -cardiology consulted will f/u recommendations -continue Lasix 120 mg BID -I/Os and daily weights Acute hypoxic resp failure; -likely due to fluid overload and CHF -on BIPap overnight -ABG done with resp acidosis -central line placed AMS: -slightly improved and urine output considerably improved i -no acute need for HDat this time -continue IV Lasix and Metolazone -likely due to hypoxia, uremia -will monitor kidney function, fluid status GLORY -cardiorenal with use of ACEI -hold ACEI -consulted nephrology -diurese with IV lasix and consider starting HD -monitor for improvement -cont Phoslo and Calcium Carbonate Hyperkalemia -secondary to GLORY and ACEI -will monitor -nephrology consulted Diabetes mellitus with foot ulcer -on an insulin pump -placed on levemir 10 units bid -ISS and BGM ACHS -diabetic diet -wound care for ulcer, applied abx on wound and dressing changes micro grew Staph aureus and dipheroid -Augumentin 500 mg BID Hepatitis C -stable Hypertension -continue amlodipine, Metoprolol xl BID -will monitor Hypothyroidism -continue synthroid Methadone maintenance -on methadone 120mg daily Obesity: counseling F/E/N: no/K/diabetic DVT PPX: heparin DISPO: telemetry Problem List - Problems (1) GLORY (acute kidney injury) Code(s): N17.9 - ACUTE KIDNEY FAILURE, UNSPECIFIED (2) Acute metabolic encephalopathy Code(s): G93.41 - METABOLIC ENCEPHALOPATHY (3) Acute respiratory failure with hypoxia and hypercapnia Code(s): J96.01 - ACUTE RESPIRATORY FAILURE WITH HYPOXIA; J96.02 - ACUTE RESPIRATORY FAILURE WITH HYPERCAPNIA (4) CHF exacerbation Code(s): I50.9 - HEART FAILURE, UNSPECIFIED Qualifiers: Heart failure type: systolic Qualified Code(s): I50.23 - Acute on chronic systolic (congestive) heart failure (5) Hyperkalemia Code(s): E87.5 - HYPERKALEMIA (6) Shortness of breath Code(s): R06.02 - SHORTNESS OF BREATH (7) Abrasion hip/leg Qualifiers: Encounter type: initial encounter Laterality: right Qualified Code(s): S80.811A - Abrasion, right lower leg, initial encounter (8) Bone infection, ankle/foot Code(s): M86.9 - OSTEOMYELITIS, UNSPECIFIED (9) Cellulitis Code(s): L03.90 - CELLULITIS, UNSPECIFIED (10) Cellulitis Code(s): L03.90 - CELLULITIS, UNSPECIFIED (11) Diabetes mellitus with foot ulcer, with long-term current use of insulin Code(s): E11.621 - TYPE 2 DIABETES MELLITUS WITH FOOT ULCER; L97.509 - NON- PRESSURE CHRONIC ULCER OTH PRT UNSP FOOT W UNSP SEVERITY; Z79.4 - SHRIMPING BOAT CAPTAIN ( CURRENT) USE OF INSULIN Qualifiers: Diabetes mellitus type: type 2 Qualified Code(s): E11.621 - Type 2 diabetes mellitus with foot ulcer; L97.509 - Non-pressure chronic ulcer of other part of unspecified foot with unspecified severity; L97.509 - Non- pressure chronic ulcer of other part of unspecified foot with unspecified severity; L97.509 - Non-pressure chronic ulcer of other part of unspecified foot with unspecified severity; L97.509 - Non-pressure chronic ulcer of other part of unspecified foot with unspecified severity; Z79.4 - terminal gauger supervisor (current) use of insulin; Z79.4 - [facility] (current) use of insulin; Z79.4 - terminal gauger supervisor ( current) use of insulin; Z79.4 - [facility] (current) use of insulin (12) Diarrhea Code(s): R19.7 - DIARRHEA, UNSPECIFIED Qualifiers: Diarrhea type: unspecified type Qualified Code(s): R19.7 - Diarrhea, unspecified (13) Facial pain Code(s): R51 - HEADACHE (14) Fall Code(s): W19.XXXA - UNSPECIFIED FALL, INITIAL ENCOUNTER Qualifiers: Encounter type: initial encounter Qualified Code(s): W19.XXXA - Unspecified fall, initial encounter (15) Fungal infection of the groin Code(s): B35.6 - TINEA CRURIS (16) Gas gangrene of lower extremity Code(s): A48.0 - GAS GANGRENE (17) H/O necrotizing fasciitis Code(s): Z87.39 - PERSONAL HISTORY OF DISEASES OF THE [place] SYS AND [employer] TISS (18) H/O necrotizing fasciitis Code(s): Z87.39 - PERSONAL HISTORY OF DISEASES OF THE [place] S[employer] AND [employer] TISS (19) Hepatitis C Code(s): B19.20 - UNSPECIFIED VIRAL HEPATITIS C WITHOUT HEPATIC COMA Qualifiers: Viral hepatitis chronicity: unspecified Hepatic coma status: without hepatic coma Qualified Code(s): B19.20 - Unspecified viral hepatitis C without hepatic coma (20) History of coronary artery stent placement Code(s): Z95.5 - PRESENCE OF CORONARY ANGIOPLASTY IMPLANT AND GRAFT (21) Hypertension Code(s): I10 - ESSENTIAL (PRIMARY) HYPERTENSION Qualifiers: Hypertension type: essential hypertension Qualified Code(s): I10 - Essential (primary) hypertension (22) Hypothyroidism Code(s): E03.9 - HYPOTHYROIDISM, UNSPECIFIED Qualifiers: Hypothyroidism type: unspecified Qualified Code(s): E03.9 - Hypothyroidism , unspecified (23) Insulin dependent diabetes mellitus Code(s): E11.9 - TYPE 2 DIABETES MELLITUS WITHOUT COMPLICATIONS; Z79.4 - SHRIMPING BOAT CAPTAIN (CURRENT) USE OF INSULIN (24) Insulin pump in place Code(s): Z96.41 - PRESENCE OF INSULIN PUMP (EXTERNAL) (INTERNAL) (25) Methadone maintenance therapy patient Code(s): F11.20 - OPIOID DEPENDENCE, UNCOMPLICATED (26) Multiple contusions Code(s): T14.8 - OTHER INJURY OF UNSPECIFIED BODY REGION * DO NOT USE * (27) Right foot pain Code(s): M79.671 - PAIN IN RIGHT FOOT Visit type - Emergency Visit Emergency Visit: Yes ED Registration Date: 02/23/19 Care time: The patient presented to the Emergency Department on the above date and was hospitalized for further evaluation of their emergent condition. - New Patient This patient is new to me today: No - Critical Care Critical Care patient: No - Discharge Referral Referred to [facility] Med [facility] No
[2019-03-02] MEDS: GABAPENTIN 300 MG CAPSULE (FP) PO SCH (22:24)
[2019-03-02] MEDS: ATORVASTATIN CA 20 MG TABLET (FP) PO SCH (22:24)
[2019-03-03] MEDS: INSULIN (LEVEMIR) 100 UNITS/ML UNITS SQ SCH ×2 (07:10→21:55)
[2019-03-03] MEDS: HEPARIN NA (PORCINE) 5,000 UNITS/ML 1ML VIAL SQ SCH ×3 (07:10→21:55)
[2019-03-03] MEDS: FUROSEMIDE 100 MG/10 ML INJECTABLE VIAL IVPB SCH (07:10)
[2019-03-03] MEDS: METHADONE HCL 40 MG DISPERSABLE TABLET PO SCH (07:10)
[2019-03-03] MEDS: INSULIN SLIDING SCALE (NOVOLOG) 1 VIAL SQ SCH ×4 (07:21→21:54)
[2019-03-03 08:16] LABS: HEMATOCRIT 28.7 % (35.4-49); HEMOGLOBIN 9.1 GM/dL (11.7-16.9); LYMPH % 6.6 % (8-40); MCH 24.3 pg (25.7-33.7); MCHC 31.9 g/dl (32.0-35.9); MEAN CELL VOLUME 76.3 fl (80-96); MEAN PLT VOLUME 9.5 fl (7.5-11.1); MONO % 11.4 % (3.8-10.2); PLATELET COUNT 373 K/MM3 (134-434); RBC 3.76 M/mm3 (4.00-5.60); RDW 19.7 % (11.9-15.9); WHITE BLOOD COUNT 7.8 K/mm3 (4.0-10.0)
--- NOTE | 2019-03-03 08:22 | PN ---
Progress Note, Physician Chief Complaint: volume overload History of Present Illness: denies sob or swelling--feels back to his usual state of health no cp, palpit no cigs - Current Medication List Current Medications: Active Medications Acetaminophen (Tylenol -) 650 mg PO Q4H PRN PRN Reason: FEVER Last Admin: 03/01/19 22:38 Dose: 650 mg Amlodipine Besylate (Norvasc -) 10 mg PO DAILY [facility] Last Admin: 03/02/19 10:27 Dose: 10 mg Amoxicillin/Clavulanate Potassium (Augmentin - 500mg Tablet) 1 tab PO BID@0800, 1730 [facility] Last Admin: 03/02/19 17:35 Dose: 1 tab Aspirin (Asa -) 81 mg PO DAILY [facility] Last Admin: 03/02/19 10:27 Dose: 81 mg Atorvastatin Calcium (Lipitor -) 20 mg PO HS [facility] Last Admin: 03/02/19 22:24 Dose: 20 mg Bacitracin (Bacitracin -) 1 applic TP DAILY [facility] Last Admin: 03/02/19 10:27 Dose: 1 applic Calcium Acetate (Phoslo -) 1,334 mg PO TIDCM [facility] Last Admin: 03/02/19 17:35 Dose: 1,334 mg Calcium Carbonate (Calcium Carbonate -) 1,300 mg PO BID [facility] Last Admin: 03/02/19 22:25 Dose: 1,300 mg Furosemide (Lasix Injection -) 120 mg IVPB BID@0600,1400 [facility] Last Admin: 03/03/19 07:10 Dose: 120 mg Gabapentin (Neurontin -) 900 mg PO [facility] Last Admin: 03/02/19 22:24 Dose: 900 mg Heparin Sodium (Porcine) (Heparin -) 5,000 unit SQ TID [facility] Last Admin: 03/03/19 07:10 Dose: 5,000 unit IV Flush (Triple Lumen Flush) 4 ml IVPUSH PRN PRN PRN Reason: Protocol Last Admin: 03/01/19 17:54 Dose: 4 ml Insulin Aspart (Novolog Vial Sliding Scale -) 1 vial SQ [facility]; Protocol Last Admin: 03/03/19 07:21 Dose: 2 units Insulin Detemir (Levemir Vial) 20 units SQ BID@0700,2200 [facility] Last Admin: 03/03/19 07:10 Dose: 20 units Methadone HCl (Dolophine -) 120 mg PO 0600 [facility] Last Admin: 03/03/19 07:10 Dose: 120 mg Metoprolol Succinate (Toprol Xl -) 25 mg PO BID [facility] Last Admin: 03/02/19 22:24 Dose: 25 mg Nystatin (Nystop Powder -) 1 applic TP DAILY [facility] Last Admin: 03/02/19 10:27 Dose: 1 appful Pantoprazole Sodium (Protonix -) 40 mg PO DAILY [facility] Last Admin: 03/02/19 10:27 Dose: 40 mg - Objective Vital Signs: Vital Signs Temperature 98.5 F 03/03/19 06:00 Pulse Rate 81 03/03/19 06:00 Respiratory Rate 20 03/03/19 06:00 Blood Pressure 127/60 03/03/19 06:00 O2 Sat by Pulse Oximetry (%) 95 03/02/19 21:00 Constitutional: Yes: No Distress, Calm, Obese Eyes: No: Sclera Icterus HENT: No: Nasal Congestion Cardiovascular: Yes: Regular Rate and Rhythm, S1, S2, Other (PMI non diplaced). No: JVD, Gallop, Murmur Respiratory: Yes: CTA Bilaterally. No: Accessory Muscle Use, Rales, Wheezes Gastrointestinal: Yes: Normal Bowel Sounds, Soft. No: Tenderness Musculoskeletal: Yes: Other (No kyphosis) Extremities: No: Cold Edema: Yes (1+L thigh (s/p R amp)) Integumentary: No: Jaundice Neurological: Yes: Alert, Oriented (x3) Psychiatric: No: Agitated Labs: INR, PTT INR 1.39 (0.83-1.09) H 02/23/19 14:23 Assessment/Plan CXR: chf EKG:sinus rhythm, nl intervals, no ischemic changes echo 09/2018 tds, nl LV size/function, tr MR, mild biatrial enlargement tele: SR. ATach run 13 beats. 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 acute diastolic CHF exacerbation -chf exacerbation due to med noncompliance. no signs acs. -treatment has been limited by poor IV access here. per JAN, pt received lasix 40 IV x1 on 02/23, bid on 02/24 and no IV lasix since. received lasix 120 PO x1 on . -02/26: wt has not downtrended at all here. renal fxn progressively worsening, currently BUN 107/creat 4.3--strongly suspect ongoing cardiorenal syndrome with ineffectual diuresis due to GFR <20 (likely to require much higher doses of lasix) and poor IV access. currently no IV access available. he is very stable from resp standpoint--concern that further ineffective diuresis (with oral regimen) may worsen renal fxn. - 02/27 central line placed yesterday for IV access. stable edema, sob - d/w renal, start lasix 80 mg IV BID - 02/28: feels better, Cr/BUN stable, wt down <1 lb. increase lasix to 120 mg IV BID, monitor Cr, lytes, daily standing weights. -03/01-: cr stable/improved, pt feeling better. still with volume to come off , cont lasix 120 bid iv and metolazone 5 mg this afternoon again. -03/03: wt has stopped coming down (292->285). bun/creat has been trending down with IV diuresis. his sx's attributable to volume have resolved. JVD resolved, mild edema persists. was previously controlled on lasix 40 qd at home, decompensated due to non-adherence per admit notes--resume lasix 40 PO QD. GLORY on ckd, cardiorenal syndrome: -baseline creat around 2 -bun/creat peaked at 120/4.6 here, improving with diuresis -renal following as well cad s/p pci: -has been stable -had pci 2016 with plans for staged pci of residual 70-80 dlad but this was postponed due to sepsis/bka and since he has had no ischemic symptoms and with ckd, plans have been med rx for now. -cont statin, asa PSVT, ? PAT: -started toprol -episode to 120s bpm on tele 02/26. cont same meds, observe tele VT: -NSVT on tele -K good, Mag has been good (recheck ordered) -nl LVSF--no further w/u or tx required DM - manage per primary HTN - stable on amlodipine HLD - cont statin
[2019-03-03 08:48] LABS: ALBUMIN 2.3 g/dl (3.4-5.0); ALK PHOS 71 U/L (45-117); ANION GAP 9 MMOL/L (8-16); BILIRUBIN,TOTAL 0.2 mg/dL (0.2-1); CHLORIDE 103 mmol/L (98-107); CO2 29 mmol/L (21-32); CREATININE 4.1 mg/dL (0.55-1.3); GLUCOSE,RANDOM 183 mg/dL (74-106); POTASSIUM 4.7 mmol/L (3.5-5.1); SGOT/AST 16 U/L (15-37); SGPT/ALT 19 U/L (13-61); SODIUM 141 mmol/L (136-145); TOT PROT 5.7 g/dl (6.4-8.2)
[2019-03-03 09:36] LABS: BLOOD UREA NITROGEN 110 mg/dL (7-18); CALCIUM 6.7 mg/dL (8.5-10.1)
[2019-03-03] MEDS ORDERED: PT OWN MED DRAWER 7, Y5N ONE (10:48)
[2019-03-03] MEDS: CALCIUM CARBONATE 650 MG TABLET PO SCH ×2 (10:52→21:55)
[2019-03-03] MEDS: PANTOPRAZOLE 40 MG TABLET (FP) PO SCH (10:53)
[2019-03-03] MEDS: ASPIRIN 81 MG CHEWABLE TABLETS PO SCH (10:53)
[2019-03-03] MEDS: metoPROLOL SUCCINATE 25 MG TAB.SR.24H (FP) PO SCH ×2 (10:53→21:54)
[2019-03-03] MEDS: BACITRACIN 15 GM TUBE TOPICAL OINTMENT TP SCH (10:54)
[2019-03-03] MEDS: amLODIPine BESYLATE 10 MG TABLET (FP) PO SCH (10:54)
[2019-03-03] MEDS: AMOX TR/POT CLAV 500MG/125MG TABLETS (FP) PO SCH ×2 (10:54→18:56)
[2019-03-03] MEDS: NYSTATIN POWDER 100,000 UNITS/GM - 15 GM TOPICAL POWDER TP SCH (11:00)
--- NOTE | 2019-03-03 12:44 | PN ---
Physical Exam: SUBJECTIVE: Patient seen and examined, urinating well, no new complaints. Overall feels better. OBJECTIVE: Vital Signs Period Temp Pulse Resp BP Sys/Alvarez Pulse Ox Last 24 Hr 97.8 F-98.7 F 67-81 20-20 111-130/60-72 92-95 Intake & Output 02/28/19 03/01/19 03/02/19 03/03/19 23:59 23:59 23:59 23:59 Intake Total 710 680 30 240 Output Total 1800 3900 1250 Balance -1090 -3220 -1220 240 Weight 285 lb 12.8 oz 286 lb 3.2 oz 285 lb 4.8 oz GENERAL: The patient is awake, alert, and fully oriented, in no acute distress. HEAD: Normal with no signs of trauma. EYES: PERRL, extraocular movements intact, sclera anicteric, conjunctiva clear. No ptosis. ENT: Ears normal, nares patent, oropharynx clear without exudates, moist mucous membranes. NECK: Trachea midline, full range of motion, supple. LUNGS: Breath sounds equal, clear to auscultation bilaterally, no wheezes, no crackles, no accessory muscle use. HEART: Regular rate and rhythm, S1, S2 without murmur, rub or gallop. ABDOMEN: Soft, nontender, nondistended, normoactive bowel sounds, no guarding, no rebound, no hepatosplenomegaly, no masses. EXTREMITIES: 2+ pulses, warm, well-perfused, no edema. NEUROLOGICAL: Cranial nerves II through XII grossly intact. Normal speech, gait not observed. PSYCH: Normal mood, normal affect. SKIN: Warm, dry, normal turgor, no rashes or lesions noted Laboratory Results - last 24 hr 03/02/19 03/02/19 03/03/19 17:22 21:46 06:33 WBC 7.8 RBC 3.76 L Hgb 9.1 L Hct 28.7 L MCV 76.3 L MCH 24.3 L MCHC 31.9 L RDW 19.7 H Plt Count 373 MPV 9.5 Absolute Neuts (auto) 5.9 Neutrophils % 76.0 Lymphocytes % 6.6 L Monocytes % 11.4 H Eosinophils % 5.0 H Basophils % 1.0 Nucleated RBC % 0 Sodium Potassium Chloride Carbon Dioxide Anion Gap BUN Creatinine Creat Clearance w eGFR POC Glucometer 98 149 Random Glucose Calcium Total Bilirubin AST ALT Alkaline Phosphatase Total Protein Albumin 03/03/19 03/03/19 03/03/19 06:33 07:18 12:20 WBC RBC Hgb Hct MCV MCH MCHC RDW Plt Count MPV Absolute Neuts (auto) Neutrophils % Lymphocytes % Monocytes % Eosinophils % Basophils % Nucleated RBC % Sodium 141 Potassium 4.7 Chloride 103 Carbon Dioxide 29 Anion Gap 9 BUN 110 H* Creatinine 4.1 H Creat Clearance w eGFR 14.81 POC Glucometer 173 219 Random Glucose 183 H Calcium 6.7 L* Total Bilirubin 0.2 AST 16 ALT 19 Alkaline Phosphatase 71 Total Protein 5.7 L Albumin 2.3 L Active Medications Generic Name Dose Route Start Last Admin Trade Name Freq PRN Reason Stop Dose Admin Acetaminophen 650 mg 02/23/19 17:55 03/01/19 22:38 Tylenol - PO 650 mg Q4H PRN Administration FEVER Amlodipine Besylate 10 mg 02/24/19 10:00 03/03/19 10:54 Norvasc - PO 10 mg DAILY JL Administration Amoxicillin/Clavulanate Potassium 1 tab 02/26/19 17:30 03/03/19 10:54 Augmentin - 500mg Tablet PO 1 tab BID@0800,1730 JL Administration Aspirin 81 mg 02/24/19 10:00 03/03/19 10:53 Asa - PO 81 mg DAILY JL Administration Atorvastatin Calcium 20 mg 02/23/19 22:00 03/02/19 22:24 Lipitor - PO 20 mg HS JL Administration Bacitracin 1 applic 02/26/19 13:45 03/03/19 10:54 Bacitracin - TP 1 applic DAILY JL Administration Calcium Acetate 1,334 mg 02/27/19 17:30 03/02/19 17:35 Phoslo - PO 1,334 mg TIDCM JL Administration Calcium Carbonate 1,300 mg 02/28/19 10:30 03/03/19 10:52 Calcium Carbonate - PO 1,300 mg BID JL Administration Furosemide 120 mg 02/28/19 14:00 03/03/19 07:10 Lasix Injection - IVPB 120 mg BID@0600,1400 JL Administration Gabapentin 900 mg 02/23/19 22:00 03/02/19 22:24 Neurontin - PO 900 mg HS JL Administration Heparin Sodium (Porcine) 5,000 unit 02/23/19 22:00 04/13/19 07:10 Heparin - SQ 5,000 unit TID JL Administration IV Flush 4 ml 02/26/19 22:43 03/01/19 17:54 Triple Lumen Flush IVPUSH 4 ml PRN PRN Administration Protocol Insulin Aspart 1 vial 02/25/19 18:53 03/03/19 12:29 Novolog Vial Sliding Scale - SQ 4 units ACHS JL Administration Protocol Insulin Detemir 20 units 03/02/19 22:00 03/03/19 07:10 Levemir Vial SQ 20 units BID@0700,2200 JL Administration Methadone HCl 120 mg 02/24/19 10:00 03/03/19 07:10 Dolophine - PO 120 mg 0600 JL Administration Metoprolol Succinate 25 mg 02/26/19 10:00 03/03/19 10:53 Toprol Xl - PO 25 mg BID JL Administration Nystatin 1 applic 02/27/19 11:15 03/03/19 11:00 Nystop Powder - TP 1 appful DAILY JL Administration Pantoprazole Sodium 40 mg 02/24/19 10:00 03/03/19 10:53 Protonix - PO 40 mg DAILY JL Administration ASSESSMENT/PLAN: 63 yom with PMHx of CKD stage III, CAD s/p PCI ([place] to Om1, residual 50-60 mLAD , 70-80 dLAD planned for staged cath), Diastolic heart failure, HTN, HLD, NIDDM , Hypothyroid, sepsis from 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 -Acute diastolic heart failure exacerbation -Acute hypoxic hypercapneic respiratory failure, suspect from above+/- ORQUIDEA -GLORY on CKD stage III, suspect hypervolumic -Hyperkalemia -HYpocalcemia -Left foot plantar ulcer -NIDDM -HTN -HLD -Hypothyroidism -Methadone dependence -H/o sepsis from right leg wound s/p BKA Plan: responding to diuresis, now slower, clinically improved. lasix 120 mg IV BID. Metolazone per renal/cardiology. Fluid restriction 1.2 L. Additional Ca supplementation. HD plan per renal. Hold ARB, continue renal diet. Continue phoslo. Pulmonary input noted. Bipap hs and prn. Change levemir to 20 units BID, ISS, diabetic diet. Podiatry/ID input noted. Off Clindamycin. Augmentin per ID. CT LE neg for active concerns, exam not concerning for infection. Follow up arterial duplex. Anticipate outpatient follow up once active medical concerns have improved. Continue metoprolol/amlodipine. Hold ARB. Continue Gabapentin/methadone. DVTPPX heparin Dispo pending clinical improvement. PT eval and CM consult for dc planning Plan discussed with patient and nursing in detail, all questions answered. Visit type - Emergency Visit Emergency Visit: Yes ED Registration Date: 02/23/19 Care time: The patient presented to the Emergency Department on the above date and was hospitalized for further evaluation of their emergent condition. - New Patient This patient is new to me today: No - Critical Care Critical Care patient: No - Discharge Referral [facility]erred to [facility] Med P.C.: No
[2019-03-03 14:03] LABS: MAGNESIUM 2.1 mg/dL (1.8-2.4)
[2019-03-03] MEDS: CALCIUM ACETATE 667 MG CAPSULE (FP) PO SCH ×3 (14:11→18:56)
--- NOTE | 2019-03-03 14:39 | PN ---
Progress Note (short form) - Note Progress Note: PULMONARY States breathing better. No chest pain.No fevers. Wants to go home. Vital Signs Period Temp Pulse Resp BP Sys/Alvarez Pulse Ox Last 24 Hr 98.5 F-98.7 F 67-81 20-20 127-130/60-72 92-95 Gen: NAD at rest Heart: RRR Lung: decreased breath sounds at the bases Abd: soft, nontender Ext: + edema, R BKA CBC, BMP 03/03/19 06:33 03/03/19 06:33 Active Medications Acetaminophen (Tylenol -) 650 mg PO Q4H PRN PRN Reason: FEVER Last Admin: 03/01/19 22:38 Dose: 650 mg Amlodipine Besylate (Norvasc -) 10 mg PO DAILY [facility] Last Admin: 03/03/19 10:54 Dose: 10 mg Amoxicillin/Clavulanate Potassium (Augmentin - 500mg Tablet) 1 tab PO BID@0800, 1730 [facility] Last Admin: 03/03/19 10:54 Dose: 1 tab Aspirin (Asa -) 81 mg PO DAILY [facility] Last Admin: 03/03/19 10:53 Dose: 81 mg Atorvastatin Calcium (Lipitor -) 20 mg PO HS [facility] Last Admin: 03/02/19 22:24 Dose: 20 mg Bacitracin (Bacitracin -) 1 applic TP DAILY [facility] Last Admin: 03/03/19 10:54 Dose: 1 applic Calcium Acetate (Phoslo -) 1,334 mg PO TIDCM [facility] Last Admin: 03/03/19 14:11 Dose: 1,334 mg Calcium Carbonate (Calcium Carbonate -) 1,300 mg PO BID [facility] Last Admin: 03/03/19 10:52 Dose: 1,300 mg Furosemide (Lasix -) 40 mg PO DAILY [facility] Gabapentin (Neurontin -) 900 mg PO HS [facility] Last Admin: 03/02/19 22:24 Dose: 900 mg Heparin Sodium (Porcine) (Heparin -) 5,000 unit SQ TID [facility] Last Admin: 03/03/19 14:11 Dose: 5,000 unit IV Flush (Triple Lumen Flush) 4 ml IVPUSH PRN PRN PRN Reason: Protocol Last Admin: 03/01/19 17:54 Dose: 4 ml Insulin Aspart (Novolog Vial Sliding Scale -) 1 vial SQ ACHS [facility]; Protocol Last Admin: 03/03/19 12:29 Dose: 4 units Insulin Detemir (Levemir Vial) 17 units SQ BID@0700,2200 [facility] Methadone HCl (Dolophine -) 120 mg PO 0600 [facility] Last Admin: 03/03/19 07:10 Dose: 120 mg Metoprolol Succinate (Toprol Xl -) 25 mg PO BID [facility] Last Admin: 03/03/19 10:53 Dose: 25 mg Nystatin (Nystop Powder -) 1 applic TP DAILY [facility] Last Admin: 03/03/19 11:00 Dose: 1 appful Pantoprazole Sodium (Protonix -) 40 mg PO DAILY [facility] Last Admin: 03/03/19 10:53 Dose: 40 mg A/P Acute Hypoxic and Hypercapneic Respiratory Failure Acute on Chronic Diastolic Heart Failure Acute on Chronic Renal Failure CAD Morbid Obesity Likely ORQUIDEA HTN DM s/p R BKA Methadone Maintenance - continue lasix - monitor urine output, creatinine - daily weights - O2 to keep SpO2 >90% - outpt PFTs and PSG - DVT prophylaxis
--- NOTE | 2019-03-03 16:20 | PN ---
Progress Note (short form) - Note Progress Note: chf ckd cardiorenal on iv lasix/metolazone Current Medications Acetaminophen (Tylenol -) 650 mg PO Q4H PRN PRN Reason: FEVER Last Admin: 03/01/19 22:38 Dose: 650 mg Amlodipine Besylate (Norvasc -) 10 mg PO DAILY [facility] Last Admin: 03/03/19 10:54 Dose: 10 mg Amoxicillin/Clavulanate Potassium (Augmentin - 500mg Tablet) 1 tab PO BID@0800, 1730 [facility] Last Admin: 03/03/19 10:54 Dose: 1 tab Aspirin (Asa -) 81 mg PO DAILY [facility] Last Admin: 03/03/19 10:53 Dose: 81 mg Atorvastatin Calcium (Lipitor -) 20 mg PO HS [facility] Last Admin: 03/02/19 22:24 Dose: 20 mg Bacitracin (Bacitracin -) 1 applic TP DAILY [facility] Last Admin: 03/03/19 10:54 Dose: 1 applic Calcium Acetate (Phoslo -) 1,334 mg PO TIDCM [facility] Last Admin: 03/03/19 14:11 Dose: 1,334 mg Calcium Carbonate (Calcium Carbonate -) 1,300 mg PO BID [facility] Last Admin: 03/03/19 10:52 Dose: 1,300 mg Furosemide (Lasix -) 40 mg PO DAILY [facility] Gabapentin (Neurontin -) 900 mg PO HS [facility] Last Admin: 03/02/19 22:24 Dose: 900 mg Heparin Sodium (Porcine) (Heparin -) 5,000 unit SQ TID [facility] Last Admin: 03/03/19 14:11 Dose: 5,000 unit IV Flush (Triple Lumen Flush) 4 ml IVPUSH PRN PRN PRN Reason: Protocol Last Admin: 03/01/19 17:54 Dose: 4 ml Insulin Aspart (Novolog Vial Sliding Scale -) 1 vial SQ [facility]; Protocol Last Admin: 03/03/19 12:29 Dose: 4 units Insulin Detemir (Levemir Vial) 17 units SQ BID@0700,2200 [facility] Methadone HCl (Dolophine -) 120 mg PO 0600 [facility] Last Admin: 03/03/19 07:10 Dose: 120 mg Metoprolol Succinate (Toprol Xl -) 25 mg PO BID [facility] Last Admin: 03/03/19 10:53 Dose: 25 mg Nystatin (Nystop Powder -) 1 applic TP DAILY [facility] Last Admin: 03/03/19 11:00 Dose: 1 appful Pantoprazole Sodium (Protonix -) 40 mg PO DAILY [facility] Last Admin: 03/03/19 10:53 Dose: 40 mg Last Vital Signs Temp Pulse Resp BP Pulse Ox 98.5 F 81 20 127/60 92 L 03/03/19 06:00 03/03/19 06:00 03/03/19 06:00 03/03/19 06:00 03/03/19 09:00 above reviewed started on oral meds today he has no complaints Lungs clear Heart reg Abd soft nontender ext mod edema CBC, BMP 03/03/19 06:33 03/03/19 06:33 IMP cardiorenal syndrome improved on iv meds now switched to oral meds Plan- no urgent indication for dialysis prompt renal f/u after d/c
--- NOTE | 2019-03-03 17:41 | PN ---
Progress Note, Physician History of Present Illness: Pt seen and examined. States he feels better, less SOB, ambulating. No new complaints. - Current Medication List Current Medications: Active Medications Acetaminophen (Tylenol -) 650 mg PO Q4H PRN PRN Reason: FEVER Last Admin: 03/01/19 22:38 Dose: 650 mg Amlodipine Besylate (Norvasc -) 10 mg PO DAILY [facility] Last Admin: 03/03/19 10:54 Dose: 10 mg Amoxicillin/Clavulanate Potassium (Augmentin - 500mg Tablet) 1 tab PO BID@0800, 1730 [facility] Last Admin: 03/03/19 10:54 Dose: 1 tab Aspirin (Asa -) 81 mg PO DAILY [facility] Last Admin: 03/03/19 10:53 Dose: 81 mg Atorvastatin Calcium (Lipitor -) 20 mg PO HS [facility] Last Admin: 03/02/19 22:24 Dose: 20 mg Bacitracin (Bacitracin -) 1 applic TP DAILY [facility] Last Admin: 03/03/19 10:54 Dose: 1 applic Calcium Acetate (Phoslo -) 1,334 mg PO TIDCM [facility] Last Admin: 03/03/19 14:11 Dose: 1,334 mg Calcium Carbonate (Calcium Carbonate -) 1,300 mg PO BID [facility] Last Admin: 03/03/19 10:52 Dose: 1,300 mg Furosemide (Lasix -) 40 mg PO DAILY [facility] Gabapentin (Neurontin -) 900 mg PO HS [facility] Last Admin: 03/02/19 22:24 Dose: 900 mg Heparin Sodium (Porcine) (Heparin -) 5,000 unit SQ TID [facility] Last Admin: 03/03/19 14:11 Dose: 5,000 unit IV Flush (Triple Lumen Flush) 4 ml IVPUSH PRN PRN PRN Reason: Protocol Last Admin: 03/01/19 17:54 Dose: 4 ml Insulin Aspart (Novolog Vial Sliding Scale -) 1 vial SQ [facility]; Protocol Last Admin: 03/03/19 17:18 Dose: 4 units Insulin Detemir (Levemir Vial) 17 units SQ BID@0700,2200 [facility] Methadone HCl (Dolophine -) 120 mg PO 0600 [facility] Last Admin: 03/03/19 07:10 Dose: 120 mg Metoprolol Succinate (Toprol Xl -) 25 mg PO BID [facility] Last Admin: 03/03/19 10:53 Dose: 25 mg Nystatin (Nystop Powder -) 1 applic TP DAILY [facility] Last Admin: 03/03/19 11:00 Dose: 1 appful Pantoprazole Sodium (Protonix -) 40 mg PO DAILY [facility] Last Admin: 03/03/19 10:53 Dose: 40 mg - Objective Vital Signs: Vital Signs Temperature 98.2 F 03/03/19 14:00 Pulse Rate 64 03/03/19 14:00 Respiratory Rate 20 03/03/19 14:00 Blood Pressure 129/63 03/03/19 14:00 O2 Sat by Pulse Oximetry (%) 92 L 03/03/19 09:00 Constitutional: Yes: No Distress, Calm Cardiovascular: Yes: Regular Rate and Rhythm Respiratory: Yes: Other (b/l air entry, no r/r/w) Gastrointestinal: Yes: Normal Bowel Sounds, Soft, Abdomen, Obese Extremities: Yes: Other (Rt BKA, Lt plantar ulcer) Neurological: Yes: Alert Labs: CBC, BMP 03/03/19 06:33 03/03/19 06:33 INR, PTT INR 1.39 (0.83-1.09) H 02/23/19 14:23 Problem List - Problems (1) GLORY (acute kidney injury) Code(s): N17.9 - ACUTE KIDNEY FAILURE, UNSPECIFIED (2) Acute respiratory failure with hypoxia and hypercapnia Code(s): J96.01 - ACUTE RESPIRATORY FAILURE WITH HYPOXIA; J96.02 - ACUTE RESPIRATORY FAILURE WITH HYPERCAPNIA (3) CHF exacerbation Code(s): I50.9 - HEART FAILURE, UNSPECIFIED Qualifiers: Heart failure type: systolic Qualified Code(s): I50.23 - Acute on chronic systolic (congestive) heart failure (4) Diabetes mellitus with foot ulcer, with long-term current use of insulin Code(s): E11.621 - TYPE 2 DIABETES MELLITUS WITH FOOT ULCER; L97.509 - NON- PRESSURE CHRONIC ULCER OTH PRT UNSP FOOT W UNSP SEVERITY; Z79.4 - S[employer]IVING ( CURRENT) USE OF INSULIN Qualifiers: Diabetes mellitus type: type 2 Qualified Code(s): E11.621 - Type 2 diabetes mellitus with foot ulcer; L97.509 - Non-pressure chronic ulcer of other part of unspecified foot with unspecified severity; L97.509 - Non- pressure chronic ulcer of other part of unspecified foot with unspecified severity; L97.509 - Non-pressure chronic ulcer of other part of unspecified foot with unspecified severity; L97.509 - Non-pressure chronic ulcer of other part of unspecified foot with unspecified severity; Z79.4 - exterminator helper (current) use of insulin; Z79.4 - [facility] (current) use of insulin; Z79.4 - exterminator helper ( current) use of insulin; Z79.4 - exterminator helper (current) use of insulin (5) Hypertension Code(s): I10 - ESSENTIAL (PRIMARY) HYPERTENSION Qualifiers: Hypertension type: essential hypertension Qualified Code(s): I10 - Essential (primary) hypertension (6) Hypothyroidism Code(s): E03.9 - HYPOTHYROIDISM, UNSPECIFIED Qualifiers: Hypothyroidism type: unspecified Qualified Code(s): E03.9 - Hypothyroidism , unspecified (7) Insulin dependent diabetes mellitus Code(s): E11.9 - TYPE 2 DIABETES MELLITUS WITHOUT COMPLICATIONS; Z79.4 - [employer] BASIS ADMINISTRATOR (CURRENT) USE OF INSULIN (8) Methadone maintenance therapy patient Code(s): F11.20 - OPIOID DEPENDENCE, UNCOMPLICATED Assessment/Plan MSSA/Acinetobacter Lt plantar ulcer infection- improving SOB/ CHF IDDM GLORY Hypertension -- pt clinically improving continue augmentin, wound care
[2019-03-03] MEDS: ATORVASTATIN CA 20 MG TABLET (FP) PO SCH (21:54)
[2019-03-03] MEDS: GABAPENTIN 300 MG CAPSULE (FP) PO SCH (21:54)
[2019-03-04] MEDS: INSULIN (LEVEMIR) 100 UNITS/ML UNITS SQ SCH ×2 (06:19→21:08)
[2019-03-04] MEDS: INSULIN SLIDING SCALE (NOVOLOG) 1 VIAL SQ SCH ×4 (06:19→21:08)
[2019-03-04] MEDS: METHADONE HCL 40 MG DISPERSABLE TABLET PO SCH (06:47)
[2019-03-04] MEDS: HEPARIN NA (PORCINE) 5,000 UNITS/ML 1ML VIAL SQ SCH ×2 (06:48→14:06)
[2019-03-04 07:54] LABS: ANION GAP 7 MMOL/L (8-16); CHLORIDE 104 mmol/L (98-107); CO2 32 mmol/L (21-32); GLUCOSE,RANDOM 97 mg/dL (74-106); POTASSIUM 4.5 mmol/L (3.5-5.1); SODIUM 143 mmol/L (136-145)
[2019-03-04 07:59] LABS: BLOOD UREA NITROGEN 109 mg/dL (7-18); CALCIUM 6.3 mg/dL (8.5-10.1)
[2019-03-04] MEDS: BACITRACIN 15 GM TUBE TOPICAL OINTMENT TP SCH (09:22)
[2019-03-04] MEDS: AMOX TR/POT CLAV 500MG/125MG TABLETS (FP) PO SCH (09:22)
[2019-03-04] MEDS: CALCIUM CARBONATE 650 MG TABLET PO SCH ×2 (09:23→21:05)
[2019-03-04] MEDS: CALCIUM ACETATE 667 MG CAPSULE (FP) PO SCH ×3 (09:23→17:45)
[2019-03-04] MEDS: PANTOPRAZOLE 40 MG TABLET (FP) PO SCH (09:23)
[2019-03-04] MEDS: amLODIPine BESYLATE 10 MG TABLET (FP) PO SCH (09:23)
[2019-03-04] MEDS: ASPIRIN 81 MG CHEWABLE TABLETS PO SCH (09:23)
[2019-03-04] MEDS: metoPROLOL SUCCINATE 25 MG TAB.SR.24H (FP) PO SCH ×2 (09:23→21:06)
[2019-03-04] MEDS: NYSTATIN POWDER 100,000 UNITS/GM - 15 GM TOPICAL POWDER TP SCH (09:25)
[2019-03-04] MEDS: FUROSEMIDE 40 MG TABLET (FP) PO SCH (09:25)
--- NOTE | 2019-03-04 09:48 | PN ---
Progress Note, Physician History of Present Illness: Feels much improved from dyspnea perspective Wants to go home Tele: NSR - Current Medication List Current Medications: Active Medications Acetaminophen (Tylenol -) 650 mg PO Q4H PRN PRN Reason: FEVER Last Admin: 03/01/19 22:38 Dose: 650 mg Amlodipine Besylate (Norvasc -) 10 mg PO DAILY [facility] Last Admin: 03/04/19 09:23 Dose: 10 mg Amoxicillin/Clavulanate Potassium (Augmentin - 500mg Tablet) 1 tab PO BID@0800, 1730 [facility] Last Admin: 03/04/19 09:22 Dose: 1 tab Aspirin (Asa -) 81 mg PO DAILY [facility] Last Admin: 03/04/19 09:23 Dose: 81 mg Atorvastatin Calcium (Lipitor -) 20 mg PO HS [facility] Last Admin: 03/03/19 21:54 Dose: 20 mg Bacitracin (Bacitracin -) 1 applic TP DAILY [facility] Last Admin: 03/04/19 09:22 Dose: 1 applic Calcium Acetate (Phoslo -) 1,334 mg PO TIDCM [facility] Last Admin: 03/04/19 09:23 Dose: 1,334 mg Calcium Carbonate (Calcium Carbonate -) 1,300 mg PO BID [facility] Last Admin: 03/04/19 09:23 Dose: 1,300 mg Furosemide (Lasix -) 40 mg PO DAILY [facility] Last Admin: 03/04/19 09:25 Dose: 40 mg Gabapentin (Neurontin -) 900 mg PO HS [facility] Last Admin: 03/03/19 21:54 Dose: 900 mg Heparin Sodium (Porcine) (Heparin -) 5,000 unit SQ TID [facility] Last Admin: 03/04/19 06:48 Dose: 5,000 unit IV Flush (Triple Lumen Flush) 4 ml IVPUSH PRN PRN PRN Reason: Protocol Last Admin: 03/01/19 17:54 Dose: 4 ml Insulin Aspart (Novolog Vial Sliding Scale -) 1 vial SQ [facility]; Protocol Last Admin: 03/04/19 06:19 Dose: Not Given Insulin Detemir (Levemir Vial) 17 units SQ BID@0700,2200 [facility] Last Admin: 03/04/19 06:19 Dose: Not Given Methadone HCl (Dolophine -) 120 mg PO 0600 [facility] Last Admin: 03/04/19 06:47 Dose: 120 mg Metoprolol Succinate (Toprol Xl -) 25 mg PO BID [facility] Last Admin: 03/04/19 09:23 Dose: 25 mg Nystatin (Nystop Powder -) 1 applic TP DAILY [facility] Last Admin: 03/04/19 09:25 Dose: 1 applic Pantoprazole Sodium (Protonix -) 40 mg PO DAILY [facility] Last Admin: 03/04/19 09:23 Dose: 40 mg - Objective Vital Signs: Vital Signs Temperature 98.0 F 03/04/19 08:23 Pulse Rate 62 03/04/19 08:23 Respiratory Rate 20 03/04/19 08:25 Blood Pressure 121/59 L 03/04/19 08:23 O2 Sat by Pulse Oximetry (%) 94 L 03/04/19 08:25 Constitutional: Yes: No Distress Eyes: Yes: WNL HENT: Yes: Normocephalic Neck: Yes: WNL Cardiovascular: Yes: Regular Rate and Rhythm Respiratory: Yes: Rales (At bilateral bases) Gastrointestinal: Yes: Normal Bowel Sounds Musculoskeletal: Yes: Other (Amputation) Edema: No Labs: CBC, BMP 03/03/19 06:33 03/04/19 05:45 INR, PTT INR 1.39 (0.83-1.09) H 02/23/19 14:23 Assessment/Plan a/p: 63M h/o hld, dm, htn, hypothyroid, cad s/p pci (cp-->+mibi-->cath 06/2017 with naalia to om1, residual 50-60 mlad, 70-80 dlad)m ckd, sepsis 2/2 leg wound that led to right bka, dchf, here with sob. acute diastolic CHF exacerbation -chf exacerbation due to med noncompliance. no signs acs. -treatment has been limited by poor IV access here. per JAN, pt received lasix 40 IV x1 on 02/23, bid on 02/24 and no IV lasix since. received lasix 120 PO x1 on . -02/26: wt has not downtrended at all here. renal fxn progressively worsening, currently BUN 107/creat 4.3--strongly suspect ongoing cardiorenal syndrome with ineffectual diuresis due to GFR <20 (likely to require much higher doses of lasix) and poor IV access. currently no IV access available. he is very stable from resp standpoint--concern that further ineffective diuresis (with oral regimen) may worsen renal fxn. - 02/27 central line placed yesterday for IV access. stable edema, sob - d/w renal, start lasix 80 mg IV BID - 02/28: feels better, Cr/BUN stable, wt down <1 lb. increase lasix to 120 mg IV BID, monitor Cr, lytes, daily standing weights. -03/01-: cr stable/improved, pt feeling better. still with volume to come off , cont lasix 120 bid iv and metolazone 5 mg this afternoon again. -03/03: wt has stopped coming down (292->285). bun/creat has been trending down with IV diuresis. his sx's attributable to volume have resolved. JVD resolved, mild edema persists. was previously controlled on lasix 40 qd at home, decompensated due to non-adherence per admit notes--resume lasix 40 PO QD. -03/04: BUN/Creat elevated 109/4 (decreased from admission 4.8), would not discharge today and continue Laix 40mg QD given persistent basilar crackles and elevated sCreat (CKD Stage 4) . Weight not recorded today, was 285 last 2 days. GLORY on ckd, cardiorenal syndrome: -baseline creat around 2 -bun/creat peaked at 120/4.6 here, improving with diuresis -renal following as well cad s/p pci: -has been stable -had pci 2016 with plans for staged pci of residual 70-80 dlad but this was postponed due to sepsis/bka and since he has had no ischemic symptoms and with ckd, plans have been med rx for now. -cont statin, asa PSVT, ? PAT: -started toprol -episode to 120s bpm on tele 02/26. cont same meds, observe tele -03/04 no arrythmias noted, continue BB. VT: -NSVT on tele -K good, Mag has been good (recheck ordered) -nl LVSF--no further w/u or tx required DM - manage per primary HTN - stable on amlodipine
--- NOTE | 2019-03-04 09:59 | PN ---
Physical Exam: SUBJECTIVE: Patient seen and examined, urinating "a lot", eager to go home, no new com OBJECTIVE: Vital Signs Period Temp Pulse Resp BP Sys/Alvarez Pulse Ox Last 24 Hr 97.8 F-98.7 F 62-76 20-20 117-132/54-87 93-98 GENERAL: The patient is awake, alert, and fully oriented, in no acute distress. HEAD: Normal with no signs of trauma. EYES: PERRL, extraocular movements intact, sclera anicteric, conjunctiva clear. No ptosis. ENT: Ears normal, nares patent, oropharynx clear without exudates, moist mucous membranes. NECK: Trachea midline, full range of motion, supple. LUNGS: decreased breath sounds as bases HEART: Regular rate and rhythm, S1, S2 without murmur, rub or gallop. ABDOMEN: Soft, nontender, nondistended, normoactive bowel sounds, no guarding, no rebound, EXTREMITIES: right BKA, LLE dressing no active erythema or discharge, improved swelling PSYCH: Normal mood, normal affect. SKIN: Warm, dry, normal turgor, no rashes or lesions noted Laboratory Results - last 24 hr 03/03/19 03/03/19 03/03/19 06:33 12:20 14:30 Sodium 141 Potassium 4.7 Chloride 103 Carbon Dioxide 29 Anion Gap 9 BUN 110 H* Creatinine 4.1 H Creat Clearance w eGFR 14.81 POC Glucometer 219 Random Glucose 183 H Calcium 6.7 L* Magnesium 2.1 2.0 Total Bilirubin 0.2 AST 16 ALT 19 Alkaline Phosphatase 71 Total Protein 5.7 L Albumin 2.3 L 03/03/19 03/03/19 03/04/19 16:47 21:52 05:45 Sodium 143 Potassium 4.5 Chloride 104 Carbon Dioxide 32 Anion Gap 7 L BUN 109 H* Creatinine 4.0 H Creat Clearance w eGFR 15.24 POC Glucometer 205 106 Random Glucose 97 Calcium 6.3 L* Magnesium Total Bilirubin AST ALT Alkaline Phosphatase Total Protein Albumin 03/04/19 05:45 Sodium Potassium Chloride Carbon Dioxide Anion Gap BUN Creatinine Creat Clearance w eGFR POC Glucometer 93 Random Glucose Calcium Magnesium Total Bilirubin AST ALT Alkaline Phosphatase Total Protein Albumin Active Medications Generic Name Dose Route Start Last Admin Trade Name Freq PRN Reason Stop Dose Admin Acetaminophen 650 mg 02/23/19 17:55 03/01/19 22:38 Tylenol - PO 650 mg Q4H PRN Administration FEVER Amlodipine Besylate 10 mg 02/24/19 10:00 03/04/19 09:23 Norvasc - PO 10 mg DAILY JL Administration Amoxicillin/Clavulanate Potassium 1 tab 02/26/19 17:30 03/04/19 09:22 Augmentin - 500mg Tablet PO 1 tab BID@0800,1730 JL Administration Aspirin 81 mg 02/24/19 10:00 03/04/19 09:23 Asa - PO 81 mg DAILY JL Administration Atorvastatin Calcium 20 mg 02/23/19 22:00 03/03/19 21:54 Lipitor - PO 20 mg HS JL Administration Bacitracin 1 applic 02/26/19 13:45 03/04/19 09:22 Bacitracin - TP 1 applic DAILY [facility] Administration Calcium Acetate 1,334 mg 02/27/19 17:30 03/04/19 09:23 Phoslo - PO 1,334 mg TIDCM JL Administration Calcium Carbonate 1,300 mg 02/28/19 10:30 03/04/19 09:23 Calcium Carbonate - PO 1,300 mg BID JL Administration Furosemide 40 mg 03/04/19 10:00 03/04/19 09:25 Lasix - PO 40 mg DAILY [facility] Administration Gabapentin 900 mg 02/23/19 22:00 03/03/19 21:54 Neurontin - PO 900 mg HS JL Administration Heparin Sodium (Porcine) 5,000 unit 02/23/19 22:00 03/04/19 06:48 Heparin - SQ 5,000 unit TID JL Administration IV Flush 4 ml 02/26/19 22:43 03/01/19 17:54 Triple Lumen Flush IVPUSH 4 ml PRN PRN Administration Protocol Insulin Aspart 1 vial 02/25/19 18:53 03/04/19 06:19 Novolog Vial Sliding Scale - SQ Not Given ACHS [facility] Protocol Insulin Detemir 17 units 03/03/19 22:00 03/04/19 06:19 Levemir Vial SQ Not Given BID@0700,2200 [facility] Methadone HCl 120 mg 02/24/19 10:00 03/04/19 06:47 Dolophine - PO 120 mg 0600 [facility] Administration Metoprolol Succinate 25 mg 02/26/19 10:00 03/04/19 09:23 Toprol Xl - PO 25 mg BID JL Administration Nystatin 1 applic 02/27/19 11:15 03/04/19 09:25 Nystop Powder - TP 1 applic DAILY JL Administration Pantoprazole Sodium 40 mg 02/24/19 10:00 03/04/19 09:23 Protonix - PO 40 mg DAILY JL Administration ASSESSMENT/PLAN: 63 yom with PMHx of CKD stage III, CAD s/p PCI (ADELAIDA to Om1, residual 50-60 mLAD , 70-80 dLAD planned for staged cath), Diastolic heart failure, HTN, HLD, NIDDM , Hypothyroid, sepsis from 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 -Acute diastolic heart failure exacerbation -Acute hypoxic hypercapneic respiratory failure, suspect from above+/- ORQUIDEA -GLORY on CKD stage III, suspect hypervolumic -Hyperkalemia -HYpocalcemia -Left foot plantar ulcer -NIDDM -HTN -HLD -Hypothyroidism -Methadone dependence -H/o sepsis from right leg wound s/p BKA Plan: responding to diuresis, now slower, clinically improved. Cardiology input noted, lasix changed to PO, monitor volume status. Fluid restriction 1.2 L. Additional Ca supplementation prn. HD plan per renal. Hold ARB, continue renal diet. Continue phoslo. Pulmonary input noted. Bipap hs and prn. Levemir decreased to 17 units BID, ISS, diabetic diet. Podiatry/ID input noted. Off Clindamycin. Augmentin per ID. CT LE neg for active concerns, exam not concerning for infection. Follow up arterial duplex. Anticipate outpatient follow up once active medical concerns have improved. Continue metoprolol/amlodipine. Hold ARB. Continue Gabapentin/methadone. DVTPPX heparin Dispo pending clinical improvement. PT eval and CM consult for dc planning Plan discussed with patient and nursing in detail, all questions answered. Visit type - Emergency Visit Emergency Visit: Yes ED Registration Date: 02/23/19 Care time: The patient presented to the Emergency Department on the above date and was hospitalized for further evaluation of their emergent condition. - New Patient This patient is new to me today: No - Critical Care Critical Care patient: No - Discharge Referral Referred to [facility] Med P.C.: No
--- NOTE | 2019-03-04 11:17 | PN ---
Progress Note (short form) - Note Progress Note: PULMONARY Denies shortness of breath. No chest pain. No fevers. Wants to go home. Vital Signs Period Temp Pulse Resp BP Sys/Alvarez Pulse Ox Last 24 Hr 97.8 F-98.7 F 62-65 20-20 117-132/54-87 93-98 Gen: NAD at rest Heart: RRR Lung: decreased breath sounds at the bases Abd: soft, nontender Ext: + edema, R BKA CBC, BMP 03/03/19 06:33 03/04/19 05:45 Active Medications Acetaminophen (Tylenol -) 650 mg PO Q4H PRN PRN Reason: FEVER Last Admin: 03/01/19 22:38 Dose: 650 mg Amlodipine Besylate (Norvasc -) 10 mg PO DAILY [facility] Last Admin: 03/04/19 09:23 Dose: 10 mg Amoxicillin/Clavulanate Potassium (Augmentin - 500mg Tablet) 1 tab PO BID@0800, 1730 [facility] Last Admin: 03/04/19 09:22 Dose: 1 tab Aspirin (Asa -) 81 mg PO DAILY [facility] Last Admin: 03/04/19 09:23 Dose: 81 mg Atorvastatin Calcium (Lipitor -) 20 mg PO HS [facility] Last Admin: 03/03/19 21:54 Dose: 20 mg Bacitracin (Bacitracin -) 1 applic TP DAILY [facility] Last Admin: 03/04/19 09:22 Dose: 1 applic Calcium Acetate (Phoslo -) 1,334 mg PO TIDCM [facility] Last Admin: 03/04/19 09:23 Dose: 1,334 mg Calcium Carbonate (Calcium Carbonate -) 1,300 mg PO BID [facility] Last Admin: 03/04/19 09:23 Dose: 1,300 mg Furosemide (Lasix -) 40 mg PO DAILY [facility] Last Admin: 03/04/19 09:25 Dose: 40 mg Gabapentin (Neurontin -) 900 mg PO HS [facility] Last Admin: 03/03/19 21:54 Dose: 900 mg Heparin Sodium (Porcine) (Heparin -) 5,000 unit SQ TID [facility] Last Admin: 03/04/19 06:48 Dose: 5,000 unit IV Flush (Triple Lumen Flush) 4 ml IVPUSH PRN PRN PRN Reason: Protocol Last Admin: 03/01/19 17:54 Dose: 4 ml Insulin Aspart (Novolog Vial Sliding Scale -) 1 vial SQ ACHS [facility]; Protocol Last Admin: 03/04/19 06:19 Dose: Not Given Insulin Detemir (Levemir Vial) 17 units SQ BID@0700,2200 [facility] Last Admin: 03/04/19 06:19 Dose: Not Given Methadone HCl (Dolophine -) 120 mg PO 0600 [facility] Last Admin: 03/04/19 06:47 Dose: 120 mg Metoprolol Succinate (Toprol Xl -) 25 mg PO BID [facility] Last Admin: 03/04/19 09:23 Dose: 25 mg Nystatin (Nystop Powder -) 1 applic TP DAILY [facility] Last Admin: 03/04/19 09:25 Dose: 1 applic Pantoprazole Sodium (Protonix -) 40 mg PO DAILY [facility] Last Admin: 03/04/19 09:23 Dose: 40 mg A/P Acute Hypoxic and Hypercapneic Respiratory Failure Acute on Chronic Diastolic Heart Failure Acute on Chronic Renal Failure CAD Morbid Obesity Likely ORQUIDEA HTN DM s/p R BKA Methadone Maintenance - continue lasix - monitor urine output, creatinine - daily weights - O2 to keep SpO2 >90% - outpt PFTs and PSG - DVT prophylaxis - check ambulatory SpO2 on room air to assess for home O2
--- NOTE | 2019-03-04 13:28 | PN ---
Progress Note, Physician History of Present Illness: Pt states he feels well, no respiratory distress. Remains afebrile, without new complaints. - Current Medication List Current Medications: Active Medications Acetaminophen (Tylenol -) 650 mg PO Q4H PRN PRN Reason: FEVER Last Admin: 03/01/19 22:38 Dose: 650 mg Amlodipine Besylate (Norvasc -) 10 mg PO DAILY [facility] Last Admin: 03/04/19 09:23 Dose: 10 mg Amoxicillin/Clavulanate Potassium (Augmentin - 500mg Tablet) 1 tab PO BID@0800, 1730 [facility] Last Admin: 03/04/19 09:22 Dose: 1 tab Aspirin (Asa -) 81 mg PO DAILY [facility] Last Admin: 03/04/19 09:23 Dose: 81 mg Atorvastatin Calcium (Lipitor -) 20 mg PO HS [facility] Last Admin: 03/03/19 21:54 Dose: 20 mg Bacitracin (Bacitracin -) 1 applic TP DAILY [facility] Last Admin: 03/04/19 09:22 Dose: 1 applic Calcium Acetate (Phoslo -) 1,334 mg PO TIDCM [facility] Last Admin: 03/04/19 12:28 Dose: 1,334 mg Calcium Carbonate (Calcium Carbonate -) 1,300 mg PO BID [facility] Last Admin: 03/04/19 09:23 Dose: 1,300 mg Furosemide (Lasix -) 40 mg PO DAILY [facility] Last Admin: 03/04/19 09:25 Dose: 40 mg Gabapentin (Neurontin -) 900 mg PO HS [facility] Last Admin: 03/03/19 21:54 Dose: 900 mg Heparin Sodium (Porcine) (Heparin -) 5,000 unit SQ TID [facility] Last Admin: 03/04/19 06:48 Dose: 5,000 unit IV Flush (Triple Lumen Flush) 4 ml IVPUSH PRN PRN PRN Reason: Protocol Last Admin: 03/01/19 17:54 Dose: 4 ml Insulin Aspart (Novolog Vial Sliding Scale -) 1 vial SQ [facility]; Protocol Last Admin: 03/04/19 11:41 Dose: Not Given Insulin Detemir (Levemir Vial) 17 units SQ BID@0700,2200 [facility] Last Admin: 03/04/19 06:19 Dose: Not Given Methadone HCl (Dolophine -) 120 mg PO 0600 [facility] Last Admin: 03/04/19 06:47 Dose: 120 mg Metoprolol Succinate (Toprol Xl -) 25 mg PO BID [facility] Last Admin: 03/04/19 09:23 Dose: 25 mg Nystatin (Nystop Powder -) 1 applic TP DAILY [facility] Last Admin: 03/04/19 09:25 Dose: 1 applic Pantoprazole Sodium (Protonix -) 40 mg PO DAILY [facility] Last Admin: 03/04/19 09:23 Dose: 40 mg - Objective Vital Signs: Vital Signs Temperature 98.0 F 03/04/19 08:23 Pulse Rate 62 03/04/19 08:23 Respiratory Rate 20 03/04/19 08:25 Blood Pressure 121/59 L 03/04/19 08:23 O2 Sat by Pulse Oximetry (%) 94 L 03/04/19 08:25 Constitutional: Yes: No Distress, Calm Cardiovascular: Yes: Regular Rate and Rhythm Respiratory: Yes: CTA Bilaterally Gastrointestinal: Yes: Normal Bowel Sounds, Soft Extremities: Yes: Amputation Wound/Incision: Yes: Dressing Dry and Intact Neurological: Yes: Alert Labs: CBC, BMP 03/03/19 06:33 03/04/19 05:45 INR, PTT INR 1.39 (0.83-1.09) H 02/23/19 14:23 Problem List - Problems (1) GLORY (acute kidney injury) Code(s): N17.9 - ACUTE KIDNEY FAILURE, UNSPECIFIED (2) Acute respiratory failure with hypoxia and hypercapnia Code(s): J96.01 - ACUTE RESPIRATORY FAILURE WITH HYPOXIA; J96.02 - ACUTE RESPIRATORY FAILURE WITH HYPERCAPNIA (3) CHF exacerbation Code(s): I50.9 - HEART FAILURE, UNSPECIFIED Qualifiers: Heart failure type: systolic Qualified Code(s): I50.23 - Acute on chronic systolic (congestive) heart failure (4) Diabetes mellitus with foot ulcer, with long-term current use of insulin Code(s): E11.621 - TYPE 2 DIABETES MELLITUS WITH FOOT ULCER; L97.509 - NON- PRESSURE CHRONIC ULCER OTH PRT UNSP FOOT W UNSP SEVERITY; Z79.4 - HEALTH AND WELLNESS SALES CONSULTANT ( CURRENT) USE OF INSULIN Qualifiers: Diabetes mellitus type: type 2 Qualified Code(s): E11.621 - Type 2 diabetes mellitus with foot ulcer; L97.509 - Non-pressure chronic ulcer of other part of unspecified foot with unspecified severity; L97.509 - Non- pressure chronic ulcer of other part of unspecified foot with unspecified severity; L97.509 - Non-pressure chronic ulcer of other part of unspecified foot with unspecified severity; L97.509 - Non-pressure chronic ulcer of other part of unspecified foot with unspecified severity; Z79.4 - business continuity strategy director (current) use of insulin; Z79.4 - group home (current) use of insulin; Z79.4 - business continuity strategy director ( current) use of insulin; Z79.4 - group home (current) use of insulin (5) Hypertension Code(s): I10 - ESSENTIAL (PRIMARY) HYPERTENSION Qualifiers: Hypertension type: essential hypertension Qualified Code(s): I10 - Essential (primary) hypertension (6) Hypothyroidism Code(s): E03.9 - HYPOTHYROIDISM, UNSPECIFIED Qualifiers: Hypothyroidism type: unspecified Qualified Code(s): E03.9 - Hypothyroidism , unspecified (7) Insulin dependent diabetes mellitus Code(s): E11.9 - TYPE 2 DIABETES MELLITUS WITHOUT COMPLICATIONS; Z79.4 - DETENTION (CURRENT) USE OF INSULIN (8) Methadone maintenance therapy patient Code(s): F11.20 - OPIOID DEPENDENCE, UNCOMPLICATED Assessment/Plan MSSA/Acinetobacter Lt plantar ulcer infection- improved SOB/ CHF IDDM GLORY Hypertension -- continue augmentin x 3 more days -- no current respiratory distress, remains stable
--- NOTE | 2019-03-04 17:50 | FALL ---
Fall Exam - Pre-Fall Fall Risk: right BKA Mental Status: Alert Current Medications: Current Medications Generic Name Dose Route Start Last Admin Trade Name Freq PRN Reason Stop Dose Admin Acetaminophen 650 mg 02/23/19 17:55 03/01/19 22:38 Tylenol - PO 650 mg Q4H PRN Administration FEVER Amlodipine Besylate 10 mg 02/24/19 10:00 03/04/19 09:23 Norvasc - PO 10 mg DAILY JL Administration Amoxicillin/Clavulanate Potassium 1 tab 02/26/19 17:30 03/04/19 09:22 Augmentin - 500mg Tablet PO 1 tab BID@0800,1730 JL Administration Aspirin 81 mg 02/24/19 10:00 03/04/19 09:23 Asa - PO 81 mg DAILY JL Administration Atorvastatin Calcium 20 mg 02/23/19 22:00 03/03/19 21:54 Lipitor - PO 20 mg HS JL Administration Bacitracin 1 applic 02/26/19 13:45 03/04/19 09:22 Bacitracin - TP 1 applic DAILY JL Administration Calcium Acetate 1,334 mg 02/27/19 17:30 03/04/19 12:28 Phoslo - PO 1,334 mg TIDCM JL Administration Calcium Carbonate 1,300 mg 02/28/19 10:30 03/04/19 09:23 Calcium Carbonate - PO 1,300 mg BID JL Administration Furosemide 40 mg 03/04/19 10:00 03/04/19 09:25 Lasix - PO 40 mg DAILY JL Administration Gabapentin 900 mg 02/23/19 22:00 03/03/19 21:54 Neurontin - PO 900 mg HS JL Administration Heparin Sodium (Porcine) 5,000 unit 02/23/19 22:00 03/04/19 14:06 Heparin - SQ 5,000 unit TID JL Administration IV Flush 4 ml 02/26/19 22:43 03/01/19 17:54 Triple Lumen Flush IVPUSH 4 ml PRN PRN Administration Protocol Insulin Aspart 1 vial 02/25/19 18:53 03/04/19 16:43 Novolog Vial Sliding Scale - SQ 2 units ACHS JL Administration Protocol Insulin Detemir 17 units 03/03/19 22:00 03/04/19 06:19 Levemir Vial SQ Not Given BID@0700,2200 JL Methadone HCl 120 mg 02/24/19 10:00 03/04/19 06:47 Dolophine - PO 120 mg 0600 JL Administration Metoprolol Succinate 25 mg 02/26/19 10:00 03/04/19 09:23 Toprol Xl - PO 25 mg BID JL Administration Nystatin 1 applic 02/27/19 11:15 03/04/19 09:25 Nystop Powder - TP 1 applic DAILY JL Administration Pantoprazole Sodium 40 mg 02/24/19 10:00 03/04/19 09:23 Protonix - PO 40 mg DAILY JL Administration - Post-Fall Patient Outcome: No Injury Exam Findings: AAOx3, no facial, nasal bridge or maxillary tenderness, EOMI, PERRL, facial symmetry, no ecchymosis or bleed, moves all extremities freely, no pain or limitation moves all extremities, no spinal tenderness, complete screen no skin ecchymosis, bleeding Treatment: None Vital Signs: Vital Signs Temperature 98.0 F 03/04/19 14:00 Pulse Rate 68 03/04/19 14:00 Respiratory Rate 20 03/04/19 08:25 Blood Pressure 117/59 L 03/04/19 14:00 O2 Sat by Pulse Oximetry (%) 94 L 03/04/19 08:25 LOC Post-Fall: Unchanged, Awake Identify factors for HIGH RISK for Head Injury: Pt on anticoagulant (on heparin subq TID, patient reports tripping on wire and fell down, with his nasal bridge and left face on the floor and could not get up, denies any pain or tenderness, denies hitting his head of LOC, no pain, visual disturbances, weakness, swelling or any concerns, reports asymptomatic and eating dinner and joking with me during the assessment, reports asymptomatic) Critical Care Total Critical Care Time (in minutes): 25 Critical Care Statement: CT head ordered, total time spent in patient visit, evaluation, co-ordination of care 25 min.
--- NOTE | 2019-03-04 20:12 | PN ---
Progress Note (short form) - Note Progress Note: chf ckd cardiorenal on iv lasix/metolazone Current Medications Acetaminophen (Tylenol -) 650 mg PO Q4H PRN PRN Reason: FEVER Last Admin: 03/01/19 22:38 Dose: 650 mg Amlodipine Besylate (Norvasc -) 10 mg PO DAILY [facility] Last Admin: 03/04/19 09:23 Dose: 10 mg Amoxicillin/Clavulanate Potassium (Augmentin - 500mg Tablet) 1 tab PO BID@0800, 1730 [facility] Last Admin: 03/04/19 09:22 Dose: 1 tab Aspirin (Asa -) 81 mg PO DAILY [facility] Last Admin: 03/04/19 09:23 Dose: 81 mg Atorvastatin Calcium (Lipitor -) 20 mg PO HS [facility] Last Admin: 03/03/19 21:54 Dose: 20 mg Bacitracin (Bacitracin -) 1 applic TP DAILY [facility] Last Admin: 03/04/19 09:22 Dose: 1 applic Calcium Acetate (Phoslo -) 1,334 mg PO TIDCM [facility] Last Admin: 03/04/19 17:45 Dose: 1,334 mg Calcium Carbonate (Calcium Carbonate -) 1,300 mg PO BID [facility] Last Admin: 03/04/19 09:23 Dose: 1,300 mg Furosemide (Lasix -) 40 mg PO DAILY [facility] Last Admin: 03/04/19 09:25 Dose: 40 mg Gabapentin (Neurontin -) 900 mg PO HS [facility] Last Admin: 03/03/19 21:54 Dose: 900 mg Heparin Sodium (Porcine) (Heparin -) 5,000 unit SQ TID [facility] Last Admin: 03/04/19 14:06 Dose: 5,000 unit IV Flush (Triple Lumen Flush) 4 ml IVPUSH PRN PRN PRN Reason: Protocol Last Admin: 03/01/19 17:54 Dose: 4 ml Insulin Aspart (Novolog Vial Sliding Scale -) 1 vial SQ [facility]; Protocol Last Admin: 03/04/19 16:43 Dose: 2 units Insulin Detemir (Levemir Vial) 17 units SQ BID@0700,2200 [facility] Last Admin: 03/04/19 06:19 Dose: Not Given Methadone HCl (Dolophine -) 120 mg PO 0600 [facility] Last Admin: 03/04/19 06:47 Dose: 120 mg Metoprolol Succinate (Toprol Xl -) 25 mg PO BID [facility] Last Admin: 03/04/19 09:23 Dose: 25 mg Nystatin (Nystop Powder -) 1 applic TP DAILY [facility] Last Admin: 03/04/19 09:25 Dose: 1 applic Pantoprazole Sodium (Protonix -) 40 mg PO DAILY [facility] Last Admin: 03/04/19 09:23 Dose: 40 mg Last Vital Signs Temp Pulse Resp BP Pulse Ox 98.3 F 69 20 130/64 95 03/04/19 18:00 03/04/19 18:24 03/04/19 18:00 03/04/19 18:00 03/04/19 18:15 above reviewed started on oral meds today he has no complaints Lungs clear Heart reg Abd soft nontender ext mod edema CBC, BMP 03/04/19 05:45 CBC, [facility] 03/03/19 06:33 03/03/19 06:33 IMP SEVERE PRERENAL AZOTEMIA cardiorenal syndrome improved on iv meds now switched to oral meds Plan- MONITOR WEIGHTS ON ORAL DIURETICS no urgent indication for dialysis prompt renal f/u after d/c
[2019-03-04] MEDS: ATORVASTATIN CA 20 MG TABLET (FP) PO SCH (21:05)
[2019-03-04] MEDS: GABAPENTIN 300 MG CAPSULE (FP) PO SCH (21:05)
[2019-03-05 06:40] VITALS: PULSE 68
[2019-03-05] MEDS: METHADONE HCL 40 MG DISPERSABLE TABLET PO SCH (06:47)
[2019-03-05] MEDS: INSULIN SLIDING SCALE (NOVOLOG) 1 VIAL SQ SCH (06:56)
[2019-03-05] MEDS: INSULIN (LEVEMIR) 100 UNITS/ML UNITS SQ SCH (06:56)
[2019-03-05 07:04] LABS: ALBUMIN 2.4 g/dl (3.4-5.0); ALK PHOS 71 U/L (45-117); ANION GAP 7 MMOL/L (8-16); BILIRUBIN,TOTAL 0.4 mg/dL (0.2-1); CHLORIDE 101 mmol/L (98-107); CO2 30 mmol/L (21-32); CREATININE 3.5 mg/dL (0.55-1.3); GLUCOSE,RANDOM 264 mg/dL (74-106); POTASSIUM 4.6 mmol/L (3.5-5.1); SGOT/AST 15 U/L (15-37); SGPT/ALT 20 U/L (13-61); SODIUM 139 mmol/L (136-145); TOT PROT 6.3 g/dl (6.4-8.2)
[2019-03-05 07:08] LABS: BLOOD UREA NITROGEN 106 mg/dL (7-18); CALCIUM 6.7 mg/dL (8.5-10.1)
[2019-03-05] MEDS ORDERED: PT OWN MED DRAWER 7, Y5N ONE (09:04)
--- NOTE | 2019-03-05 09:15 | PN ---
Teaching Attending Note Name of Resident: Ashley Freeman ATTENDING PHYSICIAN STATEMENT I saw and evaluated the patient. I reviewed the resident's note and discussed the case with the resident. I agree with the resident's findings and plan as documented with exceptions below. SUBJECTIVE: Patient seen and examined, no complaints, urinating "a lot", eager to go home. OBJECTIVE: Vital Signs Period Temp Pulse Resp BP Sys/Alvarez Pulse Ox Last 24 Hr 97.7 F-98.3 F 58-74 18-20 117-147/59-70 95-96 Intake & Output 03/02/19 03/03/19 03/04/19 03/05/19 23:59 23:59 23:59 23:59 Intake Total 30 980 670 400 Output Total 1250 200 Balance -1220 980 470 400 Weight 285 lb 4.8 oz 277 lb 6.4 oz 277 lb 3.2 oz General: sitting in bed in no acute distress Chest: improved air entry, no rales or wheezing Abdomen:soft, obese, NT Extremities: Right BKA, Left foot dressing no active discharge HEENT: no facial ecchymosis or swelling, EOMI, PERRL, no facial tenderness Neuro: ambulating well, moves all extremities, facial symmetry Home Medications Medication Instructions Recorded Methadone [Dolophine -] 120 mg PO DAILY #7 tablet 08/06/14 Pantoprazole Sodium [Protonix] 40 mg PO DAILY 09/15/15 Amlodipine Besylate 10 mg PO DAILY 09/28/18 Aspirin 81 mg PO DAILY 09/28/18 Atorvastatin Ca [Lipitor] 20 mg PO HS 09/28/18 Azilsartan Medoxomil [Edarbi] 80 mg PO DAILY 09/28/18 Furosemide 20 mg PO DAILY 09/28/18 Gabapentin 900 mg PO HS 09/28/18 Calcium 500Mg/Vit-D 200 Units 1 tab PO BID tab 09/29/18 [Os-Vishnu 500+D -] Active Medications Acetaminophen (Tylenol -) 650 mg PO Q4H PRN PRN Reason: FEVER Last Admin: 03/01/19 22:38 Dose: 650 mg Amlodipine Besylate (Norvasc -) 10 mg PO DAILY [facility] Last Admin: 03/04/19 09:23 Dose: 10 mg Amoxicillin/Clavulanate Potassium (Augmentin - 500mg Tablet) 1 tab PO BID@0800, 1730 [facility] Last Admin: 03/04/19 09:22 Dose: 1 tab Aspirin (Asa -) 81 mg PO DAILY [facility] Last Admin: 03/04/19 09:23 Dose: 81 mg Atorvastatin Calcium (Lipitor -) 20 mg PO HS [facility] Last Admin: 03/04/19 21:05 Dose: 20 mg Bacitracin (Bacitracin -) 1 applic TP DAILY [facility] Last Admin: 03/04/19 09:22 Dose: 1 applic Calcium Acetate (Phoslo -) 1,334 mg PO TIDCM [facility] Last Admin: 03/04/19 17:45 Dose: 1,334 mg Calcium Carbonate (Calcium Carbonate -) 1,300 mg PO BID [facility] Last Admin: 03/04/19 21:05 Dose: 1,300 mg Furosemide (Lasix -) 40 mg PO DAILY [facility] Last Admin: 03/04/19 09:25 Dose: 40 mg Gabapentin (Neurontin -) 900 mg PO HS [facility] Last Admin: 03/04/19 21:05 Dose: 900 mg Heparin Sodium (Porcine) (Heparin -) 5,000 unit SQ TID [facility] Last Admin: 03/04/19 14:06 Dose: 5,000 unit IV Flush (Triple Lumen Flush) 4 ml IVPUSH PRN PRN PRN Reason: Protocol Last Admin: 03/01/19 17:54 Dose: 4 ml Insulin Aspart (Novolog Vial Sliding Scale -) 1 vial SQ ACHS [facility]; Protocol Last Admin: 03/05/19 06:56 Dose: 6 units Insulin Detemir (Levemir Vial) 17 units SQ BID@0700,2200 [facility] Last Admin: 03/05/19 06:56 Dose: 17 units Methadone HCl (Dolophine -) 120 mg PO 0600 [facility] Last Admin: 03/05/19 06:47 Dose: 120 mg Metoprolol Succinate (Toprol Xl -) 25 mg PO BID [facility] Last Admin: 03/04/19 21:06 Dose: 25 mg Nystatin (Nystop Powder -) 1 applic TP DAILY [facility] Last Admin: 03/04/19 09:25 Dose: 1 applic Pantoprazole Sodium (Protonix -) 40 mg PO DAILY [facility] Last Admin: 03/04/19 09:23 Dose: 40 mg Laboratory Results - last 24 hr 04/14/19 04/14/19 04/14/19 11:40 16:40 21:07 Sodium Potassium Chloride Carbon Dioxide Anion Gap BUN Creatinine Creat Clearance w eGFR POC Glucometer 128 261 335 Random Glucose Calcium Total Bilirubin AST ALT Alkaline Phosphatase Total Protein Albumin 03/05/19 03/05/19 04:54 05:30 Sodium 139 Potassium 4.6 Chloride 101 Carbon Dioxide 30 Anion Gap 7 L BUN 106 H* Creatinine 3.5 H Creat Clearance w eGFR 17.78 POC Glucometer 264 Random Glucose 264 H Calcium 6.7 L* Total Bilirubin 0.4 AST 15 ALT 20 Alkaline Phosphatase 71 Total Protein 6.3 L Albumin 2.4 L Microbiology 02/24/19 14:25 Foot - Left Plantar Gram Stain - Final 02/24/19 14:25 Foot - Left Plantar Wound Culture - Final Staphylococcus Aureus Diphtheroid/Corynebacterium Acinetobacter Baumannii/Haemol ASSESSMENT AND PLAN: 63 yom with PMHx of CKD stage III, CAD s/p PCI (ADELAIDA to Om1, residual 50-60 mLAD , 70-80 dLAD planned for staged cath), Diastolic heart failure, HTN, HLD, NIDDM , Hypothyroid, sepsis from 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 -Acute diastolic heart failure exacerbation -Acute hypoxic hypercapneic respiratory failure, suspect from above+/- ORQUIDEA -GLORY on CKD stage III, suspect hypervolumic -Hyperkalemia -Hypocalcemia -Left foot plantar ulcer -NIDDM -HTN -HLD -Hypothyroidism -Methadone dependence -H/o sepsis from right leg wound s/p BKA -Mechanical fall 03/04/2019 Plan: Clinically improved. renal funcitn improved. Patient eager to go home. Discussed with Dr. Lawler, plan for d/c on lasix 40 mg daily with close outpatient monitoring and BMP in [address] Campbell. resume home insulin pump. Arterial duplex follow up and vascular surgery/podiatry follow up outpatient. Continue metoprolol/amlodipine. Hold ARB. Continue Gabapentin/methadone. DVTPPX heparin Dispo d/c home on po lasix with close outpatient renal function and PCP/ cardiology/renal follow up. Plan discussed with patient in detail, all questions answered.
[2019-03-05] MEDS: ASPIRIN 81 MG CHEWABLE TABLETS PO SCH (09:33)
[2019-03-05] MEDS: FUROSEMIDE 40 MG TABLET (FP) PO SCH (09:34)
[2019-03-05] MEDS: metoPROLOL SUCCINATE 25 MG TAB.SR.24H (FP) PO SCH (09:34)
[2019-03-05] MEDS: amLODIPine BESYLATE 10 MG TABLET (FP) PO SCH (09:34)
[2019-03-05] MEDS: PANTOPRAZOLE 40 MG TABLET (FP) PO SCH (09:34)
[2019-03-05] MEDS: CALCIUM ACETATE 667 MG CAPSULE (FP) PO SCH ×2 (09:34→12:17)
[2019-03-05] MEDS: AMOX TR/POT CLAV 500MG/125MG TABLETS (FP) PO SCH (09:35)
[2019-03-05] MEDS: CALCIUM CARBONATE 650 MG TABLET PO SCH (09:35)
[2019-03-05] MEDS: BACITRACIN 15 GM TUBE TOPICAL OINTMENT TP SCH (09:36)
[2019-03-05] MEDS: NYSTATIN POWDER 100,000 UNITS/GM - 15 GM TOPICAL POWDER TP SCH (09:36)
[2019-03-05 11:08] VITALS: BP 139/71; TEMP 98.1
--- NOTE | 2019-03-05 11:48 | DS ---
Physical Exam: SUBJECTIVE: Patient seen and examined. He is feeling "great" today. No overnight events. OBJECTIVE: Vital Signs Period Temp Pulse Resp BP Sys/Alvarez Pulse Ox Last 24 Hr 97.7 F-98.3 F 58-74 18-20 117-147/59-71 95-96 PHYSICAL EXAM GENERAL: The patient is awake, alert, and fully oriented, in no acute distress. HEAD: Normal with no signs of trauma. EYES: PERRL, extraocular movements intact. ENT: oropharynx clear without exudates, no teeth, moist mucous membranes. NECK: Trachea midline, full range of motion, supple. LUNGS: Breath sounds equal, clear to auscultation bilaterally, no wheezes, no crackles, no accessory muscle use. HEART: Regular rate and rhythm, S1, S2 without murmur, rub or gallop. ABDOMEN: Obese, soft, nontender, nondistended, normoactive bowel sounds. EXTREMITIES: 2+ pulses, warm, right leg BKE, left leg 1 cm oval superficial wound, open, no drainage, no tenderness, erythema NEUROLOGICAL: Normal speech, gait not observed. PSYCH: Normal mood, normal affect. SKIN: Warm, dry, normal turgor, no rashes. Laboratory Results - last 24 hr 03/04/19 03/04/19 03/05/19 16:40 21:07 04:54 Sodium Potassium Chloride Carbon Dioxide Anion Gap BUN Creatinine Creat Clearance w eGFR POC Glucometer 261 335 264 Random Glucose Calcium Total Bilirubin AST ALT Alkaline Phosphatase Total Protein Albumin 03/05/19 05:30 Sodium 139 Potassium 4.6 Chloride 101 Carbon Dioxide 30 Anion Gap 7 L BUN 106 H* Creatinine 3.5 H Creat Clearance w eGFR 17.78 POC Glucometer Random Glucose 264 H Calcium 6.7 L* Total Bilirubin 0.4 AST 15 ALT 20 Alkaline Phosphatase 71 Total Protein 6.3 L Albumin 2.4 L HOSPITAL COURSE: The patient is a 63 year old male PMHx of CKD stage III, CAD s/p PCI, diastolic heart failure, HTN, HLD, NIDDM, Hypothyroid, sepsis from leg wound that led to right bka, methadone dependence who comes in from the cardiology office for CHF exacerbation. He says he was doing well until about 3-4 days ago when he began to have shortness of breath. This shortness of breath was progressive and mainly felt on exertion. It is now to the point he can only take 5-6 steps before getting short of breath. He denies orthopnea but says when he lays on his left side he gets short of breath. He has a non-productive cough associated with it. He also has LLE edema and left leg wound as well. He denies fevers, chills, lightheadedness, dizziness, chest pain or pressure, nausea, vomiting, diarrhea, constipation, or difficulty or pain on urination. He was seen today and sent for admission for treatment. He received lasix in the ED and is currently feeling improved.The patient was admitted to telemetry for acute CHF exacerbation, acute hypoxic respiratory failure, GLORY on CKD. During the hospital course he was evaluated by Cardiology, Nephrology and ID specialists. He was treated with Lasix, Oxygen, BiPAP at night and his I&O, kidney function, electrolite abnormalities was closely monitored. The patient had CT of his left lower extremity, no acute pathology, antibiotics were not started. Dressing in LLE was changed every day. Over the course of his hospitalization, his kidney function improved. He required oxygen supplementation and his breathing also improved. He was discharged with recommendation to follow up with his Audit Tech and PCP to closely monitor kidney function, f/u BMP. Date of Admission:02/23/19 Date of Discharge: 03/05/19 Minutes to complete discharge: 35 Discharge Summary Reason For Visit: ACUTE ON CHRONIC CHF,SOB,HYPERKALEMIA Current Active Problems GLORY (acute kidney injury) (Acute) Acute metabolic encephalopathy (Acute) Acute on chronic kidney failure (Acute) Acute respiratory failure with hypoxia and hypercapnia (Acute) CHF exacerbation (Acute) Hyperkalemia (Acute) Shortness of breath (Acute) Condition: Stable - Instructions Diet, Activity, Other Instructions: You were admitted to the hospital for heart failure exacerbation. We recommend to continue talking following: MEDICATIONS: Start Toprol XL 25 mg twice daily. Take lasix at 80 mg daily. Stop your medication Edarbi (Azilsartan). Continue other medications as before. INSTRUCTIONS: Weigh yourself daily and notify doctor if weight gain > 3lbs in 2 days. Please note that you kidney function will need to be closely monitored with your doctor. FOLLOW UP: Blood work for kidneys BMP (basic metabolic panel) in 3-5 days with PCP With Dr. Bagley in 1 week. With PCP in 3-5 days With spare person Dr. Barrera in 1 week. Your arterial ultrasound of your legs was done in the hospital, results are currently pending. Please follow up with Vascular surgeon and grease man in 1-2 weeks for further management. Oxygen 2-3 L continuous till further directed. NO SMOKING WITH OXYGEN IS A FIRE HAZARD. If you notice any trouble breathing, dizziness, inability to urinate, fevers, chills, leg discharge or any new concerns, please call 911 or come to the ED. Referrals: Karan Lawler MD [Staff Physician] - Ryan Luke MD [Non Staff, Medical] - Wilfrid Ackerman DO [Staff Physician] - Rodo Barrera MD [Staff Physician] - Disposition: HOME - Home Medications Comprehensive Discharge Medication List: Ambulatory Orders Methadone [Dolophine -] 120 mg PO DAILY #7 tablet 08/06/14 Pantoprazole Sodium [Protonix] 40 mg PO DAILY 09/15/15 Amlodipine Besylate 10 mg PO DAILY 09/28/18 Aspirin 81 mg PO DAILY 09/28/18 Atorvastatin Ca [Lipitor] 20 mg PO HS 09/28/18 Gabapentin 900 mg PO HS 09/28/18 Calcium 500Mg/Vit-D 200 Units [Os-Vishnu 500+D -] 1 tab PO BID tab 09/29/18 Bacitracin - [Bacitracin Topical Ointment -] 1 applic TP DAILY #1 tube 03/05/19 Calcium Acetate [Phoslo -] 1,334 mg PO TIDCM #90 capsule 03/05/19 Furosemide [Lasix -] 40 mg PO DAILY #30 tablet 03/05/19 Metoprolol Succinate [Toprol XL -] 25 mg PO BID #60 tab.sr.24h 03/05/19 Problem List - Problems (1) GLORY (acute kidney injury) Code(s): N17.9 - ACUTE KIDNEY FAILURE, UNSPECIFIED (2) Acute metabolic encephalopathy Code(s): G93.41 - METABOLIC ENCEPHALOPATHY (3) Acute respiratory failure with hypoxia and hypercapnia Code(s): J96.01 - ACUTE RESPIRATORY FAILURE WITH HYPOXIA; J96.02 - ACUTE RESPIRATORY FAILURE WITH HYPERCAPNIA (4) CHF exacerbation Code(s): I50.9 - HEART FAILURE, UNSPECIFIED Qualifiers: Heart failure type: systolic Qualified Code(s): I50.23 - Acute on chronic systolic (congestive) heart failure (5) Hyperkalemia Code(s): E87.5 - HYPERKALEMIA (6) Shortness of breath Code(s): R06.02 - SHORTNESS OF BREATH (7) Abrasion hip/leg Qualifiers: Encounter type: initial encounter Laterality: right Qualified Code(s): S80.811A - Abrasion, right lower leg, initial encounter (8) Bone infection, ankle/foot Code(s): M86.9 - OSTEOMYELITIS, UNSPECIFIED (9) Cellulitis Code(s): L03.90 - CELLULITIS, UNSPECIFIED (10) Cellulitis Code(s): L03.90 - CELLULITIS, UNSPECIFIED (11) Diabetes mellitus with foot ulcer, with long-term current use of insulin Code(s): E11.621 - TYPE 2 DIABETES MELLITUS WITH FOOT ULCER; L97.509 - NON- PRESSURE CHRONIC ULCER OTH PRT UNSP FOOT W UNSP SEVERITY; Z79.4 - PORTFOLIO MGR ( CURRENT) USE OF INSULIN Qualifiers: Diabetes mellitus type: type 2 Qualified Code(s): E11.621 - Type 2 diabetes mellitus with foot ulcer; L97.509 - Non-pressure chronic ulcer of other part of unspecified foot with unspecified severity; L97.509 - Non- pressure chronic ulcer of other part of unspecified foot with unspecified severity; L97.509 - Non-pressure chronic ulcer of other part of unspecified foot with unspecified severity; L97.509 - Non-pressure chronic ulcer of other part of unspecified foot with unspecified severity; Z79.4 - senior living (current) use of insulin; Z79.4 - terminal operations manager (current) use of insulin; Z79.4 - terminal operations manager ( current) use of insulin; Z79.4 - senior living (current) use of insulin (12) Diarrhea Code(s): R19.7 - DIARRHEA, UNSPECIFIED Qualifiers: Diarrhea type: unspecified type Qualified Code(s): R19.7 - Diarrhea, unspecified (13) Facial pain Code(s): R51 - HEADACHE (14) Fall Code(s): W19.XXXA - UNSPECIFIED FALL, INITIAL ENCOUNTER Qualifiers: Encounter type: initial encounter Qualified Code(s): W19.XXXA - Unspecified fall, initial encounter (15) Fungal infection of the groin Code(s): B35.6 - TINEA CRURIS (16) Gas gangrene of lower extremity Code(s): A48.0 - GAS GANGRENE (17) H/O necrotizing fasciitis Code(s): Z87.39 - PERSONAL HISTORY OF DISEASES OF THE MS SYS AND CONN TISS (18) H/O necrotizing fasciitis Code(s): Z87.39 - PERSONAL HISTORY OF DISEASES OF THE MS SYS AND CONN TISS (19) Hepatitis C Code(s): B19.20 - UNSPECIFIED VIRAL HEPATITIS C WITHOUT HEPATIC COMA Qualifiers: Viral hepatitis chronicity: unspecified Hepatic coma status: without hepatic coma Qualified Code(s): B19.20 - Unspecified viral hepatitis C without hepatic coma (20) History of coronary artery stent placement Code(s): Z95.5 - PRESENCE OF CORONARY ANGIOPLASTY IMPLANT AND GRAFT (21) Hypertension Code(s): I10 - ESSENTIAL (PRIMARY) HYPERTENSION Qualifiers: Hypertension type: essential hypertension Qualified Code(s): I10 - Essential (primary) hypertension (22) Hypothyroidism Code(s): E03.9 - HYPOTHYROIDISM, UNSPECIFIED Qualifiers: Hypothyroidism type: unspecified Qualified Code(s): E03.9 - Hypothyroidism , unspecified (23) Insulin dependent diabetes mellitus Code(s): E11.9 - TYPE 2 DIABETES MELLITUS WITHOUT COMPLICATIONS; Z79.4 - PORTFOLIO MGR (CURRENT) USE OF INSULIN (24) Insulin pump in place Code(s): Z96.41 - PRESENCE OF INSULIN PUMP (EXTERNAL) (INTERNAL) (25) Methadone maintenance therapy patient Code(s): F11.20 - OPIOID DEPENDENCE, UNCOMPLICATED (26) Multiple contusions Code(s): T14.8 - OTHER INJURY OF UNSPECIFIED BODY REGION * DO NOT USE * (27) Right foot pain Code(s): M79.671 - PAIN IN RIGHT FOOT This patient is new to me today: No Emergency Visit: Yes ED Registration Date: 02/23/19 Care time: The patient presented to the Emergency Department on the above date and was hospitalized for further evaluation of their emergent condition. Critical Care patient: No - Discharge Referral Referred to [facility] Med [facility].C.: No
[2019-03-05] MEDS ORDERED: FUROSEMIDE 40 MG TABLET (FP) PO SCH (12:14)
--- NOTE | 2019-03-05 12:15 | PN ---
Progress Note, Physician Chief Complaint: sob History of Present Illness: no sob--at his baseline. denies palpitations, cp, leg swelling no cigs - Current Medication List Current Medications: Active Medications Acetaminophen (Tylenol -) 650 mg PO Q4H PRN PRN Reason: FEVER Last Admin: 03/01/19 22:38 Dose: 650 mg Amlodipine Besylate (Norvasc -) 10 mg PO DAILY [facility] Last Admin: 03/05/19 09:34 Dose: 10 mg Amoxicillin/Clavulanate Potassium (Augmentin - 500mg Tablet) 1 tab PO BID@0800, 1730 [facility] Last Admin: 03/05/19 09:35 Dose: 1 tab Aspirin (Asa -) 81 mg PO DAILY [facility] Last Admin: 03/05/19 09:33 Dose: 81 mg Atorvastatin Calcium (Lipitor -) 20 mg PO HS [facility] Last Admin: 03/04/19 21:05 Dose: 20 mg Bacitracin (Bacitracin -) 1 applic TP DAILY [facility] Last Admin: 03/05/19 09:36 Dose: 1 applic Calcium Acetate (Phoslo -) 1,334 mg PO TIDCM [facility] Last Admin: 03/05/19 09:34 Dose: 1,334 mg Calcium Carbonate (Calcium Carbonate -) 1,300 mg PO BID [facility] Last Admin: 03/05/19 09:35 Dose: 1,300 mg Furosemide (Lasix -) 80 mg PO DAILY [facility] Gabapentin (Neurontin -) 900 mg PO HS [facility] Last Admin: 03/04/19 21:05 Dose: 900 mg Heparin Sodium (Porcine) (Heparin -) 5,000 unit SQ TID [facility] Last Admin: 03/04/19 14:06 Dose: 5,000 unit IV Flush (Triple Lumen Flush) 4 ml IVPUSH PRN PRN PRN Reason: Protocol Last Admin: 03/01/19 17:54 Dose: 4 ml Insulin Aspart (Novolog Vial Sliding Scale -) 1 vial SQ [facility]; Protocol Last Admin: 03/05/19 06:56 Dose: 6 units Insulin Detemir (Levemir Vial) 17 units SQ BID@0700,2200 [facility] Last Admin: 03/05/19 06:56 Dose: 17 units Methadone HCl (Dolophine -) 120 mg PO 0600 [facility] Last Admin: 03/05/19 06:47 Dose: 120 mg Metoprolol Succinate (Toprol Xl -) 25 mg PO BID [facility] Last Admin: 03/05/19 09:34 Dose: 25 mg Nystatin (Nystop Powder -) 1 applic TP DAILY [facility] Last Admin: 03/05/19 09:36 Dose: 1 applic Pantoprazole Sodium (Protonix -) 40 mg PO DAILY [facility] Last Admin: 03/05/19 09:34 Dose: 40 mg - Objective Vital Signs: Vital Signs Temperature 98.1 F 03/05/19 10:00 Pulse Rate 68 03/05/19 10:00 Respiratory Rate 20 03/05/19 10:00 Blood Pressure 139/71 03/05/19 10:00 O2 Sat by Pulse Oximetry (%) 96 03/05/19 09:51 Constitutional: Yes: No Distress, Calm Eyes: No: Sclera Icterus HENT: No: Nasal Congestion Cardiovascular: Yes: Regular Rate and Rhythm, S1, S2, Other (PMI non diplaced). No: JVD (tds habitus), Gallop, Murmur Respiratory: Yes: CTA Bilaterally. No: Accessory Muscle Use, Rales, Wheezes Gastrointestinal: Yes: Normal Bowel Sounds, Soft. No: Tenderness Musculoskeletal: Yes: Other (No kyphosis) Extremities: No: Cold Edema: No (s/p RLE amputation) Integumentary: No: Jaundice Neurological: Yes: Alert, Oriented (x3) Psychiatric: No: Agitated Labs: CBC, BMP 03/03/19 06:33 03/05/19 05:30 INR, PTT INR 1.39 (0.83-1.09) H 02/23/19 14:23 Assessment/Plan CXR: chf EKG:sinus rhythm, nl intervals, no ischemic changes echo 09/2018 tds, nl LV size/function, tr MR, mild biatrial enlargement tele: SR. ATach run 13 beats. 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 acute diastolic CHF exacerbation -chf exacerbation due to med noncompliance. no signs acs. -treatment has been limited by poor IV access here. per JAN, pt received lasix 40 IV x1 on 02/23, bid on 02/24 and no IV lasix since. received lasix 120 PO x1 on . -02/26: wt has not downtrended at all here. renal fxn progressively worsening, currently BUN 107/creat 4.3--strongly suspect ongoing cardiorenal syndrome with ineffectual diuresis due to GFR <20 (likely to require much higher doses of lasix) and poor IV access. currently no IV access available. he is very stable from resp standpoint--concern that further ineffective diuresis (with oral regimen) may worsen renal fxn. - 02/27 central line placed yesterday for IV access. stable edema, sob - d/w renal, start lasix 80 mg IV BID - 02/28: feels better, Cr/BUN stable, wt down <1 lb. increase lasix to 120 mg IV BID, monitor Cr, lytes, daily standing weights. -03/01-: cr stable/improved, pt feeling better. still with volume to come off , cont lasix 120 bid iv and metolazone 5 mg this afternoon again. -03/05: wt down 277, stable x2d. likely euvolemic. renal fxn improved (creat <4 now). [place] [facility] [place] was on lasix 40 qd at home--decr'd to 20 on his own prior to exacerbation of fluid retention. rec start lasix 80 qd for now, until sees cari in 1 week (signif worse GFR likely requires higher dose lasix to get adequate concentration in nephrons--d/w'd dr dean). GLORY on ckd, cardiorenal syndrome: -baseline creat around 2 -bun/creat peaked at 120/4.6 here, improving with diuresis -renal following as well cad s/p pci: -has been stable -had pci 2016 with plans for staged pci of residual 70-80 dlad but this was postponed due to sepsis/bka and since he has had no ischemic symptoms and with ckd, plans have been med rx for now. -cont statin, asa PSVT, ? PAT: -started toprol -episode to 120s bpm on tele 02/26. cont same meds, observe tele VT: -NSVT on tele -K good, Mag has been good (recheck ordered) -nl LVSF--no further w/u or tx required DM - manage per primary HTN - stable on amlodipine HLD - cont statin ok for d/c from CV p.o.v.
--- NOTE | 2019-03-05 12:23 | PN ---
Progress Note (short form) - Note Progress Note: Renal follow up for GLORY on CKD Pt seen and examined at the bedside awake and alert reports he feels good denies any sob, orthopnea, PND, cough appetite is good no N/V, or other uremic symptoms making urine Vital Signs Temperature 98.1 F 03/05/19 10:00 Pulse Rate 68 03/05/19 10:00 Respiratory Rate 20 03/05/19 10:00 Blood Pressure 139/71 03/05/19 10:00 O2 Sat by Pulse Oximetry (%) 96 03/05/19 09:51 Intake & Output 03/02/19 03/03/19 03/04/19 03/05/19 23:59 23:59 23:59 23:59 Intake Total 30 980 670 400 Output Total 1250 200 Balance -1220 980 470 400 Weight 129.41 kg 125.827 kg 125.736 kg NAD RRR, no M/R Dec BS, no rales soft NT/ND, obese right BKA, left leg edema+ CBC, BMP 03/03/19 06:33 03/05/19 05:30 Current Medications Acetaminophen (Tylenol -) 650 mg PO Q4H PRN PRN Reason: FEVER Last Admin: 03/01/19 22:38 Dose: 650 mg Amlodipine Besylate (Norvasc -) 10 mg PO DAILY [facility] Last Admin: 03/05/19 09:34 Dose: 10 mg Amoxicillin/Clavulanate Potassium (Augmentin - 500mg Tablet) 1 tab PO BID@0800, 1730 [facility] Last Admin: 03/05/19 09:35 Dose: 1 tab Aspirin (Asa -) 81 mg PO DAILY [facility] Last Admin: 03/05/19 09:33 Dose: 81 mg Atorvastatin Calcium (Lipitor -) 20 mg PO HS [facility] Last Admin: 03/04/19 21:05 Dose: 20 mg Bacitracin (Bacitracin -) 1 applic TP DAILY [facility] Last Admin: 03/05/19 09:36 Dose: 1 applic Calcium Acetate (Phoslo -) 1,334 mg PO TIDCM [facility] Last Admin: 03/05/19 09:34 Dose: 1,334 mg Calcium Carbonate (Calcium Carbonate -) 1,300 mg PO BID [facility] Last Admin: 03/05/19 09:35 Dose: 1,300 mg Furosemide (Lasix -) 80 mg PO DAILY [facility] Gabapentin (Neurontin -) 900 mg PO HS [facility] Last Admin: 03/04/19 21:05 Dose: 900 mg Heparin Sodium (Porcine) (Heparin -) 5,000 unit SQ TID [facility] Last Admin: 03/04/19 14:06 Dose: 5,000 unit IV Flush (Triple Lumen Flush) 4 ml IVPUSH PRN PRN PRN Reason: Protocol Last Admin: 03/01/19 17:54 Dose: 4 ml Insulin Aspart (Novolog Vial Sliding Scale -) 1 vial SQ ACHS [facility]; Protocol Last Admin: 03/05/19 06:56 Dose: 6 units Insulin Detemir (Levemir Vial) 17 units SQ BID@0700,2200 [facility] Last Admin: 03/05/19 06:56 Dose: 17 units Methadone HCl (Dolophine -) 120 mg PO 0600 [facility] Last Admin: 03/05/19 06:47 Dose: 120 mg Metoprolol Succinate (Toprol Xl -) 25 mg PO BID [facility] Last Admin: 03/05/19 09:34 Dose: 25 mg Nystatin (Nystop Powder -) 1 applic TP DAILY [facility] Last Admin: 03/05/19 09:36 Dose: 1 applic Pantoprazole Sodium (Protonix -) 40 mg PO DAILY [facility] Last Admin: 03/05/19 09:34 Dose: 40 mg 63 year old gentleman with hx of CAD, Hypertension, DM (x 30 years), Hx of substance abuse, ? Hepatitis, PVD s/p right LE amputation who presented with complaints of SOB/REYES and fatigue over the past week with GLORY on CKD. #GLORY on CKD #CKD stage 3 #Hyperkalemia #CHF exacerbation #Anemia #Leukocytosis #LE wound #confusion #Hyperphosphatemia/Hypocalcemia Clinically improved Renal function gradually improving with IV diuretics can be discharged on oral diuretics, ideally Lasix 80mg Daily however may need to titrate up based on clinical response as an outpatient low salt diet continue calcium acetate with meals to control phos levels should follow up and have repeat labs done within 1 week. Rodo Barrera DO
--- NOTE | 2019-03-05 13:05 | PN ---
Progress Note, Physician - Current Medication List Current Medications: Active Medications Acetaminophen (Tylenol -) 650 mg PO Q4H PRN PRN Reason: FEVER Last Admin: 03/01/19 22:38 Dose: 650 mg Amlodipine Besylate (Norvasc -) 10 mg PO DAILY [facility] Last Admin: 03/05/19 09:34 Dose: 10 mg Amoxicillin/Clavulanate Potassium (Augmentin - 500mg Tablet) 1 tab PO BID@0800, 1730 [facility] Last Admin: 03/05/19 09:35 Dose: 1 tab Aspirin (Asa -) 81 mg PO DAILY [facility] Last Admin: 03/05/19 09:33 Dose: 81 mg Atorvastatin Calcium (Lipitor -) 20 mg PO HS [facility] Last Admin: 03/04/19 21:05 Dose: 20 mg Bacitracin (Bacitracin -) 1 applic TP DAILY [facility] Last Admin: 03/05/19 09:36 Dose: 1 applic Calcium Acetate (Phoslo -) 1,334 mg PO TIDCM [facility] Last Admin: 03/05/19 09:34 Dose: 1,334 mg Calcium Carbonate (Calcium Carbonate -) 1,300 mg PO BID [facility] Last Admin: 03/05/19 09:35 Dose: 1,300 mg Furosemide (Lasix -) 80 mg PO DAILY [facility] Gabapentin (Neurontin -) 900 mg PO HS [facility] Last Admin: 03/04/19 21:05 Dose: 900 mg Heparin Sodium (Porcine) (Heparin -) 5,000 unit SQ TID [facility] Last Admin: 03/04/19 14:06 Dose: 5,000 unit IV Flush (Triple Lumen Flush) 4 ml IVPUSH PRN PRN PRN Reason: Protocol Last Admin: 03/01/19 17:54 Dose: 4 ml Insulin Aspart (Novolog Vial Sliding Scale -) 1 vial SQ [facility]; Protocol Last Admin: 03/05/19 06:56 Dose: 6 units Insulin Detemir (Levemir Vial) 17 units SQ BID@0700,2200 [facility] Last Admin: 03/05/19 06:56 Dose: 17 units Methadone HCl (Dolophine -) 120 mg PO 0600 [facility] Last Admin: 03/05/19 06:47 Dose: 120 mg Metoprolol Succinate (Toprol Xl -) 25 mg PO BID [facility] Last Admin: 03/05/19 09:34 Dose: 25 mg Nystatin (Nystop Powder -) 1 applic TP DAILY [facility] Last Admin: 03/05/19 09:36 Dose: 1 applic Pantoprazole Sodium (Protonix -) 40 mg PO DAILY [facility] Last Admin: 03/05/19 09:34 Dose: 40 mg - Objective Vital Signs: Vital Signs Temperature 98.1 F 03/05/19 10:00 Pulse Rate 68 03/05/19 10:00 Respiratory Rate 20 03/05/19 10:00 Blood Pressure 139/71 03/05/19 10:00 O2 Sat by Pulse Oximetry (%) 96 03/05/19 09:51 Labs: CBC, BMP 03/03/19 06:33 03/05/19 05:30 INR, PTT INR 1.39 (0.83-1.09) H 02/23/19 14:23
== END 2019-03-05 14:28 | disposition home health service (06) | DRG 291 ==
LOC: JER 12:22 → JERBED 17:14 → J4W 02-24 13:22
PROVIDERS: ADMIT Internal Medicine; ATTEND Hospitalist
PROC: 05H633Z Insertion of Infusion Device into Left Subclavian Vein, Percutaneous Approach (ICD-10-PCS; 2019-02-24)
PROC: 05HM33Z Insertion of Infusion Device into Right Internal Jugular Vein, Percutaneous Approach (ICD-10-PCS; principal; 2019-02-26)
DX: I13.0 Hypertensive heart and chronic kidney disease with heart failure and stage 1 through stage 4 chronic kidney disease, or unspecified chronic kidney disease (principal); I50.33 Acute on chronic diastolic (congestive) heart failure; J96.01 Acute respiratory failure with hypoxia; J96.02 Acute respiratory failure with hypercapnia; G93.41 Metabolic encephalopathy; Z68.41 Body mass index [BMI] 40.0-44.9, adult; I47.2 Ventricular tachycardia; N17.9 Acute kidney failure, unspecified; F11.20 Opioid dependence, uncomplicated; E11.22 Type 2 diabetes mellitus with diabetic chronic kidney disease; N18.3 Chronic kidney disease, stage 3 (moderate); I25.10 Atherosclerotic heart disease of native coronary artery without angina pectoris; Z98.61 Coronary angioplasty status; E78.5 Hyperlipidemia, unspecified; E03.9 Hypothyroidism, unspecified; E87.5 Hyperkalemia; E83.51 Hypocalcemia; E66.01 Morbid (severe) obesity due to excess calories; E83.39 Other disorders of phosphorus metabolism; D64.9 Anemia, unspecified; D72.829 Elevated white blood cell count, unspecified; E11.621 Type 2 diabetes mellitus with foot ulcer; L97.509 Non-pressure chronic ulcer of other part of unspecified foot with unspecified severity
CPT/HCPCS: 36415; 36600; 71045-TC-FY; 73700-TC-RT; 76775-TC; 76856-TC; 80048; 80053; 81003; 82550; 82553; 82570; 82728; 82803; 82962; 83540; 83550; 83735; 83880; 84100; 84132; 84156; 84466; 84484; 84540; 85025; 85610; 85651; 85730; 86141; 87070; 87077; 87186; 87205; 93005; 93010; 93923; 93990-TC; 94660; 94761; 97116-GP; 97161-GP; 99283-25; J1644; J2997

== ENCOUNTER 2019-03-12 20:11 | Emergency (ER) | payer OTHER ==
[2019-03-12 20:17] VITALS: BMI 41.0
--- NOTE | 2019-03-12 20:18 | PDOC ---
Rapid Medical Evaluation Medical Evaluation: Allergies Allergy/AdvReac Type Severity Reaction Status Date / Time Sulfa (Sulfonamide Allergy Intermediate Rash Verified 02/23/19 12:31 Antibiotics) 03/12/19 20:15 I have performed a brief in-person evaluation of this patient. The patient presents with a chief complaint of: fatigue today, recently discharged from [facility] for CHF. Currently on oxygen at home, CAD s/p PCI, diastolic HF, HTN, HLD, CKD, IDDM Pertinent physical exam findings:well chavez morbidly obesed male, in NAD I have ordered the following:ekg/cxr/labs The patient will proceed to the ED for further evaluation. Discharge Disposition - Diagnosis Fatigue Qualifiers: Fatigue type: unspecified Qualified Code(s): R53.83 - Other fatigue - Referrals - Patient Instructions - Post Discharge Activity
--- NOTE | 2019-03-12 21:38 | PDOC ---
History of Present Illness - General Chief Complaint: Weakness Stated Complaint: NOT FEELING GOOD Time Seen by Provider: 03/12/19 20:19 - History of Present Illness Initial Comments: 03/12/19 21:38 63 yo M w a pmh of IDDM (dx 1990, +Humalog pump), CHF, HTN, HLD, Necrotizing fasciitis (s/p right orchiectomy), Opiod Dependence, Morbid obesity was sent to the ED by his cradiologists office (Dr. Bagley's) to be admitted to the hospital for a CHF exacerbation on 02/23 to 03/05, coming in today for feeling fatigued, cold and episode of diaphoresis in the ER waiting room. Admits to have removed his oxygen multiple times today and felt better after his replaced it. During the hospital course 10 days ago, he was evaluated by Cardiology, Nephrology and ID specialists. He was treated with Lasix, Oxygen, BiPAP at night and his I&O, kidney function, electrolite abnormalities was closely monitored. The patient had CT of his left lower extremity, no acute pathology, antibiotics were not started. Dressing in LLE was changed every day. Over the course of his hospitalization, his kidney function improved. He required oxygen supplementation and his breathing also improved. He was discharged with recommendation to follow up with his Construction Supervisor and PCP to closely monitor kidney function, f/u BMP. He denies recent fevers, chills, infections, headache, nausea, vomiting, or blurry vision. PCP: Dr. Luke Construction Supervisor: Dr. 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 Denies current alcohol, cigarettes, or other substance usage. Allergies: Sulfa drugs. 03/13/19 00:46 Past History - Past Medical History Allergies/Adverse Reactions: Allergies Allergy/AdvReac Type Severity Reaction Status Date / Time Sulfa (Sulfonamide Allergy Intermediate Rash Verified 03/12/19 20:17 Antibiotics) Home Medications: Ambulatory Orders Methadone [Dolophine -] 120 mg PO DAILY #7 tablet 08/06/14 Pantoprazole Sodium [Protonix] 40 mg PO DAILY 09/15/15 Amlodipine Besylate 10 mg PO DAILY 09/28/18 Aspirin 81 mg PO DAILY 09/28/18 Atorvastatin Ca [Lipitor] 20 mg PO HS 09/28/18 Gabapentin 900 mg PO HS 09/28/18 Calcium 500Mg/Vit-D 200 Units [Os-Vishnu 500+D -] 1 tab PO BID tab 09/29/18 Bacitracin - [Bacitracin Topical Ointment -] 1 applic TP DAILY #1 tube 03/05/19 Calcium Acetate [Phoslo -] 1,334 mg PO TIDCM #90 capsule 03/05/19 Furosemide [Lasix -] 80 mg PO DAILY #60 tablet 03/05/19 Metoprolol Succinate [Toprol XL -] 25 mg PO BID #60 tab.sr.24h 03/05/19 Levothyroxine [Synthroid -] 75 mcg PO DAILY 03/12/19 Anemia: No Asthma: No Cancer: No Cardiac Disorders: Yes (CAD) CVA: No COPD: No CHF: Yes Dementia: No Diabetes: Yes (Diabetic foot ulcers) GI Disorders: No Disorders: No HTN: Yes Hypercholesterolemia: Yes Liver Disease: No Seizures: No Thyroid Disease: Yes (HYPOTHYROID) - Surgical History Abdominal Surgery: No Appendectomy: No Cardiac Surgery: No Cholecystectomy: No Lung Surgery: No Neurologic Surgery: No Orthopedic Surgery: Yes (RIGHT KNEE ARTHROSCOPY, LEFT SHOULDER REPAIR 1974, [facility] 02/2018) - Immunization History Immunization Up to Date: Yes - Suicide/Smoking/Psychosocial Hx Smoking History: Unknown if ever smoked Have you smoked in the past 12 months: No Hx Alcohol Use: No Drug/Substance Use Hx: No Substance Use Type: Heroin Hx Substance Use Treatment: Yes (on methadone) Review of Systems - Review of Systems Able to Perform ROS?: Yes Is the patient limited Burmese proficient: No Constitutional: Yes: Malaise, Weakness HEENTM: No: Symptoms Reported Respiratory: No: Symptoms reported Cardiac (ROS): No: Symptoms Reported ABD/GI: No: Symptoms Reported : No: Symptoms Reported Musculoskeletal: No: Symptoms Reported Integumentary: No: Symptoms Reported Neurological: No: Symptoms reported Endocrine: Yes: Intolerance to Cold All Other Systems: Reviewed and Negative *Physical Exam - Vital Signs Last Vital Signs Temp Pulse Resp BP Pulse Ox 97.7 F 72 18 163/78 93 L 03/12/19 20:13 03/12/19 20:13 03/12/19 20:13 03/12/19 20:13 03/12/19 20:13 - Physical Exam General Appearance: Yes: Obese HEENT: positive: EOMI, KUSH, Normal ENT Inspection Respiratory/Chest: positive: Lungs Clear, Normal Breath Sounds, Decreased Breath Sounds. negative: Chest Tender, Respiratory Distress Cardiovascular: positive: Regular Rhythm, Regular Rate, S1, S2 Gastrointestinal/Abdominal: positive: Normal Bowel Sounds Integumentary: positive: Other (healing tender small abscess of the medial rightr buttock. crusted appearance. ) Neurologic: positive: Fully Oriented, Alert, Normal Mood/Affect, Normal Response , Motor Strength 03/25 ED Treatment Course - LABORATORY CBC & Chemistry Diagram: 03/12/19 22:10 03/12/19 22:10 Medical Decision Making - Medical Decision Making 03/13/19 00:42 hypoglycemia vs hypothyroidism vs infection vs chf exacerbation CXR show signes of pulmonary effusion, elevated bnp more so than last admission. Will give additional lasix 40mg on top of the one taken at home. Patient sugar at 50. States he had little eat at dinner, pump was turned on. Giving orange juice to patient and reassess with repeat fingerstick. Additionally, TSH elevated at 8.88, thyroxine only very recently resumed with dose never change for years without re-evaluation. This hypothyroidism wopuld explain constant fatigue, intolerance to cold, depression weight gain. Patient will see new multiple knife edge trimmer operator Dr. Palmer tomorrow morning. Patient feels much better after juices. Will recheck fingerstick. finger stick is now 81. Daughter who is a nurse living with the patient say that they would like to leave. She will do serial fingersticks over night to her father until they see her multiple knife edge trimmer operator tomorrow. *DC/Admit/Observation/Transfer Diagnosis at time of Disposition: Hypoglycemia Fatigue Qualifiers: Fatigue type: unspecified Qualified Code(s): R53.83 - Other fatigue - Discharge Dispostion Disposition: HOME Condition at time of disposition: Improved Decision to Admit order: No - Referrals Referrals: Ryan Luke MD [Primary Care Provider] - - Patient Instructions Printed Discharge Instructions: DI for Hypoglycemia, DI for Hypothyroidism Additional Instructions: Follow up with Dr. Luke tomorrow about controlling your blood sugar and your thyroid hormones. Come back to the emergency department for any new, worsening or concerning symptom. Check your fingerstick sugar regularly. - Post Discharge Activity
[2019-03-12 22:38] LABS: BASO % 0.1 % (0-2.0); EOS % 1.9 % (0-4.5); HEMOGLOBIN 10.9 GM/dL (11.7-16.9); LYMPH % 5.2 % (8-40); MCH 24.3 pg (25.7-33.7); MCHC 31.3 g/dl (32.0-35.9); MEAN CELL VOLUME 77.6 fl (80-96); MONO % 6.4 % (3.8-10.2); NEUT % 86.4 % (42.8-82.8); PLATELET COUNT 367 K/MM3 (134-434); RBC 4.51 M/mm3 (4.00-5.60); RDW 20.2 % (11.9-15.9); WHITE BLOOD COUNT 11.1 K/mm3 (4.0-10.0)
[2019-03-12 22:53] LABS: EPI CELLS 0.6 /HPF (0-5/HPF); PH,URINE 6.5 (5.0-8.0); URINE APPEARANCE CLEAR; URINE BACTERIA 1.2 /hpf (NEGATIVE); URINE BILIRUBIN NEGATIVE (NEGATIVE); URINE CASTS 1 /lpf (0-8); URINE COLOR YELLOW; URINE GLUCOSE (UA) NEGATIVE (NEGATIVE); URINE KETONE NEGATIVE (NEGATIVE); URINE LEUK ESTERASE NEGATIVE (NEGATIVE); URINE NITRITE NEGATIVE (NEGATIVE); URINE PROTEIN 3+ (NEGATIVE); URINE RBC 5 /hpf (0-4); URINE UROBILINOGEN 0.2 mg/dL (0.2-1.0); URINE WBC 2 /hpf (0-5)
[2019-03-12 23:28] LABS: ALBUMIN 2.9 g/dl (3.4-5.0); ALK PHOS 79 U/L (45-117); ANION GAP 9 MMOL/L (8-16); BILIRUBIN,TOTAL 0.4 mg/dL (0.2-1); BLOOD UREA NITROGEN 50 mg/dL (7-18); CALCIUM 7.8 mg/dL (8.5-10.1); CHLORIDE 100 mmol/L (98-107); CO2 31 mmol/L (21-32); CREATININE 2.5 mg/dL (0.55-1.3); GLUCOSE,RANDOM 55 mg/dL (74-106); MAGNESIUM 1.8 mg/dL (1.8-2.4); PHOSPHOROUS 5.4 mg/dL (2.5-4.9); SGOT/AST 26 U/L (15-37); SGPT/ALT 18 U/L (13-61); SODIUM 141 mmol/L (136-145)
[2019-03-12] MEDS ORDERED: FUROSEMIDE 100 MG/10 ML INJECTABLE VIAL IVPB ONE (23:55)
[2019-03-13] MEDS ORDERED: FUROSEMIDE 40 MG/4 ML INJECTABLE VIAL ONE (00:21)
[2019-03-13 01:14] VITALS: BP 154/78; PULSE 88; TEMP 97.9
--- NOTE | 2019-03-13 12:30 | EKG ---
Test Reason : Blood Pressure : / mmHG Vent. Rate : 070 BPM Atrial Rate : 070 BPM P-R Int : 128 ms QRS Dur : 080 ms QT Int : 422 ms P-R-T Axes : 019 009 095 degrees QTc Int : 455 ms NORMAL SINUS RHYTHM ANTERIOR INFARCT , AGE UNDETERMINED ABNORMAL ECG Confirmed by MD RICKIE, SEFERINO ([id number]) on 03/13/2019 12:30:36 PM Referred By: Confirmed By:SEFERINO DAMIAN MD
== END 2019-03-13 01:14 | disposition home or self-care (01) ==
LOC: JER 20:11
PROC: 3E033GC Introduction of Other Therapeutic Substance into Peripheral Vein, Percutaneous Approach (ICD-10-PCS; principal; 2019-03-12)
DX: E11.649 Type 2 diabetes mellitus with hypoglycemia without coma (principal); Z79.4 Long term (current) use of insulin; Z96.41 Presence of insulin pump (external) (internal); I25.10 Atherosclerotic heart disease of native coronary artery without angina pectoris; I13.0 Hypertensive heart and chronic kidney disease with heart failure and stage 1 through stage 4 chronic kidney disease, or unspecified chronic kidney disease; N18.9 Chronic kidney disease, unspecified; I50.30 Unspecified diastolic (congestive) heart failure; Z95.5 Presence of coronary angioplasty implant and graft; E11.621 Type 2 diabetes mellitus with foot ulcer; L97.501 Non-pressure chronic ulcer of other part of unspecified foot limited to breakdown of skin; E03.9 Hypothyroidism, unspecified; F11.20 Opioid dependence, uncomplicated; Z89.511 Acquired absence of right leg below knee
CPT/HCPCS: 36415; 71045-TC-FY; 80053; 81003; 82550; 82553; 82962; 83735; 83880; 84100; 84443; 84484; 85025; 87086; 93005; 93010; 99285-25

== ENCOUNTER 2020-12-11 09:19 | Inpatient (IN) | payer BC ==
[2020-12-11] MEDS ORDERED: ALBUTEROL SO4 HFA INHALER IH ONE ×2 (09:59→10:16)
[2020-12-11 11:09] LABS: CHLORIDE 101 mmol/L (98-107); POTASSIUM 4.1 mmol/L (3.5-5.1); SODIUM 137 mmol/L (136-145)
[2020-12-11 11:11] LABS: CALCIUM 7.1 mg/dL (8.5-10.1)
[2020-12-11 11:12] LABS: ANION GAP 8 MMOL/L (8-16); BLOOD UREA NITROGEN 51.6 mg/dL (7-18); CO2 28 mmol/L (21-32); GLUCOSE,RANDOM 242 mg/dL (74-106); MAGNESIUM 2.1 mg/dL (1.8-2.4)
[2020-12-11 11:15] LABS: SGOT/AST 17 U/L (15-37); SGPT/ALT 11 U/L (13-61)
[2020-12-11 11:16] LABS: HEMOGLOBIN 9.1 GM/dL (11.7-16.9); MCH 24.2 pg (25.7-33.7); MCHC 31.4 g/dl (32.0-35.9); MEAN PLT VOLUME 10.3 fl (7.5-11.1); PLATELET COUNT 321 K/MM3 (134-434); RBC 3.77 M/mm3 (4.00-5.60); RDW 18.1 % (11.9-15.9)
[2020-12-11 11:17] LABS: BILIRUBIN,TOTAL 0.5 mg/dL (0.2-1); TOT PROT 6.9 g/dl (6.4-8.2)
[2020-12-11 11:18] LABS: ALK PHOS 77 U/L (45-117)
[2020-12-11 11:20] LABS: N-TERMINAL BNP 18800.2 pg/ml (5-125)
[2020-12-11 11:26] LABS: WHITE BLOOD COUNT 20.8 K/mm3 (4.0-10.0)
[2020-12-11] MEDS ORDERED: PIPERACILLIN/TAZOB 3.375 GM 3.375 GM in DEXTROSE 5%-WATER - 50 ML IVPB ONE (11:39)
[2020-12-11] MEDS ORDERED: FUROSEMIDE 40 MG/4 ML INJECTABLE VIAL IVPUSH ONE (11:44)
[2020-12-11] MEDS ORDERED: FUROSEMIDE 40 MG/4 ML INJECTABLE VIAL ONE (12:12)
[2020-12-11] MEDS ORDERED: PIPERACILLIN/TAZOB 3.375 GM 3.375 GM/50 ML BAG IVPB ONE (12:12)
[2020-12-11] MEDS ORDERED: CALCIUM GLUCONATE 10% - 1,000 MG/10 ML VIAL IVPUSH ONE (13:02)
[2020-12-11] MEDS: HEPARIN NA (PORCINE) 5,000 UNITS/ML 1ML VIAL SQ SCH ×2 (14:02→23:02)
[2020-12-11] MEDS ORDERED: HEPARIN NA (PORCINE) 5,000 UNITS/ML 1ML VIAL ONE (14:02)
[2020-12-11] MEDS ORDERED: CALCIUM GLUCONATE 10% - 1,000 MG/10 ML VIAL ONE (14:02)
[2020-12-11] MEDS ORDERED: MAGNESIUM SULF 50% (8.12 MEQ/2 ML-1 GM VIAL) IVPB ONE (14:50)
[2020-12-11 15:08] LABS: PHOSPHOROUS 4.4 mg/dL (2.5-4.9)
[2020-12-11] MEDS ORDERED: METHADONE HCL 10 MG TABLET PO ONE (16:10)
[2020-12-11] MEDS ORDERED: MAGNESIUM SULFATE IN WATER 2 GM/50 ML IVPB IVPB ONE (16:11)
[2020-12-11] MEDS ORDERED: METHADONE HCL 40 MG DISPERSABLE TABLET ONE (16:14)
[2020-12-11] MEDS ORDERED: INSULIN SLIDING SCALE (NOVOLOG) 1 VIAL SQ SCH (16:30)
[2020-12-11] MEDS: CALCIUM ACETATE 667 MG CAPSULE (FP) PO SCH (17:33)
[2020-12-11] MEDS ORDERED: PIPERACILLIN/TAZOB 2.25 GM 2.25 GM/50 ML BAG IVPB ONE (17:41)
[2020-12-11] MEDS: PIPERACILLIN/TAZOB 2.25 GM 2.25 GM in DEXTROSE 5%-WATER - 50 ML IVPB SCH (17:42)
[2020-12-11] MEDS: INSULIN SLIDING SCALE (NOVOLOG) 1 VIAL SQ SCH ×2 (18:08→23:03)
[2020-12-11] MEDS: ATORVASTATIN CA 20 MG TABLET (FP) PO SCH (23:02)
[2020-12-12] MEDS ORDERED: PIPERACILLIN/TAZOBACTAM 2.25 GM VIAL IVPB ONE ×2 (01:04→09:38)
[2020-12-12] MEDS ORDERED: DEXTROSE 5%-WATER - 50 ML IVPB ONE ×2 (01:04→09:38)
[2020-12-12] MEDS: PIPERACILLIN/TAZOB 2.25 GM 2.25 GM in DEXTROSE 5%-WATER - 50 ML IVPB SCH ×2 (01:16→09:52)
[2020-12-12] MEDS: CALCITRIOL 0.25 MCG CAPSULE (FP) PO SCH ×3 (01:22→22:13)
[2020-12-12] MEDS: HEPARIN NA (PORCINE) 5,000 UNITS/ML 1ML VIAL SQ SCH ×3 (05:30→22:12)
[2020-12-12] MEDS: INSULIN SLIDING SCALE (NOVOLOG) 1 VIAL SQ SCH ×4 (06:17→22:22)
[2020-12-12] MEDS: LEVOTHYROXINE NA 75 MCG TABLET (FP) PO SCH (06:17)
[2020-12-12] MEDS ORDERED: METHADONE HCL 40 MG DISPERSABLE TABLET ONE (09:35)
[2020-12-12] MEDS ORDERED: METHADONE HCL 10 MG TABLET ONE (09:36)
[2020-12-12] MEDS ORDERED: PT OWN MED DRAWER 7, Y5N ONE ×4 (09:38→22:08)
[2020-12-12] MEDS: FUROSEMIDE 40 MG TABLET (FP) PO SCH (09:53)
[2020-12-12] MEDS: SODIUM ZIRCONIUM CYCLOSILICATE (LOKELMA) 5 GM PACKET PO SCH (09:53)
[2020-12-12] MEDS: ASPIRIN 81 MG CHEWABLE TABLETS PO SCH (09:54)
[2020-12-12] MEDS: METHADONE 80 MG, METHADONE 30 MG PO SCH (09:54)
[2020-12-12] MEDS: SODIUM BICARBONATE 650 MG TABLET PO SCH (09:54)
[2020-12-12] MEDS: CALCIUM ACETATE 667 MG CAPSULE (FP) PO SCH ×3 (09:54→17:26)
[2020-12-12] MEDS: amLODIPine BESYLATE 10 MG TABLET (FP) PO SCH (09:54)
[2020-12-12] MEDS ORDERED: METHADONE HCL 10 MG TABLET PO SCH (10:00)
[2020-12-12 10:34] LABS: HEMATOCRIT 27.3 % (35.4-49); HEMOGLOBIN 8.7 GM/dL (11.7-16.9); MCH 24.5 pg (25.7-33.7); MCHC 31.7 g/dl (32.0-35.9); MEAN CELL VOLUME 77.1 fl (80-96); PLATELET COUNT 297 K/MM3 (134-434); RBC 3.54 M/mm3 (4.00-5.60); RDW 18.5 % (11.9-15.9); WHITE BLOOD COUNT 8.5 K/mm3 (4.0-10.0)
[2020-12-12 11:16] LABS: POTASSIUM 4.3 mmol/L (3.5-5.1)
[2020-12-12 11:18] LABS: CALCIUM 7.1 mg/dL (8.5-10.1)
[2020-12-12 11:19] LABS: ALBUMIN 2.7 g/dl (3.4-5.0); BLOOD UREA NITROGEN 50.8 mg/dL (7-18); MAGNESIUM 2.5 mg/dL (1.8-2.4)
[2020-12-12 11:22] LABS: CREATININE 3.1 mg/dL (0.55-1.3); PHOSPHOROUS 4.5 mg/dL (2.5-4.9)
[2020-12-12 11:23] LABS: BILIRUBIN,TOTAL 0.4 mg/dL (0.2-1); TOT PROT 6.4 g/dl (6.4-8.2)
[2020-12-12 12:06] VITALS: BMI 42.5
[2020-12-12] MEDS ORDERED: FUROSEMIDE 40 MG TABLET (FP) PO ONE (15:00)
[2020-12-12] MEDS: ATORVASTATIN CA 20 MG TABLET (FP) PO SCH (22:12)
[2020-12-12] MEDS: CALCIUM CARBONATE 650 MG TABLET PO SCH (22:17)
[2020-12-13] MEDS ORDERED: METHADONE HCL 40 MG DISPERSABLE TABLET ONE (06:32)
[2020-12-13] MEDS ORDERED: METHADONE HCL 10 MG TABLET ONE (06:33)
[2020-12-13] MEDS: INSULIN SLIDING SCALE (NOVOLOG) 1 VIAL SQ SCH ×4 (06:42→21:52)
[2020-12-13] MEDS: HEPARIN NA (PORCINE) 5,000 UNITS/ML 1ML VIAL SQ SCH (06:43)
[2020-12-13] MEDS: LEVOTHYROXINE NA 75 MCG TABLET (FP) PO SCH (06:44)
[2020-12-13] MEDS: METHADONE 80 MG, METHADONE 30 MG PO SCH (06:44)
[2020-12-13] MEDS ORDERED: PIPERACILLIN/TAZOB 2.25 GM 2.25 GM in DEXTROSE 5%-WATER - 50 ML IVPB SCH (07:00)
[2020-12-13] MEDS ORDERED: DEXTROSE 5%-WATER - 50 ML IVPB ONE ×2 (07:06→12:42)
[2020-12-13] MEDS ORDERED: PIPERACILLIN/TAZOBACTAM 2.25 GM VIAL IVPB ONE (07:06)
[2020-12-13] MEDS ORDERED: PIPERACILLIN/TAZOB 3.375 GM 3.375 GM in DEXTROSE 5%-WATER - 50 ML IVPB SCH (07:30)
[2020-12-13] MEDS: PIPERACILLIN/TAZOB 2.25 GM 2.25 GM in DEXTROSE 5%-WATER - 50 ML IVPB SCH ×3 (07:48→15:50)
[2020-12-13] MEDS ORDERED: PT OWN MED DRAWER 7, Y5N ONE ×2 (08:06→09:53)
[2020-12-13] MEDS: ASPIRIN 81 MG CHEWABLE TABLETS PO SCH (11:05)
[2020-12-13] MEDS: CALCIUM ACETATE 667 MG CAPSULE (FP) PO SCH ×3 (11:05→17:46)
[2020-12-13] MEDS: amLODIPine BESYLATE 10 MG TABLET (FP) PO SCH (11:05)
[2020-12-13] MEDS: SODIUM ZIRCONIUM CYCLOSILICATE (LOKELMA) 5 GM PACKET PO SCH (11:05)
[2020-12-13] MEDS: FUROSEMIDE 40 MG TABLET (FP) PO SCH (11:05)
[2020-12-13] MEDS: SODIUM BICARBONATE 650 MG TABLET PO SCH (11:06)
[2020-12-13] MEDS: CALCIUM CARBONATE 650 MG TABLET PO SCH ×2 (11:06→21:41)
[2020-12-13] MEDS: CALCITRIOL 0.25 MCG CAPSULE (FP) PO SCH ×2 (11:06→21:41)
[2020-12-13] MEDS ORDERED: cefTRIAXone SODIUM 1 GM VIAL ONE (12:42)
[2020-12-13] MEDS: INSULIN (LEVEMIR) 100 UNITS/ML UNITS SQ SCH ×2 (13:08→21:43)
[2020-12-13 13:44] LABS: EOS % 5.8 % (0-4.5); HEMATOCRIT 25.6 % (35.4-49); HEMOGLOBIN 8.3 GM/dL (11.7-16.9); LYMPH % 7.1 % (8-40); MCH 24.8 pg (25.7-33.7); MCHC 32.3 g/dl (32.0-35.9); MEAN CELL VOLUME 76.6 fl (80-96); MEAN PLT VOLUME 9.9 fl (7.5-11.1); MONO % 9.2 % (3.8-10.2); NEUT % 76.9 % (42.8-82.8); PLATELET COUNT 312 K/MM3 (134-434); RBC 3.35 M/mm3 (4.00-5.60); RDW 18.1 % (11.9-15.9); WHITE BLOOD COUNT 8.7 K/mm3 (4.0-10.0)
[2020-12-13] MEDS: CEFTRIAXONE 1 GM in DEXTROSE 5%-WATER - 50 ML IVPB SCH (14:17)
[2020-12-13 14:23] LABS: POTASSIUM 4.1 mmol/L (3.5-5.1)
[2020-12-13 14:33] LABS: CALCIUM 7.7 mg/dL (8.5-10.1)
[2020-12-13 14:34] LABS: ALBUMIN 2.7 g/dl (3.4-5.0); BLOOD UREA NITROGEN 54.1 mg/dL (7-18); MAGNESIUM 2.1 mg/dL (1.8-2.4)
[2020-12-13 14:37] LABS: CREATININE 3.1 mg/dL (0.55-1.3)
[2020-12-13 14:38] LABS: BILIRUBIN,TOTAL 0.5 mg/dL (0.2-1); TOT PROT 6.1 g/dl (6.4-8.2)
[2020-12-13] MEDS ORDERED: SODIUM BICARBONATE 650 MG TABLET PO SCH (16:47)
[2020-12-13] MEDS: FERROUS SO4 325 MG TABLET (FP) PO SCH (17:46)
[2020-12-13] MEDS: ATORVASTATIN CA 20 MG TABLET (FP) PO SCH (21:42)
[2020-12-14] MEDS ORDERED: PIPERACILLIN/TAZOB 2.25 GM 2.25 GM in DEXTROSE 5%-WATER - 50 ML IVPB SCH (02:00)
[2020-12-14] MEDS ORDERED: PIPERACILLIN/TAZOB 3.375 GM 3.375 GM in DEXTROSE 5%-WATER - 50 ML IVPB SCH (02:00)
[2020-12-14] MEDS ORDERED: METHADONE HCL 10 MG TABLET ONE (06:17)
[2020-12-14] MEDS ORDERED: METHADONE HCL 40 MG DISPERSABLE TABLET ONE (06:17)
[2020-12-14] MEDS: METHADONE 80 MG, METHADONE 30 MG PO SCH (06:20)
[2020-12-14] MEDS: LEVOTHYROXINE NA 75 MCG TABLET (FP) PO SCH (06:20)
[2020-12-14] MEDS: INSULIN SLIDING SCALE (NOVOLOG) 1 VIAL SQ SCH ×4 (06:22→22:07)
[2020-12-14] MEDS ORDERED: cefTRIAXone SODIUM 1 GM VIAL ONE (10:16)
[2020-12-14] MEDS ORDERED: DEXTROSE 5%-WATER - 50 ML IVPB ONE (10:17)
[2020-12-14] MEDS: FUROSEMIDE 40 MG TABLET (FP) PO SCH (10:26)
[2020-12-14] MEDS: CALCIUM ACETATE 667 MG CAPSULE (FP) PO SCH ×3 (10:26→17:37)
[2020-12-14] MEDS: FERROUS SO4 325 MG TABLET (FP) PO SCH ×2 (10:26→17:37)
[2020-12-14] MEDS: ASPIRIN 81 MG CHEWABLE TABLETS PO SCH (10:26)
[2020-12-14] MEDS: INSULIN (LEVEMIR) 100 UNITS/ML UNITS SQ SCH ×2 (10:27→22:07)
[2020-12-14] MEDS: SODIUM ZIRCONIUM CYCLOSILICATE (LOKELMA) 5 GM PACKET PO SCH (10:27)
[2020-12-14] MEDS: amLODIPine BESYLATE 10 MG TABLET (FP) PO SCH (10:27)
[2020-12-14] MEDS: DOCUSATE SODIUM 100 MG CAPSULE (FP) PO SCH (10:27)
[2020-12-14] MEDS: PANTOPRAZOLE 40 MG TABLET PO SCH (10:27)
[2020-12-14] MEDS: CEFTRIAXONE 1 GM in DEXTROSE 5%-WATER - 50 ML IVPB SCH (10:27)
[2020-12-14] MEDS: CALCIUM CARBONATE 650 MG TABLET PO SCH ×2 (10:28→22:08)
[2020-12-14] MEDS: CALCITRIOL 0.25 MCG CAPSULE (FP) PO SCH ×2 (10:28→22:09)
[2020-12-14 11:15] LABS: POTASSIUM 4.3 mmol/L (3.5-5.1)
[2020-12-14 11:24] LABS: ALBUMIN 2.9 g/dl (3.4-5.0); BLOOD UREA NITROGEN 56.2 mg/dL (7-18); CALCIUM 8.2 mg/dL (8.5-10.1); MAGNESIUM 2.1 mg/dL (1.8-2.4)
[2020-12-14 11:27] LABS: CREATININE 3.1 mg/dL (0.55-1.3)
[2020-12-14 11:28] LABS: BILIRUBIN,TOTAL 0.7 mg/dL (0.2-1)
[2020-12-14 11:29] LABS: TOT PROT 6.7 g/dl (6.4-8.2)
[2020-12-14] MEDS: LISINOPRIL 5 MG TABLET PO SCH (13:09)
[2020-12-14 16:31] LABS: BASO % 0.9 % (0-2.0); EOS % 5.8 % (0-4.5); HEMATOCRIT 27.5 % (35.4-49); HEMOGLOBIN 8.5 GM/dL (11.7-16.9); LYMPH % 5.8 % (8-40); MCH 23.9 pg (25.7-33.7); MCHC 30.9 g/dl (32.0-35.9); MEAN CELL VOLUME 77.5 fl (80-96); MEAN PLT VOLUME 9.6 fl (7.5-11.1); MONO % 8.4 % (3.8-10.2); NEUT % 79.1 % (42.8-82.8); PLATELET COUNT 322 K/MM3 (134-434); RBC 3.55 M/mm3 (4.00-5.60); RDW 18.2 % (11.9-15.9); WHITE BLOOD COUNT 8.7 K/mm3 (4.0-10.0)
[2020-12-14] MEDS ORDERED: PT OWN MED DRAWER 7, Y5N ONE (21:32)
[2020-12-14] MEDS: ATORVASTATIN CA 20 MG TABLET (FP) PO SCH (22:08)
[2020-12-15] MEDS ORDERED: METHADONE HCL 40 MG DISPERSABLE TABLET ONE (05:43)
[2020-12-15] MEDS ORDERED: METHADONE HCL 10 MG TABLET ONE (05:43)
[2020-12-15] MEDS: METHADONE 80 MG, METHADONE 30 MG PO SCH (05:49)
[2020-12-15] MEDS: LEVOTHYROXINE NA 75 MCG TABLET (FP) PO SCH (06:00)
[2020-12-15] MEDS: INSULIN SLIDING SCALE (NOVOLOG) 1 VIAL SQ SCH ×3 (06:00→16:39)
[2020-12-15 09:47] LABS: POTASSIUM 4.3 mmol/L (3.5-5.1)
[2020-12-15 09:55] LABS: ALBUMIN 2.9 g/dl (3.4-5.0); BLOOD UREA NITROGEN 54.4 mg/dL (7-18); CALCIUM 8.4 mg/dL (8.5-10.1); MAGNESIUM 2.3 mg/dL (1.8-2.4)
[2020-12-15] MEDS ORDERED: PT OWN MED DRAWER 7, Y5N ONE ×3 (09:58→17:33)
[2020-12-15] MEDS ORDERED: cefTRIAXone SODIUM 1 GM VIAL ONE (09:58)
[2020-12-15 09:59] LABS: PHOSPHOROUS 4.2 mg/dL (2.5-4.9)
[2020-12-15] MEDS ORDERED: DEXTROSE 5%-WATER - 50 ML IVPB ONE (09:59)
[2020-12-15 10:00] LABS: BILIRUBIN,TOTAL 0.3 mg/dL (0.2-1); TOT PROT 6.7 g/dl (6.4-8.2)
[2020-12-15] MEDS: LISINOPRIL 5 MG TABLET PO SCH (10:22)
[2020-12-15] MEDS: DOCUSATE SODIUM 100 MG CAPSULE (FP) PO SCH (10:22)
[2020-12-15] MEDS: CALCIUM ACETATE 667 MG CAPSULE (FP) PO SCH ×3 (10:22→18:01)
[2020-12-15] MEDS: amLODIPine BESYLATE 10 MG TABLET (FP) PO SCH (10:22)
[2020-12-15] MEDS: FUROSEMIDE 40 MG TABLET (FP) PO SCH (10:22)
[2020-12-15] MEDS: FERROUS SO4 325 MG TABLET (FP) PO SCH ×2 (10:22→18:01)
[2020-12-15] MEDS: ASPIRIN 81 MG CHEWABLE TABLETS PO SCH (10:22)
[2020-12-15] MEDS: PANTOPRAZOLE 40 MG TABLET PO SCH (10:22)
[2020-12-15 10:24] LABS: BASO % 0.8 % (0-2.0); EOS % 5.5 % (0-4.5); HEMATOCRIT 29.3 % (35.4-49); HEMOGLOBIN 9.2 GM/dL (11.7-16.9); LYMPH % 6.9 % (8-40); MCHC 31.5 g/dl (32.0-35.9); MEAN CELL VOLUME 76.3 fl (80-96); MEAN PLT VOLUME 9.7 fl (7.5-11.1); MONO % 8.7 % (3.8-10.2); NEUT % 78.1 % (42.8-82.8); PLATELET COUNT 358 K/MM3 (134-434); RBC 3.84 M/mm3 (4.00-5.60); RDW 18.8 % (11.9-15.9); WHITE BLOOD COUNT 9.8 K/mm3 (4.0-10.0)
[2020-12-15] MEDS: INSULIN (LEVEMIR) 100 UNITS/ML UNITS SQ SCH (10:24)
[2020-12-15] MEDS: CALCITRIOL 0.25 MCG CAPSULE (FP) PO SCH (10:27)
[2020-12-15] MEDS: CALCIUM CARBONATE 650 MG TABLET PO SCH (10:28)
[2020-12-15] MEDS: CEFTRIAXONE 1 GM in DEXTROSE 5%-WATER - 50 ML IVPB SCH (11:39)
[2020-12-15] MEDS: SODIUM ZIRCONIUM CYCLOSILICATE (LOKELMA) 5 GM PACKET PO SCH (12:31)
[2020-12-15 15:49] VITALS: BP 142/78; PULSE 73; TEMP 98.1
== END 2020-12-15 18:04 | disposition home or self-care (01) | DRG 193 ==
LOC: JER 09:19 → JERBED 12:38 → J5S 18:59 → UNDODISIN 12-15 15:03
DX: J18.1 Lobar pneumonia, unspecified organism (principal); I50.33 Acute on chronic diastolic (congestive) heart failure; N17.9 Acute kidney failure, unspecified; I13.0 Hypertensive heart and chronic kidney disease with heart failure and stage 1 through stage 4 chronic kidney disease, or unspecified chronic kidney disease; F11.20 Opioid dependence, uncomplicated; N18.4 Chronic kidney disease, stage 4 (severe); E78.5 Hyperlipidemia, unspecified; I25.10 Atherosclerotic heart disease of native coronary artery without angina pectoris; E03.9 Hypothyroidism, unspecified; J44.9 Chronic obstructive pulmonary disease, unspecified; B19.20 Unspecified viral hepatitis C without hepatic coma; I48.0 Paroxysmal atrial fibrillation; E11.65 Type 2 diabetes mellitus with hyperglycemia; N25.0 Renal osteodystrophy; E83.51 Hypocalcemia; E11.621 Type 2 diabetes mellitus with foot ulcer; F39 Unspecified mood [affective] disorder; D64.9 Anemia, unspecified; E87.70 Fluid overload, unspecified; E87.5 Hyperkalemia; E05.90 Thyrotoxicosis, unspecified without thyrotoxic crisis or storm; E11.22 Type 2 diabetes mellitus with diabetic chronic kidney disease; Z89.422 Acquired absence of other left toe(s); Z95.5 Presence of coronary angioplasty implant and graft; Z89.511 Acquired absence of right leg below knee
CPT/HCPCS: 36415; 71045-TC-FY; 80053; 82272; 82550; 82553; 82728; 82962; 83540; 83550; 83615; 83735; 83880; 84100; 84484; 85025; 85027; 85379; 86140; 87040; 87086; 87804; 93005; 93010; 94761; 97116-GP; 97161-GP; 99285-25; C9803; J1644; U0003

== ENCOUNTER 2021-05-01 14:08 | Inpatient (IN) | payer BC ==
[2021-05-01 18:29] LABS: BASO % 0.8 % (0-2.0); EOS % 3.5 % (0-4.5); HEMATOCRIT 27.2 % (35.4-49); HEMOGLOBIN 8.8 GM/dL (11.7-16.9); LYMPH % 5.8 % (8-40); MCHC 32.3 g/dl (32.0-35.9); MEAN CELL VOLUME 74.5 fl (80-96); MEAN PLT VOLUME 9.2 fl (7.5-11.1); MONO % 9.3 % (3.8-10.2); NEUT % 80.6 % (42.8-82.8); PLATELET COUNT 311 K/MM3 (134-434); RBC 3.65 M/mm3 (4.00-5.60); RDW 21.5 % (11.9-15.9); WHITE BLOOD COUNT 11.9 K/mm3 (4.0-10.0)
[2021-05-01 18:47] LABS: CHLORIDE 103 mmol/L (98-107); SODIUM 137 mmol/L (136-145)
[2021-05-01 18:49] LABS: CALCIUM 7.2 mg/dL (8.5-10.1)
[2021-05-01 18:50] LABS: ALBUMIN 3.3 g/dl (3.4-5.0); ANION GAP 17 MMOL/L (8-16); CO2 17 mmol/L (21-32); GLUCOSE,RANDOM 228 mg/dL (74-106)
[2021-05-01 18:53] LABS: CREATININE 7.1 mg/dL (0.55-1.3); SGOT/AST 12 U/L (15-37); SGPT/ALT 24 U/L (13-61)
[2021-05-01 18:55] LABS: BILIRUBIN,TOTAL 0.3 mg/dL (0.2-1); TOT PROT 7.9 g/dl (6.4-8.2)
[2021-05-01 18:56] LABS: ALK PHOS 68 U/L (45-117)
[2021-05-01 19:10] LABS: BLOOD UREA NITROGEN 144.3 mg/dL (7-18)
[2021-05-01 20:06] LABS: ANISOCYTOSIS 2+; MACROCYTOSIS 1+
[2021-05-01] MEDS: SODIUM ZIRCONIUM CYCLOSILICATE (LOKELMA) 5 GM PACKET PO SCH (20:32)
[2021-05-01 21:26] LABS: EPI CELLS 15 /uL (0-25.1); HYALINE CASTS 3 /uL (0-3.1); URINE APPEARANCE CLEAR; URINE BACTERIA 9 /uL (0-1359); URINE BILIRUBIN NEGATIVE (NEGATIVE); URINE COLOR YELLOW; URINE GLUCOSE (UA) TRACE (NEGATIVE); URINE KETONE NEGATIVE (NEGATIVE); URINE LEUK ESTERASE TRACE (NEGATIVE); URINE NITRITE NEGATIVE (NEGATIVE); URINE PROTEIN 3+ (NEGATIVE); URINE RBC 4 /uL (0-23.9); URINE UROBILINOGEN 0.2 mg/dL (0.2-1.0); URINE WBC 47 /uL (0-25.8)
[2021-05-01 21:46] LABS: MAGNESIUM 3.1 mg/dL (1.8-2.4)
[2021-05-01 22:07] LABS: PHOSPHOROUS 12.2 mg/dL (2.5-4.9)
[2021-05-01] MEDS ORDERED: SODIUM CHLORIDE 500 ML IV ONE (22:15)
[2021-05-01] MEDS ORDERED: SODIUM ZIRCONIUM CYCLOSILICATE (LOKELMA) 5 GM PACKET ONE (22:25)
[2021-05-01 23:28] LABS: YEAST NEGATIVE (NEGATIVE)
[2021-05-02 01:00] VITALS: BMI 35.6
[2021-05-02] MEDS: HEPARIN NA (PORCINE) 5,000 UNITS/ML 1ML VIAL SQ SCH ×3 (06:39→22:40)
[2021-05-02] MEDS: INSULIN SLIDING SCALE (NOVOLOG) 1 VIAL SQ SCH ×4 (06:39→23:13)
[2021-05-02] MEDS: LEVOTHYROXINE NA 75 MCG TABLET (FP) PO SCH (06:41)
[2021-05-02] MEDS ORDERED: PT OWN MED DRAWER 7, Y5N ONE (09:07)
[2021-05-02] MEDS: ASPIRIN 81 MG CHEWABLE TABLETS PO SCH (09:42)
[2021-05-02] MEDS: amLODIPine BESYLATE 10 MG TABLET (FP) PO SCH (09:42)
[2021-05-02] MEDS: CALCIUM ACETATE 667 MG CAPSULE (FP) PO SCH ×3 (09:43→17:53)
[2021-05-02] MEDS: FERROUS SO4 325 MG TABLET (FP) PO SCH ×2 (09:43→17:50)
[2021-05-02] MEDS ORDERED: CALCITRIOL 0.25 MCG CAPSULE (FP) PO SCH (10:00)
[2021-05-02] MEDS: POLYETHYLENE GLYCOL 3350 119 GM BTL PO SCH (12:27)
[2021-05-02] MEDS: SODIUM ZIRCONIUM CYCLOSILICATE (LOKELMA) 5 GM PACKET PO SCH (12:28)
[2021-05-02] MEDS ORDERED: METHADONE (DETOX) 20 MG, METHADONE (DETOX) 5 MG PO ONE (12:36)
[2021-05-02] MEDS ORDERED: SODIUM CHLORIDE 1,000 ML IV SCH (12:45)
[2021-05-02] MEDS ORDERED: METHADONE 20 MG, METHADONE 5 MG PO ONE (12:45)
[2021-05-02] MEDS ORDERED: METHADONE HCL 5 MG TABLET ONE ×2 (12:49→15:10)
[2021-05-02] MEDS ORDERED: METHADONE HCL 10 MG TABLET ONE (12:50)
[2021-05-02 13:00] LABS: BASO % 1.1 % (0-2.0); HEMATOCRIT 26.7 % (35.4-49); HEMOGLOBIN 8.8 GM/dL (11.7-16.9); LYMPH % 4.5 % (8-40); MCH 24.4 pg (25.7-33.7); MCHC 32.8 g/dl (32.0-35.9); MEAN CELL VOLUME 74.4 fl (80-96); MEAN PLT VOLUME 9.4 fl (7.5-11.1); MONO % 8.2 % (3.8-10.2); NEUT % 82.2 % (42.8-82.8); PLATELET COUNT 285 K/MM3 (134-434); RBC 3.59 M/mm3 (4.00-5.60); RDW 21.8 % (11.9-15.9); WHITE BLOOD COUNT 10.5 K/mm3 (4.0-10.0)
[2021-05-02 13:17] LABS: CHLORIDE 105 mmol/L (98-107); SODIUM 140 mmol/L (136-145)
[2021-05-02 13:19] LABS: CALCIUM 7.2 mg/dL (8.5-10.1)
[2021-05-02 13:20] LABS: ALBUMIN 3.1 g/dl (3.4-5.0); ANION GAP 18 MMOL/L (8-16); CO2 17 mmol/L (21-32); GLUCOSE,RANDOM 189 mg/dL (74-106)
[2021-05-02 13:23] LABS: CREATININE 6.9 mg/dL (0.55-1.3); SGOT/AST 14 U/L (15-37); SGPT/ALT 20 U/L (13-61)
[2021-05-02 13:24] LABS: BILIRUBIN,TOTAL 0.3 mg/dL (0.2-1); TOT PROT 7.6 g/dl (6.4-8.2)
[2021-05-02 13:26] LABS: ALK PHOS 67 U/L (45-117)
[2021-05-02 13:59] LABS: BLOOD UREA NITROGEN 148.6 mg/dL (7-18); PHOSPHOROUS 11.7 mg/dL (2.5-4.9)
[2021-05-02] MEDS ORDERED: METHADONE HCL 10 MG TABLET (FOR DETOX USE ONLY) PO ONE (14:41)
[2021-05-02] MEDS ORDERED: METHADONE 80 MG, METHADONE 5 MG PO ONE (14:45)
[2021-05-02] MEDS ORDERED: METHADONE HCL 40 MG DISPERSABLE TABLET ONE (15:11)
[2021-05-02] MEDS: ATORVASTATIN CA 20 MG TABLET (FP) PO SCH (22:40)
[2021-05-02] MEDS: INSULIN (LEVEMIR) 100 UNITS/ML UNITS SQ SCH (22:41)
[2021-05-03] MEDS: LEVOTHYROXINE NA 75 MCG TABLET (FP) PO SCH (06:24)
[2021-05-03] MEDS: INSULIN SLIDING SCALE (NOVOLOG) 1 VIAL SQ SCH ×4 (06:25→22:30)
[2021-05-03] MEDS: HEPARIN NA (PORCINE) 5,000 UNITS/ML 1ML VIAL SQ SCH ×3 (06:25→22:30)
[2021-05-03] MEDS: INSULIN (LEVEMIR) 100 UNITS/ML UNITS SQ SCH ×2 (06:25→22:30)
[2021-05-03] MEDS ORDERED: METHADONE HCL 10 MG TABLET (FOR DETOX USE ONLY) PO ONE (07:54)
[2021-05-03 08:06] LABS: BASO % 1.3 % (0-2.0); EOS % 3.7 % (0-4.5); HEMATOCRIT 28.1 % (35.4-49); HEMOGLOBIN 8.9 GM/dL (11.7-16.9); LYMPH % 5.5 % (8-40); MCH 24.3 pg (25.7-33.7); MCHC 31.8 g/dl (32.0-35.9); MEAN CELL VOLUME 76.3 fl (80-96); MEAN PLT VOLUME 9.7 fl (7.5-11.1); MONO % 9.1 % (3.8-10.2); NEUT % 80.4 % (42.8-82.8); PLATELET COUNT 296 K/MM3 (134-434); RBC 3.69 M/mm3 (4.00-5.60); RDW 21.4 % (11.9-15.9); WHITE BLOOD COUNT 10.4 K/mm3 (4.0-10.0)
[2021-05-03 08:28] LABS: CHLORIDE 108 mmol/L (98-107); SODIUM 141 mmol/L (136-145)
[2021-05-03 08:30] LABS: ANION GAP 17 MMOL/L (8-16); CALCIUM 7.1 mg/dL (8.5-10.1); CO2 16 mmol/L (21-32)
[2021-05-03 08:31] LABS: GLUCOSE,RANDOM 115 mg/dL (74-106)
[2021-05-03 08:33] LABS: SGPT/ALT 17 U/L (13-61)
[2021-05-03 08:34] LABS: CREATININE 7.1 mg/dL (0.55-1.3); MAGNESIUM 2.9 mg/dL (1.8-2.4); SGOT/AST 12 U/L (15-37)
[2021-05-03 08:35] LABS: BILIRUBIN,TOTAL 0.3 mg/dL (0.2-1); TOT PROT 7.3 g/dl (6.4-8.2)
[2021-05-03 08:36] LABS: ALK PHOS 62 U/L (45-117); IRON SERUM 26 ug/dL (50-175)
[2021-05-03 08:38] LABS: TOTAL IRON BINDING CAPACITY 102 ug/dL (250-450)
[2021-05-03 08:39] LABS: BLOOD UREA NITROGEN 138.4 mg/dL (7-18)
[2021-05-03] MEDS ORDERED: METHADONE HCL 10 MG TABLET ONE (09:01)
[2021-05-03] MEDS ORDERED: METHADONE HCL 40 MG DISPERSABLE TABLET ONE (09:01)
[2021-05-03] MEDS ORDERED: PT OWN MED DRAWER 7, Y5N ONE (09:03)
[2021-05-03] MEDS: CALCIUM ACETATE 667 MG CAPSULE (FP) PO SCH ×3 (09:08→17:37)
[2021-05-03] MEDS: ASPIRIN 81 MG CHEWABLE TABLETS PO SCH (09:08)
[2021-05-03] MEDS: METHADONE 80 MG, METHADONE 30 MG PO SCH (09:08)
[2021-05-03] MEDS: FERROUS SO4 325 MG TABLET (FP) PO SCH ×2 (09:08→17:38)
[2021-05-03] MEDS: POLYETHYLENE GLYCOL 3350 119 GM BTL PO SCH (09:09)
[2021-05-03] MEDS: SODIUM ZIRCONIUM CYCLOSILICATE (LOKELMA) 5 GM PACKET PO SCH (09:09)
[2021-05-03] MEDS: CALCITRIOL 0.25 MCG CAPSULE (FP) PO SCH (09:09)
[2021-05-03] MEDS: amLODIPine BESYLATE 10 MG TABLET (FP) PO SCH (09:09)
[2021-05-03 09:20] LABS: PHOSPHOROUS 11.6 mg/dL (2.5-4.9)
[2021-05-03] MEDS ORDERED: LACTULOSE 20 GM/30 ML UDC (FOR ORAL USE ONLY) PO PRN (13:24)
[2021-05-03] MEDS ORDERED: SODIUM CHLORIDE 1,000 ML IV SCH ×2 (13:30→14:09)
[2021-05-03] MEDS: ATORVASTATIN CA 20 MG TABLET (FP) PO SCH (22:30)
[2021-05-04] MEDS ORDERED: METHADONE HCL 40 MG DISPERSABLE TABLET ONE (05:49)
[2021-05-04] MEDS ORDERED: METHADONE HCL 10 MG TABLET ONE (05:49)
[2021-05-04] MEDS: METHADONE 80 MG, METHADONE 30 MG PO SCH (06:01)
[2021-05-04] MEDS: INSULIN SLIDING SCALE (NOVOLOG) 1 VIAL SQ SCH ×4 (06:02→21:20)
[2021-05-04] MEDS: HEPARIN NA (PORCINE) 5,000 UNITS/ML 1ML VIAL SQ SCH ×3 (06:02→21:15)
[2021-05-04] MEDS: INSULIN (LEVEMIR) 100 UNITS/ML UNITS SQ SCH ×2 (06:02→22:14)
[2021-05-04] MEDS: LEVOTHYROXINE NA 75 MCG TABLET (FP) PO SCH (06:11)
[2021-05-04 07:43] LABS: CHLORIDE 110 mmol/L (98-107); SODIUM 141 mmol/L (136-145)
[2021-05-04 07:47] LABS: ALBUMIN 2.9 g/dl (3.4-5.0); ANION GAP 14 MMOL/L (8-16); CALCIUM 7.1 mg/dL (8.5-10.1); CO2 17 mmol/L (21-32); GLUCOSE,RANDOM 154 mg/dL (74-106); MAGNESIUM 2.7 mg/dL (1.8-2.4)
[2021-05-04 07:49] LABS: BASO % 0.9 % (0-2.0); EOS % 3.8 % (0-4.5); HEMATOCRIT 26.8 % (35.4-49); HEMOGLOBIN 8.5 GM/dL (11.7-16.9); LYMPH % 6.7 % (8-40); MCH 24.3 pg (25.7-33.7); MCHC 31.9 g/dl (32.0-35.9); MEAN PLT VOLUME 9.6 fl (7.5-11.1); MONO % 8.1 % (3.8-10.2); NEUT % 80.5 % (42.8-82.8); PLATELET COUNT 274 K/MM3 (134-434); RBC 3.52 M/mm3 (4.00-5.60); RDW 21.9 % (11.9-15.9); WHITE BLOOD COUNT 8.9 K/mm3 (4.0-10.0)
[2021-05-04 07:50] LABS: CREATININE 6.8 mg/dL (0.55-1.3); SGOT/AST 13 U/L (15-37); SGPT/ALT 16 U/L (13-61)
[2021-05-04 07:52] LABS: BILIRUBIN,TOTAL 0.4 mg/dL (0.2-1)
[2021-05-04 07:53] LABS: ALK PHOS 59 U/L (45-117)
[2021-05-04 08:01] LABS: BLOOD UREA NITROGEN 133.3 mg/dL (7-18)
[2021-05-04 08:37] LABS: PHOSPHOROUS 10.8 mg/dL (2.5-4.9)
[2021-05-04] MEDS: FERROUS SO4 325 MG TABLET (FP) PO SCH ×2 (08:57→16:36)
[2021-05-04] MEDS: CALCIUM ACETATE 667 MG CAPSULE (FP) PO SCH ×3 (08:57→16:36)
[2021-05-04] MEDS: amLODIPine BESYLATE 10 MG TABLET (FP) PO SCH (08:59)
[2021-05-04] MEDS: ASPIRIN 81 MG CHEWABLE TABLETS PO SCH (08:59)
[2021-05-04] MEDS: CALCITRIOL 0.25 MCG CAPSULE (FP) PO SCH (08:59)
[2021-05-04] MEDS: SODIUM ZIRCONIUM CYCLOSILICATE (LOKELMA) 5 GM PACKET PO SCH (09:01)
[2021-05-04] MEDS: MINERAL OIL/PET HY-PHL TOPICAL OINTMENT 454 GM JAR TP SCH (09:17)
[2021-05-04] MEDS: POLYETHYLENE GLYCOL 3350 119 GM BTL PO SCH (10:17)
[2021-05-04] MEDS ORDERED: CALCITRIOL 0.25 MCG CAPSULE (FP) PO SCH (11:24)
[2021-05-04] MEDS ORDERED: SODIUM CHLORIDE 250 ML IV PRN (11:39)
[2021-05-04] MEDS ORDERED: INSULIN (NOVOLOG) ASPART 100 UNITS/ML 10ML VIAL ONE (19:55)
[2021-05-04] MEDS: ATORVASTATIN CA 20 MG TABLET (FP) PO SCH (21:16)
[2021-05-05] MEDS ORDERED: METHADONE HCL 10 MG TABLET ONE (05:22)
[2021-05-05] MEDS ORDERED: METHADONE HCL 40 MG DISPERSABLE TABLET ONE (05:22)
[2021-05-05] MEDS: METHADONE 80 MG, METHADONE 30 MG PO SCH (05:45)
[2021-05-05] MEDS: HEPARIN NA (PORCINE) 5,000 UNITS/ML 1ML VIAL SQ SCH ×3 (05:46→21:23)
[2021-05-05] MEDS: LEVOTHYROXINE NA 75 MCG TABLET (FP) PO SCH (06:05)
[2021-05-05] MEDS: INSULIN (LEVEMIR) 100 UNITS/ML UNITS SQ SCH ×2 (06:45→21:30)
[2021-05-05] MEDS: INSULIN SLIDING SCALE (NOVOLOG) 1 VIAL SQ SCH ×4 (06:45→21:29)
[2021-05-05] MEDS ORDERED: HEPARIN NA (PORCINE) 5,000 UNITS/ML 1ML VIAL ONE (07:09)
[2021-05-05] MEDS ORDERED: LIDOCAINE HCL 1%, 10 MG/ML (20ML VIAL) ONE (07:09)
[2021-05-05] MEDS ORDERED: IRON SUCROSE INJECTION 100 MG in SODIUM CHLORIDE 95 ML IVPB ONE ×2 (08:00→14:00)
[2021-05-05] MEDS ORDERED: EPOETIN ALFA-EPBX 10,000 UNIT/ML VIAL IVPUSH ONE ×2 (08:00→13:15)
[2021-05-05] MEDS: FERROUS SO4 325 MG TABLET (FP) PO SCH ×2 (08:56→17:09)
[2021-05-05] MEDS: CALCIUM ACETATE 667 MG CAPSULE (FP) PO SCH ×3 (08:56→17:09)
[2021-05-05] MEDS ORDERED: MIDAZOLAM HCL 2 MG/2 ML SINGLE DOSE VIAL ONE ×2 (09:17)
[2021-05-05] MEDS ORDERED: ONDANSETRON 4 MG/2 ML VIAL IVPUSH PRN ×2 (09:30→10:33)
[2021-05-05] MEDS ORDERED: ceFAZolin SODIUM 1 GM VIAL IVPB ONE (09:35)
[2021-05-05] MEDS ORDERED: LIDOCAINE HCL 1%, 10 MG/ML (20ML VIAL) PNB ONE (09:48)
[2021-05-05] MEDS ORDERED: SODIUM CHLORIDE 250 ML IV PRN ×2 (10:33→17:20)
[2021-05-05] MEDS ORDERED: LACTULOSE 20 GM/30 ML UDC (FOR ORAL USE ONLY) PO PRN (10:33)
[2021-05-05] MEDS: ASPIRIN 81 MG CHEWABLE TABLETS PO SCH (12:27)
[2021-05-05] MEDS: MINERAL OIL/PET HY-PHL TOPICAL OINTMENT 454 GM JAR TP SCH ×2 (12:27→12:44)
[2021-05-05] MEDS: POLYETHYLENE GLYCOL 3350 119 GM BTL PO SCH ×2 (12:28→12:45)
[2021-05-05] MEDS: amLODIPine BESYLATE 10 MG TABLET (FP) PO SCH ×2 (12:28→12:46)
[2021-05-05] MEDS: SODIUM ZIRCONIUM CYCLOSILICATE (LOKELMA) 5 GM PACKET PO SCH ×2 (12:28→12:45)
[2021-05-05] MEDS ORDERED: ACETAMINOPHEN 325 MG TABLET (FP) PO PRN (12:40)
[2021-05-05 15:28] LABS: HEMOGLOBIN 8.1 GM/dL (11.7-16.9); MCH 23.8 pg (25.7-33.7); MCHC 31.2 g/dl (32.0-35.9); MEAN CELL VOLUME 76.2 fl (80-96); MEAN PLT VOLUME 9.6 fl (7.5-11.1); PLATELET COUNT 265 10^3/uL (134-434); RBC 3.41 M/mm3 (4.00-5.60); RDW 21.5 % (11.9-15.9); WHITE BLOOD COUNT 8.3 K/mm3 (4.0-10.0)
[2021-05-05 15:47] LABS: CHLORIDE 112 mmol/L (98-107); SODIUM 145 mmol/L (136-145)
[2021-05-05 15:48] LABS: CALCIUM 7.3 mg/dL (8.5-10.1)
[2021-05-05 15:49] LABS: ANION GAP 15 MMOL/L (8-16); CO2 18 mmol/L (21-32); GLUCOSE,RANDOM 121 mg/dL (74-106)
[2021-05-05 15:52] LABS: CREATININE 6.6 mg/dL (0.55-1.3)
[2021-05-05 16:08] LABS: BLOOD UREA NITROGEN 123.6 mg/dL (7-18); PHOSPHOROUS 9.5 mg/dL (2.5-4.9)
[2021-05-05] MEDS ORDERED: INSULIN (NOVOLOG) ASPART 100 UNITS/ML 10ML VIAL ONE (20:06)
[2021-05-05] MEDS ORDERED: ATORVASTATIN CA 20 MG TABLET (FP) PO SCH (22:00)
[2021-05-06] MEDS ORDERED: METHADONE HCL 40 MG DISPERSABLE TABLET ONE (05:21)
[2021-05-06] MEDS ORDERED: METHADONE HCL 10 MG TABLET ONE (05:21)
[2021-05-06] MEDS: HEPARIN NA (PORCINE) 5,000 UNITS/ML 1ML VIAL SQ SCH ×2 (05:45→13:01)
[2021-05-06] MEDS ORDERED: METHADONE 80 MG, METHADONE 30 MG PO SCH (06:00)
[2021-05-06] MEDS: INSULIN SLIDING SCALE (NOVOLOG) 1 VIAL SQ SCH ×2 (06:10→11:10)
[2021-05-06] MEDS: INSULIN (LEVEMIR) 100 UNITS/ML UNITS SQ SCH (06:10)
[2021-05-06] MEDS ORDERED: LEVOTHYROXINE NA 75 MCG TABLET (FP) PO SCH (07:00)
[2021-05-06 07:48] LABS: HEMOGLOBIN 9.1 GM/dL (11.7-16.9); MCH 24.4 pg (25.7-33.7); MCHC 32.5 g/dl (32.0-35.9); MEAN CELL VOLUME 75.2 fl (80-96); MEAN PLT VOLUME 9.3 fl (7.5-11.1); PLATELET COUNT 278 10^3/uL (134-434); RBC 3.72 M/mm3 (4.00-5.60); RDW 21.8 % (11.9-15.9); WHITE BLOOD COUNT 9.9 K/mm3 (4.0-10.0)
[2021-05-06 07:59] LABS: CALCIUM 7.4 mg/dL (8.5-10.1)
[2021-05-06 08:00] LABS: MAGNESIUM 2.3 mg/dL (1.8-2.4)
[2021-05-06 08:03] LABS: PHOSPHOROUS 7.1 mg/dL (2.5-4.9)
[2021-05-06 08:04] LABS: CREATININE 4.9 mg/dL (0.55-1.3)
[2021-05-06 08:29] LABS: BLOOD UREA NITROGEN 82.8 mg/dL (7-18)
[2021-05-06] MEDS ORDERED: ASPIRIN 81 MG CHEWABLE TABLETS PO SCH (10:00)
[2021-05-06] MEDS ORDERED: CALCITRIOL 0.25 MCG CAPSULE (FP) PO SCH (10:00)
[2021-05-06] MEDS ORDERED: PT OWN MED DRAWER 7, Y5N ONE (10:03)
[2021-05-06] MEDS: FERROUS SO4 325 MG TABLET (FP) PO SCH (10:08)
[2021-05-06] MEDS: SODIUM ZIRCONIUM CYCLOSILICATE (LOKELMA) 5 GM PACKET PO SCH (10:08)
[2021-05-06] MEDS: CALCIUM ACETATE 667 MG CAPSULE (FP) PO SCH ×2 (10:08→11:26)
[2021-05-06] MEDS: amLODIPine BESYLATE 10 MG TABLET (FP) PO SCH (10:08)
[2021-05-06] MEDS: MINERAL OIL/PET HY-PHL TOPICAL OINTMENT 454 GM JAR TP SCH (10:09)
[2021-05-06] MEDS: POLYETHYLENE GLYCOL 3350 119 GM BTL PO SCH (10:09)
[2021-05-06 15:06] VITALS: BP 160/76; PULSE 85; TEMP 97.7
== END 2021-05-06 16:00 | disposition home health service (06) | DRG 917 ==
LOC: JER 14:08 → JERBED 20:41 → J7W 05-02 00:24
PROVIDERS: ADMIT Hospitalist; ATTEND Internal Medicine
PROC: 05HM33Z Insertion of Infusion Device into Right Internal Jugular Vein, Percutaneous Approach (ICD-10-PCS; 2021-05-05)
PROC: B513ZZA Fluoroscopy of Right Jugular Veins, Guidance (ICD-10-PCS; 2021-05-05)
PROC: 0JH63XZ Insertion of Tunneled Vascular Access Device into Chest Subcutaneous Tissue and Fascia, Percutaneous Approach (ICD-10-PCS; principal; 2021-05-05 09:00)
DX: T57.1X1A Toxic effect of phosphorus and its compounds, accidental (unintentional), initial encounter (principal); N18.6 End stage renal disease; N17.9 Acute kidney failure, unspecified; J98.11 Atelectasis; J90 Pleural effusion, not elsewhere classified; I12.0 Hypertensive chronic kidney disease with stage 5 chronic kidney disease or end stage renal disease; N14.1 Nephropathy induced by other drugs, medicaments and biological substances; I25.10 Atherosclerotic heart disease of native coronary artery without angina pectoris; E03.9 Hypothyroidism, unspecified; K59.03 Drug induced constipation; T40.2X5A Adverse effect of other opioids, initial encounter; E11.22 Type 2 diabetes mellitus with diabetic chronic kidney disease; N18.9 Chronic kidney disease, unspecified; E87.5 Hyperkalemia; E83.39 Other disorders of phosphorus metabolism; D64.9 Anemia, unspecified; E78.5 Hyperlipidemia, unspecified; Z89.512 Acquired absence of left leg below knee; Z89.422 Acquired absence of other left toe(s)
CPT/HCPCS: 36415; 71045-TC-FY; 71250-TC; 76000-TC-FY; 76775-TC; 76870-TC; 80048; 80053; 80074; 81003; 82436; 82550; 82570; 82728; 82962; 83540; 83550; 83735; 83880; 84100; 84133; 84300; 84484; 84540; 85025; 85027; 86160; 93005; 93010; 94760; 97116-GP; 97161-GP; 99285-25; C9803; J1644; J1756; Q5106; U0003; U0005

== ENCOUNTER 2021-06-11 18:14 | Inpatient (IN) | payer BC ==
[2021-06-11] MEDS ORDERED: VANCOMYCIN 1 GM in D5W (PRE-DOCKED) 1,000 MG/250 ML IVPB ONE (19:36)
[2021-06-11] MEDS ORDERED: ACETAMINOPHEN 1000 MG/100 ML VIAL (NON FORMULARY) IVPB ONE (19:38)
[2021-06-11] MEDS ORDERED: ACETAMINOPHEN INJECTION 100 ML IVPB ONE (19:57)
[2021-06-11] MEDS ORDERED: PIPERACILLIN/TAZOB 2.25 GM 2.25 GM in DEXTROSE 5%-WATER - 50 ML IVPB ONE (19:57)
[2021-06-11] MEDS ORDERED: VANCOMYCIN 1 GRAM (PRE-DOCKED) 1,000 MG/250 ML BAG IVPB ONE (19:58)
[2021-06-11] MEDS ORDERED: PIPERACILLIN/TAZOB 2.25 GM 2.25 GM/50 ML BAG IVPB ONE (19:58)
[2021-06-11 20:50] LABS: VENOUS BASE EXCESS -1.3 mmol/L (-2-2); VENOUS O2 SATURATION 77.5 % (70-80); VENOUS PCO2 42.3 mmHg (38-52); VENOUS PH 7.368 (7.310-7.410)
[2021-06-11 20:52] LABS: BASO % 0.4 % (0-2.0); HEMATOCRIT 26.9 % (35.4-49); HEMOGLOBIN 8.3 GM/dL (11.7-16.9); MCH 24.1 pg (25.7-33.7); MCHC 30.9 g/dl (32.0-35.9); MEAN CELL VOLUME 77.9 fl (80-96); MEAN PLT VOLUME 8.8 fl (7.5-11.1); MONO % 9.7 % (3.8-10.2); NEUT % 85.9 % (42.8-82.8); PLATELET COUNT 342 10^3/uL (134-434); RBC 3.45 M/mm3 (4.00-5.60); RDW 19.9 % (11.9-15.9); WHITE BLOOD COUNT 15.2 K/mm3 (4.0-10.0)
[2021-06-11 21:11] LABS: CHLORIDE 96 mmol/L (98-107); SODIUM 131 mmol/L (136-145)
[2021-06-11 21:13] LABS: CALCIUM 7.7 mg/dL (8.5-10.1)
[2021-06-11 21:14] LABS: ALBUMIN 2.4 g/dl (3.4-5.0); ANION GAP 11 MMOL/L (8-16); BLOOD UREA NITROGEN 26.9 mg/dL (7-18); CO2 23 mmol/L (21-32)
[2021-06-11 21:17] LABS: SGOT/AST 8 U/L (15-37); SGPT/ALT 9 U/L (13-61)
[2021-06-11 21:19] LABS: BILIRUBIN,TOTAL 0.4 mg/dL (0.2-1); TOT PROT 6.6 g/dl (6.4-8.2)
[2021-06-11 21:21] LABS: ALK PHOS 59 U/L (45-117); GLUCOSE,RANDOM 452 mg/dL (74-106)
[2021-06-11] MEDS ORDERED: INSULIN (NOVOLOG) ASPART 100 UNITS/ML 10ML VIAL SQ ONE (22:35)
[2021-06-12] MEDS ORDERED: PIPERACILLIN/TAZOB 2.25 GM 2.25 GM in DEXTROSE 5%-WATER - 50 ML IVPB SCH (02:00)
[2021-06-12] MEDS ORDERED: PIPERACILLIN/TAZOB 2.25 GM 2.25 GM/50 ML BAG IVPB ONE (03:05)
[2021-06-12] MEDS: PIPERACILLIN/TAZOB 2.25 GM 2.25 GM in DEXTROSE 5%-WATER - 50 ML IVPB SCH ×4 (03:26→18:49)
[2021-06-12 04:42] VITALS: BMI 33.4
[2021-06-12] MEDS: INSULIN SLIDING SCALE (NOVOLOG) 1 VIAL SQ SCH ×4 (05:59→21:22)
[2021-06-12] MEDS: LEVOTHYROXINE NA 75 MCG TABLET (FP) PO SCH (06:01)
[2021-06-12] MEDS ORDERED: Insulin (LOG) Aspart 100 UNITS/ML VIAL SQ SCH (07:00)
[2021-06-12] MEDS ORDERED: methaDONE HCL 10 MG TABLET (FOR DETOX USE ONLY) PO ONE (09:35)
[2021-06-12] MEDS ORDERED: DEXTROSE 5%-WATER - 50 ML IVPB ONE (10:16)
[2021-06-12] MEDS ORDERED: PIPERACILLIN/TAZOBACTAM 2.25 GM VIAL IVPB ONE (10:16)
[2021-06-12] MEDS ORDERED: methaDONE HCL 40 MG DISPERSABLE TABLET ONE (10:17)
[2021-06-12] MEDS ORDERED: methaDONE HCL 10 MG TABLET ONE (10:17)
[2021-06-12] MEDS: FUROSEMIDE 40 MG TABLET (FP) PO SCH (10:21)
[2021-06-12] MEDS: CALCITRIOL 0.25 MCG CAPSULE (FP) PO SCH ×2 (10:22→21:28)
[2021-06-12] MEDS: amLODIPine BESYLATE 10 MG TABLET (FP) PO SCH (10:22)
[2021-06-12 12:28] LABS: BASO % 0.4 % (0-2.0); EOS % 0.7 % (0-4.5); HEMATOCRIT 30.4 % (35.4-49); HEMOGLOBIN 9.5 GM/dL (11.7-16.9); LYMPH % 2.2 % (8-40); MCHC 31.2 g/dl (32.0-35.9); MEAN CELL VOLUME 76.9 fl (80-96); MEAN PLT VOLUME 8.4 fl (7.5-11.1); MONO % 6.3 % (3.8-10.2); NEUT % 90.4 % (42.8-82.8); PLATELET COUNT 361 10^3/uL (134-434); RBC 3.96 M/mm3 (4.00-5.60); RDW 19.3 % (11.9-15.9); WHITE BLOOD COUNT 15.8 K/mm3 (4.0-10.0)
[2021-06-12] MEDS ORDERED: EPOETIN ALFA-EPBX 10,000 UNIT/ML VIAL SQ ONE (12:34)
[2021-06-12 12:39] LABS: INR 1.26 (0.83-1.09); PROTHROMBIN TIME (PATIENT) 15.1 SEC (9.7-13.0)
[2021-06-12 12:42] LABS: ACTIVATED PTT 27.4 SECONDS (25.2-36.5)
[2021-06-12 12:50] LABS: ALBUMIN 2.4 g/dl (3.4-5.0); BLOOD UREA NITROGEN 32.4 mg/dL (7-18); CALCIUM 7.7 mg/dL (8.5-10.1); MAGNESIUM 1.8 mg/dL (1.8-2.4)
[2021-06-12 12:53] LABS: CREATININE 3.2 mg/dL (0.55-1.3)
[2021-06-12 12:54] LABS: PHOSPHOROUS 4.7 mg/dL (2.5-4.9)
[2021-06-12 12:55] LABS: BILIRUBIN,TOTAL 0.4 mg/dL (0.2-1); TOT PROT 6.6 g/dl (6.4-8.2)
[2021-06-12] MEDS ORDERED: SODIUM CHLORIDE 250 ML IV PRN (16:52)
[2021-06-12] MEDS ORDERED: EPOETIN ALFA-EPBX 10,000 UNIT, EPOETIN ALFA-EPBX 2,000 UNIT IVPUSH ONE (17:00)
[2021-06-12] MEDS: COLLAGENASE CLOSTRIDIUM HIST. 30 GRAMS TUBE TP SCH (20:18)
[2021-06-12] MEDS ORDERED: VANCOMYCIN 1 GM in D5W (PRE-DOCKED) 1,000 MG/250 ML IVPB ONE (21:00)
[2021-06-12] MEDS ORDERED: PT OWN MED DRAWER 7, Y5N ONE (21:25)
[2021-06-12] MEDS: ATORVASTATIN CA 20 MG TABLET (FP) PO SCH (21:28)
[2021-06-13] MEDS ORDERED: PIPERACILLIN/TAZOBACTAM 2.25 GM VIAL IVPB ONE ×3 (01:08→16:57)
[2021-06-13] MEDS ORDERED: DEXTROSE 5%-WATER - 50 ML IVPB ONE ×3 (01:08→16:58)
[2021-06-13] MEDS: PIPERACILLIN/TAZOB 2.25 GM 2.25 GM in DEXTROSE 5%-WATER - 50 ML IVPB SCH ×3 (01:14→17:23)
[2021-06-13] MEDS ORDERED: PIPERACILLIN/TAZOB 2.25 GM 2.25 GM in DEXTROSE 5%-WATER - 50 ML IVPB SCH (03:00)
[2021-06-13] MEDS ORDERED: methaDONE HCL 10 MG TABLET ONE (06:06)
[2021-06-13] MEDS ORDERED: methaDONE HCL 40 MG DISPERSABLE TABLET ONE (06:06)
[2021-06-13] MEDS: INSULIN SLIDING SCALE (NOVOLOG) 1 VIAL SQ SCH ×4 (06:08→21:30)
[2021-06-13] MEDS: LEVOTHYROXINE NA 75 MCG TABLET (FP) PO SCH (06:08)
[2021-06-13] MEDS ORDERED: methaDONE HCL 10 MG TABLET (FOR DETOX USE ONLY) PO SCH (07:00)
[2021-06-13] MEDS: INSULIN (LEVEMIR) 100 UNITS/ML UNITS SQ SCH (08:44)
[2021-06-13] MEDS: FUROSEMIDE 40 MG TABLET (FP) PO SCH (10:48)
[2021-06-13] MEDS: COLLAGENASE CLOSTRIDIUM HIST. 30 GRAMS TUBE TP SCH (10:49)
[2021-06-13] MEDS: CALCITRIOL 0.25 MCG CAPSULE (FP) PO SCH ×2 (10:49→21:27)
[2021-06-13] MEDS: amLODIPine BESYLATE 10 MG TABLET (FP) PO SCH (10:49)
[2021-06-13 16:04] LABS: BASO % 0.9 % (0-2.0); EOS % 2.9 % (0-4.5); HEMATOCRIT 27.2 % (35.4-49); HEMOGLOBIN 8.6 GM/dL (11.7-16.9); LYMPH % 7.3 % (8-40); MCH 24.3 pg (25.7-33.7); MCHC 31.6 g/dl (32.0-35.9); MEAN CELL VOLUME 77.1 fl (80-96); MEAN PLT VOLUME 8.4 fl (7.5-11.1); MONO % 11.9 % (3.8-10.2); PLATELET COUNT 325 10^3/uL (134-434); RBC 3.53 M/mm3 (4.00-5.60); RDW 19.8 % (11.9-15.9); WHITE BLOOD COUNT 9.9 K/mm3 (4.0-10.0)
[2021-06-13 16:17] LABS: CALCIUM 7.6 mg/dL (8.5-10.1)
[2021-06-13 16:18] LABS: ALBUMIN 2.1 g/dl (3.4-5.0); BLOOD UREA NITROGEN 27.8 mg/dL (7-18)
[2021-06-13 16:21] LABS: CREATININE 3.4 mg/dL (0.55-1.3)
[2021-06-13 16:23] LABS: BILIRUBIN,TOTAL 0.5 mg/dL (0.2-1); TOT PROT 6.1 g/dl (6.4-8.2)
[2021-06-13] MEDS ORDERED: PT OWN MED DRAWER 7, Y5N ONE (21:24)
[2021-06-13] MEDS: HEPARIN NA (PORCINE) 5,000 UNITS/ML 1ML VIAL SQ SCH (21:27)
[2021-06-13] MEDS: ATORVASTATIN CA 20 MG TABLET (FP) PO SCH (21:27)
[2021-06-14] MEDS ORDERED: DEXTROSE 5%-WATER - 50 ML IVPB ONE ×2 (01:42→10:19)
[2021-06-14] MEDS ORDERED: PIPERACILLIN/TAZOBACTAM 2.25 GM VIAL IVPB ONE ×3 (01:42→17:34)
[2021-06-14] MEDS: PIPERACILLIN/TAZOB 2.25 GM 2.25 GM in DEXTROSE 5%-WATER - 50 ML IVPB SCH ×3 (01:46→17:46)
[2021-06-14] MEDS ORDERED: methaDONE HCL 10 MG TABLET ONE (05:57)
[2021-06-14] MEDS ORDERED: methaDONE HCL 40 MG DISPERSABLE TABLET ONE (05:57)
[2021-06-14] MEDS: HEPARIN NA (PORCINE) 5,000 UNITS/ML 1ML VIAL SQ SCH ×3 (06:19→21:22)
[2021-06-14] MEDS: LEVOTHYROXINE NA 75 MCG TABLET (FP) PO SCH (06:19)
[2021-06-14] MEDS: INSULIN SLIDING SCALE (NOVOLOG) 1 VIAL SQ SCH ×4 (06:19→21:30)
[2021-06-14] MEDS: INSULIN (LEVEMIR) 100 UNITS/ML UNITS SQ SCH (07:40)
[2021-06-14 10:09] LABS: HEMATOCRIT 28.9 % (35.4-49); HEMOGLOBIN 9.2 GM/dL (11.7-16.9); MCH 24.1 pg (25.7-33.7); MCHC 31.7 g/dl (32.0-35.9); MEAN CELL VOLUME 76.1 fl (80-96); MEAN PLT VOLUME 8.4 fl (7.5-11.1); PLATELET COUNT 360 10^3/uL (134-434); RBC 3.79 M/mm3 (4.00-5.60); RDW 20.1 % (11.9-15.9); WHITE BLOOD COUNT 9.2 K/mm3 (4.0-10.0)
[2021-06-14] MEDS: FUROSEMIDE 40 MG TABLET (FP) PO SCH (10:20)
[2021-06-14] MEDS: CALCITRIOL 0.25 MCG CAPSULE (FP) PO SCH ×2 (10:20→21:23)
[2021-06-14] MEDS: amLODIPine BESYLATE 10 MG TABLET (FP) PO SCH (10:20)
[2021-06-14] MEDS: COLLAGENASE CLOSTRIDIUM HIST. 30 GRAMS TUBE TP SCH (10:26)
[2021-06-14 10:27] LABS: ALBUMIN 2.1 g/dl (3.4-5.0); CALCIUM 7.6 mg/dL (8.5-10.1)
[2021-06-14 10:28] LABS: BLOOD UREA NITROGEN 37.8 mg/dL (7-18)
[2021-06-14 10:30] LABS: CREATININE 4.1 mg/dL (0.55-1.3)
[2021-06-14 10:31] LABS: BILIRUBIN,TOTAL 0.6 mg/dL (0.2-1)
[2021-06-14 10:32] LABS: TOT PROT 6.2 g/dl (6.4-8.2)
[2021-06-14] MEDS ORDERED: INSULIN (NOVOLOG) ASPART 100 UNITS/ML 10ML VIAL ONE (11:01)
[2021-06-14 11:42] LABS: ANISOCYTOSIS 2+; MACROCYTOSIS 0; OVALOCYTE 2+; PLATELET ESTIMATE NORMAL
[2021-06-14] MEDS ORDERED: PT OWN MED DRAWER 7, Y5N ONE (21:20)
[2021-06-14] MEDS: ATORVASTATIN CA 20 MG TABLET (FP) PO SCH (21:23)
[2021-06-15] MEDS ORDERED: DEXTROSE 5%-WATER - 50 ML IVPB ONE ×3 (01:23→17:36)
[2021-06-15] MEDS ORDERED: PIPERACILLIN/TAZOBACTAM 2.25 GM VIAL IVPB ONE ×3 (01:23→17:36)
[2021-06-15] MEDS: PIPERACILLIN/TAZOB 2.25 GM 2.25 GM in DEXTROSE 5%-WATER - 50 ML IVPB SCH ×3 (01:41→17:46)
[2021-06-15] MEDS ORDERED: methaDONE HCL 40 MG DISPERSABLE TABLET ONE (05:42)
[2021-06-15] MEDS ORDERED: methaDONE HCL 10 MG TABLET ONE (05:42)
[2021-06-15] MEDS: LEVOTHYROXINE NA 75 MCG TABLET (FP) PO SCH (06:20)
[2021-06-15] MEDS: HEPARIN NA (PORCINE) 5,000 UNITS/ML 1ML VIAL SQ SCH ×3 (06:21→21:18)
[2021-06-15] MEDS: INSULIN (LEVEMIR) 100 UNITS/ML UNITS SQ SCH (06:27)
[2021-06-15] MEDS: INSULIN SLIDING SCALE (NOVOLOG) 1 VIAL SQ SCH ×5 (06:34→21:18)
[2021-06-15] MEDS ORDERED: INSULIN (NOVOLOG) ASPART 100 UNITS/ML 10ML VIAL ONE ×2 (06:39→11:24)
[2021-06-15] MEDS ORDERED: SODIUM CHLORIDE 250 ML IV PRN (09:00)
[2021-06-15] MEDS ORDERED: EPOETIN ALFA-EPBX 10,000 UNIT, EPOETIN ALFA-EPBX 2,000 UNIT IVPUSH ONE (09:15)
[2021-06-15] MEDS: amLODIPine BESYLATE 10 MG TABLET (FP) PO SCH ×2 (10:20→11:18)
[2021-06-15] MEDS: FUROSEMIDE 40 MG TABLET (FP) PO SCH ×2 (10:20→11:18)
[2021-06-15] MEDS: CALCITRIOL 0.25 MCG CAPSULE (FP) PO SCH ×3 (10:20→21:18)
[2021-06-15] MEDS: COLLAGENASE CLOSTRIDIUM HIST. 30 GRAMS TUBE TP SCH (10:39)
[2021-06-15] MEDS ORDERED: PT OWN MED DRAWER 7, Y5N ONE (11:11)
[2021-06-15] MEDS ORDERED: EPOETIN ALFA-EPBX 10,000 UNIT/ML VIAL SQ ONE (12:30)
[2021-06-15] MEDS: ATORVASTATIN CA 20 MG TABLET (FP) PO SCH (21:18)
[2021-06-16] MEDS ORDERED: PIPERACILLIN/TAZOBACTAM 2.25 GM VIAL IVPB ONE ×3 (01:54→17:00)
[2021-06-16] MEDS ORDERED: DEXTROSE 5%-WATER - 50 ML IVPB ONE ×3 (01:54→17:00)
[2021-06-16] MEDS: PIPERACILLIN/TAZOB 2.25 GM 2.25 GM in DEXTROSE 5%-WATER - 50 ML IVPB SCH ×3 (02:25→17:37)
[2021-06-16] MEDS ORDERED: methaDONE HCL 40 MG DISPERSABLE TABLET ONE (06:11)
[2021-06-16] MEDS ORDERED: methaDONE HCL 10 MG TABLET ONE (06:11)
[2021-06-16] MEDS: LEVOTHYROXINE NA 75 MCG TABLET (FP) PO SCH (06:17)
[2021-06-16] MEDS: HEPARIN NA (PORCINE) 5,000 UNITS/ML 1ML VIAL SQ SCH ×2 (06:17→17:39)
[2021-06-16] MEDS: INSULIN SLIDING SCALE (NOVOLOG) 1 VIAL SQ SCH ×3 (06:24→17:38)
[2021-06-16] MEDS: INSULIN (LEVEMIR) 100 UNITS/ML UNITS SQ SCH (06:24)
[2021-06-16] MEDS ORDERED: INSULIN (NOVOLOG) ASPART 100 UNITS/ML 10ML VIAL ONE ×2 (06:57→17:12)
[2021-06-16] MEDS: FUROSEMIDE 40 MG TABLET (FP) PO SCH (09:30)
[2021-06-16] MEDS: CALCITRIOL 0.25 MCG CAPSULE (FP) PO SCH (09:31)
[2021-06-16] MEDS: amLODIPine BESYLATE 10 MG TABLET (FP) PO SCH (09:31)
[2021-06-16 14:41] VITALS: BP 136/65; PULSE 64; TEMP 98.2
[2021-06-16] MEDS: COLLAGENASE CLOSTRIDIUM HIST. 30 GRAMS TUBE TP SCH (17:38)
== END 2021-06-16 18:31 | disposition home health service (06) | DRG 638 ==
LOC: JER 18:14 → JERBED 21:31 → J6S 06-12 04:20
PROVIDERS: ADMIT Internal Medicine; ATTEND Internal Medicine
PROC: HZ91ZZZ Pharmacotherapy for Substance Abuse Treatment, Methadone Maintenance (ICD-10-PCS; 2021-06-11)
PROC: 5A1D70Z Performance of Urinary Filtration, Intermittent, Less than 6 Hours Per Day (ICD-10-PCS; principal; 2021-06-12)
PROC: 5A1D70Z Performance of Urinary Filtration, Intermittent, Less than 6 Hours Per Day (ICD-10-PCS; 2021-06-15)
PROC: 02H633Z Insertion of Infusion Device into Right Atrium, Percutaneous Approach (ICD-10-PCS; 2021-06-16)
PROC: B518ZZA Fluoroscopy of Superior Vena Cava, Guidance (ICD-10-PCS; 2021-06-16)
DX: E11.621 Type 2 diabetes mellitus with foot ulcer (principal); L97.528 Non-pressure chronic ulcer of other part of left foot with other specified severity; I12.0 Hypertensive chronic kidney disease with stage 5 chronic kidney disease or end stage renal disease; M86.9 Osteomyelitis, unspecified; F11.20 Opioid dependence, uncomplicated; L03.116 Cellulitis of left lower limb; I25.10 Atherosclerotic heart disease of native coronary artery without angina pectoris; E78.5 Hyperlipidemia, unspecified; E03.9 Hypothyroidism, unspecified; E11.22 Type 2 diabetes mellitus with diabetic chronic kidney disease; N18.6 End stage renal disease; N25.81 Secondary hyperparathyroidism of renal origin; L89.152 Pressure ulcer of sacral region, stage 2; E11.69 Type 2 diabetes mellitus with other specified complication; D64.9 Anemia, unspecified; E11.51 Type 2 diabetes mellitus with diabetic peripheral angiopathy without gangrene; B95.2 Enterococcus as the cause of diseases classified elsewhere; B96.5 Pseudomonas (aeruginosa) (mallei) (pseudomallei) as the cause of diseases classified elsewhere; Z99.2 Dependence on renal dialysis; Z89.511 Acquired absence of right leg below knee
CPT/HCPCS: 36415; 36558; 71045-TC-FY; 73590-TC-LT-FY; 73630-TC-LT; 73718-TC-LT; 75635-TC; 77001-TC-FY; 80053; 82803; 82962; 83605; 83735; 84100; 85025; 85610; 85730; 86803; 86850; 86900; 86901; 87040; 87070; 87076; 87186; 87205; 87340; 93005; 93010; 97116-GP; 97161-GP; 99285-25; C1751; C9803; J0131; J1644; Q5106; Q9967; U0003; U0005

== ENCOUNTER → 2021-07-24 | Day surgery (SDC) | payer BC, OTHER | END | disposition home or self-care (01) | LOC: JRADIR 07:37 | PROVIDERS: ATTEND Podiatrist Foot Surgery | PROC: 02PY03Z Removal of Infusion Device from Great Vessel, Open Approach (ICD-10-PCS; principal; 2021-07-24) | DX: Z45.2 Encounter for adjustment and management of vascular access device (principal) | CPT/HCPCS: 36589 ==

== ENCOUNTER 2021-10-30 14:54 | Emergency (ER) | payer BC ==
[2021-10-30 15:05] VITALS: BP 154/78; PULSE 66; TEMP 97.8; BMI 34.9
== END 2021-10-30 16:00 | disposition home or self-care (01) ==
LOC: JER 14:54
DX: T82.49XA Other complication of vascular dialysis catheter, initial encounter (principal)
CPT/HCPCS: 71046-TC-FY; 99284-25

== ENCOUNTER 2021-11-05 05:21 | Day surgery (SDC) | payer BC ==
[2021-11-04 14:57] VITALS: BMI 37.3
[2021-11-05] MEDS ORDERED: HEPARIN NA (PORCINE) 5,000 UNITS/ML 1ML VIAL ONE ×2 (07:11→10:31)
[2021-11-05] MEDS ORDERED: LIDOCAINE HCL 1%, 10 MG/ML (20ML VIAL) ONE (07:12)
[2021-11-05] MEDS ORDERED: POVIDONE-IODINE OINTMENT 10% - 28.4 GM TUBE ONE (07:13)
[2021-11-05] MEDS ORDERED: ceFAZolin SODIUM 1 GM VIAL IVPB ONE ×2 (08:23→10:30)
[2021-11-05] MEDS ORDERED: LIDOCAINE HCL 1%, 10 MG/ML (20ML VIAL) NR ONE ×3 (08:23→10:45)
[2021-11-05] MEDS ORDERED: ROPIVACAINE HCL 0.5% 30ML VIAL ONE (09:41)
[2021-11-05] MEDS ORDERED: MIDAZOLAM HCL 2 MG/2 ML SINGLE DOSE VIAL ONE ×2 (09:42)
[2021-11-05] MEDS ORDERED: ceFAZolin SODIUM 1 GM VIAL ONE (10:34)
[2021-11-05] MEDS ORDERED: ONDANSETRON 4 MG/2 ML VIAL IVPUSH PRN (10:48)
[2021-11-05] MEDS ORDERED: oxyCODONE HCL 5 MG TABLET PO PRN (10:48)
[2021-11-05] MEDS ORDERED: SODIUM CHLORIDE 1,000 ML IV SCH (11:00)
[2021-11-05 14:08] VITALS: TEMP 97.8
[2021-11-05 14:53] VITALS: BP 128/78; PULSE 70
== END 2021-11-05 14:45 | disposition home or self-care (01) ==
LOC: JASU-SURG 05:21
PROVIDERS: ATTEND Surgery Vascular Surgery
PROC: 03180ZD Bypass Left Brachial Artery to Upper Arm Vein, Open Approach (ICD-10-PCS; principal; 2021-11-05 10:00)
DX: I12.0 Hypertensive chronic kidney disease with stage 5 chronic kidney disease or end stage renal disease (principal); E11.22 Type 2 diabetes mellitus with diabetic chronic kidney disease; N18.6 End stage renal disease; Z96.41 Presence of insulin pump (external) (internal)
CPT/HCPCS: 36415; 82962; 84132; J1644

== ENCOUNTER 2022-02-16 01:16 | Inpatient (IN) | payer BC ==
[2022-02-16 01:25] VITALS: BMI 33.4
[2022-02-16] MEDS ORDERED: ACETAMINOPHEN 325 MG TABLET (FP) PO ONE (01:41)
[2022-02-16] MEDS ORDERED: ACETAMINOPHEN 325 MG TABLET (FP) ONE (01:44)
[2022-02-16] MEDS ORDERED: LIDOCAINE 5% TOPICAL PATCH TP ONE ×2 (01:50→22:12)
[2022-02-16] MEDS ORDERED: LIDOCAINE 5% TOPICAL PATCH ONE (02:23)
[2022-02-16 03:31] LABS: BASO % 0.4 % (0-2.0); EOS % 1.3 % (0-4.5); HEMATOCRIT 32.4 % (35.4-49); HEMOGLOBIN 10.5 GM/dL (11.7-16.9); LYMPH % 2.9 % (8-40); MCH 28.6 pg (25.7-33.7); MCHC 32.3 g/dl (32.0-35.9); MEAN CELL VOLUME 88.3 fl (80-96); MEAN PLT VOLUME 8.3 fl (7.5-11.1); MONO % 6.7 % (3.8-10.2); NEUT % 88.7 % (42.8-82.8); PLATELET COUNT 326 10^3/uL (134-434); RBC 3.66 M/mm3 (4.00-5.60); RDW 16.9 % (11.9-15.9); WHITE BLOOD COUNT 12.9 K/mm3 (4.0-10.0)
[2022-02-16 03:47] LABS: BLOOD UREA NITROGEN 49.6 mg/dL (7-18); CALCIUM 8.3 mg/dL (8.5-10.1)
[2022-02-16 03:50] LABS: CREATININE 5.6 mg/dL (0.55-1.3)
[2022-02-16 03:52] LABS: BILIRUBIN,TOTAL 0.3 mg/dL (0.2-1); TOT PROT 6.8 g/dl (6.4-8.2)
[2022-02-16] MEDS ORDERED: VANCOMYCIN 1 GM in D5W (PRE-DOCKED) 1,000 MG/250 ML IVPB ONE (06:09)
[2022-02-16] MEDS ORDERED: PIPERACILLIN/TAZOB 3.375 GM 3.375 GM in DEXTROSE 5%-WATER - 50 ML IVPB ONE (06:10)
[2022-02-16] MEDS ORDERED: PIPERACILLIN/TAZOB 3.375 GM 3.375 GM/50 ML BAG IVPB ONE (06:47)
[2022-02-16] MEDS ORDERED: VANCOMYCIN 1 GRAM (PRE-DOCKED) 1,000 MG/250 ML BAG IVPB ONE (07:37)
[2022-02-16] MEDS: ACETAMINOPHEN 1000 MG/100 ML BAG IVPB PRN ×2 (09:20→15:58)
[2022-02-16] MEDS ORDERED: HEPARIN NA (PORCINE) 5,000 UNITS/ML 1ML VIAL SQ SCH ×2 (14:00→22:00)
[2022-02-16] MEDS ORDERED: SODIUM CHLORIDE 250 ML IV PRN (14:21)
[2022-02-16] MEDS ORDERED: LIDOCAINE PATCH REMOVAL MC ONE (15:00)
[2022-02-16] MEDS: LEVOTHYROXINE NA 75 MCG TABLET (FP) PO SCH (16:03)
[2022-02-16] MEDS: INSULIN SLIDING SCALE (NOVOLOG) 1 VIAL SQ SCH ×2 (16:03→16:45)
[2022-02-16] MEDS ORDERED: PIPERACILLIN/TAZOB 2.25 GM 2.25 GM in DEXTROSE 5%-WATER - 50 ML IVPB SCH (18:00)
[2022-02-16] MEDS ORDERED: DEXTROSE 5%-WATER - 50 ML IVPB ONE (21:31)
[2022-02-16] MEDS ORDERED: PIPERACILLIN/TAZOBACTAM 2.25 GM VIAL IVPB ONE (21:31)
[2022-02-16] MEDS: INSULIN (LEVEMIR) 100 UNITS/ML UNITS SQ SCH (21:37)
[2022-02-16] MEDS ORDERED: LIDOCAINE 5% TOPICAL PATCH TP SCH (21:58)
[2022-02-16] MEDS: PIPERACILLIN/TAZOB 2.25 GM 2.25 GM in DEXTROSE 5%-WATER - 50 ML IVPB SCH (22:32)
[2022-02-16] MEDS: NYSTATIN POWDER 100,000 UNITS/GM - 15 GM TOPICAL POWDER TP SCH (22:49)
[2022-02-17] MEDS: ACETAMINOPHEN 1000 MG/100 ML BAG IVPB PRN (01:47)
[2022-02-17] MEDS ORDERED: PIPERACILLIN/TAZOBACTAM 2.25 GM VIAL IVPB ONE ×3 (01:49→17:57)
[2022-02-17] MEDS ORDERED: DEXTROSE 5%-WATER - 50 ML IVPB ONE ×3 (01:49→17:57)
[2022-02-17] MEDS: PIPERACILLIN/TAZOB 2.25 GM 2.25 GM in DEXTROSE 5%-WATER - 50 ML IVPB SCH ×3 (03:37→18:07)
[2022-02-17] MEDS: INSULIN (LEVEMIR) 100 UNITS/ML UNITS SQ SCH ×2 (06:43→21:17)
[2022-02-17] MEDS: INSULIN SLIDING SCALE (NOVOLOG) 1 VIAL SQ SCH ×4 (06:43→18:12)
[2022-02-17] MEDS: LEVOTHYROXINE NA 75 MCG TABLET (FP) PO SCH (06:44)
[2022-02-17] MEDS ORDERED: LIDOCAINE 5% TOPICAL PATCH TP SCH (10:00)
[2022-02-17] MEDS ORDERED: LIDOCAINE PATCH REMOVAL MC SCH ×2 (10:00→22:00)
[2022-02-17] MEDS: NYSTATIN POWDER 100,000 UNITS/GM - 15 GM TOPICAL POWDER TP SCH (10:20)
[2022-02-17] MEDS ORDERED: DOCUSATE SODIUM 100 MG CAPSULE (FP) PO PRN (11:35)
[2022-02-17] MEDS: oxyCODONE HCL 5 MG TABLET PO PRN ×2 (11:49→20:16)
[2022-02-17 11:56] LABS: BASO % 0.9 % (0-2.0); EOS % 3.9 % (0-4.5); HEMATOCRIT 31.8 % (35.4-49); HEMOGLOBIN 9.9 GM/dL (11.7-16.9); LYMPH % 5.2 % (8-40); MCH 27.5 pg (25.7-33.7); MCHC 31.1 g/dl (32.0-35.9); MEAN CELL VOLUME 88.5 fl (80-96); MEAN PLT VOLUME 8.4 fl (7.5-11.1); MONO % 11.1 % (3.8-10.2); NEUT % 78.9 % (42.8-82.8); PLATELET COUNT 308 10^3/uL (134-434); RDW 17.3 % (11.9-15.9); WHITE BLOOD COUNT 10.3 K/mm3 (4.0-10.0)
[2022-02-17 12:24] LABS: CALCIUM 8.4 mg/dL (8.5-10.1)
[2022-02-17 12:25] LABS: ALBUMIN 2.6 g/dl (3.4-5.0); BLOOD UREA NITROGEN 35.7 mg/dL (7-18); MAGNESIUM 2.3 mg/dL (1.8-2.4)
[2022-02-17 12:28] LABS: CREATININE 4.4 mg/dL (0.55-1.3)
[2022-02-17 12:29] LABS: BILIRUBIN,TOTAL 0.4 mg/dL (0.2-1); TOT PROT 6.3 g/dl (6.4-8.2)
[2022-02-17] MEDS ORDERED: methaDONE HCL 40 MG DISPERSABLE TABLET PO SCH (13:30)
[2022-02-17] MEDS ORDERED: methaDONE HCL 40 MG DISPERSABLE TABLET ONE (13:32)
[2022-02-17] MEDS ORDERED: methaDONE HCL 10 MG TABLET ONE (13:33)
[2022-02-18] MEDS: PIPERACILLIN/TAZOB 2.25 GM 2.25 GM in DEXTROSE 5%-WATER - 50 ML IVPB SCH ×3 (01:35→17:05)
[2022-02-18] MEDS ORDERED: ACETAMINOPHEN 1000 MG/100 ML BAG IVPB ONE (01:56)
[2022-02-18] MEDS ORDERED: methaDONE HCL 40 MG DISPERSABLE TABLET ONE (06:33)
[2022-02-18] MEDS ORDERED: methaDONE HCL 10 MG TABLET ONE (06:33)
[2022-02-18] MEDS: LEVOTHYROXINE NA 75 MCG TABLET (FP) PO SCH (06:40)
[2022-02-18] MEDS: oxyCODONE HCL 5 MG TABLET PO PRN ×2 (06:40→18:46)
[2022-02-18] MEDS: INSULIN (LEVEMIR) 100 UNITS/ML UNITS SQ SCH ×2 (06:44→21:26)
[2022-02-18] MEDS: INSULIN SLIDING SCALE (NOVOLOG) 1 VIAL SQ SCH ×3 (06:48→17:01)
[2022-02-18] MEDS ORDERED: PIPERACILLIN/TAZOBACTAM 2.25 GM VIAL IVPB ONE ×2 (09:47→17:04)
[2022-02-18] MEDS ORDERED: DEXTROSE 5%-WATER - 50 ML IVPB ONE ×2 (09:47→17:04)
[2022-02-18] MEDS: NYSTATIN POWDER 100,000 UNITS/GM - 15 GM TOPICAL POWDER TP SCH (09:54)
[2022-02-18] MEDS ORDERED: SODIUM CHLORIDE 250 ML IV PRN (17:26)
[2022-02-19] MEDS ORDERED: PIPERACILLIN/TAZOBACTAM 2.25 GM VIAL IVPB ONE ×2 (01:22→11:12)
[2022-02-19] MEDS ORDERED: DEXTROSE 5%-WATER - 50 ML IVPB ONE ×2 (01:23→11:12)
[2022-02-19] MEDS: PIPERACILLIN/TAZOB 2.25 GM 2.25 GM in DEXTROSE 5%-WATER - 50 ML IVPB SCH ×3 (01:56→10:59)
[2022-02-19] MEDS: oxyCODONE HCL 5 MG TABLET PO PRN (02:04)
[2022-02-19] MEDS ORDERED: methaDONE HCL 40 MG DISPERSABLE TABLET ONE (06:17)
[2022-02-19] MEDS ORDERED: methaDONE HCL 10 MG TABLET ONE (06:18)
[2022-02-19] MEDS: INSULIN SLIDING SCALE (NOVOLOG) 1 VIAL SQ SCH ×2 (06:23→11:31)
[2022-02-19] MEDS: INSULIN (LEVEMIR) 100 UNITS/ML UNITS SQ SCH (06:24)
[2022-02-19] MEDS: LEVOTHYROXINE NA 75 MCG TABLET (FP) PO SCH (06:24)
[2022-02-19] MEDS ORDERED: VITAMIN B COMP W-C 1 EA TABLET (NEPHRO-VITE) PO SCH (10:00)
[2022-02-19 10:26] VITALS: BP 105/57; PULSE 71; TEMP 98.2
[2022-02-19] MEDS: NYSTATIN POWDER 100,000 UNITS/GM - 15 GM TOPICAL POWDER TP SCH (10:59)
== END 2022-02-19 14:43 | disposition home or self-care (01) | DRG 183 ==
LOC: JER 01:16 → JERBED 06:11 → OBSVTOIN 08:40 → J4S 11:16
PROVIDERS: ADMIT Internal Medicine; ATTEND Internal Medicine
PROC: 5A1D70Z Performance of Urinary Filtration, Intermittent, Less than 6 Hours Per Day (ICD-10-PCS; principal; 2022-02-16)
DX: S22.42XA Multiple fractures of ribs, left side, initial encounter for closed fracture (principal); S72.142A Displaced intertrochanteric fracture of left femur, initial encounter for closed fracture; N18.6 End stage renal disease; J18.9 Pneumonia, unspecified organism; J98.11 Atelectasis; K82.1 Hydrops of gallbladder; I13.2 Hypertensive heart and chronic kidney disease with heart failure and with stage 5 chronic kidney disease, or end stage renal disease; I50.32 Chronic diastolic (congestive) heart failure; E87.1 Hypo-osmolality and hyponatremia; F11.20 Opioid dependence, uncomplicated; J90 Pleural effusion, not elsewhere classified; L97.408 Non-pressure chronic ulcer of unspecified heel and midfoot with other specified severity; E11.51 Type 2 diabetes mellitus with diabetic peripheral angiopathy without gangrene; E11.621 Type 2 diabetes mellitus with foot ulcer; E03.9 Hypothyroidism, unspecified; N62 Hypertrophy of breast; D63.1 Anemia in chronic kidney disease; E66.9 Obesity, unspecified; Z68.33 Body mass index [BMI] 33.0-33.9, adult; E11.22 Type 2 diabetes mellitus with diabetic chronic kidney disease; Z99.2 Dependence on renal dialysis; E11.65 Type 2 diabetes mellitus with hyperglycemia; I25.10 Atherosclerotic heart disease of native coronary artery without angina pectoris; K62.89 Other specified diseases of anus and rectum; Z89.511 Acquired absence of right leg below knee; Z89.421 Acquired absence of other right toe(s); Z79.4 Long term (current) use of insulin; Z87.39 Personal history of other diseases of the musculoskeletal system and connective tissue; W06.XXXA Fall from bed, initial encounter; Y92.098 Other place in other non-institutional residence as the place of occurrence of the external cause
CPT/HCPCS: 36415; 70450-TC; 71260-TC; 72125-TC; 73630-TC-LT; 74177-TC; 80053; 82962; 83735; 84100; 84484; 85025; 86803; 87070; 87186; 87205; 87340; 87522; 93005; 93010; 94010; 97116-GP; 97161-GP; 99291; 99292; C9803-CS; G0378; U0003; U0005

== ENCOUNTER 2022-03-04 13:40 | Inpatient (IN) | payer BC ==
[2022-03-04] MEDS ORDERED: VANCOMYCIN 1 GM in D5W (PRE-DOCKED) 1,000 MG/250 ML IVPB ONE (15:00)
[2022-03-04] MEDS ORDERED: VANCOMYCIN 1 GRAM (PRE-DOCKED) 1,000 MG/250 ML BAG IVPB ONE (15:48)
[2022-03-04 16:41] LABS: EOS % 4.3 % (0-4.5); HEMATOCRIT 23.9 % (35.4-49); HEMOGLOBIN 7.5 GM/dL (11.7-16.9); LYMPH % 7.4 % (8-40); MCH 27.7 pg (25.7-33.7); MCHC 31.5 g/dl (32.0-35.9); MEAN CELL VOLUME 88.1 fl (80-96); MEAN PLT VOLUME 9.2 fl (7.5-11.1); NEUT % 78.3 % (42.8-82.8); PLATELET COUNT 249 10^3/uL (134-434); RBC 2.71 M/mm3 (4.00-5.60); RDW 16.4 % (11.9-15.9); WHITE BLOOD COUNT 8.1 K/mm3 (4.0-10.0)
[2022-03-04 17:28] LABS: CALCIUM 7.2 mg/dL (8.5-10.1)
[2022-03-04 17:29] LABS: ALBUMIN 2.4 g/dl (3.4-5.0)
[2022-03-04 17:32] LABS: CREATININE 7.3 mg/dL (0.55-1.3)
[2022-03-04 17:34] LABS: BILIRUBIN,TOTAL 0.3 mg/dL (0.2-1); TOT PROT 5.6 g/dl (6.4-8.2)
[2022-03-04] MEDS ORDERED: DOCUSATE SODIUM 100 MG CAPSULE (FP) PO PRN (19:33)
[2022-03-04] MEDS: INSULIN SLIDING SCALE (NOVOLOG) 1 VIAL SQ SCH (22:40)
[2022-03-05] MEDS ORDERED: LINEZOLID 600 MG PREMIX BAG 600 MG/300 ML BAG IVPB ONE (03:30)
[2022-03-05] MEDS ORDERED: methaDONE HCL 40 MG DISPERSABLE TABLET PO SCH (10:00)
[2022-03-05 10:32] LABS: RETICULOCYTES 1.81 % (0.5-1.5)
[2022-03-05 11:06] LABS: BASO % 0.9 % (0-2.0); EOS % 3.5 % (0-4.5); HEMATOCRIT 25.8 % (35.4-49); HEMOGLOBIN 8.2 GM/dL (11.7-16.9); LYMPH % 4.6 % (8-40); MCHC 31.7 g/dl (32.0-35.9); MEAN CELL VOLUME 88.3 fl (80-96); MEAN PLT VOLUME 9.1 fl (7.5-11.1); MONO % 8.8 % (3.8-10.2); NEUT % 82.2 % (42.8-82.8); PLATELET COUNT 233 10^3/uL (134-434); RBC 2.92 M/mm3 (4.00-5.60); WHITE BLOOD COUNT 6.8 K/mm3 (4.0-10.0)
[2022-03-05] MEDS: INSULIN SLIDING SCALE (NOVOLOG) 1 VIAL SQ SCH ×4 (11:10→21:22)
[2022-03-05] MEDS ORDERED: methaDONE HCL 10 MG TABLET ONE (11:13)
[2022-03-05] MEDS ORDERED: methaDONE HCL 40 MG DISPERSABLE TABLET ONE (11:13)
[2022-03-05] MEDS: LEVOTHYROXINE NA 75 MCG TABLET (FP) PO SCH (11:15)
[2022-03-05 11:29] LABS: CHLORIDE 98 mmol/L (98-107); SODIUM 134 mmol/L (136-145)
[2022-03-05 11:34] LABS: BLOOD UREA NITROGEN 81.6 mg/dL (7-18)
[2022-03-05 11:36] LABS: SGPT/ALT 10 U/L (13-61)
[2022-03-05 11:37] LABS: SGOT/AST 5 U/L (15-37)
[2022-03-05 11:38] LABS: BILIRUBIN,TOTAL 0.3 mg/dL (0.2-1); TOT PROT 5.6 g/dl (6.4-8.2)
[2022-03-05 11:39] LABS: ALK PHOS 63 U/L (45-117)
[2022-03-05 11:54] LABS: ALBUMIN 2.3 g/dl (3.4-5.0); ANION GAP 18 MMOL/L (8-16); CALCIUM 7.4 mg/dL (8.5-10.1); CO2 18 mmol/L (21-32); CREATININE 8.2 mg/dL (0.55-1.3); GLUCOSE,RANDOM 471 mg/dL (74-106); MAGNESIUM 2.3 mg/dL (1.8-2.4); PHOSPHOROUS 7.6 mg/dL (2.5-4.9)
[2022-03-05] MEDS ORDERED: INSULIN (NOVOLOG) ASPART 100 UNITS/ML 10ML VIAL ONE ×2 (12:16→21:09)
[2022-03-05] MEDS ORDERED: SODIUM CHLORIDE 250 ML IV PRN (14:15)
[2022-03-05] MEDS ORDERED: INSULIN REGULAR HUMAN 100 UNITS/ML *VIAL IVPUSH ONE (14:30)
[2022-03-05] MEDS ORDERED: EPOETIN ALFA-EPBX 20,000 UNIT/ML VIAL IVPUSH ONE (14:30)
[2022-03-05] MEDS ORDERED: ALTEPLASE (CATHFLO) 2 MG/2 ML VIAL NR ONE ×2 (17:10)
[2022-03-05 17:31] VITALS: BMI 34.2
[2022-03-05] MEDS ORDERED: DEXTROSE 5%-WATER - 50 ML IVPB ONE (18:17)
[2022-03-05] MEDS ORDERED: PIPERACILLIN/TAZOBACTAM 2.25 GM VIAL IVPB ONE (18:17)
[2022-03-05] MEDS: COLLAGENASE CLOSTRIDIUM HIST. 30 GRAMS TUBE TP SCH (18:32)
[2022-03-05] MEDS: PIPERACILLIN/TAZOB 2.25 GM 2.25 GM in DEXTROSE 5%-WATER - 50 ML IVPB SCH (18:42)
[2022-03-05] MEDS: INSULIN (LEVEMIR) 100 UNITS/ML UNITS SQ SCH (21:21)
[2022-03-05] MEDS ORDERED: INSULIN (LEVEMIR) 100 UNITS/ML UNITS SQ SCH (22:00)
[2022-03-06] MEDS: PIPERACILLIN/TAZOB 2.25 GM 2.25 GM in DEXTROSE 5%-WATER - 50 ML IVPB SCH ×3 (01:49→17:43)
[2022-03-06] MEDS ORDERED: methaDONE HCL 40 MG DISPERSABLE TABLET ONE (05:53)
[2022-03-06] MEDS ORDERED: methaDONE HCL 10 MG TABLET ONE (05:53)
[2022-03-06] MEDS: LEVOTHYROXINE NA 75 MCG TABLET (FP) PO SCH (06:01)
[2022-03-06] MEDS: INSULIN (LEVEMIR) 100 UNITS/ML UNITS SQ SCH ×2 (06:03→21:06)
[2022-03-06] MEDS: INSULIN SLIDING SCALE (NOVOLOG) 1 VIAL SQ SCH ×4 (06:28→21:07)
[2022-03-06 09:37] LABS: EOS % 6.1 % (0-4.5); HEMATOCRIT 23.4 % (35.4-49); HEMOGLOBIN 7.6 GM/dL (11.7-16.9); LYMPH % 3.9 % (8-40); MCHC 32.4 g/dl (32.0-35.9); MEAN CELL VOLUME 86.5 fl (80-96); MEAN PLT VOLUME 8.9 fl (7.5-11.1); MONO % 9.7 % (3.8-10.2); NEUT % 79.3 % (42.8-82.8); PLATELET COUNT 224 10^3/uL (134-434); RDW 16.5 % (11.9-15.9); WHITE BLOOD COUNT 7.3 K/mm3 (4.0-10.0)
[2022-03-06 09:56] LABS: CHLORIDE 100 mmol/L (98-107); SODIUM 135 mmol/L (136-145)
[2022-03-06 10:05] LABS: ANION GAP 15 MMOL/L (8-16); BLOOD UREA NITROGEN 75.9 mg/dL (7-18); CALCIUM 7.4 mg/dL (8.5-10.1); CO2 21 mmol/L (21-32); GLUCOSE,RANDOM 205 mg/dL (74-106)
[2022-03-06 10:06] LABS: ALBUMIN 2.2 g/dl (3.4-5.0)
[2022-03-06 10:08] LABS: SGPT/ALT 7 U/L (13-61)
[2022-03-06 10:09] LABS: SGOT/AST 4 U/L (15-37)
[2022-03-06 10:10] LABS: BILIRUBIN,TOTAL 0.5 mg/dL (0.2-1); TOT PROT 5.9 g/dl (6.4-8.2)
[2022-03-06 10:11] LABS: ALK PHOS 53 U/L (45-117)
[2022-03-06 10:12] LABS: CREATININE 8.4 mg/dL (0.55-1.3)
[2022-03-06] MEDS ORDERED: DEXTROSE 5%-WATER - 50 ML IVPB ONE ×2 (12:05→17:33)
[2022-03-06] MEDS ORDERED: PIPERACILLIN/TAZOBACTAM 2.25 GM VIAL IVPB ONE ×2 (12:05→17:33)
[2022-03-06] MEDS: COLLAGENASE CLOSTRIDIUM HIST. 30 GRAMS TUBE TP SCH (12:18)
[2022-03-06] MEDS: amLODIPine BESYLATE 10 MG TABLET (FP) PO SCH (17:43)
[2022-03-06] MEDS ORDERED: INSULIN (NOVOLOG) ASPART 100 UNITS/ML 10ML VIAL ONE (20:55)
[2022-03-07] MEDS ORDERED: PIPERACILLIN/TAZOBACTAM 2.25 GM VIAL IVPB ONE ×2 (01:47→10:00)
[2022-03-07] MEDS ORDERED: DEXTROSE 5%-WATER - 50 ML IVPB ONE ×2 (01:47→10:00)
[2022-03-07] MEDS: PIPERACILLIN/TAZOB 2.25 GM 2.25 GM in DEXTROSE 5%-WATER - 50 ML IVPB SCH ×3 (01:52→18:06)
[2022-03-07] MEDS ORDERED: methaDONE HCL 40 MG DISPERSABLE TABLET ONE (05:50)
[2022-03-07] MEDS ORDERED: methaDONE HCL 10 MG TABLET ONE (05:50)
[2022-03-07] MEDS: LEVOTHYROXINE NA 75 MCG TABLET (FP) PO SCH (06:18)
[2022-03-07] MEDS: INSULIN (LEVEMIR) 100 UNITS/ML UNITS SQ SCH ×2 (06:18→21:45)
[2022-03-07] MEDS: INSULIN SLIDING SCALE (NOVOLOG) 1 VIAL SQ SCH ×4 (06:18→21:49)
[2022-03-07] MEDS: amLODIPine BESYLATE 10 MG TABLET (FP) PO SCH (10:02)
[2022-03-07] MEDS: ASCORBIC ACID 500 MG TABLET (FP) PO SCH (10:03)
[2022-03-07] MEDS ORDERED: ACETAMINOPHEN 325 MG TABLET (FP) PO PRN (10:26)
[2022-03-07] MEDS: COLLAGENASE CLOSTRIDIUM HIST. 30 GRAMS TUBE TP SCH (11:53)
[2022-03-07 13:58] LABS: BASO % 1.3 % (0-2.0); EOS % 5.7 % (0-4.5); HEMATOCRIT 25.2 % (35.4-49); HEMOGLOBIN 8.3 GM/dL (11.7-16.9); LYMPH % 7.2 % (8-40); MCH 28.7 pg (25.7-33.7); MCHC 32.9 g/dl (32.0-35.9); MEAN CELL VOLUME 87.2 fl (80-96); MEAN PLT VOLUME 8.6 fl (7.5-11.1); MONO % 9.4 % (3.8-10.2); NEUT % 76.4 % (42.8-82.8); PLATELET COUNT 223 10^3/uL (134-434); RBC 2.89 M/mm3 (4.00-5.60); RDW 16.7 % (11.9-15.9); WHITE BLOOD COUNT 5.9 K/mm3 (4.0-10.0)
[2022-03-08] MEDS ORDERED: DEXTROSE 5%-WATER - 50 ML IVPB ONE ×2 (01:25→10:09)
[2022-03-08] MEDS ORDERED: PIPERACILLIN/TAZOBACTAM 2.25 GM VIAL IVPB ONE ×2 (01:25→10:09)
[2022-03-08] MEDS: PIPERACILLIN/TAZOB 2.25 GM 2.25 GM in DEXTROSE 5%-WATER - 50 ML IVPB SCH ×2 (01:40→10:20)
[2022-03-08] MEDS ORDERED: methaDONE HCL 10 MG TABLET ONE (05:54)
[2022-03-08] MEDS ORDERED: methaDONE HCL 40 MG DISPERSABLE TABLET ONE (05:54)
[2022-03-08] MEDS: LEVOTHYROXINE NA 75 MCG TABLET (FP) PO SCH (06:04)
[2022-03-08] MEDS: INSULIN SLIDING SCALE (NOVOLOG) 1 VIAL SQ SCH ×3 (06:06→17:56)
[2022-03-08] MEDS: INSULIN (LEVEMIR) 100 UNITS/ML UNITS SQ SCH (06:06)
[2022-03-08] MEDS: ASCORBIC ACID 500 MG TABLET (FP) PO SCH (10:20)
[2022-03-08] MEDS: amLODIPine BESYLATE 10 MG TABLET (FP) PO SCH (10:20)
[2022-03-08] MEDS: COLLAGENASE CLOSTRIDIUM HIST. 30 GRAMS TUBE TP SCH (10:20)
[2022-03-08 10:24] LABS: BASO % 1.8 % (0-2.0); HEMATOCRIT 24.7 % (35.4-49); HEMOGLOBIN 7.9 GM/dL (11.7-16.9); LYMPH % 7.1 % (8-40); MCH 27.8 pg (25.7-33.7); MCHC 31.9 g/dl (32.0-35.9); MEAN CELL VOLUME 87.4 fl (80-96); MEAN PLT VOLUME 8.6 fl (7.5-11.1); MONO % 10.3 % (3.8-10.2); NEUT % 72.8 % (42.8-82.8); PLATELET COUNT 236 10^3/uL (134-434); RBC 2.83 M/mm3 (4.00-5.60); RDW 16.4 % (11.9-15.9); WHITE BLOOD COUNT 5.9 K/mm3 (4.0-10.0)
[2022-03-08] MEDS ORDERED: NYSTATIN POWDER 100,000 UNITS/GM - 15 GM TOPICAL POWDER TP SCH (10:30)
[2022-03-08 10:53] LABS: CALCIUM 7.6 mg/dL (8.5-10.1)
[2022-03-08 10:54] LABS: ALBUMIN 2.1 g/dl (3.4-5.0)
[2022-03-08 10:57] LABS: CREATININE 6.4 mg/dL (0.55-1.3)
[2022-03-08 10:58] LABS: BILIRUBIN,TOTAL 0.3 mg/dL (0.2-1); TOT PROT 5.8 g/dl (6.4-8.2)
[2022-03-08 11:00] LABS: BLOOD UREA NITROGEN 48.9 mg/dL (7-18)
[2022-03-08] MEDS ORDERED: INSULIN (NOVOLOG) ASPART 100 UNITS/ML 10ML VIAL ONE (11:49)
[2022-03-08] MEDS ORDERED: SODIUM CHLORIDE 250 ML IV PRN (12:28)
[2022-03-08] MEDS ORDERED: EPOETIN ALFA-EPBX 20,000 UNIT/ML VIAL IVPUSH ONE (12:28)
[2022-03-08 13:38] VITALS: TEMP 98.3
[2022-03-08 14:05] LABS: HEMATOCRIT 23.8 % (35.4-49); HEMOGLOBIN 7.6 GM/dL (11.7-16.9); MCH 27.9 pg (25.7-33.7); MCHC 31.8 g/dl (32.0-35.9); MEAN CELL VOLUME 87.7 fl (80-96); MEAN PLT VOLUME 9.1 fl (7.5-11.1); PLATELET COUNT 221 10^3/uL (134-434); RBC 2.72 M/mm3 (4.00-5.60); RDW 16.7 % (11.9-15.9); WHITE BLOOD COUNT 5.7 K/mm3 (4.0-10.0)
[2022-03-08 14:19] LABS: CALCIUM 7.2 mg/dL (8.5-10.1)
[2022-03-08 14:20] LABS: BLOOD UREA NITROGEN 51.5 mg/dL (7-18)
[2022-03-08 14:23] LABS: CREATININE 6.4 mg/dL (0.55-1.3)
[2022-03-08 16:20] VITALS: BP 146/61; PULSE 70
[2022-03-08] MEDS ORDERED: HEPARIN NA (PORCINE) 5,000 UNITS/ML 1ML VIAL SQ SCH (22:00)
== END 2022-03-08 18:11 | disposition home health service (06) | DRG 602 ==
LOC: JER 13:40 → JERBED 15:19 → J8W 03-05 08:12
PROVIDERS: ADMIT Family Medicine
PROC: 5A1D70Z Performance of Urinary Filtration, Intermittent, Less than 6 Hours Per Day (ICD-10-PCS; principal; 2022-03-06)
DX: L03.116 Cellulitis of left lower limb (principal); N18.6 End stage renal disease; F11.20 Opioid dependence, uncomplicated; L97.829 Non-pressure chronic ulcer of other part of left lower leg with unspecified severity; I13.2 Hypertensive heart and chronic kidney disease with heart failure and with stage 5 chronic kidney disease, or end stage renal disease; I50.32 Chronic diastolic (congestive) heart failure; T82.49XA Other complication of vascular dialysis catheter, initial encounter; I25.10 Atherosclerotic heart disease of native coronary artery without angina pectoris; Z99.2 Dependence on renal dialysis; E78.5 Hyperlipidemia, unspecified; Z89.511 Acquired absence of right leg below knee; D64.9 Anemia, unspecified; E11.22 Type 2 diabetes mellitus with diabetic chronic kidney disease; E03.9 Hypothyroidism, unspecified; E11.51 Type 2 diabetes mellitus with diabetic peripheral angiopathy without gangrene; Y83.8 Other surgical procedures as the cause of abnormal reaction of the patient, or of later complication, without mention of misadventure at the time of the procedure; E11.65 Type 2 diabetes mellitus with hyperglycemia; Z79.4 Long term (current) use of insulin; E11.621 Type 2 diabetes mellitus with foot ulcer; L97.529 Non-pressure chronic ulcer of other part of left foot with unspecified severity
CPT/HCPCS: 11042; 36415; 71045-TC-FY; 73590-TC-LT-FY; 73630-TC-LT; 80048; 80053; 82728; 82962; 83540; 83550; 83735; 84100; 85025; 85027; 85045; 85651; 86140; 87040; 87070; 87186; 87205; 88304-TC; 93005; 93010; 97162-GP; 99285-25; C9803-CS; J2997; U0003; U0005

== ENCOUNTER 2022-04-19 09:25 | Observation (INO) | payer BC ==
[2022-04-19] MEDS ORDERED: DEXTROSE 50%-WATER - 25 GM/50 ML VIAL IVPUSH ONE (09:52)
[2022-04-19 10:05] VITALS: BMI 33.4
[2022-04-19] MEDS ORDERED: DEXTROSE 50%-WATER 25 GM/50 ML DISP.SYRIN ONE (10:10)
[2022-04-19 11:05] LABS: BASO % 1.4 % (0-2.0); EOS % 2.6 % (0-4.5); HEMOGLOBIN 12.6 GM/dL (11.7-16.9); LYMPH % 7.5 % (8-40); MCH 27.5 pg (25.7-33.7); MCHC 31.5 g/dl (32.0-35.9); MEAN CELL VOLUME 87.4 fl (80-96); MEAN PLT VOLUME 9.5 fl (7.5-11.1); MONO % 7.5 % (3.8-10.2); PLATELET COUNT 352 10^3/uL (134-434); RBC 4.58 M/mm3 (4.00-5.60); RDW 19.7 % (11.9-15.9); WHITE BLOOD COUNT 9.3 K/mm3 (4.0-10.0)
[2022-04-19 11:19] LABS: CHLORIDE 99 mmol/L (98-107); SODIUM 134 mmol/L (136-145)
[2022-04-19 11:22] LABS: ALBUMIN 3.6 g/dl (3.4-5.0); CALCIUM 8.5 mg/dL (8.5-10.1)
[2022-04-19 11:23] LABS: ANION GAP 15 MMOL/L (8-16); BLOOD UREA NITROGEN 77.1 mg/dL (7-18); CO2 20 mmol/L (21-32); GLUCOSE,RANDOM 63 mg/dL (74-106)
[2022-04-19 11:25] LABS: SGPT/ALT 261 U/L (13-61)
[2022-04-19 11:26] LABS: SGOT/AST 270 U/L (15-37)
[2022-04-19 11:27] LABS: BILIRUBIN,TOTAL 0.6 mg/dL (0.2-1); TOT PROT 7.7 g/dl (6.4-8.2)
[2022-04-19 11:29] LABS: ALK PHOS 92 U/L (45-117)
[2022-04-19 11:35] LABS: CREATININE 8.7 mg/dL (0.55-1.3)
[2022-04-19] MEDS ORDERED: AZITHROMYCIN IVPB 500 MG in DEXTROSE 5%-WATER - 250 ML IVPB ONE (12:11)
[2022-04-19] MEDS ORDERED: CEFTRIAXONE 1,000 MG in DEXTROSE 5%-WATER - 50 ML IVPB ONE (12:11)
[2022-04-19] MEDS ORDERED: HEPARIN NA (PORCINE) 5,000 UNITS/ML 1ML VIAL IVPUSH ONE (12:49)
[2022-04-19] MEDS ORDERED: SODIUM CHLORIDE 250 ML IV PRN (12:49)
[2022-04-19] MEDS ORDERED: HEPARIN NA (PORCINE) 5,000 UNITS/ML 1ML VIAL IVPUSH SCH (13:00)
[2022-04-19] MEDS ORDERED: CEFTRIAXONE 1 GM/50 ML BAG ONE (13:08)
[2022-04-19] MEDS ORDERED: AZITHROMYCIN IVPB 500 MG/250 ML BAG IVPB ONE (13:30)
[2022-04-19] MEDS ORDERED: DOCUSATE SODIUM 100 MG CAPSULE (FP) PO PRN (21:47)
[2022-04-19] MEDS ORDERED: DEXTROSE 50%-WATER - 25 GM/50 ML VIAL IVPUSH PRN (22:06)
[2022-04-19] MEDS: TAMSULOSIN HCL 0.4 MG CAP PO SCH (22:34)
[2022-04-19] MEDS: hydrALAZINE HCL 25 MG TABLET (FP) PO SCH (22:34)
[2022-04-19] MEDS: NYSTATIN POWDER 100,000 UNITS/GM - 15 GM TOPICAL POWDER TP SCH (22:52)
[2022-04-20] MEDS: LEVOTHYROXINE NA 75 MCG TABLET (FP) PO SCH (06:25)
[2022-04-20] MEDS: HEPARIN NA (PORCINE) 5,000 UNITS/ML 1ML VIAL SQ SCH ×3 (06:25→21:18)
[2022-04-20] MEDS ORDERED: methaDONE HCL 10 MG TABLET ONE (06:39)
[2022-04-20] MEDS ORDERED: methaDONE HCL 40 MG DISPERSABLE TABLET ONE (06:39)
[2022-04-20] MEDS: hydrALAZINE HCL 25 MG TABLET (FP) PO SCH ×2 (09:38→21:18)
[2022-04-20] MEDS: TAMSULOSIN HCL 0.4 MG CAP PO SCH ×2 (09:38→21:18)
[2022-04-20] MEDS: COLLAGENASE CLOSTRIDIUM HIST. 30 GRAMS TUBE TP SCH ×2 (09:38→14:02)
[2022-04-20] MEDS: NYSTATIN POWDER 100,000 UNITS/GM - 15 GM TOPICAL POWDER TP SCH ×2 (09:39→21:19)
[2022-04-20] MEDS: ASPIRIN 81 MG CHEWABLE TABLETS PO SCH (09:41)
[2022-04-20] MEDS: amLODIPine BESYLATE 10 MG TABLET (FP) PO SCH (09:41)
[2022-04-20] MEDS: TORSEMIDE 100 MG TABLET PO SCH (09:41)
[2022-04-20] MEDS: LACTOBACILLUS ACIDOPHILUS 1 TABLET PO SCH (09:42)
[2022-04-20] MEDS ORDERED: methaDONE HCL 40 MG DISPERSABLE TABLET PO SCH (10:00)
[2022-04-20 11:23] LABS: BASO % 0.8 % (0-2.0); HEMATOCRIT 34.7 % (35.4-49); HEMOGLOBIN 10.9 GM/dL (11.7-16.9); LYMPH % 4.9 % (8-40); MCH 27.2 pg (25.7-33.7); MCHC 31.4 g/dl (32.0-35.9); MEAN CELL VOLUME 86.6 fl (80-96); MEAN PLT VOLUME 9.7 fl (7.5-11.1); MONO % 8.9 % (3.8-10.2); NEUT % 81.4 % (42.8-82.8); PLATELET COUNT 232 10^3/uL (134-434); RBC 4.01 M/mm3 (4.00-5.60); RDW 19.9 % (11.9-15.9); WHITE BLOOD COUNT 8.8 K/mm3 (4.0-10.0)
[2022-04-20 11:29] LABS: INR 1.62 (0.83-1.09); PROTHROMBIN TIME (PATIENT) 18.7 SEC (9.7-13.0)
[2022-04-20 11:30] LABS: ACTIVATED PTT 27.8 SECONDS (25.2-36.5)
[2022-04-20 11:51] LABS: ALBUMIN 2.9 g/dl (3.4-5.0); CALCIUM 7.8 mg/dL (8.5-10.1); MAGNESIUM 2.4 mg/dL (1.8-2.4)
[2022-04-20 12:00] LABS: CREATININE 6.5 mg/dL (0.55-1.3); PHOSPHOROUS 7.6 mg/dL (2.5-4.9)
[2022-04-20 12:01] LABS: BILIRUBIN,TOTAL 0.5 mg/dL (0.2-1); TOT PROT 6.1 g/dl (6.4-8.2)
[2022-04-21] MEDS ORDERED: methaDONE HCL 40 MG DISPERSABLE TABLET ONE (05:23)
[2022-04-21] MEDS ORDERED: methaDONE HCL 10 MG TABLET ONE (05:24)
[2022-04-21] MEDS: LEVOTHYROXINE NA 75 MCG TABLET (FP) PO SCH (06:19)
[2022-04-21 06:24] VITALS: BP 140/77; PULSE 67; TEMP 97.7
[2022-04-21] MEDS: HEPARIN NA (PORCINE) 5,000 UNITS/ML 1ML VIAL SQ SCH (06:31)
[2022-04-21] MEDS ORDERED: AMINO ACIDS/PROTEIN HYDROLYS 30 ML LIQUID.PKT PO SCH (08:00)
[2022-04-21 08:54] LABS: HEMATOCRIT 32.7 % (35.4-49); HEMOGLOBIN 10.3 GM/dL (11.7-16.9); MCH 27.8 pg (25.7-33.7); MCHC 31.7 g/dl (32.0-35.9); MEAN CELL VOLUME 87.9 fl (80-96); MEAN PLT VOLUME 10.5 fl (7.5-11.1); PLATELET COUNT 210 10^3/uL (134-434); RBC 3.71 M/mm3 (4.00-5.60); RDW 20.5 % (11.9-15.9); WHITE BLOOD COUNT 7.1 K/mm3 (4.0-10.0)
[2022-04-21] MEDS: TAMSULOSIN HCL 0.4 MG CAP PO SCH (09:15)
[2022-04-21] MEDS: LACTOBACILLUS ACIDOPHILUS 1 TABLET PO SCH (09:15)
[2022-04-21] MEDS: amLODIPine BESYLATE 10 MG TABLET (FP) PO SCH (09:15)
[2022-04-21] MEDS: hydrALAZINE HCL 25 MG TABLET (FP) PO SCH (09:16)
[2022-04-21] MEDS: NYSTATIN POWDER 100,000 UNITS/GM - 15 GM TOPICAL POWDER TP SCH (09:16)
[2022-04-21] MEDS: TORSEMIDE 100 MG TABLET PO SCH (09:16)
[2022-04-21] MEDS: COLLAGENASE CLOSTRIDIUM HIST. 30 GRAMS TUBE TP SCH (09:16)
[2022-04-21] MEDS: ASPIRIN 81 MG CHEWABLE TABLETS PO SCH (09:19)
[2022-04-21 09:45] LABS: CALCIUM 7.7 mg/dL (8.5-10.1)
[2022-04-21 09:46] LABS: BLOOD UREA NITROGEN 58.1 mg/dL (7-18)
[2022-04-21 09:50] LABS: CREATININE 7.3 mg/dL (0.55-1.3)
[2022-04-21] MEDS ORDERED: VITAMIN B COMP W-C 1 EA TABLET (NEPHRO-VITE) PO SCH (10:00)
[2022-04-21] MEDS ORDERED: ALBUTEROL SO4 2.5/IPRATROPIUM 0.5 INH SOL 3 ML VIAL.NEB. NEB PRN (11:29)
== END 2022-04-21 14:23 | disposition home or self-care (01) ==
LOC: JER 09:25 → JERBED 13:49 → INTOOBSV 13:49 → J4S 19:50
PROVIDERS: ADMIT Internal Medicine; ATTEND Internal Medicine
PROC: 3E03329 Introduction of Other Anti-infective into Peripheral Vein, Percutaneous Approach (ICD-10-PCS; principal; 2022-04-19)
PROC: 3E033GC Introduction of Other Therapeutic Substance into Peripheral Vein, Percutaneous Approach (ICD-10-PCS; 2022-04-19)
DX: E11.649 Type 2 diabetes mellitus with hypoglycemia without coma (principal); E11.22 Type 2 diabetes mellitus with diabetic chronic kidney disease; I25.10 Atherosclerotic heart disease of native coronary artery without angina pectoris; I11.9 Hypertensive heart disease without heart failure; E78.5 Hyperlipidemia, unspecified; I13.11 Hypertensive heart and chronic kidney disease without heart failure, with stage 5 chronic kidney disease, or end stage renal disease; N18.6 End stage renal disease; Z96.41 Presence of insulin pump (external) (internal); Z79.4 Long term (current) use of insulin; Z95.5 Presence of coronary angioplasty implant and graft; F11.11 Opioid abuse, in remission; Z89.511 Acquired absence of right leg below knee; N49.3 Fournier gangrene; Z90.79 Acquired absence of other genital organ(s); Z99.2 Dependence on renal dialysis; B19.20 Unspecified viral hepatitis C without hepatic coma; Z88.2 Allergy status to sulfonamides
CPT/HCPCS: 0241U-QW; 36415; 71045-TC-FY; 71250-TC; 80048; 80053; 80061; 82962; 83735; 84100; 84443; 85025; 85027; 85610; 85730; 86803; 87340; 87522; 93005; 93010; 96365; 96367; 96375; 99285-25; G0378; J1644

== ENCOUNTER 2022-05-29 06:33 | Inpatient (IN) | payer BC ==
[2022-05-29] MEDS ORDERED: PIPERACILLIN/TAZOB 3.375 GM 3.375 GM in DEXTROSE 5%-WATER - 50 ML IVPB ONE (07:19)
[2022-05-29] MEDS ORDERED: VANCOMYCIN 1 GM in D5W (PRE-DOCKED) 1,000 MG/250 ML IVPB ONE (07:19)
[2022-05-29] MEDS ORDERED: ACETAMINOPHEN 1000 MG/100 ML BAG IVPB ONE (07:20)
[2022-05-29 07:35] LABS: ARTERIAL BLD GAS O2 SATURATION 96.5 % (95-98); ARTERIAL BLOOD GAS BASE EXCESS -18.8 mmol/L (-2-2); ARTERIAL BLOOD GAS PO2 124.6 mmHg (80-100)
[2022-05-29 07:36] LABS: BASO % 0.7 % (0-2.0); EOS % 0.1 % (0-4.5); HEMATOCRIT 49.7 % (35.4-49); HEMOGLOBIN 14.8 GM/dL (11.7-16.9); LYMPH % 7.4 % (8-40); MCH 27.2 pg (25.7-33.7); MCHC 29.8 g/dl (32.0-35.9); MEAN CELL VOLUME 91.3 fl (80-96); MEAN PLT VOLUME 10.1 fl (7.5-11.1); MONO % 8.2 % (3.8-10.2); NEUT % 83.6 % (42.8-82.8); PLATELET COUNT 251 10^3/uL (134-434); RBC 5.44 M/mm3 (4.00-5.60); RDW 20.7 % (11.9-15.9)
[2022-05-29 07:39] LABS: ARTERIAL BLOOD GAS pH 7.008 (7.350-7.450)
[2022-05-29] MEDS ORDERED: SODIUM CHLORIDE 0.9% 500 ML INFUS.BAG IV ONE (07:45)
[2022-05-29 07:54] LABS: CHLORIDE 99 mmol/L (98-107); SODIUM 136 mmol/L (136-145)
[2022-05-29 07:55] LABS: MAGNESIUM 2.7 mg/dL (1.8-2.4)
[2022-05-29] MEDS ORDERED: ACETAMINOPHEN INJECTION 100 ML IVPB ONE (07:55)
[2022-05-29] MEDS ORDERED: VANCOMYCIN 1 GRAM (PRE-DOCKED) 1,000 MG/250 ML BAG IVPB ONE (07:55)
[2022-05-29 07:56] LABS: ALBUMIN 3.8 g/dl (3.4-5.0); BLOOD UREA NITROGEN 38.7 mg/dL (7-18); CALCIUM 8.7 mg/dL (8.5-10.1); CO2 20 mmol/L (21-32); GLUCOSE,RANDOM 147 mg/dL (74-106)
[2022-05-29] MEDS ORDERED: PIPERACILLIN/TAZOB 3.375 GM 3.375 GM/50 ML BAG IVPB ONE (07:56)
[2022-05-29 07:59] LABS: CREATININE 6.1 mg/dL (0.55-1.3); SGOT/AST 940 U/L (15-37); SGPT/ALT 524 U/L (13-61)
[2022-05-29 08:01] LABS: BILIRUBIN,TOTAL 1.4 mg/dL (0.2-1)
[2022-05-29 08:02] LABS: ALK PHOS 95 U/L (45-117)
[2022-05-29 08:04] LABS: LACTIC ACID 8.6 mmol/L (0.4-2.0)
[2022-05-29 08:05] LABS: ANION GAP 18 MMOL/L (8-16); N-TERMINAL BNP > 35000.0 pg/ml (5-125)
[2022-05-29] MEDS ORDERED: DEXTROSE 50%-WATER - 25 GM/50 ML VIAL IVPUSH ONE (08:06)
[2022-05-29] MEDS ORDERED: INSULIN REGULAR HUMAN 100 UNITS/ML *VIAL IVPUSH ONE (08:06)
[2022-05-29] MEDS ORDERED: CALCIUM GLUCONATE 10% - 1,000 MG/10 ML VIAL IVPB ONE (08:06)
[2022-05-29 08:11] LABS: INR 2.25 (0.83-1.09); PROTHROMBIN TIME (PATIENT) 26.1 SEC (9.7-13.0)
[2022-05-29 08:14] LABS: ACTIVATED PTT 34.8 SECONDS (25.2-36.5); PHOSPHOROUS 9.4 mg/dL (2.5-4.9)
[2022-05-29 08:18] LABS: EPI CELLS 13 /uL (0-25.1); HYALINE CASTS 1 /uL (0-3.1); PH,URINE 5.5 (5.0-8.0); URINE APPEARANCE CLOUDY; URINE BACTERIA 358 /uL (0-1359); URINE BILIRUBIN NEGATIVE (NEGATIVE); URINE COLOR YELLOW; URINE GLUCOSE (UA) 2+ (NEGATIVE); URINE KETONE NEGATIVE (NEGATIVE); URINE LEUK ESTERASE 2+ (NEGATIVE); URINE NITRITE NEGATIVE (NEGATIVE); URINE PROTEIN 4+ (NEGATIVE); URINE RBC 28 /uL (0-23.9); URINE UROBILINOGEN 0.2 mg/dL (0.2-1.0); URINE WBC 2382 /uL (0-25.8)
[2022-05-29] MEDS ORDERED: DEXAMETHASONE SOD PHOSPHATE 4 MG/1 ML VIAL IVPUSH ONE (08:38)
[2022-05-29 08:49] LABS: ARTERIAL BLD GAS O2 SATURATION 97.7 % (95-98); ARTERIAL BLOOD GAS BASE EXCESS -14.8 mmol/L (-2-2); ARTERIAL BLOOD GAS PO2 140.7 mmHg (80-100)
[2022-05-29 08:50] LABS: ALLENS TEST POSITIVE
[2022-05-29 08:51] LABS: VENT MODE SIT; VENT RATE 14
[2022-05-29 08:56] LABS: YEAST NO SEEN (NEGATIVE)
[2022-05-29] MEDS ORDERED: DEXAMETHASONE SOD PHOSPHATE 10 MG/1 ML VIAL ONE (09:06)
[2022-05-29] MEDS ORDERED: CALCIUM GLUCONATE 10% - 1,000 MG/10 ML VIAL ONE (09:06)
[2022-05-29] MEDS ORDERED: DEXTROSE 50%-WATER 25 GM/50 ML DISP.SYRIN ONE (09:06)
[2022-05-29 10:16] LABS: ANISOCYTOSIS 2+; MACROCYTOSIS 0; OVALOCYTE 1+
[2022-05-29 10:16] LABS: LACTIC ACID 5.7 mmol/L (0.4-2.0)
[2022-05-29] MEDS ORDERED: SODIUM CHLORIDE 250 ML IV PRN (13:02)
[2022-05-29] MEDS ORDERED: HEPARIN NA (PORCINE) 5,000 UNITS/ML 1ML VIAL IVPUSH ONE (13:02)
[2022-05-29] MEDS ORDERED: CEFEPIME 1 GM in DEXTROSE 5%-WATER 100 ML IVPB ONE (20:58)
[2022-05-29] MEDS ORDERED: CEFEPIME HCL 1 GM VIAL (RESTRICTED TO ID) ONE (22:24)
[2022-05-29] MEDS ORDERED: DEXTROSE 5%-WATER 100 ML IVPB ONE (22:25)
[2022-05-30] MEDS: SODIUM HYPOCHLORITE 0.25%- 473 ML BULK BOTTLE TP SCH ×2 (07:04→10:36)
[2022-05-30] MEDS ORDERED: ALBUTEROL SO4 0.083% IH SOL 2.5 MG/3 ML VIAL.NEB. NEB STA ×2 (14:23→14:25)
[2022-05-30] MEDS ORDERED: ALBUTEROL SO4 0.083% IH SOL 2.5 MG/3 ML VIAL.NEB. NEB PRN (14:26)
[2022-05-30] MEDS ORDERED: LIDOCAINE HCL 1%, 10 MG/ML (20ML VIAL) ONE (15:29)
[2022-05-30] MEDS ORDERED: methaDONE HCL 10 MG TABLET (FOR DETOX USE ONLY) PO STA (20:08)
[2022-05-30] MEDS ORDERED: methaDONE HCL 10 MG TABLET ONE (21:02)
[2022-05-30] MEDS ORDERED: methaDONE HCL 40 MG DISPERSABLE TABLET ONE (21:02)
[2022-05-31] MEDS ORDERED: HEPARIN NA (PORCINE) 5,000 UNITS/ML 1ML VIAL IVPUSH ONE (08:00)
[2022-05-31] MEDS ORDERED: SODIUM CHLORIDE 250 ML IV PRN (08:00)
[2022-05-31 08:02] LABS: MAGNESIUM 2.4 mg/dL (1.8-2.4)
[2022-05-31 08:04] LABS: CREATININE 5.7 mg/dL (0.55-1.3); PHOSPHOROUS 8.4 mg/dL (2.5-4.9)
[2022-05-31 08:20] LABS: CALCIUM 7.3 mg/dL (8.5-10.1)
[2022-05-31 08:32] LABS: HEMATOCRIT 43.9 % (35.4-49); HEMOGLOBIN 13.5 GM/dL (11.7-16.9); MCH 27.2 pg (25.7-33.7); MCHC 30.8 g/dl (32.0-35.9); MEAN CELL VOLUME 88.1 fl (80-96); MEAN PLT VOLUME 10.3 fl (7.5-11.1); PLATELET COUNT 141 10^3/uL (134-434); RBC 4.98 M/mm3 (4.00-5.60); RDW 20.7 % (11.9-15.9); WHITE BLOOD COUNT 13.4 K/mm3 (4.0-10.0)
[2022-05-31 08:34] LABS: N-TERMINAL BNP > 175000.0 pg/ml (5-125)
[2022-05-31] MEDS ORDERED: HEPARIN NA (PORCINE) 5,000 UNITS/ML 1ML VIAL SQ ONE (09:10)
[2022-05-31] MEDS ORDERED: HEPARIN NA (PORCINE) 5,000 UNITS/ML 1ML VIAL IVPUSH PRN ×4 (09:10→21:01)
[2022-05-31] MEDS ORDERED: VANCOMYCIN/WATER 1250 MG 1,250 MG/250 ML BAG IVPB ONE (09:45)
[2022-05-31] MEDS ORDERED: HEPARIN - 25,000 UNIT in SODIUM CHLORIDE 495 ML IV SCH (09:45)
[2022-05-31] MEDS ORDERED: FLUTICASONE PROP 0.05% 16 GM NASAL SPRAY NS SCH (10:00)
[2022-05-31] MEDS: SODIUM HYPOCHLORITE 0.25%- 473 ML BULK BOTTLE TP SCH (10:19)
[2022-05-31] MEDS ORDERED: PIPERACILLIN/TAZOB 2.25 GM 2.25 GM in DEXTROSE 5%-WATER - 50 ML IVPB SCH ×2 (10:33→18:00)
[2022-05-31] MEDS ORDERED: PIPERACILLIN/TAZOB 2.25 GM 2.25 GM in DEXTROSE 5%-WATER - 50 ML IVPB ONE (10:45)
[2022-05-31] MEDS ORDERED: DEXTROSE 5%-WATER - 50 ML IVPB ONE ×2 (11:38→17:37)
[2022-05-31] MEDS ORDERED: PIPERACILLIN/TAZOBACTAM 2.25 GM VIAL IVPB ONE ×2 (11:38→17:36)
[2022-05-31] MEDS: HEPARIN - 25,000 UNIT in SODIUM CHLORIDE 495 ML IV SCH ×2 (19:00→21:04)
[2022-05-31] MEDS ORDERED: ALBUTEROL SO4 0.083% IH SOL 2.5 MG/3 ML VIAL.NEB. NEB PRN (21:01)
[2022-05-31] MEDS ORDERED: methaDONE HCL 10 MG TABLET (FOR DETOX USE ONLY) PO ONE (21:08)
[2022-05-31] MEDS ORDERED: methaDONE HCL 40 MG DISPERSABLE TABLET ONE (21:29)
[2022-05-31] MEDS ORDERED: methaDONE HCL 10 MG TABLET ONE (21:30)
[2022-05-31] MEDS: FLUTICASONE PROP 0.05% 16 GM NASAL SPRAY NS SCH (21:48)
[2022-06-01] MEDS ORDERED: PIPERACILLIN/TAZOBACTAM 2.25 GM VIAL IVPB ONE ×3 (01:03→17:06)
[2022-06-01] MEDS ORDERED: DEXTROSE 5%-WATER - 50 ML IVPB ONE ×3 (01:03→17:07)
[2022-06-01] MEDS: PIPERACILLIN/TAZOB 2.25 GM 2.25 GM in DEXTROSE 5%-WATER - 50 ML IVPB SCH ×3 (01:13→18:01)
[2022-06-01 09:19] LABS: BASO % 0.1 % (0-2.0); EOS % 0.9 % (0-4.5); HEMATOCRIT 42.1 % (35.4-49); LYMPH % 5.4 % (8-40); MCH 27.1 pg (25.7-33.7); MCHC 30.8 g/dl (32.0-35.9); MEAN CELL VOLUME 88.2 fl (80-96); MEAN PLT VOLUME 10.2 fl (7.5-11.1); MONO % 5.5 % (3.8-10.2); NEUT % 88.1 % (42.8-82.8); PLATELET COUNT 125 10^3/uL (134-434); RBC 4.77 M/mm3 (4.00-5.60); RDW 21.1 % (11.9-15.9); WHITE BLOOD COUNT 10.1 K/mm3 (4.0-10.0)
[2022-06-01] MEDS ORDERED: VANCOMYCIN/WATER 1,250 MG/250 ML BAG IVPB SCH (10:00)
[2022-06-01 10:05] LABS: CREATININE 4.7 mg/dL (0.55-1.3)
[2022-06-01 10:06] LABS: BLOOD UREA NITROGEN 39.7 mg/dL (7-18)
[2022-06-01 10:08] LABS: BILIRUBIN,TOTAL 1.6 mg/dL (0.2-1)
[2022-06-01 10:09] LABS: MAGNESIUM 2.2 mg/dL (1.8-2.4); PHOSPHOROUS 5.2 mg/dL (2.5-4.9)
[2022-06-01 10:17] LABS: ALBUMIN 2.7 g/dl (3.4-5.0); TOT PROT 5.2 g/dl (6.4-8.2)
[2022-06-01] MEDS ORDERED: methaDONE HCL 10 MG TABLET PO ONE (10:49)
[2022-06-01] MEDS: FLUTICASONE PROP 0.05% 16 GM NASAL SPRAY NS SCH ×2 (11:00→21:07)
[2022-06-01] MEDS ORDERED: methaDONE HCL 10 MG TABLET ONE (11:01)
[2022-06-01] MEDS ORDERED: methaDONE HCL 40 MG DISPERSABLE TABLET ONE (11:01)
[2022-06-01] MEDS: INSULIN SLIDING SCALE (NOVOLOG) 1 VIAL SQ SCH ×3 (11:29→21:08)
[2022-06-01] MEDS ORDERED: SODIUM CHLORIDE 250 ML IV PRN ×2 (11:46→12:30)
[2022-06-01] MEDS ORDERED: DOCUSATE SODIUM 100 MG CAPSULE (FP) PO PRN (16:30)
[2022-06-01] MEDS: COLLAGENASE CLOSTRIDIUM HIST. 30 GRAMS TUBE TP SCH (16:35)
[2022-06-01] MEDS: SODIUM HYPOCHLORITE 0.25%- 473 ML BULK BOTTLE TP SCH (16:35)
[2022-06-01] MEDS: HEPARIN - 25,000 UNIT in SODIUM CHLORIDE 495 ML IV SCH ×2 (16:36→21:07)
[2022-06-01] MEDS: SEVELAMER CARBONATE 800 MG TAB (FP) PO SCH (18:01)
[2022-06-02] MEDS ORDERED: DEXTROSE 5%-WATER - 50 ML IVPB ONE ×3 (00:52→17:29)
[2022-06-02] MEDS ORDERED: PIPERACILLIN/TAZOBACTAM 2.25 GM VIAL IVPB ONE ×3 (00:52→17:29)
[2022-06-02] MEDS: PIPERACILLIN/TAZOB 2.25 GM 2.25 GM in DEXTROSE 5%-WATER - 50 ML IVPB SCH ×3 (01:15→17:46)
[2022-06-02] MEDS ORDERED: methaDONE HCL 40 MG DISPERSABLE TABLET ONE (05:45)
[2022-06-02] MEDS ORDERED: methaDONE HCL 10 MG TABLET ONE (05:45)
[2022-06-02] MEDS ORDERED: methaDONE HCL 10 MG TABLET PO SCH (06:00)
[2022-06-02] MEDS: LEVOTHYROXINE NA 75 MCG TABLET (FP) PO SCH (06:15)
[2022-06-02] MEDS: INSULIN SLIDING SCALE (NOVOLOG) 1 VIAL SQ SCH ×4 (06:15→21:37)
[2022-06-02] MEDS: SEVELAMER CARBONATE 800 MG TAB (FP) PO SCH ×3 (10:38→17:44)
[2022-06-02] MEDS: FLUTICASONE PROP 0.05% 16 GM NASAL SPRAY NS SCH ×2 (10:38→21:37)
[2022-06-02] MEDS: COLLAGENASE CLOSTRIDIUM HIST. 30 GRAMS TUBE TP SCH (12:05)
[2022-06-02 15:08] LABS: BASO % 0.1 % (0-2.0); EOS % 1.2 % (0-4.5); HEMATOCRIT 42.4 % (35.4-49); HEMOGLOBIN 13.2 GM/dL (11.7-16.9); LYMPH % 5.3 % (8-40); MCH 27.2 pg (25.7-33.7); MEAN CELL VOLUME 87.6 fl (80-96); MEAN PLT VOLUME 10.6 fl (7.5-11.1); MONO % 8.2 % (3.8-10.2); NEUT % 85.2 % (42.8-82.8); PLATELET COUNT 128 10^3/uL (134-434); RBC 4.84 M/mm3 (4.00-5.60); WHITE BLOOD COUNT 9.9 K/mm3 (4.0-10.0)
[2022-06-02 15:27] LABS: CALCIUM 7.3 mg/dL (8.5-10.1)
[2022-06-02 15:28] LABS: ALBUMIN 2.9 g/dl (3.4-5.0); BLOOD UREA NITROGEN 48.3 mg/dL (7-18)
[2022-06-02 15:32] LABS: CREATININE 5.7 mg/dL (0.55-1.3); PHOSPHOROUS 5.5 mg/dL (2.5-4.9)
[2022-06-02 15:34] LABS: BILIRUBIN,TOTAL 2.4 mg/dL (0.2-1)
[2022-06-02] MEDS: guaiFENesin/D-M SUGAR-FREE/ACLHOL-FREE 118 ML BOTTLE PO PRN (17:00)
[2022-06-02] MEDS: SODIUM HYPOCHLORITE 0.25%- 473 ML BULK BOTTLE TP SCH (17:44)
[2022-06-02] MEDS: DOXYCYCLINE HYCLATE 100 MG CAPSULE PO SCH (19:15)
[2022-06-02] MEDS: VANCOMYCIN/WATER 1,250 MG/250 ML BAG IVPB SCH ×2 (19:19→22:55)
[2022-06-03] MEDS ORDERED: PIPERACILLIN/TAZOBACTAM 2.25 GM VIAL IVPB ONE ×3 (00:18→17:48)
[2022-06-03] MEDS ORDERED: DEXTROSE 5%-WATER - 50 ML IVPB ONE ×3 (00:18→17:48)
[2022-06-03] MEDS: guaiFENesin/D-M SUGAR-FREE/ACLHOL-FREE 118 ML BOTTLE PO PRN ×3 (01:00→18:41)
[2022-06-03] MEDS: PIPERACILLIN/TAZOB 2.25 GM 2.25 GM in DEXTROSE 5%-WATER - 50 ML IVPB SCH ×3 (01:24→18:40)
[2022-06-03] MEDS ORDERED: methaDONE HCL 10 MG TABLET ONE (05:47)
[2022-06-03] MEDS ORDERED: methaDONE HCL 40 MG DISPERSABLE TABLET ONE (05:47)
[2022-06-03] MEDS: LEVOTHYROXINE NA 75 MCG TABLET (FP) PO SCH (06:09)
[2022-06-03] MEDS: INSULIN SLIDING SCALE (NOVOLOG) 1 VIAL SQ SCH ×4 (06:09→22:32)
[2022-06-03] MEDS: SEVELAMER CARBONATE 800 MG TAB (FP) PO SCH ×3 (08:23→18:41)
[2022-06-03 09:13] LABS: BASO % 0.1 % (0-2.0); EOS % 1.5 % (0-4.5); HEMATOCRIT 43.4 % (35.4-49); HEMOGLOBIN 13.5 GM/dL (11.7-16.9); LYMPH % 4.1 % (8-40); MCH 27.2 pg (25.7-33.7); MCHC 31.1 g/dl (32.0-35.9); MEAN CELL VOLUME 87.6 fl (80-96); MONO % 7.8 % (3.8-10.2); NEUT % 86.5 % (42.8-82.8); PLATELET COUNT 95 10^3/uL (134-434); RBC 4.95 M/mm3 (4.00-5.60); RDW 21.5 % (11.9-15.9); WHITE BLOOD COUNT 9.3 K/mm3 (4.0-10.0)
[2022-06-03 09:38] LABS: ANISOCYTOSIS 1+; MACROCYTOSIS 1+; OVALOCYTE 1+
[2022-06-03 09:40] LABS: CALCIUM 7.9 mg/dL (8.5-10.1)
[2022-06-03 09:41] LABS: ALBUMIN 2.9 g/dl (3.4-5.0); BLOOD UREA NITROGEN 35.1 mg/dL (7-18)
[2022-06-03 09:44] LABS: CREATININE 4.6 mg/dL (0.55-1.3)
[2022-06-03 09:45] LABS: TOT PROT 6.2 g/dl (6.4-8.2)
[2022-06-03 09:46] LABS: BILIRUBIN,TOTAL 2.8 mg/dL (0.2-1)
[2022-06-03] MEDS: DOXYCYCLINE HYCLATE 100 MG CAPSULE PO SCH ×2 (10:04→18:41)
[2022-06-03] MEDS: FLUTICASONE PROP 0.05% 16 GM NASAL SPRAY NS SCH ×2 (15:21→22:29)
[2022-06-03] MEDS: SODIUM HYPOCHLORITE 0.25%- 473 ML BULK BOTTLE TP SCH (15:21)
[2022-06-03] MEDS ORDERED: SODIUM CHLORIDE 250 ML IV PRN (18:35)
[2022-06-03] MEDS: HEPARIN NA (PORCINE) 5,000 UNITS/ML 1ML VIAL SQ SCH (22:31)
[2022-06-04] MEDS ORDERED: PIPERACILLIN/TAZOBACTAM 2.25 GM VIAL IVPB ONE ×4 (01:27→10:20)
[2022-06-04] MEDS ORDERED: DEXTROSE 5%-WATER - 50 ML IVPB ONE ×4 (01:28→10:20)
[2022-06-04] MEDS: PIPERACILLIN/TAZOB 2.25 GM 2.25 GM in DEXTROSE 5%-WATER - 50 ML IVPB SCH ×3 (02:32→10:22)
[2022-06-04] MEDS ORDERED: methaDONE HCL 40 MG DISPERSABLE TABLET ONE (06:10)
[2022-06-04] MEDS ORDERED: methaDONE HCL 10 MG TABLET ONE (06:11)
[2022-06-04] MEDS: INSULIN SLIDING SCALE (NOVOLOG) 1 VIAL SQ SCH ×4 (06:17→21:10)
[2022-06-04] MEDS: LEVOTHYROXINE NA 75 MCG TABLET (FP) PO SCH (06:18)
[2022-06-04] MEDS: guaiFENesin/D-M SUGAR-FREE/ACLHOL-FREE 118 ML BOTTLE PO PRN ×2 (06:34→21:01)
[2022-06-04] MEDS: SEVELAMER CARBONATE 800 MG TAB (FP) PO SCH ×3 (09:00→17:40)
[2022-06-04 09:07] LABS: HEMATOCRIT 39.9 % (35.4-49); HEMOGLOBIN 12.3 GM/dL (11.7-16.9); MCHC 30.9 g/dl (32.0-35.9); MEAN CELL VOLUME 87.7 fl (80-96); MEAN PLT VOLUME 10.5 fl (7.5-11.1); PLATELET COUNT 84 10^3/uL (134-434); RBC 4.55 M/mm3 (4.00-5.60); RDW 21.6 % (11.9-15.9)
[2022-06-04 09:27] LABS: CALCIUM 7.4 mg/dL (8.5-10.1)
[2022-06-04 09:28] LABS: ALBUMIN 2.6 g/dl (3.4-5.0); BLOOD UREA NITROGEN 51.7 mg/dL (7-18)
[2022-06-04 09:31] LABS: CREATININE 5.7 mg/dL (0.55-1.3)
[2022-06-04 09:32] LABS: TOT PROT 5.6 g/dl (6.4-8.2)
[2022-06-04] MEDS: HEPARIN NA (PORCINE) 5,000 UNITS/ML 1ML VIAL SQ SCH ×2 (10:23→21:07)
[2022-06-04] MEDS: DOXYCYCLINE HYCLATE 100 MG CAPSULE PO SCH ×2 (10:23→17:40)
[2022-06-04] MEDS: SODIUM HYPOCHLORITE 0.25%- 473 ML BULK BOTTLE TP SCH (17:48)
[2022-06-04] MEDS: COLLAGENASE CLOSTRIDIUM HIST. 30 GRAMS TUBE TP SCH (17:49)
[2022-06-04] MEDS: FLUTICASONE PROP 0.05% 16 GM NASAL SPRAY NS SCH ×2 (17:50→21:07)
[2022-06-04] MEDS: INSULIN (LEVEMIR) 100 UNITS/ML UNITS SQ SCH (21:09)
[2022-06-05] MEDS: guaiFENesin/D-M SUGAR-FREE/ACLHOL-FREE 118 ML BOTTLE PO PRN ×2 (05:30→20:41)
[2022-06-05] MEDS ORDERED: methaDONE HCL 40 MG DISPERSABLE TABLET ONE ×2 (06:12→08:50)
[2022-06-05] MEDS ORDERED: methaDONE HCL 10 MG TABLET ONE ×2 (06:13→08:50)
[2022-06-05] MEDS: LEVOTHYROXINE NA 75 MCG TABLET (FP) PO SCH (06:38)
[2022-06-05] MEDS: INSULIN SLIDING SCALE (NOVOLOG) 1 VIAL SQ SCH ×4 (06:53→21:48)
[2022-06-05] MEDS: SEVELAMER CARBONATE 800 MG TAB (FP) PO SCH ×3 (09:10→17:16)
[2022-06-05] MEDS: DOXYCYCLINE HYCLATE 100 MG CAPSULE PO SCH ×2 (09:10→17:18)
[2022-06-05] MEDS: COLLAGENASE CLOSTRIDIUM HIST. 30 GRAMS TUBE TP SCH (12:03)
[2022-06-05] MEDS: SODIUM HYPOCHLORITE 0.25%- 473 ML BULK BOTTLE TP SCH ×2 (12:03→12:07)
[2022-06-05] MEDS: FLUTICASONE PROP 0.05% 16 GM NASAL SPRAY NS SCH ×2 (12:08→21:48)
[2022-06-05] MEDS: INSULIN (LEVEMIR) 100 UNITS/ML UNITS SQ SCH (21:48)
[2022-06-05] MEDS: HEPARIN NA (PORCINE) 5,000 UNITS/ML 1ML VIAL SQ SCH (21:48)
[2022-06-06] MEDS: guaiFENesin/D-M SUGAR-FREE/ACLHOL-FREE 118 ML BOTTLE PO PRN (03:00)
[2022-06-06] MEDS ORDERED: methaDONE HCL 10 MG TABLET ONE (06:05)
[2022-06-06] MEDS ORDERED: methaDONE HCL 40 MG DISPERSABLE TABLET ONE (06:05)
[2022-06-06] MEDS: INSULIN SLIDING SCALE (NOVOLOG) 1 VIAL SQ SCH ×4 (06:07→21:29)
[2022-06-06] MEDS: LEVOTHYROXINE NA 75 MCG TABLET (FP) PO SCH (06:08)
[2022-06-06] MEDS: SEVELAMER CARBONATE 800 MG TAB (FP) PO SCH ×3 (09:44→17:47)
[2022-06-06] MEDS: DOXYCYCLINE HYCLATE 100 MG CAPSULE PO SCH ×2 (09:44→17:47)
[2022-06-06] MEDS: HEPARIN NA (PORCINE) 5,000 UNITS/ML 1ML VIAL SQ SCH ×2 (09:44→21:28)
[2022-06-06] MEDS: COLLAGENASE CLOSTRIDIUM HIST. 30 GRAMS TUBE TP SCH ×2 (11:34→11:36)
[2022-06-06] MEDS: SODIUM HYPOCHLORITE 0.25%- 473 ML BULK BOTTLE TP SCH (11:35)
[2022-06-06] MEDS: FLUTICASONE PROP 0.05% 16 GM NASAL SPRAY NS SCH ×2 (11:35→21:28)
[2022-06-06] MEDS ORDERED: SODIUM CHLORIDE 250 ML IV PRN (11:38)
[2022-06-06] MEDS: INSULIN (LEVEMIR) 100 UNITS/ML UNITS SQ SCH (21:28)
[2022-06-07] MEDS: guaiFENesin/D-M SUGAR-FREE/ACLHOL-FREE 118 ML BOTTLE PO PRN ×2 (01:34→22:10)
[2022-06-07] MEDS ORDERED: methaDONE HCL 10 MG TABLET ONE (05:37)
[2022-06-07] MEDS ORDERED: methaDONE HCL 40 MG DISPERSABLE TABLET ONE (05:37)
[2022-06-07] MEDS: INSULIN SLIDING SCALE (NOVOLOG) 1 VIAL SQ SCH ×4 (06:00→22:15)
[2022-06-07] MEDS: LEVOTHYROXINE NA 75 MCG TABLET (FP) PO SCH (06:04)
[2022-06-07 09:05] LABS: MCH 27.1 pg (25.7-33.7); MCHC 30.9 g/dl (32.0-35.9); MEAN CELL VOLUME 87.7 fl (80-96); MEAN PLT VOLUME 11.2 fl (7.5-11.1); PLATELET COUNT 109 10^3/uL (134-434); RBC 4.78 M/mm3 (4.00-5.60); RDW 21.8 % (11.9-15.9); WHITE BLOOD COUNT 7.1 K/mm3 (4.0-10.0)
[2022-06-07 09:43] LABS: CALCIUM 7.1 mg/dL (8.5-10.1)
[2022-06-07 09:44] LABS: BLOOD UREA NITROGEN 72.6 mg/dL (7-18)
[2022-06-07 09:47] LABS: CREATININE 7.2 mg/dL (0.55-1.3); PHOSPHOROUS 6.3 mg/dL (2.5-4.9)
[2022-06-07] MEDS: FLUTICASONE PROP 0.05% 16 GM NASAL SPRAY NS SCH ×2 (11:31→22:09)
[2022-06-07] MEDS: HEPARIN NA (PORCINE) 5,000 UNITS/ML 1ML VIAL SQ SCH ×2 (11:31→22:08)
[2022-06-07] MEDS: DOXYCYCLINE HYCLATE 100 MG CAPSULE PO SCH ×2 (11:31→17:05)
[2022-06-07] MEDS: SEVELAMER CARBONATE 800 MG TAB (FP) PO SCH ×3 (11:31→16:50)
[2022-06-07] MEDS: SODIUM HYPOCHLORITE 0.25%- 473 ML BULK BOTTLE TP SCH (11:31)
[2022-06-07] MEDS: COLLAGENASE CLOSTRIDIUM HIST. 30 GRAMS TUBE TP SCH (11:32)
[2022-06-07] MEDS ORDERED: CEFTAZIDIME PENTAHYDRATE 1 GM in DEXTROSE 5%-WATER - 50 ML IVPB ONE ×2 (12:53→16:00)
[2022-06-07] MEDS ORDERED: DEXTROSE 5%-WATER - 50 ML IVPB ONE (16:02)
[2022-06-07] MEDS ORDERED: cefTAZidime PENTAHYDRATE 1 GM VIAL (RESTRICTED TO ID) ONE (16:02)
[2022-06-07] MEDS: INSULIN (LEVEMIR) 100 UNITS/ML UNITS SQ SCH (22:14)
[2022-06-08] MEDS ORDERED: methaDONE HCL 40 MG DISPERSABLE TABLET ONE (06:26)
[2022-06-08] MEDS ORDERED: methaDONE HCL 10 MG TABLET ONE (06:26)
[2022-06-08] MEDS: LEVOTHYROXINE NA 75 MCG TABLET (FP) PO SCH (06:34)
[2022-06-08] MEDS: INSULIN SLIDING SCALE (NOVOLOG) 1 VIAL SQ SCH ×4 (06:42→21:20)
[2022-06-08] MEDS: DOXYCYCLINE HYCLATE 100 MG CAPSULE PO SCH ×2 (10:52→17:20)
[2022-06-08] MEDS: FLUTICASONE PROP 0.05% 16 GM NASAL SPRAY NS SCH ×2 (10:52→21:13)
[2022-06-08] MEDS: HEPARIN NA (PORCINE) 5,000 UNITS/ML 1ML VIAL SQ SCH ×2 (10:52→21:13)
[2022-06-08] MEDS: SODIUM HYPOCHLORITE 0.25%- 473 ML BULK BOTTLE TP SCH (10:53)
[2022-06-08] MEDS: COLLAGENASE CLOSTRIDIUM HIST. 30 GRAMS TUBE TP SCH ×2 (10:54→21:21)
[2022-06-08] MEDS: SEVELAMER CARBONATE 800 MG TAB (FP) PO SCH ×3 (10:54→17:20)
[2022-06-08] MEDS ORDERED: COLLAGENASE CLOSTRIDIUM HIST. 30 GRAMS TUBE TP SCH (11:30)
[2022-06-08] MEDS ORDERED: SODIUM CHLORIDE 250 ML IV PRN (12:52)
[2022-06-08] MEDS: INSULIN (LEVEMIR) 100 UNITS/ML UNITS SQ SCH (21:20)
[2022-06-09] MEDS ORDERED: methaDONE HCL 40 MG DISPERSABLE TABLET ONE (06:06)
[2022-06-09] MEDS ORDERED: methaDONE HCL 10 MG TABLET ONE (06:07)
[2022-06-09] MEDS: LEVOTHYROXINE NA 75 MCG TABLET (FP) PO SCH (06:19)
[2022-06-09] MEDS: INSULIN SLIDING SCALE (NOVOLOG) 1 VIAL SQ SCH ×4 (06:27→21:18)
[2022-06-09] MEDS: SEVELAMER CARBONATE 800 MG TAB (FP) PO SCH ×3 (08:57→17:09)
[2022-06-09] MEDS: DOXYCYCLINE HYCLATE 100 MG CAPSULE PO SCH ×2 (10:14→17:09)
[2022-06-09] MEDS: guaiFENesin/D-M SUGAR-FREE/ACLHOL-FREE 118 ML BOTTLE PO PRN (10:14)
[2022-06-09] MEDS: HEPARIN NA (PORCINE) 5,000 UNITS/ML 1ML VIAL SQ SCH ×2 (10:14→21:02)
[2022-06-09] MEDS: FLUTICASONE PROP 0.05% 16 GM NASAL SPRAY NS SCH ×2 (10:44→21:02)
[2022-06-09] MEDS: SODIUM HYPOCHLORITE 0.25%- 473 ML BULK BOTTLE TP SCH (10:44)
[2022-06-09] MEDS: COLLAGENASE CLOSTRIDIUM HIST. 30 GRAMS TUBE TP SCH ×2 (10:44→21:18)
[2022-06-09] MEDS: ACETAMINOPHEN 325 MG TABLET (FP) PO PRN (15:03)
[2022-06-09] MEDS: traMADol HCL 50 MG TABLET PO PRN (15:19)
[2022-06-09] MEDS: BACITRACIN 15 GM TUBE TOPICAL OINTMENT TP SCH ×2 (17:09→21:03)
[2022-06-09] MEDS: INSULIN (LEVEMIR) 100 UNITS/ML UNITS SQ SCH (21:18)
[2022-06-10] MEDS ORDERED: methaDONE HCL 40 MG DISPERSABLE TABLET ONE (05:53)
[2022-06-10] MEDS ORDERED: methaDONE HCL 10 MG TABLET ONE (05:54)
[2022-06-10] MEDS: LEVOTHYROXINE NA 75 MCG TABLET (FP) PO SCH (06:10)
[2022-06-10] MEDS: INSULIN SLIDING SCALE (NOVOLOG) 1 VIAL SQ SCH ×4 (06:18→21:42)
[2022-06-10] MEDS: traMADol HCL 50 MG TABLET PO PRN (06:20)
[2022-06-10] MEDS: HEPARIN NA (PORCINE) 5,000 UNITS/ML 1ML VIAL SQ SCH ×2 (09:52→21:42)
[2022-06-10] MEDS: DOXYCYCLINE HYCLATE 100 MG CAPSULE PO SCH ×2 (09:52→19:53)
[2022-06-10] MEDS: SEVELAMER CARBONATE 800 MG TAB (FP) PO SCH ×3 (09:52→20:02)
[2022-06-10] MEDS: ACETAMINOPHEN 325 MG TABLET (FP) PO PRN (09:53)
[2022-06-10] MEDS: COLLAGENASE CLOSTRIDIUM HIST. 30 GRAMS TUBE TP SCH ×2 (09:54→21:48)
[2022-06-10] MEDS: SODIUM HYPOCHLORITE 0.25%- 473 ML BULK BOTTLE TP SCH (10:02)
[2022-06-10] MEDS: BACITRACIN 15 GM TUBE TOPICAL OINTMENT TP SCH ×2 (10:02→21:41)
[2022-06-10] MEDS: FLUTICASONE PROP 0.05% 16 GM NASAL SPRAY NS SCH ×2 (10:03→21:42)
[2022-06-10] MEDS ORDERED: SODIUM CHLORIDE 250 ML IV PRN (17:01)
[2022-06-10] MEDS: INSULIN (LEVEMIR) 100 UNITS/ML UNITS SQ SCH (21:42)
[2022-06-11] MEDS ORDERED: methaDONE HCL 40 MG DISPERSABLE TABLET ONE (06:10)
[2022-06-11] MEDS ORDERED: methaDONE HCL 10 MG TABLET ONE (06:11)
[2022-06-11] MEDS: LEVOTHYROXINE NA 75 MCG TABLET (FP) PO SCH (06:12)
[2022-06-11] MEDS: INSULIN SLIDING SCALE (NOVOLOG) 1 VIAL SQ SCH ×4 (06:30→21:48)
[2022-06-11] MEDS: ACETAMINOPHEN 325 MG TABLET (FP) PO PRN (09:09)
[2022-06-11] MEDS: SEVELAMER CARBONATE 800 MG TAB (FP) PO SCH ×3 (09:16→18:49)
[2022-06-11] MEDS: HEPARIN NA (PORCINE) 5,000 UNITS/ML 1ML VIAL SQ SCH ×2 (09:16→21:43)
[2022-06-11] MEDS: DOXYCYCLINE HYCLATE 100 MG CAPSULE PO SCH ×2 (09:16→18:52)
[2022-06-11] MEDS: SODIUM HYPOCHLORITE 0.25%- 473 ML BULK BOTTLE TP SCH (09:17)
[2022-06-11] MEDS: BACITRACIN 15 GM TUBE TOPICAL OINTMENT TP SCH ×2 (09:17→21:48)
[2022-06-11] MEDS: COLLAGENASE CLOSTRIDIUM HIST. 30 GRAMS TUBE TP SCH ×2 (09:24→21:48)
[2022-06-11] MEDS: FLUTICASONE PROP 0.05% 16 GM NASAL SPRAY NS SCH ×2 (09:24→21:43)
[2022-06-11 10:18] LABS: HEMOGLOBIN 12.4 GM/dL (11.7-16.9); RBC 4.58 M/mm3 (4.00-5.60); WHITE BLOOD COUNT 8.9 K/mm3 (4.0-10.0)
[2022-06-11 10:19] LABS: MCHC 30.9 g/dl (32.0-35.9); MEAN CELL VOLUME 87.3 fl (80-96); MEAN PLT VOLUME 10.5 fl (7.5-11.1); PLATELET COUNT 136 10^3/uL (134-434)
[2022-06-11 10:51] LABS: ALBUMIN 2.5 g/dl (3.4-5.0); ANION GAP 14 MMOL/L (8-16); BLOOD UREA NITROGEN 60.1 mg/dL (7-18); CHLORIDE 98 mmol/L (98-107); CO2 25 mmol/L (21-32); GLUCOSE,RANDOM 108 mg/dL (74-106); MAGNESIUM 2.2 mg/dL (1.8-2.4); SODIUM 137 mmol/L (136-145)
[2022-06-11 10:53] LABS: SGPT/ALT 101 U/L (13-61)
[2022-06-11 10:54] LABS: CREATININE 7.3 mg/dL (0.55-1.3); SGOT/AST 22 U/L (15-37)
[2022-06-11 10:55] LABS: BILIRUBIN,TOTAL 1.1 mg/dL (0.2-1); TOT PROT 5.9 g/dl (6.4-8.2)
[2022-06-11 10:56] LABS: ALK PHOS 82 U/L (45-117)
[2022-06-11 10:58] LABS: CALCIUM 6.9 mg/dL (8.5-10.1)
[2022-06-11] MEDS ORDERED: cefTAZidime PENTAHYDRATE 1 GM VIAL (RESTRICTED TO ID) ONE (18:51)
[2022-06-11] MEDS ORDERED: DEXTROSE 5%-WATER - 50 ML IVPB ONE (18:51)
[2022-06-11] MEDS: VANCOMYCIN/WATER FOR INJ (PEG) 1,000 MG/200 ML BAG IVPB SCH (19:26)
[2022-06-11] MEDS: CEFTAZIDIME PENTAHYDRATE 1 GM in DEXTROSE 5%-WATER - 50 ML IVPB SCH (19:27)
[2022-06-11] MEDS: guaiFENesin/D-M SUGAR-FREE/ACLHOL-FREE 118 ML BOTTLE PO PRN (21:43)
[2022-06-11] MEDS: traMADol HCL 50 MG TABLET PO PRN (21:43)
[2022-06-11] MEDS: INSULIN (LEVEMIR) 100 UNITS/ML UNITS SQ SCH (21:48)
[2022-06-12] MEDS ORDERED: methaDONE HCL 40 MG DISPERSABLE TABLET ONE (05:34)
[2022-06-12] MEDS ORDERED: methaDONE HCL 10 MG TABLET ONE (05:34)
[2022-06-12] MEDS: INSULIN SLIDING SCALE (NOVOLOG) 1 VIAL SQ SCH ×4 (06:00→21:37)
[2022-06-12] MEDS: LEVOTHYROXINE NA 75 MCG TABLET (FP) PO SCH (06:00)
[2022-06-12] MEDS: SEVELAMER CARBONATE 800 MG TAB (FP) PO SCH ×3 (08:24→16:36)
[2022-06-12] MEDS: HEPARIN NA (PORCINE) 5,000 UNITS/ML 1ML VIAL SQ SCH (09:47)
[2022-06-12] MEDS: BACITRACIN 15 GM TUBE TOPICAL OINTMENT TP SCH ×2 (09:47→21:36)
[2022-06-12] MEDS: DOXYCYCLINE HYCLATE 100 MG CAPSULE PO SCH ×2 (09:48→17:09)
[2022-06-12] MEDS: FLUTICASONE PROP 0.05% 16 GM NASAL SPRAY NS SCH ×2 (10:08→21:36)
[2022-06-12] MEDS: COLLAGENASE CLOSTRIDIUM HIST. 30 GRAMS TUBE TP SCH ×2 (10:08→21:37)
[2022-06-12] MEDS: SODIUM HYPOCHLORITE 0.25%- 473 ML BULK BOTTLE TP SCH (10:35)
[2022-06-12] MEDS: traMADol HCL 50 MG TABLET PO PRN (10:38)
[2022-06-12] MEDS ORDERED: oxyCODONE HCL 5 MG TABLET PO ONE (12:06)
[2022-06-12] MEDS ORDERED: levoFLOXacin 750 MG TABLET PO ONE (17:02)
[2022-06-12] MEDS: INSULIN (LEVEMIR) 100 UNITS/ML UNITS SQ SCH (21:36)
[2022-06-13] MEDS: traMADol HCL 50 MG TABLET PO PRN ×2 (02:52→20:31)
[2022-06-13] MEDS ORDERED: methaDONE HCL 40 MG DISPERSABLE TABLET ONE (06:16)
[2022-06-13] MEDS ORDERED: methaDONE HCL 10 MG TABLET ONE (06:16)
[2022-06-13] MEDS: LEVOTHYROXINE NA 75 MCG TABLET (FP) PO SCH (06:18)
[2022-06-13] MEDS: INSULIN SLIDING SCALE (NOVOLOG) 1 VIAL SQ SCH ×4 (06:18→21:29)
[2022-06-13] MEDS: DOXYCYCLINE HYCLATE 100 MG CAPSULE PO SCH ×2 (09:49→18:01)
[2022-06-13] MEDS: SODIUM HYPOCHLORITE 0.25%- 473 ML BULK BOTTLE TP SCH (09:49)
[2022-06-13] MEDS: COLLAGENASE CLOSTRIDIUM HIST. 30 GRAMS TUBE TP SCH ×2 (09:49→21:30)
[2022-06-13] MEDS: SEVELAMER CARBONATE 800 MG TAB (FP) PO SCH ×3 (09:50→18:01)
[2022-06-13] MEDS: FLUTICASONE PROP 0.05% 16 GM NASAL SPRAY NS SCH ×2 (09:50→21:29)
[2022-06-13] MEDS: BACITRACIN 15 GM TUBE TOPICAL OINTMENT TP SCH ×2 (09:50→21:30)
[2022-06-13] MEDS ORDERED: SODIUM CHLORIDE 250 ML IV PRN (12:09)
[2022-06-13 20:39] VITALS: BMI 30.4
[2022-06-13] MEDS: INSULIN (LEVEMIR) 100 UNITS/ML UNITS SQ SCH (21:30)
[2022-06-14] MEDS: ACETAMINOPHEN 325 MG TABLET (FP) PO PRN (00:33)
[2022-06-14] MEDS: COLLAGENASE CLOSTRIDIUM HIST. 30 GRAMS TUBE TP SCH ×3 (01:00→21:53)
[2022-06-14] MEDS ORDERED: methaDONE HCL 40 MG DISPERSABLE TABLET ONE (05:39)
[2022-06-14] MEDS ORDERED: methaDONE HCL 10 MG TABLET ONE (05:39)
[2022-06-14] MEDS: LEVOTHYROXINE NA 75 MCG TABLET (FP) PO SCH (06:00)
[2022-06-14] MEDS: INSULIN SLIDING SCALE (NOVOLOG) 1 VIAL SQ SCH ×4 (06:00→21:53)
[2022-06-14 08:55] LABS: BASO % 0.3 % (0-2.0); EOS % 0.3 % (0-4.5); HEMATOCRIT 37.6 % (35.4-49); HEMOGLOBIN 11.7 GM/dL (11.7-16.9); LYMPH % 5.4 % (8-40); MCHC 31.1 g/dl (32.0-35.9); MEAN PLT VOLUME 10.2 fl (7.5-11.1); MONO % 8.8 % (3.8-10.2); NEUT % 85.2 % (42.8-82.8); PLATELET COUNT 133 10^3/uL (134-434); RBC 4.33 M/mm3 (4.00-5.60); RDW 21.5 % (11.9-15.9)
[2022-06-14 09:10] LABS: CHLORIDE 98 mmol/L (98-107); SODIUM 137 mmol/L (136-145)
[2022-06-14 09:13] LABS: ALBUMIN 2.3 g/dl (3.4-5.0); ANION GAP 16 MMOL/L (8-16); CALCIUM 7.1 mg/dL (8.5-10.1); CO2 24 mmol/L (21-32)
[2022-06-14 09:14] LABS: BLOOD UREA NITROGEN 73.5 mg/dL (7-18); GLUCOSE,RANDOM 95 mg/dL (74-106)
[2022-06-14 09:16] LABS: SGPT/ALT 59 U/L (13-61)
[2022-06-14 09:17] LABS: PHOSPHOROUS 7.8 mg/dL (2.5-4.9); SGOT/AST 15 U/L (15-37)
[2022-06-14 09:18] LABS: BILIRUBIN,TOTAL 1.1 mg/dL (0.2-1); TOT PROT 5.5 g/dl (6.4-8.2)
[2022-06-14 09:19] LABS: ALK PHOS 73 U/L (45-117)
[2022-06-14 09:23] LABS: CREATININE 8.5 mg/dL (0.55-1.3)
[2022-06-14 09:26] LABS: ANISOCYTOSIS 2+; MACROCYTOSIS 0; TEAR DROP CELLS 1+
[2022-06-14] MEDS: SEVELAMER CARBONATE 800 MG TAB (FP) PO SCH ×3 (12:01→17:21)
[2022-06-14] MEDS: CALCIUM 500MG/VIT-D 200 UNITS COMBO TABLET (FP) PO SCH (12:29)
[2022-06-14] MEDS: VITAMIN B COMP W-C 1 EA TABLET (NEPHRO-VITE) PO SCH (12:29)
[2022-06-14] MEDS: DOXYCYCLINE HYCLATE 100 MG CAPSULE PO SCH (12:29)
[2022-06-14] MEDS: SODIUM HYPOCHLORITE 0.25%- 473 ML BULK BOTTLE TP SCH (12:49)
[2022-06-14] MEDS: BACITRACIN 15 GM TUBE TOPICAL OINTMENT TP SCH ×2 (12:49→21:52)
[2022-06-14] MEDS: FLUTICASONE PROP 0.05% 16 GM NASAL SPRAY NS SCH ×2 (12:49→21:52)
[2022-06-14] MEDS: VANCOMYCIN/WATER FOR INJ (PEG) 1,000 MG/200 ML BAG IVPB SCH (17:13)
[2022-06-14] MEDS: CEFTAZIDIME PENTAHYDRATE 1 GM in DEXTROSE 5%-WATER - 50 ML IVPB SCH (17:14)
[2022-06-14] MEDS: traMADol HCL 50 MG TABLET PO PRN (21:53)
[2022-06-14] MEDS: INSULIN (LEVEMIR) 100 UNITS/ML UNITS SQ SCH (21:53)
[2022-06-15] MEDS ORDERED: methaDONE HCL 40 MG DISPERSABLE TABLET ONE (05:57)
[2022-06-15] MEDS ORDERED: methaDONE HCL 10 MG TABLET ONE (05:58)
[2022-06-15] MEDS: LEVOTHYROXINE NA 75 MCG TABLET (FP) PO SCH (06:06)
[2022-06-15] MEDS: INSULIN SLIDING SCALE (NOVOLOG) 1 VIAL SQ SCH ×4 (06:23→22:31)
[2022-06-15] MEDS ORDERED: SODIUM CHLORIDE 250 ML IV PRN (10:31)
[2022-06-15] MEDS: SEVELAMER CARBONATE 800 MG TAB (FP) PO SCH ×3 (11:41→16:32)
[2022-06-15] MEDS: CALCIUM 500MG/VIT-D 200 UNITS COMBO TABLET (FP) PO SCH (11:42)
[2022-06-15] MEDS: FLUTICASONE PROP 0.05% 16 GM NASAL SPRAY NS SCH ×2 (11:43→22:30)
[2022-06-15] MEDS: VITAMIN B COMP W-C 1 EA TABLET (NEPHRO-VITE) PO SCH (11:43)
[2022-06-15] MEDS: SODIUM HYPOCHLORITE 0.25%- 473 ML BULK BOTTLE TP SCH (11:51)
[2022-06-15] MEDS: BACITRACIN 15 GM TUBE TOPICAL OINTMENT TP SCH ×2 (12:29→22:30)
[2022-06-15] MEDS: COLLAGENASE CLOSTRIDIUM HIST. 30 GRAMS TUBE TP SCH ×2 (16:36→22:31)
[2022-06-15] MEDS: traMADol HCL 50 MG TABLET PO PRN (20:55)
[2022-06-15] MEDS: HEPARIN NA (PORCINE) 5,000 UNITS/ML 1ML VIAL SQ SCH (22:30)
[2022-06-15] MEDS: INSULIN (LEVEMIR) 100 UNITS/ML UNITS SQ SCH (22:31)
[2022-06-16] MEDS ORDERED: methaDONE HCL 40 MG DISPERSABLE TABLET ONE (05:20)
[2022-06-16] MEDS ORDERED: methaDONE HCL 10 MG TABLET ONE (05:21)
[2022-06-16] MEDS: INSULIN SLIDING SCALE (NOVOLOG) 1 VIAL SQ SCH ×4 (06:10→23:08)
[2022-06-16] MEDS: LEVOTHYROXINE NA 75 MCG TABLET (FP) PO SCH (06:11)
[2022-06-16] MEDS: CALCIUM 500MG/VIT-D 200 UNITS COMBO TABLET (FP) PO SCH (10:15)
[2022-06-16] MEDS: COLLAGENASE CLOSTRIDIUM HIST. 30 GRAMS TUBE TP SCH ×2 (10:15→23:08)
[2022-06-16] MEDS: VITAMIN B COMP W-C 1 EA TABLET (NEPHRO-VITE) PO SCH (10:15)
[2022-06-16] MEDS: FLUTICASONE PROP 0.05% 16 GM NASAL SPRAY NS SCH ×2 (10:16→23:07)
[2022-06-16] MEDS: SEVELAMER CARBONATE 800 MG TAB (FP) PO SCH ×3 (10:17→18:47)
[2022-06-16] MEDS: BACITRACIN 15 GM TUBE TOPICAL OINTMENT TP SCH ×2 (10:17→23:07)
[2022-06-16] MEDS: SODIUM HYPOCHLORITE 0.25%- 473 ML BULK BOTTLE TP SCH (10:17)
[2022-06-16] MEDS ORDERED: HEPARIN NA (PORCINE) 5,000 UNITS/ML 1ML VIAL ONE ×2 (12:24→16:28)
[2022-06-16] MEDS ORDERED: LIDOCAINE HCL 1%, 10 MG/ML (20ML VIAL) ONE ×2 (12:24→16:28)
[2022-06-16] MEDS: HEPARIN NA (PORCINE) 5,000 UNITS/ML 1ML VIAL SQ SCH ×2 (15:09→23:07)
[2022-06-16 16:02] LABS: HEMATOCRIT 39.6 % (35.4-49); HEMOGLOBIN 12.6 GM/dL (11.7-16.9); MCH 27.3 pg (25.7-33.7); MCHC 31.7 g/dl (32.0-35.9); MEAN CELL VOLUME 86.1 fl (80-96); PLATELET COUNT 132 10^3/uL (134-434); RDW 21.1 % (11.9-15.9); WHITE BLOOD COUNT 7.5 K/mm3 (4.0-10.0)
[2022-06-16] MEDS ORDERED: MIDAZOLAM HCL 2 MG/2 ML SINGLE DOSE VIAL ONE (16:14)
[2022-06-16 16:16] LABS: INR 1.15 (0.83-1.09); PROTHROMBIN TIME (PATIENT) 13.3 SEC (9.7-13.0)
[2022-06-16 16:19] LABS: ACTIVATED PTT 28.5 SECONDS (25.2-36.5)
[2022-06-16 16:24] LABS: ALBUMIN 2.8 g/dl (3.4-5.0); CALCIUM 7.3 mg/dL (8.5-10.1)
[2022-06-16 16:27] LABS: CREATININE 6.9 mg/dL (0.55-1.3)
[2022-06-16 16:29] LABS: BILIRUBIN,TOTAL 1.2 mg/dL (0.2-1); TOT PROT 6.3 g/dl (6.4-8.2)
[2022-06-16 16:34] LABS: BLOOD UREA NITROGEN 48.4 mg/dL (7-18)
[2022-06-16] MEDS ORDERED: ONDANSETRON 4 MG/2 ML VIAL IVPUSH PRN ×2 (17:02→18:40)
[2022-06-16] MEDS ORDERED: LIDOCAINE HCL 1%, 10 MG/ML (20ML VIAL) NR ONE ×2 (17:16→17:39)
[2022-06-16] MEDS ORDERED: VANCOMYCIN 1,000 MG VIAL (RESTRICTED TO ID ONLY) IVPB ONE (17:31)
[2022-06-16] MEDS ORDERED: ceFAZolin SODIUM 1 GM VIAL ONE (17:33)
[2022-06-16] MEDS ORDERED: guaiFENesin/D-M SUGAR-FREE/ACLHOL-FREE 118 ML BOTTLE PO PRN (18:40)
[2022-06-16] MEDS ORDERED: DOCUSATE SODIUM 100 MG CAPSULE (FP) PO PRN (18:40)
[2022-06-16] MEDS ORDERED: ACETAMINOPHEN 325 MG TABLET (FP) PO PRN (18:40)
[2022-06-16] MEDS: CEFTAZIDIME PENTAHYDRATE 1 GM in DEXTROSE 5%-WATER - 50 ML IVPB SCH (18:47)
[2022-06-16] MEDS: VANCOMYCIN/WATER FOR INJ (PEG) 1,000 MG/200 ML BAG IVPB SCH (18:48)
[2022-06-16] MEDS: traMADol HCL 50 MG TABLET PO PRN (22:29)
[2022-06-16] MEDS: INSULIN (LEVEMIR) 100 UNITS/ML UNITS SQ SCH (23:08)
[2022-06-17] MEDS ORDERED: methaDONE HCL 40 MG DISPERSABLE TABLET ONE (05:34)
[2022-06-17] MEDS ORDERED: methaDONE HCL 10 MG TABLET ONE (05:35)
[2022-06-17] MEDS: INSULIN SLIDING SCALE (NOVOLOG) 1 VIAL SQ SCH ×4 (06:13→21:45)
[2022-06-17] MEDS: LEVOTHYROXINE NA 75 MCG TABLET (FP) PO SCH (06:14)
[2022-06-17] MEDS: SEVELAMER CARBONATE 800 MG TAB (FP) PO SCH ×3 (08:50→18:25)
[2022-06-17] MEDS: HEPARIN NA (PORCINE) 5,000 UNITS/ML 1ML VIAL SQ SCH ×2 (10:19→21:45)
[2022-06-17] MEDS: VITAMIN B COMP W-C 1 EA TABLET (NEPHRO-VITE) PO SCH (10:19)
[2022-06-17] MEDS: FLUTICASONE PROP 0.05% 16 GM NASAL SPRAY NS SCH ×2 (10:19→21:45)
[2022-06-17] MEDS: BACITRACIN 15 GM TUBE TOPICAL OINTMENT TP SCH ×2 (10:19→21:45)
[2022-06-17] MEDS: CALCIUM 500MG/VIT-D 200 UNITS COMBO TABLET (FP) PO SCH (10:20)
[2022-06-17] MEDS: traMADol HCL 50 MG TABLET PO PRN ×2 (10:40→21:46)
[2022-06-17] MEDS: COLLAGENASE CLOSTRIDIUM HIST. 30 GRAMS TUBE TP SCH ×2 (13:00→21:46)
[2022-06-17] MEDS: SODIUM HYPOCHLORITE 0.25%- 473 ML BULK BOTTLE TP SCH (13:10)
[2022-06-17 15:24] LABS: CHLORIDE 97 mmol/L (98-107); SODIUM 137 mmol/L (136-145)
[2022-06-17 15:27] LABS: CALCIUM 7.4 mg/dL (8.5-10.1)
[2022-06-17 15:28] LABS: ANION GAP 16 MMOL/L (8-16); BLOOD UREA NITROGEN 61.6 mg/dL (7-18); CO2 25 mmol/L (21-32); GLUCOSE,RANDOM 105 mg/dL (74-106)
[2022-06-17 15:31] LABS: PHOSPHOROUS 6.7 mg/dL (2.5-4.9)
[2022-06-17 15:32] LABS: CREATININE 7.8 mg/dL (0.55-1.3)
[2022-06-17] MEDS: INSULIN (LEVEMIR) 100 UNITS/ML UNITS SQ SCH (21:45)
[2022-06-18] MEDS ORDERED: methaDONE HCL 40 MG DISPERSABLE TABLET ONE (06:16)
[2022-06-18] MEDS ORDERED: methaDONE HCL 10 MG TABLET ONE (06:17)
[2022-06-18] MEDS: INSULIN SLIDING SCALE (NOVOLOG) 1 VIAL SQ SCH ×4 (06:25→21:04)
[2022-06-18] MEDS: LEVOTHYROXINE NA 75 MCG TABLET (FP) PO SCH (06:25)
[2022-06-18] MEDS: SEVELAMER CARBONATE 800 MG TAB (FP) PO SCH ×3 (08:20→17:21)
[2022-06-18] MEDS: HEPARIN NA (PORCINE) 5,000 UNITS/ML 1ML VIAL SQ SCH ×2 (10:42→21:03)
[2022-06-18] MEDS: VITAMIN B COMP W-C 1 EA TABLET (NEPHRO-VITE) PO SCH (10:43)
[2022-06-18] MEDS: CALCIUM 500MG/VIT-D 200 UNITS COMBO TABLET (FP) PO SCH (10:43)
[2022-06-18] MEDS: BACITRACIN 15 GM TUBE TOPICAL OINTMENT TP SCH ×2 (10:55→21:03)
[2022-06-18] MEDS: COLLAGENASE CLOSTRIDIUM HIST. 30 GRAMS TUBE TP SCH ×3 (10:55→21:04)
[2022-06-18] MEDS: SODIUM HYPOCHLORITE 0.25%- 473 ML BULK BOTTLE TP SCH ×2 (10:55→17:33)
[2022-06-18] MEDS ORDERED: WATER IVPB ONE (16:03)
[2022-06-18] MEDS ORDERED: CEFTAZIDIME PENTAHYDRATE IVPB ONE (16:03)
[2022-06-18] MEDS ORDERED: DEXTROSE 5% IVPB ONE (16:03)
[2022-06-18] MEDS: FLUTICASONE PROP 0.05% 16 GM NASAL SPRAY NS SCH ×2 (16:52→21:03)
[2022-06-18] MEDS ORDERED: VANCOMYCIN/WATER FOR INJ (PEG) 1,000 MG/200 ML BAG IVPB SCH (17:00)
[2022-06-18] MEDS ORDERED: CEFTAZIDIME PENTAHYDRATE 1 GM in DEXTROSE 5%-WATER - 50 ML IVPB SCH (18:00)
[2022-06-18] MEDS: INSULIN (LEVEMIR) 100 UNITS/ML UNITS SQ SCH (21:04)
[2022-06-18] MEDS: traMADol HCL 50 MG TABLET PO PRN (22:19)
[2022-06-19] MEDS ORDERED: methaDONE HCL 10 MG TABLET ONE (06:15)
[2022-06-19] MEDS ORDERED: methaDONE HCL 40 MG DISPERSABLE TABLET ONE (06:15)
[2022-06-19] MEDS: INSULIN SLIDING SCALE (NOVOLOG) 1 VIAL SQ SCH (06:30)
[2022-06-19] MEDS: LEVOTHYROXINE NA 75 MCG TABLET (FP) PO SCH (06:30)
[2022-06-19] MEDS ORDERED: SODIUM CHLORIDE 250 ML IV PRN (07:00)
[2022-06-19] MEDS: SODIUM HYPOCHLORITE 0.25%- 473 ML BULK BOTTLE TP SCH (09:21)
[2022-06-19] MEDS: SEVELAMER CARBONATE 800 MG TAB (FP) PO SCH (09:30)
[2022-06-19] MEDS: BACITRACIN 15 GM TUBE TOPICAL OINTMENT TP SCH (09:30)
[2022-06-19] MEDS: FLUTICASONE PROP 0.05% 16 GM NASAL SPRAY NS SCH (09:31)
[2022-06-19] MEDS: VITAMIN B COMP W-C 1 EA TABLET (NEPHRO-VITE) PO SCH (09:31)
[2022-06-19] MEDS: HEPARIN NA (PORCINE) 5,000 UNITS/ML 1ML VIAL SQ SCH (09:31)
[2022-06-19] MEDS: COLLAGENASE CLOSTRIDIUM HIST. 30 GRAMS TUBE TP SCH (09:31)
[2022-06-19] MEDS: CALCIUM 500MG/VIT-D 200 UNITS COMBO TABLET (FP) PO SCH (09:31)
[2022-06-19] MEDS ORDERED: ASPIRIN COATED 81 MG TABLET.EC PO SCH (10:00)
[2022-06-19 10:20] VITALS: BP 135/73; PULSE 86; RESP 20; TEMP 98.4
[2022-06-19] MEDS ORDERED: ALTEPLASE (CATHFLO) 2 MG/2 ML VIAL NR PRN (15:57)
== END 2022-06-19 13:10 | disposition home or self-care (01) | DRG 871 ==
LOC: JER 06:33 → JERBED 08:51 → JICU 10:30 → J4S 05-31 20:58
PROVIDERS: ADMIT Internal Medicine Pulmonary Disease; ATTEND Nurse Practitioner Acute Care
PROC: 05HC33Z Insertion of Infusion Device into Left Basilic Vein, Percutaneous Approach (ICD-10-PCS; 2022-05-30)
PROC: 5A1D70Z Performance of Urinary Filtration, Intermittent, Less than 6 Hours Per Day (ICD-10-PCS; 2022-05-31)
PROC: B41DYZZ Fluoroscopy of Aorta and Bilateral Lower Extremity Arteries using Other Contrast (ICD-10-PCS; principal; 2022-06-16 16:00)
DX: A41.89 Other specified sepsis (principal); U07.1 COVID-19; N18.6 End stage renal disease; I50.23 Acute on chronic systolic (congestive) heart failure; G93.41 Metabolic encephalopathy; J96.02 Acute respiratory failure with hypercapnia; R65.21 Severe sepsis with septic shock; J96.01 Acute respiratory failure with hypoxia; J12.82 Pneumonia due to coronavirus disease 2019; I21.A1 Myocardial infarction type 2; F11.20 Opioid dependence, uncomplicated; I13.2 Hypertensive heart and chronic kidney disease with heart failure and with stage 5 chronic kidney disease, or end stage renal disease; L97.909 Non-pressure chronic ulcer of unspecified part of unspecified lower leg with unspecified severity; L03.90 Cellulitis, unspecified; N17.9 Acute kidney failure, unspecified; E87.2 Acidosis; M86.9 Osteomyelitis, unspecified; E11.621 Type 2 diabetes mellitus with foot ulcer; E11.628 Type 2 diabetes mellitus with other skin complications; E03.9 Hypothyroidism, unspecified; I48.0 Paroxysmal atrial fibrillation; D69.6 Thrombocytopenia, unspecified; E11.51 Type 2 diabetes mellitus with diabetic peripheral angiopathy without gangrene; E11.69 Type 2 diabetes mellitus with other specified complication; E87.70 Fluid overload, unspecified; I25.10 Atherosclerotic heart disease of native coronary artery without angina pectoris; Z91.19 Patient's noncompliance with other medical treatment and regimen; Z98.61 Coronary angioplasty status; E66.9 Obesity, unspecified; Z68.30 Body mass index [BMI] 30.0-30.9, adult; Z99.2 Dependence on renal dialysis; E87.5 Hyperkalemia
CPT/HCPCS: 0241U-QW; 36415; 36600; 71045-TC-FY; 73718-TC-LT; 76000-TC-FY; 76705-TC; 80048; 80053; 81003; 82550; 82553; 82803; 82962; 83605; 83735; 83880; 84100; 84439; 84443; 84484; 85025; 85027; 85379; 85610; 85730; 86140; 86803; 86850; 86900; 86901; 87040; 87070; 87086; 87186; 87205; 87340; 87517; 87522; 93005; 93010; 93926-TC; 94660; 94760; 97116-GP; 97162-GP; 99291; 99292; A6022; C9803-CS; G0463-25; G0480; J1644; U0003; U0005

== ENCOUNTER 2022-06-30 09:11 | Inpatient (IN) | payer BC ==
[2022-06-30 09:36] VITALS: BMI 32.8
[2022-06-30] MEDS ORDERED: VANCOMYCIN 1 GM in D5W (PRE-DOCKED) 1,000 MG/250 ML IVPB ONE (11:21)
[2022-06-30] MEDS ORDERED: VANCOMYCIN/WATER FOR INJ (PEG) 1,000 MG/200 ML BAG IVPB ONE (11:37)
[2022-06-30 12:22] LABS: EOS % 0.6 % (0-4.5); HEMATOCRIT 41.4 % (35.4-49); HEMOGLOBIN 13.1 GM/dL (11.7-16.9); LYMPH % 7.9 % (8-40); MCH 28.2 pg (25.7-33.7); MCHC 31.6 g/dl (32.0-35.9); MEAN CELL VOLUME 89.3 fl (80-96); MEAN PLT VOLUME 10.8 fl (7.5-11.1); MONO % 4.3 % (3.8-10.2); NEUT % 86.2 % (42.8-82.8); PLATELET COUNT 185 10^3/uL (134-434); RBC 4.64 M/mm3 (4.00-5.60); RDW 22.2 % (11.9-15.9); WHITE BLOOD COUNT 9.2 K/mm3 (4.0-10.0)
[2022-06-30 12:24] LABS: INR 1.65 (0.83-1.09); PROTHROMBIN TIME (PATIENT) 19.1 SEC (9.7-13.0)
[2022-06-30 12:43] LABS: ALBUMIN 3.2 g/dl (3.4-5.0); BLOOD UREA NITROGEN 38.3 mg/dL (7-18); CALCIUM 8.3 mg/dL (8.5-10.1)
[2022-06-30 12:46] LABS: CREATININE 5.4 mg/dL (0.55-1.3)
[2022-06-30 12:48] LABS: BILIRUBIN,TOTAL 1.3 mg/dL (0.2-1); TOT PROT 7.2 g/dl (6.4-8.2)
[2022-06-30 13:24] LABS: LACTIC ACID 3.5 mmol/L (0.4-2.0)
[2022-06-30 14:09] LABS: ROULEAU 2+
[2022-06-30] MEDS ORDERED: DOCUSATE SODIUM 100 MG CAPSULE (FP) PO PRN (14:15)
[2022-06-30] MEDS ORDERED: ACETAMINOPHEN 325 MG TABLET (FP) PO PRN (14:15)
[2022-06-30] MEDS ORDERED: SODIUM CHLORIDE 250 ML IV PRN (14:26)
[2022-06-30] MEDS ORDERED: INSULIN SLIDING SCALE (NOVOLOG) 1 VIAL SQ SCH (16:30)
[2022-06-30] MEDS ORDERED: ALTEPLASE (CATHFLO) 2 MG/2 ML VIAL CVP ONE ×2 (16:50→18:50)
[2022-06-30] MEDS ORDERED: PIPERACILLIN/TAZOB 2.25 GM 2.25 GM in DEXTROSE 5%-WATER - 50 ML IVPB SCH (18:00)
[2022-06-30] MEDS ORDERED: HEPARIN NA (PORCINE) 5,000 UNITS/ML 1ML VIAL SQ SCH (22:00)
[2022-06-30] MEDS ORDERED: PIPERACILLIN/TAZOB 2.25 GM 2.25 GM/50 ML BAG IVPB ONE (22:19)
[2022-06-30] MEDS: PIPERACILLIN/TAZOB 2.25 GM 2.25 GM in DEXTROSE 5%-WATER - 50 ML IVPB SCH (23:09)
[2022-07-01] MEDS: FLUTICASONE PROP 0.05% 16 GM NASAL SPRAY NS SCH ×3 (00:28→22:51)
[2022-07-01] MEDS: NYSTATIN POWDER 100,000 UNITS/GM - 15 GM TOPICAL POWDER TP SCH ×3 (02:42→22:52)
[2022-07-01] MEDS ORDERED: methaDONE HCL 10 MG TABLET PO SCH (06:00)
[2022-07-01] MEDS ORDERED: LEVOTHYROXINE NA 75 MCG TABLET (FP) ONE (06:48)
[2022-07-01] MEDS ORDERED: LEVOTHYROXINE NA 75 MCG TABLET (FP) PO SCH (07:00)
[2022-07-01] MEDS ORDERED: methaDONE HCL 10 MG TABLET PO ONE ×2 (10:54→19:08)
[2022-07-01 11:09] LABS: BASO % 0.8 % (0-2.0); EOS % 1.9 % (0-4.5); HEMATOCRIT 47.7 % (35.4-49); HEMOGLOBIN 15.3 GM/dL (11.7-16.9); LYMPH % 9.4 % (8-40); MCH 28.6 pg (25.7-33.7); MCHC 32.2 g/dl (32.0-35.9); MEAN CELL VOLUME 88.9 fl (80-96); MEAN PLT VOLUME 9.8 fl (7.5-11.1); MONO % 6.8 % (3.8-10.2); NEUT % 81.1 % (42.8-82.8); PLATELET COUNT 134 10^3/uL (134-434); RBC 5.36 M/mm3 (4.00-5.60); RDW 23.3 % (11.9-15.9); WHITE BLOOD COUNT 10.3 K/mm3 (4.0-10.0)
[2022-07-01] MEDS: CALCIUM ACETATE 667 MG CAPSULE (FP) PO SCH ×4 (11:30→22:54)
[2022-07-01] MEDS: SEVELAMER CARBONATE 800 MG TAB (FP) PO SCH ×4 (11:31→22:54)
[2022-07-01] MEDS: PIPERACILLIN/TAZOB 2.25 GM 2.25 GM in DEXTROSE 5%-WATER - 50 ML IVPB SCH ×5 (11:33→22:53)
[2022-07-01 14:11] LABS: ALBUMIN 3.3 g/dl (3.4-5.0); CALCIUM 8.5 mg/dL (8.5-10.1); MAGNESIUM 2.1 mg/dL (1.8-2.4)
[2022-07-01 14:14] LABS: CREATININE 4.4 mg/dL (0.55-1.3)
[2022-07-01 14:15] LABS: BILIRUBIN,TOTAL 1.6 mg/dL (0.2-1); TOT PROT 7.7 g/dl (6.4-8.2)
[2022-07-01] MEDS ORDERED: ROPIVACAINE HCL 0.5% 30ML VIAL ONE (14:43)
[2022-07-01] MEDS ORDERED: LIDOCAINE HCL 2% (20ML MULTI-DOSE VIAL) ONE (14:43)
[2022-07-01] MEDS ORDERED: SODIUM CHLORIDE 250 ML IV PRN ×3 (14:56→19:08)
[2022-07-01] MEDS ORDERED: DEXTROSE 5%-WATER - 1,000 ML IV SCH ×2 (15:00→19:08)
[2022-07-01] MEDS ORDERED: MIDAZOLAM HCL 2 MG/2 ML SINGLE DOSE VIAL ONE ×2 (15:01→15:23)
[2022-07-01] MEDS ORDERED: KETAMINE HCL 200 MG/20 ML VIAL ONE (15:23)
[2022-07-01] MEDS ORDERED: ceFAZolin SODIUM 1 GM VIAL IVPB ONE (16:30)
[2022-07-01] MEDS ORDERED: ceFAZolin SODIUM 1 GM VIAL ONE (16:34)
[2022-07-01] MEDS ORDERED: ACETAMINOPHEN 325 MG TABLET (FP) PO PRN (19:08)
[2022-07-01] MEDS ORDERED: DOCUSATE SODIUM 100 MG CAPSULE (FP) PO PRN (19:08)
[2022-07-01] MEDS: morphine SULFATE 4 MG/ML VIAL IVPUSH PRN (21:30)
[2022-07-01] MEDS: HEPARIN NA (PORCINE) 5,000 UNITS/ML 1ML VIAL SQ SCH (22:52)
[2022-07-02] MEDS: morphine SULFATE 4 MG/ML VIAL IVPUSH PRN ×2 (01:31→09:56)
[2022-07-02] MEDS ORDERED: HYDROmorphone HCl 2 MG/ML VIAL IVPB ONE ×2 (01:49→15:00)
[2022-07-02] MEDS ORDERED: HYDROmorphone HCl 2 MG/ML VIAL IVPUSH ONE (03:50)
[2022-07-02] MEDS: PIPERACILLIN/TAZOB 2.25 GM 2.25 GM in DEXTROSE 5%-WATER - 50 ML IVPB SCH ×3 (05:12→21:09)
[2022-07-02] MEDS ORDERED: methaDONE HCL 10 MG TABLET PO SCH (06:00)
[2022-07-02] MEDS: HEPARIN NA (PORCINE) 5,000 UNITS/ML 1ML VIAL SQ SCH ×3 (06:27→21:11)
[2022-07-02] MEDS: LEVOTHYROXINE NA 75 MCG TABLET (FP) PO SCH (06:27)
[2022-07-02 08:59] LABS: BASO % 0.9 % (0-2.0); EOS % 1.5 % (0-4.5); HEMATOCRIT 30.8 % (35.4-49); HEMOGLOBIN 10.1 GM/dL (11.7-16.9); LYMPH % 5.6 % (8-40); MCH 29.1 pg (25.7-33.7); MCHC 32.8 g/dl (32.0-35.9); MEAN CELL VOLUME 88.8 fl (80-96); MEAN PLT VOLUME 9.3 fl (7.5-11.1); MONO % 8.3 % (3.8-10.2); NEUT % 83.7 % (42.8-82.8); PLATELET COUNT 130 10^3/uL (134-434); RBC 3.47 M/mm3 (4.00-5.60); RDW 22.8 % (11.9-15.9); WHITE BLOOD COUNT 9.7 K/mm3 (4.0-10.0)
[2022-07-02] MEDS: SEVELAMER CARBONATE 800 MG TAB (FP) PO SCH ×3 (09:03→17:45)
[2022-07-02] MEDS: CALCIUM ACETATE 667 MG CAPSULE (FP) PO SCH ×3 (09:04→17:45)
[2022-07-02 09:33] LABS: BLOOD UREA NITROGEN 32.5 mg/dL (7-18); CALCIUM 7.4 mg/dL (8.5-10.1); MAGNESIUM 1.9 mg/dL (1.8-2.4)
[2022-07-02 09:36] LABS: CREATININE 5.3 mg/dL (0.55-1.3)
[2022-07-02 09:37] LABS: BILIRUBIN,TOTAL 1.5 mg/dL (0.2-1)
[2022-07-02 09:57] LABS: ALBUMIN 2.2 g/dl (3.4-5.0); TOT PROT 5.3 g/dl (6.4-8.2)
[2022-07-02] MEDS: NYSTATIN POWDER 100,000 UNITS/GM - 15 GM TOPICAL POWDER TP SCH ×2 (10:04→21:11)
[2022-07-02] MEDS: FLUTICASONE PROP 0.05% 16 GM NASAL SPRAY NS SCH ×2 (10:04→21:26)
[2022-07-02] MEDS: INSULIN SLIDING SCALE (NOVOLOG) 1 VIAL SQ SCH ×3 (11:55→21:26)
[2022-07-02] MEDS ORDERED: HYDROmorphone HCl 2 MG/ML VIAL IVPUSH PRN (14:24)
[2022-07-02] MEDS: HYDROmorphone HCl 2 MG/ML VIAL IVPB PRN ×2 (19:52→22:52)
[2022-07-02] MEDS: DOCUSATE SODIUM 100 MG CAPSULE (FP) PO SCH (21:10)
[2022-07-02] MEDS: POLYETHYLENE GLYCOL (HEALTHYLAX) 3350 17 GM PACKET PO SCH (21:11)
[2022-07-02] MEDS ORDERED: GABAPENTIN 100 MG CAPSULE PO ONE (23:18)
[2022-07-03] MEDS: HYDROmorphone HCl 2 MG/ML VIAL IVPB PRN ×4 (01:52→21:26)
[2022-07-03] MEDS ORDERED: ACETAMINOPHEN 1000 MG/100 ML BAG IVPB ONE (02:18)
[2022-07-03] MEDS: PIPERACILLIN/TAZOB 2.25 GM 2.25 GM in DEXTROSE 5%-WATER - 50 ML IVPB SCH ×3 (05:11→19:51)
[2022-07-03] MEDS: INSULIN SLIDING SCALE (NOVOLOG) 1 VIAL SQ SCH ×4 (06:35→21:28)
[2022-07-03] MEDS: LEVOTHYROXINE NA 75 MCG TABLET (FP) PO SCH (06:43)
[2022-07-03] MEDS: HEPARIN NA (PORCINE) 5,000 UNITS/ML 1ML VIAL SQ SCH ×3 (06:43→21:28)
[2022-07-03 07:50] LABS: BASO % 1.5 % (0-2.0); EOS % 0.6 % (0-4.5); HEMATOCRIT 28.7 % (35.4-49); HEMOGLOBIN 9.4 GM/dL (11.7-16.9); LYMPH % 4.5 % (8-40); MCH 29.4 pg (25.7-33.7); MCHC 32.9 g/dl (32.0-35.9); MEAN CELL VOLUME 89.5 fl (80-96); MONO % 9.7 % (3.8-10.2); NEUT % 83.7 % (42.8-82.8); PLATELET COUNT 141 10^3/uL (134-434); RBC 3.21 M/mm3 (4.00-5.60); RDW 23.6 % (11.9-15.9); WHITE BLOOD COUNT 9.4 K/mm3 (4.0-10.0)
[2022-07-03 08:02] LABS: ALBUMIN 2.2 g/dl (3.4-5.0); BLOOD UREA NITROGEN 20.6 mg/dL (7-18); CALCIUM 7.3 mg/dL (8.5-10.1); MAGNESIUM 1.6 mg/dL (1.8-2.4)
[2022-07-03 08:07] LABS: TOT PROT 5.2 g/dl (6.4-8.2)
[2022-07-03 08:13] LABS: BILIRUBIN,TOTAL 1.2 mg/dL (0.2-1)
[2022-07-03] MEDS: GABAPENTIN 100 MG CAPSULE PO SCH ×2 (10:40→21:28)
[2022-07-03] MEDS: POLYETHYLENE GLYCOL (HEALTHYLAX) 3350 17 GM PACKET PO SCH ×3 (10:40→21:27)
[2022-07-03] MEDS: NYSTATIN POWDER 100,000 UNITS/GM - 15 GM TOPICAL POWDER TP SCH ×2 (10:40→21:29)
[2022-07-03] MEDS: SEVELAMER CARBONATE 800 MG TAB (FP) PO SCH ×3 (10:40→18:46)
[2022-07-03] MEDS: FLUTICASONE PROP 0.05% 16 GM NASAL SPRAY NS SCH ×2 (10:41→21:27)
[2022-07-03] MEDS: ACETAMINOPHEN 1000 MG/100 ML BAG IVPB SCH ×3 (10:41→21:26)
[2022-07-03] MEDS: CALCIUM ACETATE 667 MG CAPSULE (FP) PO SCH ×3 (10:41→18:46)
[2022-07-03] MEDS ORDERED: MAGNESIUM OXIDE 400 MG TABLET (FP) PO ONE ×2 (12:38→15:00)
[2022-07-03] MEDS: DOCUSATE SODIUM 100 MG CAPSULE (FP) PO SCH (21:27)
[2022-07-04] MEDS: ACETAMINOPHEN 1000 MG/100 ML BAG IVPB SCH ×4 (02:41→20:25)
[2022-07-04] MEDS: PIPERACILLIN/TAZOB 2.25 GM 2.25 GM in DEXTROSE 5%-WATER - 50 ML IVPB SCH ×3 (03:53→20:24)
[2022-07-04] MEDS: HEPARIN NA (PORCINE) 5,000 UNITS/ML 1ML VIAL SQ SCH ×3 (05:28→22:31)
[2022-07-04] MEDS: INSULIN SLIDING SCALE (NOVOLOG) 1 VIAL SQ SCH ×4 (06:30→22:32)
[2022-07-04] MEDS: LEVOTHYROXINE NA 75 MCG TABLET (FP) PO SCH (09:16)
[2022-07-04] MEDS: GABAPENTIN 100 MG CAPSULE PO SCH ×2 (09:30→22:31)
[2022-07-04] MEDS: SEVELAMER CARBONATE 800 MG TAB (FP) PO SCH ×3 (09:31→18:56)
[2022-07-04] MEDS: CALCIUM ACETATE 667 MG CAPSULE (FP) PO SCH ×3 (09:32→17:47)
[2022-07-04 11:09] LABS: ALBUMIN 1.9 g/dl (3.4-5.0); BLOOD UREA NITROGEN 34.6 mg/dL (7-18); MAGNESIUM 1.7 mg/dL (1.8-2.4)
[2022-07-04 11:11] LABS: CREATININE 5.6 mg/dL (0.55-1.3)
[2022-07-04] MEDS ORDERED: SODIUM CHLORIDE 250 ML IV PRN (11:12)
[2022-07-04 11:13] LABS: TOT PROT 4.9 g/dl (6.4-8.2)
[2022-07-04] MEDS: FLUTICASONE PROP 0.05% 16 GM NASAL SPRAY NS SCH ×2 (11:38→22:32)
[2022-07-04] MEDS: NYSTATIN POWDER 100,000 UNITS/GM - 15 GM TOPICAL POWDER TP SCH ×2 (11:39→22:32)
[2022-07-04] MEDS: POLYETHYLENE GLYCOL (HEALTHYLAX) 3350 17 GM PACKET PO SCH ×2 (11:39→22:31)
[2022-07-04 11:54] LABS: BASO % 0.5 % (0-2.0); EOS % 1.3 % (0-4.5); HEMATOCRIT 26.3 % (35.4-49); HEMOGLOBIN 8.5 GM/dL (11.7-16.9); LYMPH % 7.9 % (8-40); MCHC 32.1 g/dl (32.0-35.9); MEAN CELL VOLUME 90.2 fl (80-96); MEAN PLT VOLUME 9.1 fl (7.5-11.1); MONO % 9.6 % (3.8-10.2); NEUT % 80.7 % (42.8-82.8); PLATELET COUNT 89 10^3/uL (134-434); RBC 2.92 M/mm3 (4.00-5.60); RDW 24.8 % (11.9-15.9); WHITE BLOOD COUNT 8.2 K/mm3 (4.0-10.0)
[2022-07-04] MEDS: HYDROmorphone HCl 2 MG/ML VIAL IVPB PRN ×2 (13:25→22:38)
[2022-07-04 14:36] LABS: ANISOCYTOSIS 1+; MACROCYTOSIS 1+; PLATELET ESTIMATE DECREASED
[2022-07-04] MEDS: POTASSIUM CHLORIDE TABS 20 MEQ TABLET.ER (FP) PO SCH ×2 (15:09→22:31)
[2022-07-04] MEDS: DOCUSATE SODIUM 100 MG CAPSULE (FP) PO SCH (22:31)
[2022-07-05] MEDS: ACETAMINOPHEN 1000 MG/100 ML BAG IVPB SCH (03:26)
[2022-07-05] MEDS: PIPERACILLIN/TAZOB 2.25 GM 2.25 GM in DEXTROSE 5%-WATER - 50 ML IVPB SCH ×2 (03:26→12:39)
[2022-07-05] MEDS: LEVOTHYROXINE NA 75 MCG TABLET (FP) PO SCH (06:05)
[2022-07-05] MEDS: HEPARIN NA (PORCINE) 5,000 UNITS/ML 1ML VIAL SQ SCH ×3 (06:05→22:31)
[2022-07-05] MEDS: INSULIN SLIDING SCALE (NOVOLOG) 1 VIAL SQ SCH ×4 (06:11→22:31)
[2022-07-05] MEDS: HYDROmorphone HCl 2 MG/ML VIAL IVPB PRN ×5 (06:49→23:30)
[2022-07-05 08:02] LABS: BLOOD UREA NITROGEN 43.7 mg/dL (7-18); CALCIUM 7.1 mg/dL (8.5-10.1); MAGNESIUM 1.8 mg/dL (1.8-2.4)
[2022-07-05 08:05] LABS: CREATININE 6.2 mg/dL (0.55-1.3)
[2022-07-05 08:07] LABS: TOT PROT 5.4 g/dl (6.4-8.2)
[2022-07-05] MEDS: SEVELAMER CARBONATE 800 MG TAB (FP) PO SCH ×3 (08:48→17:05)
[2022-07-05] MEDS: CALCIUM ACETATE 667 MG CAPSULE (FP) PO SCH ×3 (08:48→17:06)
[2022-07-05] MEDS: FLUTICASONE PROP 0.05% 16 GM NASAL SPRAY NS SCH ×2 (09:15→22:31)
[2022-07-05] MEDS: POLYETHYLENE GLYCOL (HEALTHYLAX) 3350 17 GM PACKET PO SCH ×2 (09:16→21:10)
[2022-07-05] MEDS: GABAPENTIN 100 MG CAPSULE PO SCH ×2 (09:16→22:31)
[2022-07-05] MEDS: NYSTATIN POWDER 100,000 UNITS/GM - 15 GM TOPICAL POWDER TP SCH ×2 (09:16→22:32)
[2022-07-05 14:22] LABS: HEMATOCRIT 27.1 % (35.4-49); HEMOGLOBIN 8.8 GM/dL (11.7-16.9); MCH 29.1 pg (25.7-33.7); MCHC 32.6 g/dl (32.0-35.9); MEAN CELL VOLUME 89.3 fl (80-96); MEAN PLT VOLUME 9.6 fl (7.5-11.1); PLATELET COUNT 132 10^3/uL (134-434); RBC 3.03 M/mm3 (4.00-5.60); RDW 24.5 % (11.9-15.9); WHITE BLOOD COUNT 9.5 K/mm3 (4.0-10.0)
[2022-07-05 14:38] LABS: CHLORIDE 99 mmol/L (98-107); SODIUM 135 mmol/L (136-145)
[2022-07-05 14:41] LABS: ANION GAP 12 MMOL/L (8-16); CO2 25 mmol/L (21-32); GLUCOSE,RANDOM 105 mg/dL (74-106); MAGNESIUM 1.7 mg/dL (1.8-2.4)
[2022-07-05 14:44] LABS: CREATININE 6.3 mg/dL (0.55-1.3); PHOSPHOROUS 3.3 mg/dL (2.5-4.9); SGOT/AST 18 U/L (15-37); SGPT/ALT 8 U/L (13-61)
[2022-07-05 14:45] LABS: TOT PROT 5.2 g/dl (6.4-8.2)
[2022-07-05 14:47] LABS: ALK PHOS 64 U/L (45-117)
[2022-07-05 14:52] LABS: BILIRUBIN,TOTAL 0.8 mg/dL (0.2-1)
[2022-07-05 14:56] LABS: CALCIUM 6.9 mg/dL (8.5-10.1)
[2022-07-05] MEDS ORDERED: MAGNESIUM OXIDE 400 MG TABLET (FP) PO ONE (15:15)
[2022-07-05] MEDS: DOCUSATE SODIUM 100 MG CAPSULE (FP) PO SCH (21:10)
[2022-07-05] MEDS: ATORVASTATIN CA 40 MG TABLET (FP) PO SCH (22:31)
[2022-07-06] MEDS: HEPARIN NA (PORCINE) 5,000 UNITS/ML 1ML VIAL SQ SCH ×3 (06:17→21:35)
[2022-07-06] MEDS: INSULIN SLIDING SCALE (NOVOLOG) 1 VIAL SQ SCH ×4 (06:17→21:36)
[2022-07-06] MEDS: LEVOTHYROXINE NA 75 MCG TABLET (FP) PO SCH (06:21)
[2022-07-06] MEDS: HYDROmorphone HCl 2 MG/ML VIAL IVPB PRN (07:28)
[2022-07-06] MEDS: SEVELAMER CARBONATE 800 MG TAB (FP) PO SCH ×3 (08:34→17:06)
[2022-07-06] MEDS: CALCIUM ACETATE 667 MG CAPSULE (FP) PO SCH ×3 (08:34→17:05)
[2022-07-06 09:28] LABS: BASO % 1.3 % (0-2.0); EOS % 0.9 % (0-4.5); HEMATOCRIT 28.5 % (35.4-49); HEMOGLOBIN 9.3 GM/dL (11.7-16.9); LYMPH % 5.4 % (8-40); MCH 29.6 pg (25.7-33.7); MCHC 32.5 g/dl (32.0-35.9); MEAN CELL VOLUME 91.2 fl (80-96); MEAN PLT VOLUME 9.1 fl (7.5-11.1); MONO % 9.4 % (3.8-10.2); PLATELET COUNT 140 10^3/uL (134-434); RBC 3.13 M/mm3 (4.00-5.60); RDW 26.5 % (11.9-15.9)
[2022-07-06] MEDS: GABAPENTIN 100 MG CAPSULE PO SCH ×2 (09:39→21:35)
[2022-07-06] MEDS: POLYETHYLENE GLYCOL (HEALTHYLAX) 3350 17 GM PACKET PO SCH ×2 (09:39→21:35)
[2022-07-06] MEDS: NYSTATIN POWDER 100,000 UNITS/GM - 15 GM TOPICAL POWDER TP SCH ×2 (09:41→21:36)
[2022-07-06] MEDS: FLUTICASONE PROP 0.05% 16 GM NASAL SPRAY NS SCH ×2 (09:41→21:35)
[2022-07-06] MEDS: ASPIRIN 81 MG CHEWABLE TABLETS PO SCH (09:43)
[2022-07-06 09:59] LABS: BLOOD UREA NITROGEN 32.9 mg/dL (7-18)
[2022-07-06] MEDS ORDERED: BACITRACIN 15 GM TUBE TOPICAL OINTMENT TP SCH (10:00)
[2022-07-06] MEDS ORDERED: ASPIRIN 325 MG TABLET PO SCH (10:00)
[2022-07-06 10:01] LABS: BILIRUBIN,TOTAL 0.9 mg/dL (0.2-1); TOT PROT 5.6 g/dl (6.4-8.2)
[2022-07-06 10:02] LABS: CALCIUM 7.4 mg/dL (8.5-10.1)
[2022-07-06 10:03] LABS: CREATININE 4.3 mg/dL (0.55-1.3)
[2022-07-06] MEDS: LIDOCAINE 5% TOPICAL PATCH TP SCH (11:04)
[2022-07-06] MEDS: NEOMYCIN/POLYMYXIN/BACITRACIN (TRIPLE ANTIBIOTIC) 28 GM OINTMENT TP SCH (11:57)
[2022-07-06] MEDS: ACETAMINOPHEN 325 MG TABLET (FP) PO PRN (21:34)
[2022-07-06] MEDS: DOCUSATE SODIUM 100 MG CAPSULE (FP) PO SCH (21:34)
[2022-07-06] MEDS: ATORVASTATIN CA 40 MG TABLET (FP) PO SCH (21:35)
[2022-07-06] MEDS: LIDOCAINE PATCH REMOVAL MC SCH (21:44)
[2022-07-07] MEDS: HEPARIN NA (PORCINE) 5,000 UNITS/ML 1ML VIAL SQ SCH ×3 (06:27→22:07)
[2022-07-07] MEDS: INSULIN SLIDING SCALE (NOVOLOG) 1 VIAL SQ SCH ×4 (06:27→22:08)
[2022-07-07] MEDS: LEVOTHYROXINE NA 75 MCG TABLET (FP) PO SCH (06:27)
[2022-07-07] MEDS ORDERED: SODIUM CHLORIDE 250 ML IV PRN (07:30)
[2022-07-07] MEDS ORDERED: EPOETIN ALFA-EPBX 10,000 UNIT/ML VIAL IVPUSH ONE (08:00)
[2022-07-07] MEDS: GABAPENTIN 100 MG CAPSULE PO SCH ×2 (09:04→22:08)
[2022-07-07] MEDS: SEVELAMER CARBONATE 800 MG TAB (FP) PO SCH ×3 (09:05→17:55)
[2022-07-07] MEDS: ASPIRIN 81 MG CHEWABLE TABLETS PO SCH (09:05)
[2022-07-07] MEDS: CALCIUM ACETATE 667 MG CAPSULE (FP) PO SCH ×3 (09:06→17:54)
[2022-07-07] MEDS: LIDOCAINE 5% TOPICAL PATCH TP SCH (09:07)
[2022-07-07] MEDS: POLYETHYLENE GLYCOL (HEALTHYLAX) 3350 17 GM PACKET PO SCH ×2 (09:07→22:07)
[2022-07-07] MEDS: FLUTICASONE PROP 0.05% 16 GM NASAL SPRAY NS SCH ×2 (09:07→22:07)
[2022-07-07] MEDS: NEOMYCIN/POLYMYXIN/BACITRACIN (TRIPLE ANTIBIOTIC) 28 GM OINTMENT TP SCH (09:07)
[2022-07-07] MEDS: NYSTATIN POWDER 100,000 UNITS/GM - 15 GM TOPICAL POWDER TP SCH ×2 (09:08→22:08)
[2022-07-07 10:40] LABS: BASO % 0.7 % (0-2.0); EOS % 1.8 % (0-4.5); HEMATOCRIT 25.8 % (35.4-49); HEMOGLOBIN 8.2 GM/dL (11.7-16.9); LYMPH % 7.4 % (8-40); MCH 29.2 pg (25.7-33.7); MCHC 31.9 g/dl (32.0-35.9); MEAN CELL VOLUME 91.5 fl (80-96); MEAN PLT VOLUME 9.2 fl (7.5-11.1); MONO % 5.2 % (3.8-10.2); NEUT % 84.9 % (42.8-82.8); PLATELET COUNT 123 10^3/uL (134-434); RBC 2.82 M/mm3 (4.00-5.60); RDW 25.7 % (11.9-15.9); WHITE BLOOD COUNT 8.4 K/mm3 (4.0-10.0)
[2022-07-07 11:11] LABS: CALCIUM 7.6 mg/dL (8.5-10.1); MAGNESIUM 1.9 mg/dL (1.8-2.4)
[2022-07-07 11:12] LABS: BLOOD UREA NITROGEN 33.7 mg/dL (7-18)
[2022-07-07 11:14] LABS: CREATININE 4.1 mg/dL (0.55-1.3); PHOSPHOROUS 2.5 mg/dL (2.5-4.9)
[2022-07-07 11:16] LABS: BILIRUBIN,TOTAL 0.8 mg/dL (0.2-1); TOT PROT 5.4 g/dl (6.4-8.2)
[2022-07-07] MEDS: DOCUSATE SODIUM 100 MG CAPSULE (FP) PO SCH (22:07)
[2022-07-07] MEDS: LIDOCAINE PATCH REMOVAL MC SCH (22:08)
[2022-07-07] MEDS: ATORVASTATIN CA 40 MG TABLET (FP) PO SCH (22:08)
[2022-07-07] MEDS: ACETAMINOPHEN 325 MG TABLET (FP) PO PRN (23:50)
[2022-07-08] MEDS: HEPARIN NA (PORCINE) 5,000 UNITS/ML 1ML VIAL SQ SCH ×3 (05:42→21:43)
[2022-07-08] MEDS: INSULIN SLIDING SCALE (NOVOLOG) 1 VIAL SQ SCH ×4 (06:07→21:43)
[2022-07-08] MEDS: LEVOTHYROXINE NA 75 MCG TABLET (FP) PO SCH (06:07)
[2022-07-08 08:16] LABS: BASO % 1.1 % (0-2.0); EOS % 2.1 % (0-4.5); HEMATOCRIT 25.9 % (35.4-49); HEMOGLOBIN 8.1 GM/dL (11.7-16.9); MCH 29.4 pg (25.7-33.7); MCHC 31.3 g/dl (32.0-35.9); MEAN CELL VOLUME 93.7 fl (80-96); MEAN PLT VOLUME 9.6 fl (7.5-11.1); MONO % 5.9 % (3.8-10.2); NEUT % 78.9 % (42.8-82.8); PLATELET COUNT 150 10^3/uL (134-434); RBC 2.77 M/mm3 (4.00-5.60); RDW 25.9 % (11.9-15.9); WHITE BLOOD COUNT 6.7 K/mm3 (4.0-10.0)
[2022-07-08 09:04] LABS: CALCIUM 7.2 mg/dL (8.5-10.1)
[2022-07-08 09:05] LABS: ALBUMIN 1.9 g/dl (3.4-5.0); BLOOD UREA NITROGEN 32.3 mg/dL (7-18); MAGNESIUM 2.1 mg/dL (1.8-2.4)
[2022-07-08 09:09] LABS: BILIRUBIN,TOTAL 0.6 mg/dL (0.2-1)
[2022-07-08 09:10] LABS: TOT PROT 5.2 g/dl (6.4-8.2)
[2022-07-08] MEDS: SEVELAMER CARBONATE 800 MG TAB (FP) PO SCH ×3 (09:34→17:37)
[2022-07-08] MEDS: CALCIUM ACETATE 667 MG CAPSULE (FP) PO SCH ×2 (09:35→12:37)
[2022-07-08] MEDS: GABAPENTIN 100 MG CAPSULE PO SCH (09:35)
[2022-07-08] MEDS: FLUTICASONE PROP 0.05% 16 GM NASAL SPRAY NS SCH ×2 (09:35→21:43)
[2022-07-08] MEDS: ASPIRIN 81 MG CHEWABLE TABLETS PO SCH (09:35)
[2022-07-08] MEDS: LIDOCAINE 5% TOPICAL PATCH TP SCH (09:36)
[2022-07-08] MEDS: NEOMYCIN/POLYMYXIN/BACITRACIN (TRIPLE ANTIBIOTIC) 28 GM OINTMENT TP SCH (09:36)
[2022-07-08] MEDS: NYSTATIN POWDER 100,000 UNITS/GM - 15 GM TOPICAL POWDER TP SCH ×2 (09:36→21:43)
[2022-07-08] MEDS: POLYETHYLENE GLYCOL (HEALTHYLAX) 3350 17 GM PACKET PO SCH ×2 (09:36→21:43)
[2022-07-08 10:04] LABS: ANISOCYTOSIS 1+; MACROCYTOSIS 2+; OVALOCYTE 2+
[2022-07-08] MEDS: DOCUSATE SODIUM 100 MG CAPSULE (FP) PO SCH (21:42)
[2022-07-08] MEDS: ATORVASTATIN CA 40 MG TABLET (FP) PO SCH (21:43)
[2022-07-08] MEDS: LIDOCAINE PATCH REMOVAL MC SCH (21:43)
[2022-07-08] MEDS: GABAPENTIN 300 MG CAPSULE PO SCH (21:43)
[2022-07-08] MEDS: ACETAMINOPHEN 500 MG TABLET (FP) PO SCH (21:44)
[2022-07-09] MEDS: HEPARIN NA (PORCINE) 5,000 UNITS/ML 1ML VIAL SQ SCH ×3 (06:32→22:19)
[2022-07-09] MEDS: ACETAMINOPHEN 500 MG TABLET (FP) PO SCH ×3 (06:32→21:57)
[2022-07-09] MEDS: INSULIN SLIDING SCALE (NOVOLOG) 1 VIAL SQ SCH ×4 (06:33→22:20)
[2022-07-09] MEDS: LEVOTHYROXINE NA 75 MCG TABLET (FP) PO SCH (06:33)
[2022-07-09] MEDS: SEVELAMER CARBONATE 800 MG TAB (FP) PO SCH ×3 (08:39→17:13)
[2022-07-09] MEDS: NYSTATIN POWDER 100,000 UNITS/GM - 15 GM TOPICAL POWDER TP SCH ×2 (09:02→22:20)
[2022-07-09] MEDS: POLYETHYLENE GLYCOL (HEALTHYLAX) 3350 17 GM PACKET PO SCH ×2 (09:02→22:19)
[2022-07-09] MEDS: NEOMYCIN/POLYMYXIN/BACITRACIN (TRIPLE ANTIBIOTIC) 28 GM OINTMENT TP SCH (09:02)
[2022-07-09] MEDS: ASPIRIN 81 MG CHEWABLE TABLETS PO SCH (09:02)
[2022-07-09] MEDS: GABAPENTIN 300 MG CAPSULE PO SCH ×2 (09:02→21:57)
[2022-07-09] MEDS: FLUTICASONE PROP 0.05% 16 GM NASAL SPRAY NS SCH ×2 (09:02→22:19)
[2022-07-09] MEDS: LIDOCAINE 5% TOPICAL PATCH TP SCH (09:02)
[2022-07-09] MEDS ORDERED: SODIUM CHLORIDE 250 ML IV PRN (11:00)
[2022-07-09] MEDS ORDERED: EPOETIN ALFA-EPBX 10,000 UNIT/ML VIAL IVPUSH ONE (12:00)
[2022-07-09 13:20] LABS: EOS % 2.3 % (0-4.5); HEMATOCRIT 23.9 % (35.4-49); HEMOGLOBIN 7.6 GM/dL (11.7-16.9); LYMPH % 16.3 % (8-40); MCH 29.7 pg (25.7-33.7); MCHC 31.6 g/dl (32.0-35.9); MEAN CELL VOLUME 93.8 fl (80-96); MEAN PLT VOLUME 9.4 fl (7.5-11.1); MONO % 2.6 % (3.8-10.2); NEUT % 77.8 % (42.8-82.8); PLATELET COUNT 143 10^3/uL (134-434); RBC 2.55 M/mm3 (4.00-5.60); RDW 26.2 % (11.9-15.9); WHITE BLOOD COUNT 2.8 K/mm3 (4.0-10.0)
[2022-07-09] MEDS ORDERED: SODIUM THIOSULFATE 12.5 GM/50 ML VIAL IVPB ONE (13:33)
[2022-07-09 13:49] LABS: ALBUMIN 1.8 g/dl (3.4-5.0); BLOOD UREA NITROGEN 42.4 mg/dL (7-18)
[2022-07-09 13:52] LABS: CREATININE 4.6 mg/dL (0.55-1.3)
[2022-07-09 13:54] LABS: BILIRUBIN,TOTAL 0.5 mg/dL (0.2-1); TOT PROT 5.1 g/dl (6.4-8.2)
[2022-07-09] MEDS: ATORVASTATIN CA 40 MG TABLET (FP) PO SCH (21:56)
[2022-07-09] MEDS: LIDOCAINE PATCH REMOVAL MC SCH (21:57)
[2022-07-09] MEDS: DOCUSATE SODIUM 100 MG CAPSULE (FP) PO SCH (22:20)
[2022-07-10] MEDS: ACETAMINOPHEN 500 MG TABLET (FP) PO SCH ×3 (06:29→21:36)
[2022-07-10] MEDS: LEVOTHYROXINE NA 75 MCG TABLET (FP) PO SCH (06:30)
[2022-07-10] MEDS: INSULIN SLIDING SCALE (NOVOLOG) 1 VIAL SQ SCH ×4 (06:39→21:53)
[2022-07-10] MEDS: HEPARIN NA (PORCINE) 5,000 UNITS/ML 1ML VIAL SQ SCH ×2 (06:39→21:35)
[2022-07-10] MEDS: SEVELAMER CARBONATE 800 MG TAB (FP) PO SCH ×3 (08:57→17:17)
[2022-07-10] MEDS: ASPIRIN 81 MG CHEWABLE TABLETS PO SCH (09:09)
[2022-07-10] MEDS: GABAPENTIN 300 MG CAPSULE PO SCH ×2 (09:09→21:36)
[2022-07-10] MEDS: LIDOCAINE 5% TOPICAL PATCH TP SCH (09:10)
[2022-07-10] MEDS: NEOMYCIN/POLYMYXIN/BACITRACIN (TRIPLE ANTIBIOTIC) 28 GM OINTMENT TP SCH (09:19)
[2022-07-10] MEDS: FLUTICASONE PROP 0.05% 16 GM NASAL SPRAY NS SCH ×2 (09:19→21:35)
[2022-07-10] MEDS: NYSTATIN POWDER 100,000 UNITS/GM - 15 GM TOPICAL POWDER TP SCH ×2 (09:19→21:37)
[2022-07-10] MEDS: POLYETHYLENE GLYCOL (HEALTHYLAX) 3350 17 GM PACKET PO SCH ×2 (09:20→21:35)
[2022-07-10 12:45] LABS: PHOSPHOROUS 2.6 mg/dL (2.5-4.9)
[2022-07-10 16:56] LABS: BASO % 1.3 % (0-2.0); EOS % 1.9 % (0-4.5); HEMATOCRIT 27.7 % (35.4-49); HEMOGLOBIN 8.8 GM/dL (11.7-16.9); LYMPH % 9.6 % (8-40); MCH 30.1 pg (25.7-33.7); MCHC 31.8 g/dl (32.0-35.9); MEAN CELL VOLUME 94.6 fl (80-96); MEAN PLT VOLUME 9.4 fl (7.5-11.1); MONO % 9.5 % (3.8-10.2); NEUT % 77.7 % (42.8-82.8); PLATELET COUNT 216 10^3/uL (134-434); RBC 2.92 M/mm3 (4.00-5.60); RDW 25.9 % (11.9-15.9); WHITE BLOOD COUNT 7.5 K/mm3 (4.0-10.0)
[2022-07-10 17:19] LABS: CALCIUM 7.4 mg/dL (8.5-10.1)
[2022-07-10 17:20] LABS: BLOOD UREA NITROGEN 35.4 mg/dL (7-18); MAGNESIUM 2.1 mg/dL (1.8-2.4)
[2022-07-10 17:23] LABS: CREATININE 4.1 mg/dL (0.55-1.3); PHOSPHOROUS 2.3 mg/dL (2.5-4.9)
[2022-07-10 17:24] LABS: BILIRUBIN,TOTAL 0.6 mg/dL (0.2-1)
[2022-07-10 17:25] LABS: TOT PROT 5.7 g/dl (6.4-8.2)
[2022-07-10] MEDS: DOCUSATE SODIUM 100 MG CAPSULE (FP) PO SCH (21:34)
[2022-07-10] MEDS: LIDOCAINE PATCH REMOVAL MC SCH (21:36)
[2022-07-10] MEDS: ATORVASTATIN CA 40 MG TABLET (FP) PO SCH (21:36)
[2022-07-11] MEDS: LEVOTHYROXINE NA 75 MCG TABLET (FP) PO SCH (06:42)
[2022-07-11] MEDS: ACETAMINOPHEN 500 MG TABLET (FP) PO SCH ×3 (06:42→21:32)
[2022-07-11] MEDS: INSULIN SLIDING SCALE (NOVOLOG) 1 VIAL SQ SCH ×4 (06:52→21:53)
[2022-07-11] MEDS: SEVELAMER CARBONATE 800 MG TAB (FP) PO SCH ×3 (08:43→16:37)
[2022-07-11] MEDS: POLYETHYLENE GLYCOL (HEALTHYLAX) 3350 17 GM PACKET PO SCH ×2 (10:22→21:34)
[2022-07-11] MEDS: ASPIRIN 81 MG CHEWABLE TABLETS PO SCH (10:22)
[2022-07-11] MEDS: LIDOCAINE 5% TOPICAL PATCH TP SCH (10:22)
[2022-07-11] MEDS: HEPARIN NA (PORCINE) 5,000 UNITS/ML 1ML VIAL SQ SCH ×2 (10:22→21:33)
[2022-07-11] MEDS: GABAPENTIN 300 MG CAPSULE PO SCH ×2 (10:22→21:32)
[2022-07-11] MEDS: FLUTICASONE PROP 0.05% 16 GM NASAL SPRAY NS SCH ×2 (10:23→21:34)
[2022-07-11] MEDS: NYSTATIN POWDER 100,000 UNITS/GM - 15 GM TOPICAL POWDER TP SCH ×2 (10:23→21:33)
[2022-07-11] MEDS: NEOMYCIN/POLYMYXIN/BACITRACIN (TRIPLE ANTIBIOTIC) 28 GM OINTMENT TP SCH (10:23)
[2022-07-11] MEDS: ATORVASTATIN CA 40 MG TABLET (FP) PO SCH (21:33)
[2022-07-11] MEDS: LIDOCAINE PATCH REMOVAL MC SCH (21:33)
[2022-07-11] MEDS: DOCUSATE SODIUM 100 MG CAPSULE (FP) PO SCH (21:34)
[2022-07-12] MEDS: ACETAMINOPHEN 500 MG TABLET (FP) PO SCH ×3 (05:51→21:26)
[2022-07-12] MEDS: LEVOTHYROXINE NA 75 MCG TABLET (FP) PO SCH (06:05)
[2022-07-12] MEDS: INSULIN SLIDING SCALE (NOVOLOG) 1 VIAL SQ SCH ×4 (06:05→21:45)
[2022-07-12] MEDS: SEVELAMER CARBONATE 800 MG TAB (FP) PO SCH ×3 (08:21→17:12)
[2022-07-12] MEDS: FLUTICASONE PROP 0.05% 16 GM NASAL SPRAY NS SCH ×2 (10:44→21:25)
[2022-07-12] MEDS: POLYETHYLENE GLYCOL (HEALTHYLAX) 3350 17 GM PACKET PO SCH ×2 (10:44→21:25)
[2022-07-12] MEDS: LIDOCAINE 5% TOPICAL PATCH TP SCH (10:45)
[2022-07-12] MEDS: HEPARIN NA (PORCINE) 5,000 UNITS/ML 1ML VIAL SQ SCH ×2 (10:45→21:24)
[2022-07-12] MEDS: ASPIRIN 81 MG CHEWABLE TABLETS PO SCH (10:45)
[2022-07-12] MEDS: GABAPENTIN 300 MG CAPSULE PO SCH ×2 (10:46→21:35)
[2022-07-12] MEDS: NYSTATIN POWDER 100,000 UNITS/GM - 15 GM TOPICAL POWDER TP SCH ×2 (11:01→21:30)
[2022-07-12] MEDS: NEOMYCIN/POLYMYXIN/BACITRACIN (TRIPLE ANTIBIOTIC) 28 GM OINTMENT TP SCH (12:36)
[2022-07-12] MEDS ORDERED: SODIUM THIOSULFATE 12.5 GM/50 ML VIAL IVPB ONE (15:00)
[2022-07-12] MEDS ORDERED: SODIUM CHLORIDE 250 ML IV PRN (15:00)
[2022-07-12] MEDS ORDERED: EPOETIN ALFA-EPBX 10,000 UNIT/ML VIAL SQ ONE (15:00)
[2022-07-12 18:10] LABS: BASO % 1.3 % (0-2.0); EOS % 1.6 % (0-4.5); HEMOGLOBIN 7.9 GM/dL (11.7-16.9); LYMPH % 12.5 % (8-40); MCH 30.1 pg (25.7-33.7); MCHC 31.7 g/dl (32.0-35.9); MEAN CELL VOLUME 95.1 fl (80-96); MEAN PLT VOLUME 9.9 fl (7.5-11.1); MONO % 8.2 % (3.8-10.2); NEUT % 76.4 % (42.8-82.8); PLATELET COUNT 224 10^3/uL (134-434); RBC 2.63 M/mm3 (4.00-5.60); RDW 26.4 % (11.9-15.9); WHITE BLOOD COUNT 6.6 K/mm3 (4.0-10.0)
[2022-07-12 18:36] LABS: CALCIUM 7.4 mg/dL (8.5-10.1)
[2022-07-12 18:37] LABS: ALBUMIN 2.2 g/dl (3.4-5.0); MAGNESIUM 2.5 mg/dL (1.8-2.4)
[2022-07-12 18:41] LABS: BILIRUBIN,TOTAL 0.5 mg/dL (0.2-1); CREATININE 6.3 mg/dL (0.55-1.3); PHOSPHOROUS 5.2 mg/dL (2.5-4.9); TOT PROT 5.8 g/dl (6.4-8.2)
[2022-07-12 18:45] LABS: BLOOD UREA NITROGEN 66.5 mg/dL (7-18)
[2022-07-12] MEDS: DOCUSATE SODIUM 100 MG CAPSULE (FP) PO SCH (21:25)
[2022-07-12] MEDS: LIDOCAINE PATCH REMOVAL MC SCH (21:26)
[2022-07-12] MEDS: ATORVASTATIN CA 40 MG TABLET (FP) PO SCH (21:26)
[2022-07-13] MEDS: ACETAMINOPHEN 500 MG TABLET (FP) PO SCH ×3 (06:17→21:30)
[2022-07-13] MEDS: LEVOTHYROXINE NA 75 MCG TABLET (FP) PO SCH (06:18)
[2022-07-13] MEDS: INSULIN SLIDING SCALE (NOVOLOG) 1 VIAL SQ SCH ×4 (06:46→21:42)
[2022-07-13] MEDS: LIDOCAINE 5% TOPICAL PATCH TP SCH (09:21)
[2022-07-13] MEDS: SEVELAMER CARBONATE 800 MG TAB (FP) PO SCH ×3 (09:22→17:21)
[2022-07-13] MEDS: HEPARIN NA (PORCINE) 5,000 UNITS/ML 1ML VIAL SQ SCH ×2 (09:22→21:29)
[2022-07-13] MEDS: ASPIRIN 81 MG CHEWABLE TABLETS PO SCH (09:22)
[2022-07-13] MEDS: GABAPENTIN 300 MG CAPSULE PO SCH ×2 (09:22→21:29)
[2022-07-13] MEDS: NEOMYCIN/POLYMYXIN/BACITRACIN (TRIPLE ANTIBIOTIC) 28 GM OINTMENT TP SCH (09:23)
[2022-07-13] MEDS: FLUTICASONE PROP 0.05% 16 GM NASAL SPRAY NS SCH ×2 (09:23→21:29)
[2022-07-13] MEDS: NYSTATIN POWDER 100,000 UNITS/GM - 15 GM TOPICAL POWDER TP SCH ×2 (09:23→21:31)
[2022-07-13] MEDS: POLYETHYLENE GLYCOL (HEALTHYLAX) 3350 17 GM PACKET PO SCH ×2 (09:23→21:29)
[2022-07-13] MEDS ORDERED: SODIUM CHLORIDE 250 ML IV PRN (11:46)
[2022-07-13 12:56] LABS: BASO % 1.3 % (0-2.0); EOS % 1.3 % (0-4.5); HEMATOCRIT 26.3 % (35.4-49); HEMOGLOBIN 8.5 GM/dL (11.7-16.9); LYMPH % 10.3 % (8-40); MCH 30.3 pg (25.7-33.7); MCHC 32.2 g/dl (32.0-35.9); MEAN CELL VOLUME 94.3 fl (80-96); MEAN PLT VOLUME 9.6 fl (7.5-11.1); MONO % 7.6 % (3.8-10.2); NEUT % 79.5 % (42.8-82.8); PLATELET COUNT 222 10^3/uL (134-434); RBC 2.79 M/mm3 (4.00-5.60); WHITE BLOOD COUNT 7.1 K/mm3 (4.0-10.0)
[2022-07-13 13:32] LABS: ALBUMIN 2.3 g/dl (3.4-5.0); BLOOD UREA NITROGEN 53.2 mg/dL (7-18)
[2022-07-13 13:34] LABS: CALCIUM 7.8 mg/dL (8.5-10.1); MAGNESIUM 2.3 mg/dL (1.8-2.4)
[2022-07-13 13:36] LABS: BILIRUBIN,TOTAL 0.7 mg/dL (0.2-1)
[2022-07-13 13:37] LABS: CREATININE 5.2 mg/dL (0.55-1.3)
[2022-07-13 13:39] LABS: TOT PROT 5.9 g/dl (6.4-8.2)
[2022-07-13] MEDS ORDERED: VANCOMYCIN/WATER FOR INJ (PEG) 1,000 MG/200 ML BAG IVPB ONE (17:00)
[2022-07-13] MEDS ORDERED: PIPERACILLIN/TAZOB 3.375 GM 3.375 GM in DEXTROSE 5%-WATER - 50 ML IVPB ONE (17:00)
[2022-07-13] MEDS: LIDOCAINE PATCH REMOVAL MC SCH (21:29)
[2022-07-13] MEDS: DOCUSATE SODIUM 100 MG CAPSULE (FP) PO SCH (21:29)
[2022-07-13] MEDS: ATORVASTATIN CA 40 MG TABLET (FP) PO SCH (21:30)
[2022-07-14] MEDS: PIPERACILLIN/TAZOB 2.25 GM 2.25 GM in DEXTROSE 5%-WATER - 50 ML IVPB SCH ×2 (01:58→09:39)
[2022-07-14] MEDS: ACETAMINOPHEN 500 MG TABLET (FP) PO SCH ×3 (06:37→21:10)
[2022-07-14] MEDS: LEVOTHYROXINE NA 75 MCG TABLET (FP) PO SCH (06:37)
[2022-07-14] MEDS: INSULIN SLIDING SCALE (NOVOLOG) 1 VIAL SQ SCH ×4 (06:49→21:12)
[2022-07-14] MEDS: LIDOCAINE 5% TOPICAL PATCH TP SCH (09:39)
[2022-07-14] MEDS: HEPARIN NA (PORCINE) 5,000 UNITS/ML 1ML VIAL SQ SCH ×2 (09:40→21:11)
[2022-07-14] MEDS: SEVELAMER CARBONATE 800 MG TAB (FP) PO SCH ×3 (09:40→17:09)
[2022-07-14] MEDS: ASPIRIN 81 MG CHEWABLE TABLETS PO SCH (09:40)
[2022-07-14] MEDS: GABAPENTIN 300 MG CAPSULE PO SCH ×2 (09:40→21:11)
[2022-07-14] MEDS: NEOMYCIN/POLYMYXIN/BACITRACIN (TRIPLE ANTIBIOTIC) 28 GM OINTMENT TP SCH (09:41)
[2022-07-14] MEDS: POLYETHYLENE GLYCOL (HEALTHYLAX) 3350 17 GM PACKET PO SCH ×2 (09:41→21:11)
[2022-07-14] MEDS: EPOETIN ALFA-EPBX 10,000 UNIT/ML VIAL IVPUSH SCH ×2 (09:42→18:09)
[2022-07-14] MEDS: NYSTATIN POWDER 100,000 UNITS/GM - 15 GM TOPICAL POWDER TP SCH ×2 (09:43→21:12)
[2022-07-14] MEDS: FLUTICASONE PROP 0.05% 16 GM NASAL SPRAY NS SCH ×2 (09:43→21:11)
[2022-07-14] MEDS: ALTEPLASE (CATHFLO) 2 MG/2 ML VIAL IVPB ONE ×4 (11:13→12:55)
[2022-07-14 11:50] LABS: BASO % 1.3 % (0-2.0); EOS % 1.1 % (0-4.5); HEMATOCRIT 28.1 % (35.4-49); HEMOGLOBIN 8.8 GM/dL (11.7-16.9); LYMPH % 11.8 % (8-40); MCH 29.6 pg (25.7-33.7); MCHC 31.4 g/dl (32.0-35.9); MEAN CELL VOLUME 94.5 fl (80-96); MEAN PLT VOLUME 10.3 fl (7.5-11.1); MONO % 7.8 % (3.8-10.2); PLATELET COUNT 248 10^3/uL (134-434); RBC 2.98 M/mm3 (4.00-5.60); RDW 26.3 % (11.9-15.9); WHITE BLOOD COUNT 7.9 K/mm3 (4.0-10.0)
[2022-07-14 12:10] LABS: MAGNESIUM 2.4 mg/dL (1.8-2.4)
[2022-07-14 12:11] LABS: ALBUMIN 2.4 g/dl (3.4-5.0); BLOOD UREA NITROGEN 58.5 mg/dL (7-18)
[2022-07-14 12:13] LABS: CREATININE 6.1 mg/dL (0.55-1.3)
[2022-07-14 12:14] LABS: BILIRUBIN,TOTAL 0.9 mg/dL (0.2-1); TOT PROT 6.3 g/dl (6.4-8.2)
[2022-07-14] MEDS ORDERED: VANCOMYCIN 1 GM PREMIX - 200 ML IVPB SCH (12:15)
[2022-07-14] MEDS ORDERED: SODIUM CHLORIDE 250 ML IV PRN (16:11)
[2022-07-14] MEDS ORDERED: VANCOMYCIN 1 GM/200 ML PREMIX BAG IVPB ONE (17:00)
[2022-07-14] MEDS: SODIUM THIOSULFATE 12.5 GM/50 ML VIAL IVPB SCH (17:04)
[2022-07-14] MEDS: ATORVASTATIN CA 40 MG TABLET (FP) PO SCH (21:11)
[2022-07-14] MEDS: DOCUSATE SODIUM 100 MG CAPSULE (FP) PO SCH (21:11)
[2022-07-14] MEDS: LIDOCAINE PATCH REMOVAL MC SCH (21:12)
[2022-07-14] MEDS ORDERED: SODIUM THIOSULFATE 12.5 GM/50 ML VIAL IVPB ONE (22:45)
[2022-07-15] MEDS: ACETAMINOPHEN 500 MG TABLET (FP) PO SCH ×3 (05:59→21:11)
[2022-07-15] MEDS: LEVOTHYROXINE NA 75 MCG TABLET (FP) PO SCH (06:01)
[2022-07-15] MEDS: INSULIN SLIDING SCALE (NOVOLOG) 1 VIAL SQ SCH ×4 (06:12→21:45)
[2022-07-15 08:59] LABS: BASO % 1.3 % (0-2.0); EOS % 0.9 % (0-4.5); HEMATOCRIT 28.7 % (35.4-49); HEMOGLOBIN 9.2 GM/dL (11.7-16.9); LYMPH % 7.7 % (8-40); MCH 30.6 pg (25.7-33.7); MCHC 31.9 g/dl (32.0-35.9); MEAN PLT VOLUME 9.5 fl (7.5-11.1); MONO % 6.2 % (3.8-10.2); NEUT % 83.9 % (42.8-82.8); PLATELET COUNT 226 10^3/uL (134-434); RBC 2.99 M/mm3 (4.00-5.60); RDW 26.3 % (11.9-15.9)
[2022-07-15 09:22] LABS: ALBUMIN 2.3 g/dl (3.4-5.0); BLOOD UREA NITROGEN 35.3 mg/dL (7-18); CALCIUM 7.9 mg/dL (8.5-10.1)
[2022-07-15 09:25] LABS: BILIRUBIN,TOTAL 0.5 mg/dL (0.2-1); TOT PROT 6.2 g/dl (6.4-8.2)
[2022-07-15 09:26] LABS: CREATININE 3.9 mg/dL (0.55-1.3)
[2022-07-15] MEDS: LIDOCAINE 5% TOPICAL PATCH TP SCH (10:03)
[2022-07-15] MEDS: POLYETHYLENE GLYCOL (HEALTHYLAX) 3350 17 GM PACKET PO SCH ×2 (10:03→21:10)
[2022-07-15] MEDS: HEPARIN NA (PORCINE) 5,000 UNITS/ML 1ML VIAL SQ SCH ×2 (10:04→21:10)
[2022-07-15] MEDS: SEVELAMER CARBONATE 800 MG TAB (FP) PO SCH ×3 (10:04→18:33)
[2022-07-15] MEDS: FLUTICASONE PROP 0.05% 16 GM NASAL SPRAY NS SCH ×2 (10:04→21:10)
[2022-07-15] MEDS: ASPIRIN 81 MG CHEWABLE TABLETS PO SCH (10:04)
[2022-07-15] MEDS: NEOMYCIN/POLYMYXIN/BACITRACIN (TRIPLE ANTIBIOTIC) 28 GM OINTMENT TP SCH (10:05)
[2022-07-15] MEDS: GABAPENTIN 300 MG CAPSULE PO SCH ×2 (10:05→21:11)
[2022-07-15] MEDS: NYSTATIN POWDER 100,000 UNITS/GM - 15 GM TOPICAL POWDER TP SCH ×2 (10:05→21:12)
[2022-07-15] MEDS: DOCUSATE SODIUM 100 MG CAPSULE (FP) PO SCH (21:10)
[2022-07-15] MEDS: LIDOCAINE PATCH REMOVAL MC SCH (21:11)
[2022-07-15] MEDS: ATORVASTATIN CA 40 MG TABLET (FP) PO SCH (21:11)
[2022-07-16] MEDS: ACETAMINOPHEN 500 MG TABLET (FP) PO SCH ×3 (06:14→21:17)
[2022-07-16] MEDS: LEVOTHYROXINE NA 75 MCG TABLET (FP) PO SCH (06:14)
[2022-07-16] MEDS: INSULIN SLIDING SCALE (NOVOLOG) 1 VIAL SQ SCH ×4 (06:21→21:23)
[2022-07-16 08:32] LABS: HEMATOCRIT 27.1 % (35.4-49); HEMOGLOBIN 8.3 GM/dL (11.7-16.9); MCH 29.7 pg (25.7-33.7); MCHC 30.7 g/dl (32.0-35.9); MEAN CELL VOLUME 96.7 fl (80-96); MEAN PLT VOLUME 9.9 fl (7.5-11.1); PLATELET COUNT 247 10^3/uL (134-434); RBC 2.81 M/mm3 (4.00-5.60); RDW 26.6 % (11.9-15.9)
[2022-07-16] MEDS: SEVELAMER CARBONATE 800 MG TAB (FP) PO SCH ×3 (08:55→16:43)
[2022-07-16 09:03] LABS: BLOOD UREA NITROGEN 48.9 mg/dL (7-18); CALCIUM 7.9 mg/dL (8.5-10.1)
[2022-07-16 09:06] LABS: CREATININE 5.2 mg/dL (0.55-1.3); PHOSPHOROUS 4.7 mg/dL (2.5-4.9)
[2022-07-16] MEDS ORDERED: SODIUM CHLORIDE 250 ML IV PRN ×2 (10:00→11:39)
[2022-07-16] MEDS: ASPIRIN 81 MG CHEWABLE TABLETS PO SCH (10:29)
[2022-07-16] MEDS: LIDOCAINE 5% TOPICAL PATCH TP SCH (10:29)
[2022-07-16] MEDS: HEPARIN NA (PORCINE) 5,000 UNITS/ML 1ML VIAL SQ SCH ×2 (10:29→21:18)
[2022-07-16] MEDS: FLUTICASONE PROP 0.05% 16 GM NASAL SPRAY NS SCH ×2 (10:31→21:23)
[2022-07-16] MEDS: POLYETHYLENE GLYCOL (HEALTHYLAX) 3350 17 GM PACKET PO SCH ×2 (10:45→21:18)
[2022-07-16] MEDS: NEOMYCIN/POLYMYXIN/BACITRACIN (TRIPLE ANTIBIOTIC) 28 GM OINTMENT TP SCH (10:48)
[2022-07-16] MEDS: NYSTATIN POWDER 100,000 UNITS/GM - 15 GM TOPICAL POWDER TP SCH ×2 (10:48→21:17)
[2022-07-16] MEDS: GABAPENTIN 300 MG CAPSULE PO SCH ×2 (10:48→21:18)
[2022-07-16] MEDS: EPOETIN ALFA-EPBX 10,000 UNIT/ML VIAL IVPUSH SCH (11:44)
[2022-07-16] MEDS ORDERED: EPOETIN ALFA-EPBX 10,000 UNIT/ML VIAL SQ ONE (12:30)
[2022-07-16] MEDS: SODIUM THIOSULFATE 12.5 GM/50 ML VIAL IVPB SCH (16:43)
[2022-07-16] MEDS: DOCUSATE SODIUM 100 MG CAPSULE (FP) PO SCH (21:17)
[2022-07-16] MEDS: ATORVASTATIN CA 40 MG TABLET (FP) PO SCH (21:18)
[2022-07-16] MEDS: LIDOCAINE PATCH REMOVAL MC SCH (21:27)
[2022-07-17] MEDS: LEVOTHYROXINE NA 75 MCG TABLET (FP) PO SCH (06:14)
[2022-07-17] MEDS: INSULIN SLIDING SCALE (NOVOLOG) 1 VIAL SQ SCH ×4 (06:21→22:04)
[2022-07-17] MEDS: ACETAMINOPHEN 500 MG TABLET (FP) PO SCH ×3 (06:21→22:05)
[2022-07-17] MEDS: SEVELAMER CARBONATE 800 MG TAB (FP) PO SCH ×3 (07:43→16:43)
[2022-07-17] MEDS: LIDOCAINE 5% TOPICAL PATCH TP SCH (09:13)
[2022-07-17] MEDS: HEPARIN NA (PORCINE) 5,000 UNITS/ML 1ML VIAL SQ SCH ×2 (09:13→22:01)
[2022-07-17] MEDS: GABAPENTIN 300 MG CAPSULE PO SCH ×2 (09:14→22:01)
[2022-07-17] MEDS: ASPIRIN 81 MG CHEWABLE TABLETS PO SCH (09:14)
[2022-07-17] MEDS: NYSTATIN POWDER 100,000 UNITS/GM - 15 GM TOPICAL POWDER TP SCH ×2 (09:14→22:01)
[2022-07-17] MEDS: NEOMYCIN/POLYMYXIN/BACITRACIN (TRIPLE ANTIBIOTIC) 28 GM OINTMENT TP SCH (09:14)
[2022-07-17] MEDS: POLYETHYLENE GLYCOL (HEALTHYLAX) 3350 17 GM PACKET PO SCH ×2 (09:14→22:00)
[2022-07-17] MEDS: FLUTICASONE PROP 0.05% 16 GM NASAL SPRAY NS SCH ×2 (09:29→22:01)
[2022-07-17] MEDS: ATORVASTATIN CA 40 MG TABLET (FP) PO SCH (22:01)
[2022-07-17] MEDS: LIDOCAINE PATCH REMOVAL MC SCH (22:01)
[2022-07-17] MEDS: DOCUSATE SODIUM 100 MG CAPSULE (FP) PO SCH (22:01)
[2022-07-18] MEDS: LEVOTHYROXINE NA 75 MCG TABLET (FP) PO SCH (06:30)
[2022-07-18] MEDS: INSULIN SLIDING SCALE (NOVOLOG) 1 VIAL SQ SCH ×4 (06:31→21:10)
[2022-07-18] MEDS: ACETAMINOPHEN 500 MG TABLET (FP) PO SCH ×3 (06:32→21:08)
[2022-07-18] MEDS: GABAPENTIN 300 MG CAPSULE PO SCH (09:38)
[2022-07-18] MEDS: LIDOCAINE 5% TOPICAL PATCH TP SCH (09:38)
[2022-07-18] MEDS: ASPIRIN 81 MG CHEWABLE TABLETS PO SCH (09:38)
[2022-07-18] MEDS: SEVELAMER CARBONATE 800 MG TAB (FP) PO SCH ×3 (09:38→17:31)
[2022-07-18] MEDS: NEOMYCIN/POLYMYXIN/BACITRACIN (TRIPLE ANTIBIOTIC) 28 GM OINTMENT TP SCH (09:38)
[2022-07-18] MEDS: POLYETHYLENE GLYCOL (HEALTHYLAX) 3350 17 GM PACKET PO SCH ×2 (09:38→21:07)
[2022-07-18] MEDS: HEPARIN NA (PORCINE) 5,000 UNITS/ML 1ML VIAL SQ SCH ×2 (09:38→21:07)
[2022-07-18] MEDS: NYSTATIN POWDER 100,000 UNITS/GM - 15 GM TOPICAL POWDER TP SCH ×2 (09:39→21:08)
[2022-07-18] MEDS: FLUTICASONE PROP 0.05% 16 GM NASAL SPRAY NS SCH ×2 (10:01→21:07)
[2022-07-18] MEDS: ATORVASTATIN CA 40 MG TABLET (FP) PO SCH (21:07)
[2022-07-18] MEDS: DOCUSATE SODIUM 100 MG CAPSULE (FP) PO SCH (21:07)
[2022-07-18] MEDS: LIDOCAINE PATCH REMOVAL MC SCH (21:07)
[2022-07-18] MEDS: GABAPENTIN 100 MG CAPSULE PO SCH (21:07)
[2022-07-19] MEDS: ACETAMINOPHEN 500 MG TABLET (FP) PO SCH ×3 (06:18→21:40)
[2022-07-19] MEDS: LEVOTHYROXINE NA 75 MCG TABLET (FP) PO SCH (06:18)
[2022-07-19] MEDS: INSULIN SLIDING SCALE (NOVOLOG) 1 VIAL SQ SCH ×4 (06:25→21:42)
[2022-07-19] MEDS: SEVELAMER CARBONATE 800 MG TAB (FP) PO SCH ×3 (08:31→16:52)
[2022-07-19] MEDS: LIDOCAINE 5% TOPICAL PATCH TP SCH (09:22)
[2022-07-19] MEDS: GABAPENTIN 100 MG CAPSULE PO SCH ×2 (09:22→21:41)
[2022-07-19] MEDS: ASPIRIN 81 MG CHEWABLE TABLETS PO SCH (09:22)
[2022-07-19] MEDS: HEPARIN NA (PORCINE) 5,000 UNITS/ML 1ML VIAL SQ SCH ×2 (09:23→21:41)
[2022-07-19] MEDS: FLUTICASONE PROP 0.05% 16 GM NASAL SPRAY NS SCH ×2 (09:23→22:04)
[2022-07-19] MEDS: POLYETHYLENE GLYCOL (HEALTHYLAX) 3350 17 GM PACKET PO SCH ×2 (09:23→21:41)
[2022-07-19] MEDS: NEOMYCIN/POLYMYXIN/BACITRACIN (TRIPLE ANTIBIOTIC) 28 GM OINTMENT TP SCH (09:23)
[2022-07-19] MEDS: NYSTATIN POWDER 100,000 UNITS/GM - 15 GM TOPICAL POWDER TP SCH ×2 (09:23→21:42)
[2022-07-19] MEDS ORDERED: EPOETIN ALFA-EPBX 10,000 UNIT/ML VIAL SQ ONE (14:00)
[2022-07-19 15:25] LABS: BASO % 1.6 % (0-2.0); EOS % 2.7 % (0-4.5); HEMATOCRIT 25.8 % (35.4-49); LYMPH % 10.7 % (8-40); MCH 30.3 pg (25.7-33.7); MEAN PLT VOLUME 10.1 fl (7.5-11.1); MONO % 8.2 % (3.8-10.2); NEUT % 76.8 % (42.8-82.8); PLATELET COUNT 247 10^3/uL (134-434); RBC 2.63 M/mm3 (4.00-5.60); RDW 26.6 % (11.9-15.9); WHITE BLOOD COUNT 6.1 K/mm3 (4.0-10.0)
[2022-07-19 15:46] LABS: BLOOD UREA NITROGEN 54.5 mg/dL (7-18); CALCIUM 7.4 mg/dL (8.5-10.1)
[2022-07-19 15:50] LABS: CREATININE 4.9 mg/dL (0.55-1.3)
[2022-07-19] MEDS: SODIUM THIOSULFATE 12.5 GM/50 ML VIAL IVPB SCH (16:41)
[2022-07-19 18:16] LABS: PHOSPHOROUS 5.4 mg/dL (2.5-4.9)
[2022-07-19] MEDS: DOCUSATE SODIUM 100 MG CAPSULE (FP) PO SCH (21:41)
[2022-07-19] MEDS: ATORVASTATIN CA 40 MG TABLET (FP) PO SCH (21:41)
[2022-07-19] MEDS: LIDOCAINE PATCH REMOVAL MC SCH (21:44)
[2022-07-20] MEDS: ACETAMINOPHEN 500 MG TABLET (FP) PO SCH ×3 (06:16→21:30)
[2022-07-20] MEDS: INSULIN SLIDING SCALE (NOVOLOG) 1 VIAL SQ SCH ×4 (06:18→21:24)
[2022-07-20] MEDS: LEVOTHYROXINE NA 75 MCG TABLET (FP) PO SCH (06:19)
[2022-07-20] MEDS: SEVELAMER CARBONATE 800 MG TAB (FP) PO SCH ×3 (08:14→16:59)
[2022-07-20] MEDS: POLYETHYLENE GLYCOL (HEALTHYLAX) 3350 17 GM PACKET PO SCH ×2 (09:33→21:23)
[2022-07-20] MEDS: HEPARIN NA (PORCINE) 5,000 UNITS/ML 1ML VIAL SQ SCH ×2 (09:33→21:22)
[2022-07-20] MEDS: LIDOCAINE 5% TOPICAL PATCH TP SCH (09:33)
[2022-07-20] MEDS: GABAPENTIN 100 MG CAPSULE PO SCH ×2 (09:33→21:24)
[2022-07-20] MEDS: ASPIRIN 81 MG CHEWABLE TABLETS PO SCH (09:34)
[2022-07-20] MEDS: FLUTICASONE PROP 0.05% 16 GM NASAL SPRAY NS SCH ×2 (09:34→21:23)
[2022-07-20] MEDS: NEOMYCIN/POLYMYXIN/BACITRACIN (TRIPLE ANTIBIOTIC) 28 GM OINTMENT TP SCH (09:34)
[2022-07-20] MEDS: NYSTATIN POWDER 100,000 UNITS/GM - 15 GM TOPICAL POWDER TP SCH ×2 (09:35→21:45)
[2022-07-20] MEDS ORDERED: SODIUM CHLORIDE 250 ML IV PRN (12:50)
[2022-07-20] MEDS: DOCUSATE SODIUM 100 MG CAPSULE (FP) PO SCH (21:23)
[2022-07-20] MEDS: ATORVASTATIN CA 40 MG TABLET (FP) PO SCH (21:24)
[2022-07-20] MEDS: LIDOCAINE PATCH REMOVAL MC SCH (21:24)
[2022-07-20 23:27] VITALS: RESP 18
[2022-07-21] MEDS ORDERED: methaDONE HCL 10 MG TABLET PO SCH (06:00)
[2022-07-21] MEDS: ACETAMINOPHEN 500 MG TABLET (FP) PO SCH ×2 (06:12→14:36)
[2022-07-21] MEDS: INSULIN SLIDING SCALE (NOVOLOG) 1 VIAL SQ SCH ×3 (06:12→18:04)
[2022-07-21] MEDS: LEVOTHYROXINE NA 75 MCG TABLET (FP) PO SCH (06:12)
[2022-07-21] MEDS: SEVELAMER CARBONATE 800 MG TAB (FP) PO SCH ×3 (08:50→18:04)
[2022-07-21] MEDS: ASPIRIN 81 MG CHEWABLE TABLETS PO SCH (10:50)
[2022-07-21] MEDS: HEPARIN NA (PORCINE) 5,000 UNITS/ML 1ML VIAL SQ SCH (10:51)
[2022-07-21] MEDS: POLYETHYLENE GLYCOL (HEALTHYLAX) 3350 17 GM PACKET PO SCH (10:51)
[2022-07-21] MEDS: LIDOCAINE 5% TOPICAL PATCH TP SCH (10:52)
[2022-07-21] MEDS: FLUTICASONE PROP 0.05% 16 GM NASAL SPRAY NS SCH (10:52)
[2022-07-21] MEDS: NYSTATIN POWDER 100,000 UNITS/GM - 15 GM TOPICAL POWDER TP SCH (10:53)
[2022-07-21] MEDS: NEOMYCIN/POLYMYXIN/BACITRACIN (TRIPLE ANTIBIOTIC) 28 GM OINTMENT TP SCH (10:53)
[2022-07-21] MEDS ORDERED: INSULIN SLIDING SCALE (NOVOLOG) 1 VIAL SQ ONE (11:02)
[2022-07-21] MEDS: GABAPENTIN 100 MG CAPSULE PO SCH (11:13)
[2022-07-21] MEDS ORDERED: EPOETIN ALFA-EPBX 10,000 UNIT/ML VIAL IVPUSH ONE (18:00)
[2022-07-21] MEDS: SODIUM THIOSULFATE 12.5 GM/50 ML VIAL IVPB SCH (18:20)
[2022-07-21 19:41] VITALS: BP 125/76; PULSE 68
[2022-07-21 20:10] VITALS: TEMP 97.8
== END 2022-07-21 20:30 | DRG 239 ==
LOC: JOR 09:11 → JERBED 12:39 → J4S 07-01 11:17
PROVIDERS: ADMIT Internal Medicine; ATTEND Nurse Practitioner Family
PROC: 5A1D70Z Performance of Urinary Filtration, Intermittent, Less than 6 Hours Per Day (ICD-10-PCS; 2022-07-01)
PROC: 5A1D70Z Performance of Urinary Filtration, Intermittent, Less than 6 Hours Per Day (ICD-10-PCS; 2022-07-01)
PROC: 5A1D70Z Performance of Urinary Filtration, Intermittent, Less than 6 Hours Per Day (ICD-10-PCS; 2022-07-01)
PROC: 5A1D70Z Performance of Urinary Filtration, Intermittent, Less than 6 Hours Per Day (ICD-10-PCS; 2022-07-01)
PROC: 5A1D70Z Performance of Urinary Filtration, Intermittent, Less than 6 Hours Per Day (ICD-10-PCS; 2022-07-01)
PROC: 5A1D70Z Performance of Urinary Filtration, Intermittent, Less than 6 Hours Per Day (ICD-10-PCS; 2022-07-01)
PROC: 5A1D70Z Performance of Urinary Filtration, Intermittent, Less than 6 Hours Per Day (ICD-10-PCS; 2022-07-01)
PROC: 5A1D70Z Performance of Urinary Filtration, Intermittent, Less than 6 Hours Per Day (ICD-10-PCS; 2022-07-01)
PROC: 0Y6J0Z1 Detachment at Left Lower Leg, High, Open Approach (ICD-10-PCS; principal; 2022-07-01 16:00)
DX: E11.52 Type 2 diabetes mellitus with diabetic peripheral angiopathy with gangrene (principal); N18.6 End stage renal disease; U07.1 COVID-19; I96 Gangrene, not elsewhere classified; F11.20 Opioid dependence, uncomplicated; I47.1 Supraventricular tachycardia; I13.2 Hypertensive heart and chronic kidney disease with heart failure and with stage 5 chronic kidney disease, or end stage renal disease; I50.32 Chronic diastolic (congestive) heart failure; L97.528 Non-pressure chronic ulcer of other part of left foot with other specified severity; E87.2 Acidosis; J98.11 Atelectasis; E78.5 Hyperlipidemia, unspecified; J47.9 Bronchiectasis, uncomplicated; I48.0 Paroxysmal atrial fibrillation; E03.9 Hypothyroidism, unspecified; E11.43 Type 2 diabetes mellitus with diabetic autonomic (poly)neuropathy; K31.84 Gastroparesis; D69.6 Thrombocytopenia, unspecified; E66.9 Obesity, unspecified; Z68.32 Body mass index [BMI] 32.0-32.9, adult; E11.621 Type 2 diabetes mellitus with foot ulcer; I25.10 Atherosclerotic heart disease of native coronary artery without angina pectoris; N48.89 Other specified disorders of penis; E11.22 Type 2 diabetes mellitus with diabetic chronic kidney disease; Z99.2 Dependence on renal dialysis; Z95.5 Presence of coronary angioplasty implant and graft; Z89.511 Acquired absence of right leg below knee; Z79.4 Long term (current) use of insulin; Z91.19 Patient's noncompliance with other medical treatment and regimen
CPT/HCPCS: 36415; 71045-TC-FY; 76937; 80048; 80053; 82310; 82962; 83605; 83735; 83970; 84100; 84484; 85025; 85027; 85379; 85610; 85730; 86140; 86803; 86850; 86900; 86901; 86922; 87040; 87340; 87522; 88307-TC; 88311-TC; 93005; 93010; 94760; 97162-GP; 99285-25; C9803-CS; G0463-25; G0480; J1644; J2997; Q5106; U0003; U0005

== ENCOUNTER 2022-07-23 18:18 | Inpatient (IN) | payer BC, OTHER ==
[2022-07-23 18:41] VITALS: BMI 30.4
[2022-07-23] MEDS ORDERED: PIPERACILLIN/TAZOB 3.375 GM 3.375 GM in DEXTROSE 5%-WATER - 50 ML IVPB ONE (21:33)
[2022-07-23] MEDS ORDERED: VANCOMYCIN 1,000 MG in DEXTROSE 5%-WATER - 250 ML IVPB ONE (21:33)
[2022-07-23] MEDS ORDERED: ACETAMINOPHEN 325 MG TABLET (FP) PO ONE (21:38)
[2022-07-23] MEDS ORDERED: VANCOMYCIN/WATER FOR INJ (PEG) 1,000 MG/200 ML BAG IVPB ONE (22:09)
[2022-07-23] MEDS ORDERED: PIPERACILLIN/TAZOB 3.375 GM 3.375 GM/50 ML BAG IVPB ONE (22:09)
[2022-07-23] MEDS ORDERED: ACETAMINOPHEN 325 MG TABLET (FP) ONE (22:09)
[2022-07-23 23:16] LABS: BASO % 0.5 % (0-2.0); EOS % 3.1 % (0-4.5); HEMATOCRIT 34.7 % (35.4-49); HEMOGLOBIN 10.8 GM/dL (11.7-16.9); LYMPH % 17.8 % (8-40); MCH 31.1 pg (25.7-33.7); MCHC 31.2 g/dl (32.0-35.9); MEAN CELL VOLUME 99.6 fl (80-96); MEAN PLT VOLUME 10.5 fl (7.5-11.1); MONO % 12.3 % (3.8-10.2); NEUT % 66.3 % (42.8-82.8); PLATELET COUNT 320 10^3/uL (134-434); RBC 3.48 M/mm3 (4.00-5.60); RDW 25.1 % (11.9-15.9); WHITE BLOOD COUNT 6.3 K/mm3 (4.0-10.0)
[2022-07-24] LABS: BLOOD UREA NITROGEN 30.6 mg/dL (7-18)
[2022-07-24 00:03] LABS: CREATININE 3.5 mg/dL (0.55-1.3)
[2022-07-24 00:05] LABS: BILIRUBIN,TOTAL 0.7 mg/dL (0.2-1); TOT PROT 7.1 g/dl (6.4-8.2)
[2022-07-24 00:13] LABS: ERYTHROCYTE SEDIMENTATION RATE 77 mm/hr (0-20)
[2022-07-24 00:19] LABS: ALBUMIN 2.9 g/dl (3.4-5.0)
[2022-07-24] MEDS: PIPERACILLIN/TAZOB 2.25 GM 2.25 GM in DEXTROSE 5%-WATER - 50 ML IVPB SCH ×3 (00:52→18:29)
[2022-07-24] MEDS ORDERED: PIPERACILLIN/TAZOB 2.25 GM 2.25 GM/50 ML BAG IVPB ONE ×2 (01:11→09:13)
[2022-07-24] MEDS ORDERED: HEPARIN NA (PORCINE) 5,000 UNITS/ML 1ML VIAL SQ SCH (06:00)
[2022-07-24] MEDS ORDERED: VANCOMYCIN/WATER 1250 MG 1,250 MG/250 ML BAG IVPB SCH ×2 (06:00)
[2022-07-24] MEDS ORDERED: PIPERACILLIN/TAZOB 2.25 GM 2.25 GM in DEXTROSE 5%-WATER - 50 ML IVPB SCH (06:00)
[2022-07-24] MEDS ORDERED: CALCIUM ACETATE 667 MG CAPSULE (FP) PO SCH (08:00)
[2022-07-24] MEDS: INSULIN SLIDING SCALE (NOVOLOG) 1 VIAL SQ SCH ×4 (08:22→22:10)
[2022-07-24 09:34] LABS: MAGNESIUM 1.9 mg/dL (1.8-2.4)
[2022-07-24 09:37] LABS: PHOSPHOROUS 5.2 mg/dL (2.5-4.9)
[2022-07-24] MEDS: GABAPENTIN 300 MG CAPSULE PO SCH ×2 (10:00→22:09)
[2022-07-24] MEDS: ASPIRIN 81 MG CHEWABLE TABLETS PO SCH (10:22)
[2022-07-24 10:54] LABS: CALCIUM 8.4 mg/dL (8.5-10.1)
[2022-07-24 10:55] LABS: BLOOD UREA NITROGEN 40.2 mg/dL (7-18)
[2022-07-24 10:58] LABS: CREATININE 4.3 mg/dL (0.55-1.3)
[2022-07-24] MEDS: LEVOTHYROXINE NA 75 MCG TABLET (FP) PO SCH (11:52)
[2022-07-24] MEDS ORDERED: HEPARIN NA (PORCINE) 5,000 UNITS/ML 1ML VIAL ONE (13:58)
[2022-07-24] MEDS: HEPARIN NA (PORCINE) 5,000 UNITS/ML 1ML VIAL SQ SCH ×3 (14:23→22:09)
[2022-07-24] MEDS: ATORVASTATIN CA 40 MG TABLET (FP) PO SCH (22:10)
[2022-07-25] MEDS ORDERED: VANCOMYCIN/WATER 1250 MG 1,250 MG/250 ML BAG IVPB SCH
[2022-07-25] MEDS ORDERED: PIPERACILLIN/TAZOB 2.25 GM 2.25 GM in DEXTROSE 5%-WATER - 50 ML IVPB SCH (02:00)
[2022-07-25] MEDS: PIPERACILLIN/TAZOB 2.25 GM 2.25 GM in DEXTROSE 5%-WATER - 50 ML IVPB SCH ×3 (02:07→18:03)
[2022-07-25] MEDS ORDERED: methaDONE HCL 40 MG DISPERSABLE TABLET PO SCH (06:00)
[2022-07-25] MEDS: LEVOTHYROXINE NA 75 MCG TABLET (FP) PO SCH (06:49)
[2022-07-25] MEDS: INSULIN SLIDING SCALE (NOVOLOG) 1 VIAL SQ SCH ×4 (06:49→21:19)
[2022-07-25] MEDS: HEPARIN NA (PORCINE) 5,000 UNITS/ML 1ML VIAL SQ SCH ×3 (06:49→21:18)
[2022-07-25] MEDS ORDERED: EPOETIN ALFA-EPBX 4,000 UNIT/ML VIAL SQ ONE (10:00)
[2022-07-25] MEDS ORDERED: SODIUM CHLORIDE 250 ML IV PRN (10:00)
[2022-07-25] MEDS: ASPIRIN 81 MG CHEWABLE TABLETS PO SCH (10:53)
[2022-07-25] MEDS: GABAPENTIN 300 MG CAPSULE PO SCH ×2 (10:54→21:17)
[2022-07-25] MEDS: SEVELAMER CARBONATE 800 MG TAB (FP) PO SCH ×4 (10:55→18:03)
[2022-07-25] MEDS: ATORVASTATIN CA 40 MG TABLET (FP) PO SCH (21:17)
[2022-07-26] MEDS: PIPERACILLIN/TAZOB 2.25 GM 2.25 GM in DEXTROSE 5%-WATER - 50 ML IVPB SCH ×3 (01:13→17:27)
[2022-07-26] MEDS: HEPARIN NA (PORCINE) 5,000 UNITS/ML 1ML VIAL SQ SCH ×3 (05:34→22:20)
[2022-07-26] MEDS: LEVOTHYROXINE NA 75 MCG TABLET (FP) PO SCH (06:00)
[2022-07-26] MEDS: INSULIN SLIDING SCALE (NOVOLOG) 1 VIAL SQ SCH ×4 (06:00→22:22)
[2022-07-26] MEDS ORDERED: SODIUM THIOSULFATE 12.5 GM/50 ML VIAL IVPB ONE (08:06)
[2022-07-26 09:55] LABS: BASO % 1.8 % (0-2.0); EOS % 2.4 % (0-4.5); HEMATOCRIT 32.5 % (35.4-49); HEMOGLOBIN 9.9 GM/dL (11.7-16.9); LYMPH % 9.9 % (8-40); MCH 30.1 pg (25.7-33.7); MCHC 30.4 g/dl (32.0-35.9); MEAN PLT VOLUME 11.1 fl (7.5-11.1); NEUT % 72.9 % (42.8-82.8); PLATELET COUNT 223 10^3/uL (134-434); RBC 3.28 M/mm3 (4.00-5.60); RDW 24.2 % (11.9-15.9); WHITE BLOOD COUNT 6.9 K/mm3 (4.0-10.0)
[2022-07-26 10:08] LABS: BILIRUBIN,TOTAL 0.5 mg/dL (0.2-1)
[2022-07-26 10:09] LABS: ALBUMIN 2.6 g/dl (3.4-5.0)
[2022-07-26 10:10] LABS: CREATININE 6.7 mg/dL (0.55-1.3)
[2022-07-26 10:11] LABS: CALCIUM 8.1 mg/dL (8.5-10.1); MAGNESIUM 2.2 mg/dL (1.8-2.4)
[2022-07-26 10:13] LABS: BLOOD UREA NITROGEN 72.3 mg/dL (7-18)
[2022-07-26] MEDS: SEVELAMER CARBONATE 800 MG TAB (FP) PO SCH ×6 (12:53→17:57)
[2022-07-26] MEDS: GABAPENTIN 300 MG CAPSULE PO SCH ×2 (13:06→22:21)
[2022-07-26] MEDS: ASPIRIN 81 MG CHEWABLE TABLETS PO SCH (13:17)
[2022-07-26] MEDS ORDERED: VANCOMYCIN/WATER FOR INJ (PEG) 1,000 MG/200 ML BAG IVPB ONE (13:45)
[2022-07-26] MEDS ORDERED: METOPROLOL TARTRATE 25 MG TABLET (FP) PO ONE (16:44)
[2022-07-26] MEDS: ATORVASTATIN CA 40 MG TABLET (FP) PO SCH (22:21)
[2022-07-27] MEDS: PIPERACILLIN/TAZOB 2.25 GM 2.25 GM in DEXTROSE 5%-WATER - 50 ML IVPB SCH ×3 (01:18→17:05)
[2022-07-27] MEDS: HEPARIN NA (PORCINE) 5,000 UNITS/ML 1ML VIAL SQ SCH ×3 (05:45→22:13)
[2022-07-27] MEDS: INSULIN SLIDING SCALE (NOVOLOG) 1 VIAL SQ SCH ×4 (06:08→22:13)
[2022-07-27] MEDS: LEVOTHYROXINE NA 75 MCG TABLET (FP) PO SCH (06:08)
[2022-07-27] MEDS: SEVELAMER CARBONATE 800 MG TAB (FP) PO SCH ×3 (08:17→17:05)
[2022-07-27] MEDS: ASPIRIN 81 MG CHEWABLE TABLETS PO SCH (10:10)
[2022-07-27] MEDS: ACETAMINOPHEN 325 MG TABLET (FP) PO PRN (10:10)
[2022-07-27] MEDS: GABAPENTIN 300 MG CAPSULE PO SCH ×2 (10:10→22:13)
[2022-07-27 10:18] LABS: BASO % 2.5 % (0-2.0); EOS % 2.8 % (0-4.5); HEMATOCRIT 35.4 % (35.4-49); HEMOGLOBIN 10.9 GM/dL (11.7-16.9); LYMPH % 12.9 % (8-40); MCH 30.7 pg (25.7-33.7); MCHC 30.8 g/dl (32.0-35.9); MEAN CELL VOLUME 99.6 fl (80-96); MEAN PLT VOLUME 10.6 fl (7.5-11.1); MONO % 13.7 % (3.8-10.2); NEUT % 68.1 % (42.8-82.8); PLATELET COUNT 208 10^3/uL (134-434); RBC 3.56 M/mm3 (4.00-5.60); RDW 23.5 % (11.9-15.9); WHITE BLOOD COUNT 6.2 K/mm3 (4.0-10.0)
[2022-07-27 10:41] LABS: ALBUMIN 2.5 g/dl (3.4-5.0)
[2022-07-27 10:44] LABS: CREATININE 4.6 mg/dL (0.55-1.3)
[2022-07-27 10:46] LABS: BILIRUBIN,TOTAL 0.6 mg/dL (0.2-1); TOT PROT 6.5 g/dl (6.4-8.2)
[2022-07-27 10:53] LABS: BLOOD UREA NITROGEN 45.5 mg/dL (7-18)
[2022-07-27 11:52] LABS: ANISOCYTOSIS 2+; MACROCYTOSIS 2+; PLATELET ESTIMATE NORMAL
[2022-07-27] MEDS ORDERED: EPOETIN ALFA-EPBX 4,000 UNIT/ML VIAL SQ ONE (12:37)
[2022-07-27] MEDS: ATORVASTATIN CA 40 MG TABLET (FP) PO SCH (22:13)
[2022-07-28] MEDS: PIPERACILLIN/TAZOB 2.25 GM 2.25 GM in DEXTROSE 5%-WATER - 50 ML IVPB SCH ×3 (01:49→18:29)
[2022-07-28] MEDS: INSULIN SLIDING SCALE (NOVOLOG) 1 VIAL SQ SCH ×4 (06:28→22:54)
[2022-07-28] MEDS: HEPARIN NA (PORCINE) 5,000 UNITS/ML 1ML VIAL SQ SCH ×3 (06:28→22:41)
[2022-07-28] MEDS: LEVOTHYROXINE NA 75 MCG TABLET (FP) PO SCH (06:28)
[2022-07-28] MEDS: SEVELAMER CARBONATE 800 MG TAB (FP) PO SCH ×3 (08:57→18:29)
[2022-07-28 09:43] LABS: BASO % 2.1 % (0-2.0); EOS % 2.2 % (0-4.5); HEMATOCRIT 33.8 % (35.4-49); HEMOGLOBIN 10.5 GM/dL (11.7-16.9); LYMPH % 10.9 % (8-40); MCHC 31.1 g/dl (32.0-35.9); MEAN CELL VOLUME 99.7 fl (80-96); MEAN PLT VOLUME 10.5 fl (7.5-11.1); MONO % 14.9 % (3.8-10.2); NEUT % 69.9 % (42.8-82.8); PLATELET COUNT 191 10^3/uL (134-434); RBC 3.39 M/mm3 (4.00-5.60); RDW 23.6 % (11.9-15.9); WHITE BLOOD COUNT 7.4 K/mm3 (4.0-10.0)
[2022-07-28 10:09] LABS: CALCIUM 7.8 mg/dL (8.5-10.1)
[2022-07-28 10:10] LABS: ALBUMIN 2.4 g/dl (3.4-5.0); BLOOD UREA NITROGEN 60.5 mg/dL (7-18); MAGNESIUM 2.1 mg/dL (1.8-2.4)
[2022-07-28 10:12] LABS: CREATININE 5.5 mg/dL (0.55-1.3)
[2022-07-28 10:13] LABS: BILIRUBIN,TOTAL 0.6 mg/dL (0.2-1); TOT PROT 6.1 g/dl (6.4-8.2)
[2022-07-28] MEDS: GABAPENTIN 300 MG CAPSULE PO SCH ×2 (10:58→22:41)
[2022-07-28] MEDS: ASPIRIN 81 MG CHEWABLE TABLETS PO SCH (10:58)
[2022-07-28] MEDS: ACETAMINOPHEN 325 MG TABLET (FP) PO PRN (11:05)
[2022-07-28] MEDS ORDERED: SODIUM CHLORIDE 250 ML IV PRN (13:56)
[2022-07-28] MEDS ORDERED: SODIUM THIOSULFATE 12.5 GM/50 ML VIAL IVPB ONE (14:15)
[2022-07-28] MEDS: ATORVASTATIN CA 40 MG TABLET (FP) PO SCH (22:41)
[2022-07-29] MEDS: PIPERACILLIN/TAZOB 2.25 GM 2.25 GM in DEXTROSE 5%-WATER - 50 ML IVPB SCH ×3 (02:15→18:36)
[2022-07-29] MEDS: HEPARIN NA (PORCINE) 5,000 UNITS/ML 1ML VIAL SQ SCH ×2 (06:26→21:14)
[2022-07-29] MEDS: LEVOTHYROXINE NA 75 MCG TABLET (FP) PO SCH (06:27)
[2022-07-29] MEDS: INSULIN SLIDING SCALE (NOVOLOG) 1 VIAL SQ SCH ×4 (06:32→21:27)
[2022-07-29] MEDS: GABAPENTIN 300 MG CAPSULE PO SCH ×2 (09:44→21:14)
[2022-07-29] MEDS: ASPIRIN 81 MG CHEWABLE TABLETS PO SCH (09:44)
[2022-07-29] MEDS: SEVELAMER CARBONATE 800 MG TAB (FP) PO SCH ×3 (09:44→18:36)
[2022-07-29 12:55] LABS: BASO % 2.4 % (0-2.0); EOS % 2.1 % (0-4.5); HEMATOCRIT 32.8 % (35.4-49); HEMOGLOBIN 10.4 GM/dL (11.7-16.9); LYMPH % 12.2 % (8-40); MCH 30.9 pg (25.7-33.7); MCHC 31.7 g/dl (32.0-35.9); MEAN CELL VOLUME 97.5 fl (80-96); MEAN PLT VOLUME 10.7 fl (7.5-11.1); MONO % 12.1 % (3.8-10.2); NEUT % 71.2 % (42.8-82.8); PLATELET COUNT 189 10^3/uL (134-434); RBC 3.36 M/mm3 (4.00-5.60); RDW 22.9 % (11.9-15.9); WHITE BLOOD COUNT 6.6 K/mm3 (4.0-10.0)
[2022-07-29 13:19] LABS: ALBUMIN 2.6 g/dl (3.4-5.0); BLOOD UREA NITROGEN 60.2 mg/dL (7-18); CALCIUM 7.7 mg/dL (8.5-10.1)
[2022-07-29 13:21] LABS: CREATININE 5.2 mg/dL (0.55-1.3)
[2022-07-29 13:23] LABS: BILIRUBIN,TOTAL 0.7 mg/dL (0.2-1); TOT PROT 6.7 g/dl (6.4-8.2)
[2022-07-29] MEDS ORDERED: ONDANSETRON 4 MG/2 ML VIAL IVPUSH PRN ×2 (13:32→17:09)
[2022-07-29] MEDS ORDERED: PROMETHAZINE HCL 25 MG/1 ML VIAL IVPUSH PRN ×2 (13:32→17:09)
[2022-07-29] MEDS ORDERED: SODIUM CHLORIDE 1,000 ML IV SCH ×2 (13:45→17:09)
[2022-07-29] MEDS ORDERED: GENTAMICIN SO4 80 MG/2 ML VIAL ONE (14:26)
[2022-07-29] MEDS ORDERED: BACITRACIN 15 GM TUBE TOPICAL OINTMENT ONE (14:26)
[2022-07-29] MEDS ORDERED: MIDAZOLAM HCL 2 MG/2 ML SINGLE DOSE VIAL ONE (15:34)
[2022-07-29] MEDS ORDERED: PROPOFOL 20 ML ONE (15:34)
[2022-07-29] MEDS ORDERED: LIDOCAINE HCL 1%, 10 MG/ML (20ML VIAL) ONE (15:39)
[2022-07-29] MEDS ORDERED: SODIUM CHLORIDE 250 ML IV PRN (15:40)
[2022-07-29] MEDS ORDERED: LIDOCAINE HCL 1%, 10 MG/ML (20ML VIAL) INF ONE ×2 (15:58)
[2022-07-29] MEDS: ATORVASTATIN CA 40 MG TABLET (FP) PO SCH (21:14)
[2022-07-30] MEDS: ACETAMINOPHEN 325 MG TABLET (FP) PO PRN (01:25)
[2022-07-30] MEDS: PIPERACILLIN/TAZOB 2.25 GM 2.25 GM in DEXTROSE 5%-WATER - 50 ML IVPB SCH ×3 (01:25→17:00)
[2022-07-30] MEDS: HEPARIN NA (PORCINE) 5,000 UNITS/ML 1ML VIAL SQ SCH ×3 (06:04→22:45)
[2022-07-30] MEDS: LEVOTHYROXINE NA 75 MCG TABLET (FP) PO SCH (06:05)
[2022-07-30] MEDS: INSULIN SLIDING SCALE (NOVOLOG) 1 VIAL SQ SCH ×4 (06:21→23:06)
[2022-07-30] MEDS ORDERED: SODIUM CHLORIDE 250 ML IV PRN (07:16)
[2022-07-30] MEDS ORDERED: SODIUM THIOSULFATE 12.5 GM/50 ML VIAL IVPB ONE ×2 (08:00→09:00)
[2022-07-30] MEDS: SEVELAMER CARBONATE 800 MG TAB (FP) PO SCH ×3 (09:00→16:55)
[2022-07-30] MEDS ORDERED: ALTEPLASE (CATHFLO) 2 MG/2 ML VIAL CVP ONE (11:59)
[2022-07-30] MEDS ORDERED: ALTEPLASE (CATHFLO) 2 MG/2 ML VIAL CVP SCH (12:00)
[2022-07-30 14:44] LABS: HEMATOCRIT 29.4 % (35.4-49); HEMOGLOBIN 9.3 GM/dL (11.7-16.9); MCHC 31.5 g/dl (32.0-35.9); MEAN CELL VOLUME 98.2 fl (80-96); MEAN PLT VOLUME 10.6 fl (7.5-11.1); PLATELET COUNT 170 10^3/uL (134-434); RBC 2.99 M/mm3 (4.00-5.60); RDW 22.7 % (11.9-15.9); WHITE BLOOD COUNT 7.4 K/mm3 (4.0-10.0)
[2022-07-30 15:15] LABS: ALBUMIN 2.1 g/dl (3.4-5.0); BLOOD UREA NITROGEN 52.6 mg/dL (7-18); CALCIUM 7.4 mg/dL (8.5-10.1)
[2022-07-30 15:18] LABS: CREATININE 4.6 mg/dL (0.55-1.3)
[2022-07-30 15:20] LABS: TOT PROT 5.3 g/dl (6.4-8.2)
[2022-07-30 15:29] LABS: BILIRUBIN,TOTAL 0.4 mg/dL (0.2-1)
[2022-07-30] MEDS: GABAPENTIN 300 MG CAPSULE PO SCH ×2 (16:50→22:45)
[2022-07-30] MEDS: ASPIRIN 81 MG CHEWABLE TABLETS PO SCH (16:50)
[2022-07-30] MEDS: ATORVASTATIN CA 40 MG TABLET (FP) PO SCH (22:45)
[2022-07-31] MEDS: PIPERACILLIN/TAZOB 2.25 GM 2.25 GM in DEXTROSE 5%-WATER - 50 ML IVPB SCH ×3 (01:47→12:10)
[2022-07-31] MEDS: HEPARIN NA (PORCINE) 5,000 UNITS/ML 1ML VIAL SQ SCH ×3 (06:25→21:12)
[2022-07-31] MEDS: LEVOTHYROXINE NA 75 MCG TABLET (FP) PO SCH (06:26)
[2022-07-31] MEDS: INSULIN SLIDING SCALE (NOVOLOG) 1 VIAL SQ SCH ×4 (06:28→21:21)
[2022-07-31] MEDS: SEVELAMER CARBONATE 800 MG TAB (FP) PO SCH ×3 (08:55→17:23)
[2022-07-31] MEDS: GABAPENTIN 300 MG CAPSULE PO SCH ×2 (09:10→21:20)
[2022-07-31] MEDS: ASPIRIN 81 MG CHEWABLE TABLETS PO SCH (09:10)
[2022-07-31] MEDS: ACETAMINOPHEN 325 MG TABLET (FP) PO PRN (21:19)
[2022-07-31] MEDS: ATORVASTATIN CA 40 MG TABLET (FP) PO SCH (21:20)
[2022-08-01] MEDS: ACETAMINOPHEN 325 MG TABLET (FP) PO PRN (03:53)
[2022-08-01] MEDS: HEPARIN NA (PORCINE) 5,000 UNITS/ML 1ML VIAL SQ SCH ×3 (05:35→21:17)
[2022-08-01] MEDS: LEVOTHYROXINE NA 75 MCG TABLET (FP) PO SCH (06:06)
[2022-08-01] MEDS: INSULIN SLIDING SCALE (NOVOLOG) 1 VIAL SQ SCH ×4 (06:07→21:17)
[2022-08-01] MEDS: GABAPENTIN 300 MG CAPSULE PO SCH ×2 (09:12→21:16)
[2022-08-01] MEDS: SEVELAMER CARBONATE 800 MG TAB (FP) PO SCH ×3 (09:13→17:53)
[2022-08-01] MEDS: ASPIRIN 81 MG CHEWABLE TABLETS PO SCH (09:13)
[2022-08-01] MEDS ORDERED: VANCOMYCIN 1 GM in D5W (PRE-DOCKED) 1,000 MG/250 ML IVPB SCH (10:00)
[2022-08-01] MEDS ORDERED: VANCOMYCIN/WATER FOR INJ (PEG) 1,000 MG/200 ML BAG IVPB ONE (16:45)
[2022-08-01] MEDS: ATORVASTATIN CA 40 MG TABLET (FP) PO SCH (21:16)
[2022-08-02] MEDS: HEPARIN NA (PORCINE) 5,000 UNITS/ML 1ML VIAL SQ SCH ×3 (06:17→23:16)
[2022-08-02] MEDS: LEVOTHYROXINE NA 75 MCG TABLET (FP) PO SCH (06:17)
[2022-08-02] MEDS: INSULIN SLIDING SCALE (NOVOLOG) 1 VIAL SQ SCH ×4 (08:24→23:16)
[2022-08-02] MEDS ORDERED: VANCOMYCIN 1 GM in D5W (PRE-DOCKED) 1,000 MG/250 ML IVPB SCH (10:00)
[2022-08-02] MEDS: SEVELAMER CARBONATE 800 MG TAB (FP) PO SCH ×4 (12:01→23:15)
[2022-08-02] MEDS: GABAPENTIN 300 MG CAPSULE PO SCH ×2 (12:01→23:16)
[2022-08-02] MEDS: ASPIRIN 81 MG CHEWABLE TABLETS PO SCH (12:01)
[2022-08-02] MEDS: VANCOMYCIN 1 GM/200 ML PREMIX BAG IVPB SCH ×4 (12:03→21:00)
[2022-08-02] MEDS ORDERED: SODIUM CHLORIDE 250 ML IV PRN ×3 (12:16→19:46)
[2022-08-02] MEDS ORDERED: EPOETIN ALFA-EPBX 4,000 UNIT/ML VIAL IVPUSH ONE (19:45)
[2022-08-02] MEDS ORDERED: VANCOMYCIN 1 GM PREMIX - 1 GM/200 ML BAG IVPB ONE (20:00)
[2022-08-02 23:13] VITALS: RESP 20
[2022-08-02] MEDS: ATORVASTATIN CA 40 MG TABLET (FP) PO SCH (23:16)
[2022-08-03] MEDS: LEVOTHYROXINE NA 75 MCG TABLET (FP) PO SCH (06:02)
[2022-08-03] MEDS: HEPARIN NA (PORCINE) 5,000 UNITS/ML 1ML VIAL SQ SCH ×2 (06:02→15:55)
[2022-08-03] MEDS: INSULIN SLIDING SCALE (NOVOLOG) 1 VIAL SQ SCH ×3 (06:02→17:59)
[2022-08-03] MEDS: ASPIRIN 81 MG CHEWABLE TABLETS PO SCH (09:36)
[2022-08-03] MEDS: GABAPENTIN 300 MG CAPSULE PO SCH (09:36)
[2022-08-03] MEDS: SEVELAMER CARBONATE 800 MG TAB (FP) PO SCH ×3 (09:36→17:56)
[2022-08-03] MEDS ORDERED: oxyCODONE HCL 5 MG TABLET PO PRN (10:00)
[2022-08-03] MEDS ORDERED: EPOETIN ALFA-EPBX 4,000 UNIT/ML VIAL SQ ONE (11:13)
[2022-08-03] MEDS ORDERED: SODIUM CHLORIDE 250 ML IV PRN (11:13)
[2022-08-03 15:26] VITALS: TEMP 98
[2022-08-03 19:35] VITALS: BP 111/65; PULSE 67
== END 2022-08-03 20:26 | DRG 463 ==
LOC: JER 18:18 → JERBED 21:43 → J5S 07-24 17:47
PROVIDERS: ADMIT Internal Medicine; ATTEND Nurse Practitioner Acute Care
PROC: 0JBP0ZZ Excision of Left Lower Leg Subcutaneous Tissue and Fascia, Open Approach (ICD-10-PCS; principal; 2022-07-29 15:00)
PROC: 5A1D70Z Performance of Urinary Filtration, Intermittent, Less than 6 Hours Per Day (ICD-10-PCS; 2022-08-02)
DX: T87.44 Infection of amputation stump, left lower extremity (principal); I21.4 Non-ST elevation (NSTEMI) myocardial infarction; U07.1 COVID-19; N18.6 End stage renal disease; I13.2 Hypertensive heart and chronic kidney disease with heart failure and with stage 5 chronic kidney disease, or end stage renal disease; I96 Gangrene, not elsewhere classified; F11.20 Opioid dependence, uncomplicated; E11.52 Type 2 diabetes mellitus with diabetic peripheral angiopathy with gangrene; I50.32 Chronic diastolic (congestive) heart failure; I48.92 Unspecified atrial flutter; E11.22 Type 2 diabetes mellitus with diabetic chronic kidney disease; E11.51 Type 2 diabetes mellitus with diabetic peripheral angiopathy without gangrene; Z99.2 Dependence on renal dialysis; E03.9 Hypothyroidism, unspecified; D63.1 Anemia in chronic kidney disease; I48.0 Paroxysmal atrial fibrillation; E78.5 Hyperlipidemia, unspecified; E87.5 Hyperkalemia; N25.0 Renal osteodystrophy; E66.9 Obesity, unspecified; Z68.30 Body mass index [BMI] 30.0-30.9, adult
CPT/HCPCS: 0241U-QW; 36415; 71045-TC-FY; 80048; 80053; 82962; 83735; 84100; 85025; 85027; 85651; 86140; 87040; 87070; 87077; 87186; 87205; 88304-TC; 93005; 93010; 93970-TC; 94760; 99285-25; C9803-CS; G0480; J1644; J2997; Q5106; U0003; U0005